=== PATIENT | female | born 1945 | race Caucasian/White ===

== ENCOUNTER 2019-08-26 12:30 | Outpatient (CLI) | payer MEDICARE, SELFPAY ==
--- NOTE | ~2019-08-26 | XR_ITS ---
XR hand LT min 3V DATE: 08/26/2019 13:15 INDICATION: Painful nodules at base of fifth metacarpal TECHNIQUE: 3 views COMPARISON: None FINDINGS: There is polyarticular osteoarthritis involving particularly the first and third metacarpop halangeal joints and distal interphalangeal joints of the fourth and fifth digits, with multiple othe r interphalangeal joints involved to a lesser extent. There is mild osteophyte is at the triscaphe an d first carpometacarpal joints. There are soft tissue calcifications at the medial aspect of the proximal row of carpal bones. Diffuse osteopenia. No fracture or dislocation, periosteal reaction or bone destruction or erosive change is noted. IMPRESSION: Polyarticular osteoarthritis Reviewed, dictated and finalized at location B. T CAN ROUTER
== END 2019-08-26 12:31 | disposition home or self-care (01) ==
PROVIDERS: PCP Physician Assistant
DX: M19.041 Primary osteoarthritis, right hand (principal)
CPT/HCPCS: 73130

== ENCOUNTER 2022-10-17 14:25 | Outpatient (CLI) | payer MEDICARE, SELFPAY ==
[2022-10-17 15:47] LABS: Basophils Percent Auto 0.5 % (0.2-1.2); Eosinophils Absolute Auto 0.1 K/mm3 (0-0.3); Eosinophils Percent Auto 2.5 % (0-4.4); Hematocrit 30.9 % (37.0-47.0); Hemoglobin 9.1 g/dL (12.0-15.0); Immature Granulocyte Absolute 0.01 K/mm3 (0.00-0.031); Immature Granulocyte Percent A 0.2 % (0-0.5); Immature Platelet Fraction Pct 5.1 % (0.9-11.2); Lymphocytes Absolute Auto 1.13 K/mm3 (0.9-3.2); Lymphocytes Percent Auto 25.7 % (18.3-44.2); Mean Corpuscular HGB Conc 29.4 g/dl (32-36); Mean Corpuscular Hemoglobin 24.3 pg (26-34); Mean Corpuscular Volume 82.4 fl (80-100); Mean Platelet Volume 10.8 fl (7.4-10.4); Monocytes Absolute Auto 0.5 K/mm3 (0.1-0.6); Monocytes Percent Auto 12.3 % (2.6-8.5); Neutrophils Absolute Auto 2.6 K/mm3 (1.3-6.7); Neutrophils Percent Auto 58.8 % (45.5-73.1); Platelet Count Result 64 k/mm3 (150-375); Red Blood Count 3.75 M/mm3 (4.2-5.4); Red Cell Distribution Width 17.6 % (11.5-14.5); White Blood Count 4.4 K/mm3 (4.5-10.0)
[2022-10-17 15:55] LABS: Alanine Aminotransferase 26 U/L (6-35); Albumin Level 3.9 g/dL (3.5-5.1); Alkaline Phosphatase 101 U/L (38-126); Anion Gap 6 mmol/L (8-16); Aspartate Amino Transferase 49 U/L (14-36); Bilirubin,Total 1.3 mg/dL (0.2-1.3); Blood Urea Nitrogen 18 mg/dL (7-17); Calcium 8.4 mg/dL (8.4-10.2); Carbon Dioxide 25 mmol/L (22-30); Chloride 108 mmol/L (98-107); Cholesterol 163 mg/dL (0-200); Estimated Glomerular Filt Rate 48; Glucose 80 mg/dL (65-110); HDL Direct 90 mg/dL; Potassium 4.4 mmol/L (3.4-5.0); Sodium 139 mmol/L (137-145); Triglycerides 69 mg/dL (<150)
[2022-10-17 16:06] LABS: LDL Cholesterol Direct 52 mg/dL
[2022-10-17 16:17] LABS: Anisocytosis 1+ (NORMAL); Hypochromasia 1+ (NORMAL); Ovalocytes 1+ (NORMAL); Platelet Estimate Decreased (Adequate)
[2022-10-17 16:18] LABS: Schistocytes None Seen (NORMAL)
[2022-10-17 16:39] LABS: Thyroid Stimulating Hormone Reflex 0.858 uIU/mL (0.465-4.68)
[2022-10-20 04:28] LABS: Triiodothyronine T3 Free 3.1 pg/mL (2.3-4.2)
== END 2022-10-17 14:26 | disposition home or self-care (01) ==
PROVIDERS: PCP Physician Assistant; Visit Provider Physician Assistant
DX: E78.5 Hyperlipidemia, unspecified (principal); D69.6 Thrombocytopenia, unspecified; E53.8 Deficiency of other specified B group vitamins; Z79.899 Other long term (current) drug therapy
CPT/HCPCS: 36415; 80048; 80061; 80076; 82607; 84439; 84443; 84481; 85025; 85055

== ENCOUNTER 2022-10-19 14:27 | Outpatient (CLI) | payer MEDICARE, SELFPAY ==
--- NOTE | ~2022-10-19 | US_ITS ---
EXAMINATION: US pelvic complete DATE: 10/19/2022 15:40 INDICATION: Postmenopausal bleeding TECHNIQUE: Multiple transabdominal sonographic images of the pelvis were obtained. Patient was unable to tolerate transvaginal ultrasound. COMPARISON: None. FINDINGS: The uterus measures 4.2 x 4.0 x 2.0 cm. The endometrial complex is not identified. The ovar ies are not visualized however no adnexal abnormality is seen. There is no free fluid in the pelvis. IMPRESSION: 1. Limited examination, endometrial complex not identified due to inability to tolerate transvaginal imaging. Reviewed, dictated and finalized at location F.
== END 2022-10-19 14:28 | disposition home or self-care (01) ==
PROVIDERS: PCP Physician Assistant; Visit Provider Physician Assistant
DX: N95.0 Postmenopausal bleeding (principal)
CPT/HCPCS: 76856

== ENCOUNTER 2023-02-08 11:33 | Outpatient (CLI) | payer MEDICARE, SELFPAY ==
--- NOTE | ~2023-02-08 | XR_ITS ---
Right elbow Technique: AP, oblique, and lateral views were obtained. Clinical History: Pain Findings: No acute fracture or dislocation is seen. Osseous alignment is anatomic. There is moderate to severe degenerative change throughout the elbow. Probable small intra-articular loose bodies/debri s. Probable joint effusion with elevation of the anterior fat pad. 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 Reviewed, dictated and finalized at location M. Impression: Moderate to severe osteoarthritis throughout the elbow with associated joint ef fusion and probable small intra-articular loose bodies/debris.
== END 2023-02-08 11:34 | disposition home or self-care (01) ==
PROVIDERS: PCP Physician Assistant; Visit Provider Physician Assistant
DX: M19.021 Primary osteoarthritis, right elbow (principal)
CPT/HCPCS: 73080

== ENCOUNTER 2023-02-27 12:08 | Outpatient (CLI) | payer MEDICARE, SELFPAY ==
[2023-02-27 13:11] LABS: Basophils Percent Auto 0.5 % (0.2-1.2); Eosinophils Absolute Auto 0.1 K/mm3 (0-0.3); Hematocrit 31.4 % (37.0-47.0); Hemoglobin 9.2 g/dL (12.0-15.0); Lymphocytes Absolute Auto 1.06 K/mm3 (0.9-3.2); Lymphocytes Percent Auto 26.9 % (18.3-44.2); Mean Corpuscular HGB Conc 29.3 g/dl (32-36); Mean Corpuscular Hemoglobin 23.4 pg (26-34); Mean Corpuscular Volume 79.7 fl (80-100); Mean Platelet Volume 10.4 fl (7.4-10.4); Monocytes Absolute Auto 0.4 K/mm3 (0.1-0.6); Monocytes Percent Auto 10.7 % (2.6-8.5); Neutrophils Absolute Auto 2.4 K/mm3 (1.3-6.7); Neutrophils Percent Auto 59.9 % (45.5-73.1); Platelet Count Result 69 k/mm3 (150-375); Red Blood Count 3.94 M/mm3 (4.2-5.4); Red Cell Distribution Width 17.2 % (11.5-14.5); White Blood Count 3.9 K/mm3 (4.5-10.0)
[2023-02-27 13:20] LABS: Alanine Aminotransferase 24 U/L (6-35); Albumin Level 4.1 g/dL (3.5-5.1); Alkaline Phosphatase 112 U/L (38-126); Anion Gap 5 mmol/L (8-16); Aspartate Amino Transferase 39 U/L (14-36); Bilirubin,Total 1.1 mg/dL (0.2-1.3); Blood Urea Nitrogen 20 mg/dL (7-17); Calcium 8.5 mg/dL (8.4-10.2); Carbon Dioxide 28 mmol/L (22-30); Chloride 103 mmol/L (98-107); Cholesterol 215 mg/dL (0-200); Estimated Glomerular Filt Rate 40; Glucose 90 mg/dL (65-110); HDL Direct 89 mg/dL; Potassium 4.8 mmol/L (3.4-5.0); Sodium 136 mmol/L (137-145); Triglycerides 85 mg/dL (<150)
[2023-02-27 13:21] LABS: Iron 47 ug/dL (37-170)
[2023-02-27 13:37] LABS: Percent Iron Saturation 13 % (20-50)
[2023-02-27 13:37] LABS: Anisocytosis 2+ (NORMAL); Hypochromasia 1+ (NORMAL); Ovalocytes 1+ (NORMAL); Platelet Estimate Decreased (Adequate); Schistocytes Rare (NORMAL)
[2023-02-27 13:38] LABS: LDL Cholesterol Direct 94 mg/dL
[2023-02-27 13:45] LABS: Free T4 Free Thyroxine 0.96 ng/mL (0.78-2.19)
[2023-02-27 14:34] LABS: Folic Acid 13.3 ng/mL (2.76->20)
== END 2023-02-27 12:09 | disposition home or self-care (01) ==
LOC: ANHLAB 12:12
PROVIDERS: PCP Physician Assistant; Visit Provider Physician Assistant
DX: D64.9 Anemia, unspecified (principal); E78.5 Hyperlipidemia, unspecified; Z79.899 Other long term (current) drug therapy
CPT/HCPCS: 36415; 80048; 80061; 80076; 82607; 82746; 83540; 83550; 84439; 84443; 85025; 85055

== ENCOUNTER 2023-08-04 06:36 | Outpatient (CLI) | payer MEDICARE, SELFPAY ==
--- NOTE | ~2023-08-04 | MR_ITS ---
MRI of the lumbar spine Clinical History: Pain Technique: Axial T2-weighted images, and sagittal T1-weighted, T2-weighted, and STIR images were acqu ired. Findings: There is chronic compression deformity of T12, moderate loss of height but no marrow edema. There is 6 mm retrolisthesis of T12 over L1. There is 7 mm retrolisthesis of L2 over L3. There is po sterior and interbody fusion from L4 through L5, with bilateral rods, transpedicular screws present, as well as disc fusion devices at the L4-L5 and L5-S1 disc spaces. There are probable laminectomy def ects of L4 and L5. At T12-L1, there is moderate to advanced degenerative disc narrowing. There is advanced facet arthrop athy. Retropulsion contiguous to moderate bilateral neural foraminal narrowing. No central canal sten osis. At L1-L2, there is disc extrusion extending inferiorly in the left paracentral region, probably impin ging the descending left-sided L2-L3 nerve root. No jesus canal stenosis at the L1-L2 level. There is moderate bilateral neural foraminal narrowing. At L2-L3, there is severe degenerative disc narrowing. There is severe facet arthropathy. There is mi nimal central canal stenosis. There is severe bilateral neural foraminal narrowing. At L3-L4, there is severe degenerative disc change with severe facet arthropathy, and severe central canal stenosis/thecal sac compression. There is severe bilateral neural foraminal narrowing. At L4-L5, there is minimal disc bulge. No central canal stenosis. Neural foramina are preserved. At L5-S1, there is no disc bulge or herniation. No central canal stenosis or neural foraminal narrowi ng evident. Paravertebral soft tissues are otherwise unremarkable. Impression: Posterior and interbody fusion from L4 through S1, as detailed above. Severe degenerative spondylosis at L3-L4, as well as at L2-L3. Disc extrusion in the left paracentral region at L1-L2, extending inferiorly and probably impinging t he descending left-sided L2-L3 level nerve root. Chronic moderate T12 compression fracture. 6 mm retrolisthesis of T12 over L1. Number is 7 mm retrolisthesis of L2 over L3. Reviewed, dictated and finalized at location M. INE STEAK TENDERIZER Impression: Posterior and interbody fusion from L4 through S1, as detailed above. Severe degenerative spondylosis at L3-L4, as well as at L2-L3. Disc extrusion in the left paracentral region at L1-L2, extending inferiorly an d probably impinging the descending left-sided L2-L3 level nerve root. Chronic moderate T12 compression fracture. 6 mm retrolisthesis of T12 over L1. Number is 7 mm retrolisthesis of L2 over L3 .
--- NOTE | ~2023-08-04 | MR_ITS ---
EXAMINATION: MR MRCP wo/w con/w 3D wo ind DATE: 08/04/2023 08:25 INDICATION: Disorder of the bile duct TECHNIQUE: Magnetic resonance imaging (MRI) of the abdomen was performed without and with intravenous contrast. Sequences included coronal T2-weighted SS-FSE ARC, coronal T2-weighted FS SS-FSE, coronal T2-weighted 2D FS FIESTA, Water:Coronal LAVA-Flex, sagittal T2-weighted SS-FSE ARC, axial SSFSE ARC, axial 3D DualEcho, axial DWI B=600, axial T1-weighted LAVA, FAT:Coronal LAVA-Flex, and coronal in and opposed phase LAVA-Flex. Thick-slab T2-weighted FRFSE-XL images were obtained for magnetic resonance cholangiopancreatography (MRCP). Maximum intensity projection 3-D reconstructions of the volumetric data were created by the technologist. Postcontrast sequences included a time course of axial T1-weig hted LAVA, FAT:Coronal LAVA-Flex, coronal in and opposed phase LAVA-Flex, and Water:Coronal LAVA-Flex . COMPARISON: CT, 08/24/2017 CONTRAST: Multihance, 15 cc FINDINGS: ABDOMEN MRI: There is a moderate-sized sliding hiatal hernia. The heart size is normal. There is a 5 mm cyst of the right hepatic lobe. The spleen, pancreas, and adrenal glands are normal. The kidneys a re unremarkable. Changes of cholecystectomy are noted. There are no pathologically enlarged abdominal lymph nodes. There are no dilated loops of bowel. A chronic compression fracture of T12 is noted. No abnormal enhancement is present after contrast administration. ABDOMEN MRCP: There is chronic mild intrahepatic and extrahepatic biliary dilatation. The common bile duct measures up to 9 mm. There is chronic mild dilatation of the pancreatic duct. No biliary stones or stricture are identified. IMPRESSION: 1. Mild chronic intrahepatic and extrahepatic biliary dilatation mild enlargement of the pancreatic d uct, likely due to post cholecystectomy state. No biliary stones or stricture identified. Reviewed, dictated and finalized at location F. SKEINS EXAMINER IMPRESSION: 1. Mild chronic intrahepatic and extrahepatic biliary dilatation mild enlargeme nt of the pancreatic duct, likely due to post cholecystectomy state. No biliary stones or stricture identified.
== END 2023-08-04 06:37 | disposition home or self-care (01) ==
PROVIDERS: PCP Physician Assistant; Visit Provider Physician Assistant
DX: M48.061 Spinal stenosis, lumbar region without neurogenic claudication (principal); K83.9 Disease of biliary tract, unspecified; M51.26 Other intervertebral disc displacement, lumbar region; M47.896 Other spondylosis, lumbar region; Z98.1 Arthrodesis status
CPT/HCPCS: 72148; 74183; 76376; A9577

== ENCOUNTER 2024-04-04 12:00 | Outpatient (CLI) | payer MEDICARE, SELFPAY ==
--- NOTE | 2024-04-04 14:15 | NEURO_ITS ---
Nerve Conduction Studies: Clinical note: The patient is 78-year-old with history of paresthesias in both hands and fingers and neck pain. On a brief neurological examination no focal muscle wasting or fasciculations were noted in upper limb muscles. Results of the study are as follows. Summary of findings: 1. Left median motor distal latency was moderately prolonged and amplitude was moderate decrease however conduction velocity were normal. Right median motor distal latency and conduction velocity were normal however amplitude is moderately decreased. 2. Left and right ulnar motor distal latencies were normal however amplitudes are more decreased on the right and normal on the left side. Conduction velocity across elbow was moderately decreased on both sides right more than left side. 3. Right median palmar sensory initial is a normal however digital sensory distal latency is mildly prolonged. Amplitudes were within normal limits. Left median palmar and digital sensory distal latencies are moderately prolonged and amplitude of moderately decreased. Left and right ulnar palmar sensory distal latencies were normal however amplitudes were moderately decreased. Bilateral ulnar digital sensory distal latencies were mildly prolonged but amplitudes were significantly decreased. 4. Left and right radial sensory distal latencies were within normal limits however amplitude was mildly decreased on the right and normal on the left side 5. EMG examination was performed where muscles in both upper limbs in C5-T1 distribution examined. No active or chronic denervation changes were seen however mild loss of recruitment was noted in ulnar innervated muscles particularly 1st dorsal interossei on both sides and a flexor digitorum profundus on the right side. Mild decrease to could neuro also noted in the left abductor pollicis brevis. Impression: 1. Moderate left carpal tunnel syndrome . No denervation changes but mild decreased recruitment was noted in the left abductor pollicis brevis. 2. 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 No denervation changes but mild decreased recruitment was noted in ulnar innervated muscles in hand and forearm as shown below. 3. Right radial sensory amplitude was mildly decreased. Also right median digital sensory distal latencies are mildly prolonged. These are considered equivocal abnormalities.. Hence clinical correlation and a future follow-up may be helpful. Thuy Heredia MD. FAAN, FAANEM Neurology & Electrodiagnostic Medicine Motor Nerve Results Latency Amplitude F-Lat Segment Distance CV Comment Site (ms) (mV) (ms) (cm) (m/s) Left Median (APB) Motor Wrist 6.3 3.2 Elbow 10.5 3.1 Elbow-Wrist 205 49 Right Median (APB) Motor Wrist 4.0 3.8 Elbow 7.2 4.2 Elbow-Wrist 205 64 Left Ulnar (ADM) Motor Wrist 2.8 6.9 Bel Elbow 6.5 6.1 Bel Elbow-Wrist 175 47 Abv Elbow 8.7 5.3 Abv Elbow-Bel Elbow 80 36 Right Ulnar (ADM) Motor Wrist 3.3 4.9 Bel Elbow 7.2 3.9 Bel Elbow-Wrist 175 45 Abv Elbow 9.7 3.8 Abv Elbow-Bel Elbow 70 28 Sensory Nerve Results Latency (Peak) Amplitude (P-P) Segment Distance CV Comment Site (ms) (?V) (cm) (m/s) Left Median DigIII Sensory Wrist-Dig III 5.1 32 Right Median DigIII Sensory Wrist-Dig III 3.8 17 Left Median-Ulnar Palmar Sensory Median Palm-Wrist 3.2 29 Palm-Wrist 80 25 Ulnar Palm-Wrist 2.2 9 Palm-Wrist 80 36 Right Median-Ulnar Palmar Sensory Median Palm-Wrist 2.0 30 Palm-Wrist 80 40 Ulnar Palm-Wris
== END 2024-04-04 12:01 | disposition home or self-care (01) ==
PROVIDERS: PCP Physician Assistant; Visit Provider Neurological Surgery
DX: G56.23 Lesion of ulnar nerve, bilateral upper limbs (principal); G56.02 Carpal tunnel syndrome, left upper limb
CPT/HCPCS: 95886; 95912

== ENCOUNTER 2024-05-02 12:18 | Outpatient (CLI) | payer MEDICARE, SELFPAY ==
--- NOTE | 2024-05-02 15:00 | NEURO_ITS ---
Clinical note: Patient is [age] years old with history of chronic lower back pain and paresthesias and weakness in both lower limbs. She had a surgery in the lumbar spine in the past. No history of diabetes mellitus. On a brief neurological examination no significant focal weakness or fasciculations of the muscles were identified. Please refer to a detailed neurodiagnostic evaluation of lower limbs. Summary of findings: 1. Left and right peroneal motor distal latencies were mildly prolonged however amplitudes are significantly decreased right more than left side. Conduction velocity from fibular head to ankle were mildly decreased on the left and normal on the right side but no focal slowing was seen across the fibular head. 2. Left tibial motor response was absent for the right tibial motor distal latency was normal however amplitudes are significantly decreased. Conduction velocity mildly decreased. 3. Bilateral sural sensory distal latencies were within normal limits however amplitudes were significantly decreased. Right medial plantar sensory was absent. 4. Bilateral H reflexes were absent. 5. EMG exam help performed whereby various muscles were examined in L3-S1 distribution. Paraspinal muscles were not examined since the patient had surgery in this area. No denervation changes but moderate to severe loss of motor unit unit recruitment and changes in unit configuration were noted in bilateral L5-S1 and left L4 distribution as shown below. Impression: 1. 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 Patient had a surgery in the lumbar spine in the past, hence paraspinal muscles are not examined. Radiographic correlation may be helpful. 2. 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 Clinical and etiology correlation are recommended. Thuy Mock MD, FAAN, FAANEM Neurology/ electrodiagnostic Medicine Nerve Conduction Studies Motor Nerve Results Latency Amplitude F-Lat Segment Distance CV Comment Site (ms) (mV) (ms) (cm) (m/s) Left Fibular (EDB) Motor Ankle 5.5 0.86 Bel Fib Head 13.4 0.66 Bel Fib Head-Ankle 270 34 Pop Fossa 14.8 0.71 Pop Fossa-Bel Fib Head 70 50 Right Fibular (EDB) Motor Ankle 5.9 0.25 Bel Fib Head 11.9 0.25 Bel Fib Head-Ankle 250 42 Pop Fossa 13.9 0.27 Pop Fossa-Bel Fib Head 95 48 Left Tibial (AHB) Motor Ankle NR NR Knee NR NR Knee-Ankle 400 NR Right Tibial (AHB) Motor Ankle 4.2 1.02 Knee 14.8 0.61 Knee-Ankle 370 35 Sensory Nerve Results Latency (Peak) Amplitude (P-P) Segment Distance CV Comment Site (ms) (?V) (cm) (m/s) Right Medial Plantar (Ortho) Sensory Great Toe-Med Mall NR NR Great Toe-Med Mall 120 NR Left Sural Sensory Calf-Lat Mall 3.7 2 Calf-Lat Mall 120 32 Right Sural Sensory Calf-Lat Mall 3.8 4 Calf-Lat Mall 120 32 H-Reflex Results M-Lat H Lat H Peak-Peak Amp M Peak-Peak Amp H-M Lat Site (ms) (ms) mV mV (ms) Left Tibial H-Reflex Pop Fossa - NR - - NR Right Tibial H-Reflex Pop Fossa - NR - - NR Electromyography Side Muscle Nerve Ins Act Fibs Psw Amp Dur Recrt Comment Right BicepsFemS Sciatic Nml Nml Nml Incr >12ms +3 Right Semimembranosus Sciatic Nml Nml Nml Nml Nml +1 Right AntTibialis Dp Br Fibular Nml Nml Nml Nml Nml Nml Right Gastroc Tibial Nml Nml Nml Incr >12ms +4 Right VastusMed Femoral Nml Nml Nml Nml Nml Nml Right RectFemoris Femoral Nml Nml Nml Nml Nml Nml Right GluteusMax InfGluteal Nml N
== END 2024-05-02 12:19 | disposition home or self-care (01) ==
LOC: ANHNEURO 12:20
PROVIDERS: PCP Physician Assistant; Visit Provider Neurological Surgery
DX: G62.9 Polyneuropathy, unspecified (principal)
CPT/HCPCS: 95886; 95910

== ENCOUNTER 2024-08-13 09:38 | Inpatient (IN) | payer MEDICARE, SELFPAY ==
[2024-08-13] VITALS (28 sets, daily range): BP systolic 129–164; BP diastolic 75–83; PULSE 48–76; RESP 10–19; TEMP 36.5–36.7; O2SAT 64–100; BMI 24.0
--- NOTE | 2024-08-13 | ECHO_ITS ---
Patient Info Name: Renetta Carranza Age: 79 years : 1945 Gender: Female Ht: 62 in Wt: 131 lbs BSA: 1.62 m2 HR: 55 bpm BP: 167 / 78 mmHg Heart Rhythm: Sinus Rhythm Technical Quality: Fair Exam Date: 08/13/2024 3:44 PM Exam Location: Echo Lab Patient Status: Inpatient Admit Date: 08/13/2024 Staff Ordering Physician: Trista Gale APRN Community Fundraiser: Miguel Zimmerman RDCS Attending Provider: David Sims MD Referring Physician: Baljinder HERNANDEZ; Exam Type: CA echo dop bubble study w con Study Info Indications - STROKE Complete two-dimentional, color flow and Doppler transthoracic echocardiogram is performed with agitated saline and with contrast to opacify the left ventricle and to improve the delineation of the left ventricle endocardial borders. Contrast/Agitated Saline Contrast/Ag. Saline: Agitated Saline Amount: 20.00 ml Existing IV Access: Yes Contrast/Ag. Saline: Definity Amount: 2.00 ml Existing IV Access: Yes Summary 1. Normal left ventricular size, abnormal septal motion because of bundle branch block with normal systolic function. 2. Left atrial enlargement. 3. Sclerotic aortic valve with mild aortic regurgitation. 4. Saline contrast injection negative for intracardiac shunt. Left Ventricle Left ventricular chamber dimension is normal. Left ventricular systolic function is normal, estimated at Empty. Left ventricular septal wall motion is abnormal with septal motion related to bundle branch block. The left ventricular diastolic function is grade I diastolic dysfunction. Right Ventricle Right ventricular chamber dimension is normal. Left Atria Left atrial chamber dimension is mildly enlarged. Right Atria Right atrial chamber dimension is normal. Atrial Septum Intact interatrial septum visualized by agitated saline imaging. Aortic Valve The aortic valve is trileaflet. There is mild aortic valve sclerosis. There is mild aortic valve regurgitation. Pulmonic Valve The pulmonic valve is normal. Mitral Valve The mitral valve has normal leaflets. Tricuspid Valve The tricuspid valve leaflets are normal. Pericardium/Pleural The pericardium appears normal. Aorta The aortic root size at the sinus of Valsalva is normal. Left Ventricular Outflow Tract Name Value Normal LVOT 2D LVOT Diameter 2.0 cm LVOT Doppler LVOT Peak Velocity 117 cm/s LVOT Peak Gradient 6 mmHg LVOT Mean Gradient 3 mmHg LVOT VTI 25 cm LVOT VTI/AV VTI Ratio 0.4 LVOT Stroke Volume 80 ml LVOT CO 5.0 l/min LVOT CI 3.1 l/min/m2 Pulmonic Valve Name Value Normal RVOT Doppler RVOT Peak Gradient 2 mmHg PV Doppler PV Peak Velocity 81 cm/s PV Peak Gradient 3 mmHg Mitral Valve Name Value Normal MV Doppler MV Peak Gradient 7 mmHg MV Mean Gradient 3 mmHg MV Decel [place] 341 cm/s2 MV PHT 53 ms MV Area (PHT) 4.1 cm2 4.0-5.0 MV Area (Cont Eq VTI) 2.7 cm2 MV Diastolic Function MV E Peak Velocity 63 cm/s MV A Peak Velocity 117 cm/s MV E/A 0.5 MV Decel Time 184 ms MV Annular TDI MV Septal e' Velocity 3.7 cm/s >=8.0 MV E/e' (Septal) 16.7 <=8.0 MV Lateral e' Velocity 6.2 cm/s >=10.0 MV E/e' (Lateral) 10.1 <=8.0 MV e' Average 4.98 MV E/e' (Average) 13.4 Tricuspid Valve Name Value Normal Estimated PAP/RSVP RA Pressure 10 mmHg <=5 TV Annular TDI TV Lateral Judy s' Velocity 7.9 cm/s 9.5-18.7 Aorta Name Value Normal Ascending Aorta Ao Root Diameter (MM) 3.0 cm Ao Root Diam Index (MM) 1.9 cm/m2 Ao [place] Diameter 1.7 cm 2.3-2.9 Aortic Valve Name Value Normal AV Doppler AV Peak Velocity 319 cm/s AV Peak Gradient 41 mmHg AV Mean Gradient 22 mmHg AV VTI 67 cm AV Area (Cont Eq VTI) 1.2 cm2 >=3.0 AV Area (Cont Eq Carlos) 1.2 cm2 AV V1/V2 Ratio 0.37 AV Regurgitation 2D LVOT Area 3.1 cm2 AV Regurgitation Doppler AR Decel Time 1,169 ms AR Decel [place] 436 cm/s2 AR PHT 339 ms Ventricles Name Value Normal LV Dimensions 2D/MM IVS Diastolic Thickness (2D) 1.4 cm 0.6-1.0 LVID Diastole (2D) 4.4 cm 3.8-5.2 LVIW Diastolic Thickness (2D) 0.8 cm 0.6-0.9 LVID Systole (2D) 2.5 cm 2.2-3.5 LVOT Diameter 2.0 cm LV Mass (2D Cubed) 163.49 g 67.00-162.00 LV Mass Index (2D Cubed) 101 g/m2 43-95 Relative Wall Thickness (2D) 0.37 LV Fractional Shortening/Ejection Fraction 2D/MM LV Fractional Shortening (2D) 41 % 27-45 LV EF (2D Teicholz) 72 % 54-74 LV Diastolic Volume (4C MOD) 71 ml LV EF (4C MOD) 69 % LV Diastolic Volume (2C MOD) 77 ml LV EF (2C MOD) 66 % LV Diastolic Volume (BP MOD) 75 ml 46-106 LV Diastolic Volume Index (BP MOD) 46 ml/m2 29-61 LV Systolic Volume (BP MOD) 25 ml 14-42 LV Systolic Volume Index (BP MOD) 15 ml/m2 8-24 LV EF (BP MOD) 67 % 54-74 LV Diastolic Length (4C) 7.0 cm LV Systolic Length (4C) 6.0 cm LV Stroke Volume (4C MOD) 49 ml Atria Name Value Normal LA Dimensions LA Dimension (MM) 4.9 cm 2.7-3.8 LA Volume (4C A-L) 47 ml LA Volume (BP A-L) 51 ml RA Dimensions RA Area (4C) 13.5 cm2 <=18.0 Report Signatures
--- NOTE | ~2024-08-13 | CT_ITS ---
EXAMINATION: CT brain wo con DATE: 08/13/2024 11:35 INDICATION: Altered mental status TECHNIQUE: Computed tomography (CT) of the head was performed without intravenous contrast. Sagittal and coronal reconstructions were performed. The mA was adjusted according to patient size. Iterative reconstruction technique was employed. The dose-length product was 605.33 mGy-cm. COMPARISON: head CT dated 09/06/2017 FINDINGS: There are new regions of likely cytotoxic edema with loss of blackmon-white matter differentiation at the bilateral occipital lobes without definitive volume loss, right greater than left, which are suspici ous for age indeterminate, potentially acute to subacute infarcts. Additional age-indeterminate lacun ar infarcts in the bilateral cerebral hemispheres, 3 on the right and 2 on the left. No acute intracr anial hemorrhage or abnormal extra axial fluid collection. Unchanged old lacunar infarct of the left basal ganglia including the anterior limb of the internal capsule. Interval progression of moderate t o severe scattered white matter hypoattenuation consistent with chronic small vessel ischemic disease . Symmetric prominence of the sulci and ventricles consistent with mild moderate age-appropriate diff use cerebral volume loss. No mass/mass effect. Changes of bilateral intraocular lens replacement. The orbits, paranasal sinuses and mastoid air cells are normal. . IMPRESSION: 1. Age-indeterminate potentially acute to subacute infarcts in the posterior basilar circulation invo lving the bilateral occipital lobes and bilateral cerebellar hemispheres which are new since the prio r study. 2. Interval progression of age-related changes including mild to moderate diffuse volume loss and mod erate to severe scattered white matter hypoattenuation consistent with chronic small vessel ischemic disease. 3. Unchanged small old lacunar infarct at the left basal ganglia which includes the anterior limb of the left internal capsule. Reviewed, dictated and finalized at location A. OPTICAL ELEMENT MAKER IMPRESSION: 1. Age-indeterminate potentially acute to subacute infarcts in the posterior ba silar circulation involving the bilateral occipital lobes and bilateral cerebel lar hemispheres which are new since the prior study. 2. Interval progression of age-related changes including mild to moderate diffu se volume loss and moderate to severe scattered white matter hypoattenuation co nsistent with chronic small vessel ischemic disease. 3. Unchanged small old lacunar infarct at the left basal ganglia which includes the anterior limb of the left internal capsule.
--- NOTE | ~2024-08-13 | CT_ITS ---
EXAMINATION: CTA brain carotid DATE: 08/13/2024 12:44 INDICATION: Cerebrovascular accident. Altered mental status. TECHNIQUE: Computed tomographic angiography (CTA) of the head was performed with 100 mL Omnipaque-350 intravenous contrast. CTA of the neck was performed with intravenous contrast. Automated exposure co ntrol and iterative reconstruction technique were employed. The dose-length product was 944.37 mGy-cm . Maximum intensity projection and volume rendered 3D-reconstructions were created by the [employer] t on a separate workstation. COMPARISON: Head CT 08/13/2024, 09/06/2017, CT cervical spine 09/06/2017 FINDINGS: HEAD CTA: There are infarcts in the cerebellum bilaterally. There are infarcts in the occipital lobes bilaterally. There is an old infarct in the left basal ganglia and anterior limb left internal capsu le. There are scattered areas of low attenuation in the cerebral white matter. There is no intracrani al hemorrhage or abnormal mass lesion. The ventricles are normal in size. There are likely changes of ocular lens replacement surgeries. The paranasal sinuses are clear. The mastoid air cells are normal . Right vertebral artery is dominant. There is no significant stenosis of basilar artery or the poste rior cerebral arteries. There is moderate stenosis of petrous left internal carotid artery. There is a 2 mm infundibulum at the origin of left posterior commuting artery. Right posterior communicating a rtery is normal. There is no significant stenosis of the anterior or middle cerebral arteries. Left A 1 anterior cerebral artery segment is small, a normal variant. There is no aneurysm. NECK CTA: There are no pathologically enlarged lymph nodes. There is no significant stenosis of the v ertebral arteries. There is plaque in the proximal internal carotid arteries. There is 0% stenosis of the proximal right internal carotid artery relative to normal distal artery lumen diameter (NASCET c riteria). There is 0% stenosis of the proximal left internal carotid artery relative to normal distal artery lumen diameter. There is severe cervical and thoracic spondylosis. There is a chronic fractur e of the base of the dens. The dens demonstrates 4 mm anterior displacement respect to the C2 body. IMPRESSION: 1. Infarcts in the bilateral occipital lobes, likely acute or subacute. 2. Age-indeterminate infarcts in the cerebellum bilaterally. 3. Old infarct in the left basal ganglia and anterior limb left internal capsule. 4. Extensive nonspecific cerebral white matter disease, which likely represents chronic small vessel ischemic disease. 5. 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 6. 0% stenosis of the proximal internal carotid arteries relative to normal distal artery lumen diame ters (NASCET criteria). 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 Reviewed, dictated and finalized at location B. LE MAKER IMPRESSION: 1. Infarcts in the bilateral occipital lobes, likely acute or subacute. 2. Age-indeterminate infarcts in the cerebellum bilaterally. 3. Old infarct in the left basal ganglia and anterior limb left internal capsul e. 4. Extensive nonspecific cerebral white matter disease, which likely represents chronic small vessel ischemic disease. 5. 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 6. 0% stenosis of the proximal internal carotid arteries relative to normal dis faustino artery lumen diameters (NASCET criteria). 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
--- NOTE | ~2024-08-13 | CT_ITS ---
History: Stroke, infection abscess PROCEDURE: CT head without contrast. COMPARISON: 08/13/2024 TECHNIQUE: Axial imaging of the head performed from the skull base to the vertex without IV contrast. Sagittal a nd coronal reformations obtained. DLP: 681 mGy-cm FINDINGS: The ventricles are enlarged. The dilatation of the ventricles is proportional to the degree of sulcal prominence, not uncommon in the senescent brain. Decreased attenuation is identified within the periventricular white matter, likely secondary to micr ovascular ischemic disease, in a patient of this age. Redemonstration of multiple areas of decreased attenuation within the bilateral occipital lobes, bila teral cerebellar hemispheres and left basal ganglia, consistent with prior/subacute cerebral infarcti on. There is no mass, mass effect or midline shift. There is no abnormal extra-axial fluid collection or intracranial hemorrhage. Visualized paranasal sinuses are clear. The mastoid air cells are well aerated. No acute displaced fractures within the overlying cranium. Impression: No acute intracranial hemorrhage or suspicious mass effect. Further evolution of subacute cerebral infarctions, as detailed above. Reviewed, dictated and finalized at location A. CHUTE CROWN SEWER Impression: No acute intracranial hemorrhage or suspicious mass effect. Further evolution of subacute cerebral infarctions, as detailed above.
--- NOTE | ~2024-08-13 | XR_ITS ---
CHEST RADIOGRAPH CLINICAL HISTORY: INCREASED SWEATING . COMPARISON: 08/13/2024 TECHNIQUE: Single portable view of the chest. FINDINGS Hiatal hernia with an air-fluid level. The remainder of the cardiomediastinal silhouette is otherwise unremarkable. The lungs are clear. Visualized osseous structures and soft tissues are unremarkable. IMPRESSION: No focal infiltrate or effusion. No plain radiographic evidence to suggest the presence of a Pancoast tumor as is suggested in this pa tient's history. Reviewed, dictated and finalized at location A. MILL OPERATOR IMPRESSION: No focal infiltrate or effusion. No plain radiographic evidence to suggest the presence of a Pancoast tumor as i s suggested in this patient's history.
--- NOTE | ~2024-08-13 | CT_ITS ---
CLINICAL INDICATION: 79-year-old woman with a history of myelodysplastic syndrome presents with worse grey thrombocytopenia for which sepsis is suspected clinically. Cross-sectional imaging is to evaluat e for a possible source. COMPARISON: Reference is made to an abdominal ultrasound examination performed 6 hours earlier. TECHNIQUE: Multiple contiguous axial images of the chest, abdomen and pelvis were performed without t he administration of intravenous contrast The dose-length product (DLP) was 605.32 mGy-cm. Automated exposure control and iterative reconstruction technique were employed. FINDINGS/OBSERVATIONS: Chest: Coarse interstitial lung markings are redemonstrated. Dependent atelectasis with trace left-sided pleural effusion. The heart is enlarged, with a small pericardial effusion. Moderate hiatal hernia is present. Postoperative change within the upper abdomen, possibly a gastric sleeve with the staple lines extend ing into the chest (with the hiatal hernia). Liver: The liver demonstrates homogeneous attenuation and is not enlarged measuring 16 cm in longitudinal di mension. Gallbladder and biliary system: The gallbladder is surgically absent. Pancreas: Limited evaluation of the pancreas secondary to the lack of intravenous contrast. Spleen: The spleen demonstrates homogeneous attenuation and is not enlarged measuring 7 cm in longitudinal di mension. Kidneys: The bilateral kidneys are unremarkable, without hydronephrosis or renal calculi. Adrenal glands: Unremarkable. Gastrointestinal tract: Multiple loops of dilated small bowel are identified within the deep pelvis, with air-fluid levels. I nfiltration of the mesenteric fat in this location is also noted, with surrounding inflammatory fitch e. The small bowel loops appear to be tethered within the pelvis. Air, however, is seen within the colon, suggesting only a partial obstruction. Appendix: The appendix is not definitively visualized. However, no pericecal inflammatory change is identified suggest the presence of acute appendicitis. Vasculature: Calcified atherosclerotic disease. The inferior vena cava is slit like, suggesting severe hypovolemia Lymph nodes: Limited evaluation without intravenous contrast. Pelvic structures: The bladder is decompressed with a Hassan catheter The uterus is atrophic, anteverted and anteflexed, and contains multiple calcifications suggesting pr ior fibroid disease. Body wall and musculoskeletal: Fixation hardware within the lower lumbar spine. Significant degenerative disease is also noted, with osteophyte formation and disc space narrowing, endplate changes and vacuum phenomena. IMPRESSION: Findings within the deep pelvis suggesting a partial small bowel obstruction (as detailed above). Additional findings suggesting severe hypovolemia given the appearance of the IVC. Innumerable nonacute findings, as detailed above. Reviewed, dictated and finalized at location A. ATED BALL MOLDER IMPRESSION: Findings within the deep pelvis suggesting a partial small bowel obstruction (a s detailed above). Additional findings suggesting severe hypovolemia given the appearance of the I VC. Innumerable nonacute findings, as detailed above.
--- NOTE | ~2024-08-13 | XR_ITS ---
EXAMINATION: XR chest 1V portable DATE: 08/13/2024 13:51 INDICATION: Confusion. TECHNIQUE: A single frontal view of the chest was obtained. COMPARISON: Chest 2 views 08/24/2017 FINDINGS: There is no pneumonia, pleural effusion, or pneumothorax. The heart size is normal. There i s a total right shoulder arthroplasty. IMPRESSION: 1. No acute cardiopulmonary disease. Reviewed, dictated and finalized at location B. [employer]
--- NOTE | ~2024-08-13 | US_ITS ---
EXAM: ABDOMEN ULTRASOUND HISTORY: Pancytopenia, rule out and splenomegaly COMPARISON: None FINDINGS: LIVER: The liver is increased in echogenicity and unremarkable in size. The portal vein is patent demonstrating hepatopedal flow. GALLBLADDER: Surgically absent BILE DUCTS: Common bile duct measures 9.6mm. PANCREAS: Limited evaluation of the pancreas secondary to overlying bowel gas SPLEEN: The spleen is unremarkable in echogenicity and size measuring 11cm in longitudinal dimension. RIGHT KIDNEY: 9 cm. In length. No hydronephrosis or bulky renal calculi. LEFT KIDNEY: 10cm in length. No hydronephrosis or renal calculi. VASCULATURE : The abdominal aorta is nonaneurysmal. The IVC is patent. IMPRESSION: No splenomegaly, as detailed above. Reviewed, dictated and finalized at location A. ING STITCH REMOVER
--- NOTE | 2024-08-13 09:56 | ECG_ITS ---
Test Date: 2024-08-13 10:09:33 Measurements Intervals [place] Rate: 62 P: 45 NV: 182 QRS: -21 QRSD: 128 T: 59 QT: 447 QTc: 457 Interpretive Statements SINUS RHYTHM LEFT BUNDLE BRANCH BLOCK [120+ ms QRS DURATION, 80+ ms Q/S IN V1/V2, 85+ ms R IN I/aVL/V5/V6] No previous ECG available for comparison Electronically Signed On 08-13-2024 10:52:34 RN MEDICAL SURGICAL by Etienne Waters M.D.
[2024-08-13 10:15] LABS: Hematocrit 34.2 % (37.0-47.0); Hemoglobin 10.9 g/dL (12.0-15.0); Immature Platelet Fraction Pct 4.1 % (0.9-11.2); Mean Corpuscular HGB Conc 31.9 g/dl (32-36); Mean Corpuscular Hemoglobin 29.7 pg (26-34); Mean Corpuscular Volume 93.2 fl (80-100); Mean Platelet Volume 11.6 fl (7.4-10.4); Platelet Count Result 39 k/mm3 (150-375); Red Blood Count 3.67 M/mm3 (4.2-5.4); Red Cell Distribution Width 13.8 % (11.5-14.5); White Blood Count 3.4 K/mm3 (4.5-10.0)
[2024-08-13 10:24] LABS: Alanine Aminotransferase 19 U/L (6-35); Albumin Level 3.7 g/dL (3.5-5.1); Alkaline Phosphatase 97 U/L (38-126); Anion Gap 3 mmol/L (4-12); Aspartate Amino Transferase 42 U/L (14-36); Bilirubin,Total 1.3 mg/dL (0.2-1.3); Blood Urea Nitrogen 16 mg/dL (7-17); Calcium 8.4 mg/dL (8.4-10.2); Carbon Dioxide 30 mmol/L (22-30); Chloride 108 mmol/L (98-107); Estimated CRCL calculation 34 ml/min; Estimated Glomerular Filt Rate 58; Glucose 87 mg/dL (65-110); Potassium 3.8 mmol/L (3.4-5.0); Sodium 141 mmol/L (137-145)
[2024-08-13 10:26] LABS: Add Urine Microscopic? YES; Appearance Urine Clear (Clear); Bacteria Urine None Seen /hpf; Bilirubin Urine Negative (Negative); Blood Urine Negative (Negative); Color Urine Dark Yellow (Yellow); Glucose Urine UA Negative (Negative); INR 1.2; Ketones Urine 1+ mg/dL (Negative); Leukocyte Esterase Ur Trace LEU/UL (Negative); Mucus Urine Present /lpf; Need Manual Microscopic Reviewed; Nitrate Urine Negative (Negative); Non Pathogenic Casts 0-2; Partial Thromboplastin Time 24.9 Seconds (22.3-36.8); Protein Urine Trace mg/dL (Negative); Prothrombin Time 15.1 Seconds (11.1-14.7); RBC Urine 0-2 /hpf (0-2); Squamous Epithelial Cell Urine Occasional /hpf (Few); WBC Urine 0-5 /hpf (0-3)
--- NOTE | 2024-08-13 10:33 | PC.NURSE ---
Pt daughter at bedside, crying stating I feel like a failure, because she is getting too much for me to take care of . Care coordination notified
[2024-08-13 10:44] LABS: Eosinophils Percent Manual 3 % (0-4); Lymphocytes Absolute Manual 0.44 K/mm3 (1.1-4.5); Monocytes Percent Manual 3 % (3-9); Neutrophils Percent Manual 81 % (46-73); Total Cells Counted 100
[2024-08-13 10:45] LABS: Platelet Estimate Decreased (Adequate); Schistocytes None Seen
--- NOTE | 2024-08-13 11:33 | ED_ITS ---
HPI - General Adult General Chief complaint: Altered Mental Status Stated complaint: AMS Time Seen by Provider: 08/13/24 10:28 History of Present Illness HPI narrative: 79-year-old female presents emergency department for evaluation for worsening dementia. Patient does not have an official diagnosis of dementia but family has noticed that over the last few months patient has had worsening mental status. They do have cameras set up an her home but they states that due to frequent falls and worsening deconditioning patient had been moved to their own home. This has been ongoing for the past 2 weeks. Family states that the patient has been continue have worsening mental status and does have frequent falls and they feel they are unable to properly care for her in this situation. They are looking for assisted living at this time. Patient denies any pain or complaints at this time. Patient is resting comfortably in the bed. Patient states that she has no chest pain. Patient does report some intermittent pain with urination. Related Data Home Medications ?Medication ?Instructions ?Recorded ?Confirmed ?Last Taken ?Type meloxicam 15 mg tablet 15 mg PO DAILY 05/31/21 08/13/24 08/12/24 History metoprolol succinate 25 mg 25 mg PO DAILY 05/31/21 08/13/24 08/12/24 History tablet,extended release 24 hr omeprazole 20 mg capsule,delayed 20 mg PO DAILY 05/31/21 08/13/24 08/12/24 History release pravastatin 10 mg tablet 10 mg PO DAILY 05/31/21 08/13/24 08/12/24 History venlafaxine 75 mg tablet 75 mg PO DAILY 05/31/21 08/13/24 08/12/24 History vitamins A,C,R-bxyy-oeqtop 4,296 1 cap PO BID 12/12/23 08/13/24 08/12/24 History mcg-226 mg-90 mg capsule (PreserVision AREDS) Allergies Allergy/AdvReac Type Severity Reaction Status Date / Time No Known Allergies Allergy Verified 08/13/24 09:53 Review of Systems 2 Review of Systems: All systems reviewed & are unremarkable except as noted in HPI and below PMFSH Past Medical History Medical History (Updated 08/13/24 @ 13:41 by Trista Gale, [employer]) Pancytopenia Neuropathy Lumbar disc herniation Lumbar stenosis Lumbar spondylosis At maximum risk for fall C2 cervical fracture Foot fracture, left Shoulder fracture, right Osteoporosis Anxiety and depression Anemia Bleeding disorder Bruises easily Surgical History Surgical History History of removal of cyst (~1980) from neck History of breast biopsy (R) breast History of 1964 & 1965 History of hernia repair History of back surgery (~2009) History of knee replacement procedure of right knee (~2007) History of knee replacement procedure of left knee (~2008) History of gastric bypass (~2006) History of rotator cuff surgery (~2001) x2 History of cholecystectomy (~1997) History of foot surgery 1992 (R) foot 2014 (L) foot History of ovarian cystectomy (~1971) Family History Family History Mother Lung cancer Father H/O total hip arthroplasty Grandparent Diabetes mellitus paternal grandmother Lung cancer maternal grandmother Social History Social History Smoking status: Former smoker Tobacco type: cigarettes Alcohol intake: never Alcohol use details: socially Substance use: current Substance use type: marijuana Other substance usage details: gummies Do You Feel Safe in your Home?: Yes Lack of Transportation: No Lack of Food: Never True Current Housing: I Have Housing Concerned About Future Housing: No Difficulty Paying Gas/Electric Bills: No Difficulty Paying for Meds: No Currently Unemployed: No Education: High School Diploma/GED Difficulty w/ Childcare or Family Care: YES Living arrangements: alone Occupation/Education: retired Gender identity (if verbalized by the patient): Female Sexual Orientation (if Verbalized by the Patient): Straight or Heterosexual 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 (Tenriism) Exam 2 Narrative: APPEARANCE: Well appearing, no pain, no distress, well-nourished. HEAD: normocephalic, atraumatic. EYES: PERRLA/EOMI, conjunctivae clear. NOSE: Normal no drainage EARS:TMS clear with good light reflex. THROAT: Pharynx clear, no exudate. NECK: Supple. No adenopathy, no masses. RESPIRATORY: Airway patent, respirations nonlabored. Clear to auscultation bilaterally, no rales, rhonchi, wheezing. CARDIOVASCULAR: Regular rate and rhythm without murmurs rubs or gallops. ABDOMINAL: Soft, nontender, nondistended, normal bowel sounds MUSCULOSKELETAL: Moves all extremities. Strength/ROM intact, No edema, No calf tenderness. NEURO: Alert. Cranial nerves II through XII intact. Good gait. Good coordination SKIN: Warm, dry. Normal Color Course Vital Signs Vital signs: Vital Signs Pulse Rate 61 08/13/24 09:46 Respiratory Rate 10 L 08/13/24 09:46 Pulse Oximetry 98 08/13/24 09:46 Temperature 98.0 F 08/13/24 15:30 Pulse Rate 75 08/13/24 15:30 Respiratory Rate 18 08/13/24 15:30 Blood Pressure 134/80 08/13/24 15:30 Pulse Oximetry 97 08/13/24 15:30 Oxygen Delivery Room Air 08/13/24 09:56 Medical Decision Making MDM Narrative Medical decision making narrative: 79-year-old female presented to the emergency department for evaluation for increased altered mental status and gait instability that worsened over the last 48 hours. Family reports the patient did have a CT scan a few days ago that was negative. CTA today does show acute versus subacute infarct. Patient is afebrile with no leukocytosis and hemoglobin of 10.9. INR is 1.2. No acute abnormalities on the CMP UA was negative for infection. I discussed the case with Neurology and they will consult on the patient. I discussed case with hospitalist patient was accepted for admission to [facility]. Care coordination was already placed for potential fdc placement. PT OT will be placed due to the new finding of CVA. Patient and family were updated on the results of the workup. All questions concerns were addressed. Patient was stable at time of admission. Differential Diagnosis Differential Diagnosis: CVA, dementia, UTI, COVID, RSV, influenza, failure to thrive Vital Signs Vital Signs: Vital Signs Pulse Rate 61 08/13/24 09:46 Respiratory Rate 10 L 08/13/24 09:46 Pulse Oximetry 98 08/13/24 09:46 Temperature 98.0 F 08/13/24 15:30 Pulse Rate 75 08/13/24 15:30 Respiratory Rate 18 08/13/24 15:30 Blood Pressure 134/80 08/13/24 15:30 Pulse Oximetry 97 08/13/24 15:30 Oxygen Delivery Room Air 08/13/24 09:56 Lab Data Lab results reviewed: Yes I reviewed the patient's lab results. 08/13/24 10:06 08/13/24 10:06 Labs: Lab Results 08/13/24 Range/Units 10:06 WBC 3.4 L (4.5-10.0) K/mm3 RBC 3.67 L (4.2-5.4) M/mm3 Hgb 10.9 L (12.0-15.0) g/dL Hct 34.2 L (37.0-47.0) % MCV 93.2 (80-100) fl MCH 29.7 (26-34) pg MCHC 31.9 L (32-36) g/dl RDW 13.8 (11.5-14.5) % Plt Count 39 L (150-375) k/mm3 MPV 11.6 H (7.4-10.4) fl Immature Gran % (Auto) Not Reportable Neut % (Auto) Not Reportable Lymph % (Auto) Not Reportable [place] % (Auto) Not Reportable Eos % (Auto) Not Reportable Baso % (Auto) Not Reportable Lymph # (Auto) Not Reportable [place] # (Auto) Not Reportable Eos # (Auto) Not Reportable Baso # (Auto) Not Reportable Abs Immat Gran (auto) Not Reportable Absolute Neuts (auto) Not Reportable Absolute Nucleated RBC Not Reportable Total Counted 100 Neutrophils % (Manual) 81 H (46-73) % Lymphocytes % (Manual) 13.0 L (18-44) % Monocytes % (Manual) 3 (3-9) % Eosinophils % (Manual) 3 (0-4) % Nucleated RBC % Not Reportable Abs Lymphs (Manual) 0.44 L (1.1-4.5) K/mm3 Abs Monocytes (Manual) 0.10 (0.1-0.90) K/mm3 Absolute Eos (Manual) 0.10 (0.02-0.50) K/mm3 Platelet Estimate Decreased (Adequate) % Immature Plt Fraction 4.1 (0.9-11.2) % Schistocytes None seen PT 15.1 H (11.1-14.7) Seconds INR 1.2 APTT 24.9 (22.3-36.8) Seconds Sodium 141 (137-145) mmol/L Potassium 3.8 (3.4-5.0) mmol/L Chloride 108 H (98-107) mmol/L Carbon Dioxide 30 (22-30) mmol/L Anion Gap 3 L (4-12) mmol/L BUN 16 (7-17) mg/dL Creatinine 0.94 (0.7-1.0) mg/dL Estim Creat Clear Calc 34 ml/min Estimated GFR 58 L (59 - ) Glucose 87 (65-110) mg/dL Calcium 8.4 (8.4-10.2) mg/dL Total Bilirubin 1.3 (0.2-1.3) mg/dL AST 42 H (14-36) U/L ALT 19 (6-35) U/L Alkaline Phosphatase 97 (38-126) U/L Total Protein 6.0 L (6.3-8.2) g/dL Albumin 3.7 (3.5-5.1) g/dL Urine Color Dark yellow (Yellow) Urine Appearance Clear (Clear) Urine pH 8.0 (5.0-9.0) Ur Specific [place] 1.020 (1.001-1.035) Urine Protein Trace (Negative) mg/dL Urine Glucose (UA) Negative (Negative) mg/dL Urine Ketones 1+ H (Negative) mg/dL Ur Blood (Man) Negative (Negative) Urine Nitrate Negative (Negative) Urine Bilirubin Negative (Negative) Urine Urobilinogen 2.0 H (<2.0) mg/dL Add Ur Microanalysis Reviewed Leukocyte Esterase Rfl Trace H (Negative) ALLI/UL Urine RBC 0-2 (0-2) /hpf Urine WBC 0-5 (0-3) /hpf Ur Squamous Epith Cells Occasional (Few) /hpf Urine Bacteria None seen /hpf Urine Casts 0-2 Urine Mucus Present /lpf Imaging Data Radiologist's impression: Impressions Head CT 08/13/24 11:38 IMPRESSION: 1. Age-indeterminate potentially acute to subacute infarcts in the posterior basilar circulation involving the bilateral occipital lobes and bilateral cerebellar hemispheres which are new since the prior study. 2. Interval progression of age-related changes including mild to moderate diffuse volume loss and moderate to severe scattered white matter hypoattenuation consistent with chronic small vessel ischemic disease. 3. Unchanged small old lacunar infarct at the left basal ganglia which includes the anterior limb of the left internal capsule. Head/Neck CTA 08/13/24 12:47 IMPRESSION: 1. Infarcts in the bilateral occipital lobes, likely acute or subacute. 2. Age-indeterminate infarcts in the cerebellum bilaterally. 3. Old infarct in the left basal ganglia and anterior limb left internal capsule. 4. Extensive nonspecific cerebral white matter disease, which likely represents chronic small vessel ischemic disease. 5. 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 6. 0% stenosis of the proximal internal carotid arteries relative to normal distal artery lumen diameters (NASCET criteria). 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 Chest X-Ray 08/13/24 13:54 IMPRESSION: 1. No acute cardiopulmonary disease. ECG Data EKG #1: EKG Interpretation: normal rate, sinus rhythm, no ectopy, non-specific ST changes and LBBB Discharge Plan Discharge Clinical Impression: Acute CVA (cerebrovascular accident) Patient Disposition: Still a Patient Condition: Stable
--- NOTE | 2024-08-13 13:13 | PC.NURSE ---
pt ambulated to the bathroom with assistance. patient was dizzy and unsteady on her feet and required multiple people to assist with ambulation.
--- NOTE | 2024-08-13 13:23 | P.HP_ITS ---
H&P: HPI History of Present Illness Date/Time: 08/13/24 13:23 Chief Complaint: Confusion Narrative: 79 y/o F presents here with confusion with PMH of anemia, anxiety, depression, C2 cervical fracture, osteoporosis, and pancytopenia. The patient presents here from home via personal vehicle for further evaluation of confusion/possible worsening dementia. HPI obtained through chart review and patient report. The patient states that she has not been feeling like her normal self for the past week. She reports that her balance has been off. She reports she has been experiencing numbness in both her upper extremities and lower extremities. States the numbness is equal. She also feels like her speech is slightly altered. Denies any associated dysphagia or choking episodes. Endorsing changes in vision. States her vision has been weird and like her peripheral vision (bilaterally) is off. Denies diplopia.She reports recent mechanical fall on Mon (08/07) denies any lingering pain/injury. Patient did hit her head but did not lose consciousness. Denies any urianry symptoms including dysuria, hematuria, or urinary frequency.Patient's family reported concerns that she has been falling more and has been more confused over the last 2 weeks. They voiced concerns that they may not be able to take care of the patient safely at home. Initial VS at presentation: 97.9? F, HR 61, RR 10, 163/75, and 98% on RA. ED workup showed: WBC 3.4, hemoglobin 10.9, platelet count 39, INR 1.2, creatinine 0.94 and GFR 58. UA shows showed 1+ ketones, 2.0 urobilinogen, and trace leuk esterase with occasional epithelial cells. Head CT showed age indeterminate potentially acute subacute infarcts in the posterior basilar circulation involving the bilateral occipital lobes and bilateral cerebral hemispheres which are new since prior study, interval progression of age related changes, and unchanged small old lacunar infarct at the left basal ganglia. CTA head/neck showed infarcts in the bilateral occipital lobes (likely acute or subacute), age-indeterminate infarcts in the cerebellum bilaterally, old infarct in the left basal ganglia and anterior limb left internal capsule, extensive nonspecific cerebral white matter disease, moderate stenosis of the petrous left ICA, 0% stenosis of the proximal ICA, chronic type 2 on done weight fracture with nonunion. Review of Systems Review of Systems: All systems reviewed & are unremarkable except as noted in HPI and below PMFSH Past Medical History Medical History Pancytopenia Neuropathy Lumbar disc herniation Lumbar stenosis Lumbar spondylosis At maximum risk for fall C2 cervical fracture Foot fracture, left Shoulder fracture, right Osteoporosis Anxiety and depression Anemia Bleeding disorder Bruises easily Surgical History Surgical History History of removal of cyst (~1980) from neck History of breast biopsy (R) breast History of 1964 & 1965 History of hernia repair History of back surgery (~2009) History of knee replacement procedure of right knee (~2007) History of knee replacement procedure of left knee (~2008) History of gastric bypass (~2006) History of rotator cuff surgery (~2001) x2 History of cholecystectomy (~1997) History of foot surgery 1991 (R) foot 2014 (L) foot History of ovarian cystectomy (~1971) Family History Family History Mother Lung cancer Father H/O total hip arthroplasty Grandparent Diabetes mellitus paternal grandmother Lung cancer maternal grandmother Social History Social History Smoking status: Former smoker Tobacco type: cigarettes Alcohol intake: never Alcohol use details: socially Substance use: current Substance use type: marijuana Other substance usage details: gummies Do You Feel Safe in your Home?: Yes Lack of Transportation: No Lack of Food: Never True Current Housing: I Have Housing Concerned About Future Housing: No Difficulty Paying Gas/Electric Bills: No Difficulty Paying for Meds: No Currently Unemployed: No Education: High School Diploma/GED Difficulty w/ Childcare or Family Care: YES Living arrangements: alone Occupation/Education: retired Gender identity (if verbalized by the patient): Female Sexual Orientation (if Verbalized by the Patient): Straight or Heterosexual 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 (Scientologist) Meds Home Medications and Allergies Home Medications ?Medication ?Instructions ?Recorded ?Confirmed ?Type meloxicam 15 mg tablet 15 mg PO DAILY 05/31/21 08/13/24 History metoprolol succinate 25 mg 25 mg PO DAILY 05/31/21 08/13/24 History tablet,extended release 24 hr omeprazole 20 mg capsule,delayed 20 mg PO DAILY 05/31/21 08/13/24 History release pravastatin 10 mg tablet 10 mg PO DAILY 05/31/21 08/13/24 History venlafaxine 75 mg tablet 75 mg PO DAILY 05/31/21 08/13/24 History vitamins A,C,J-tcrx-stswtm 4,296 1 cap PO BID 12/12/23 08/13/24 History mcg-226 mg-90 mg capsule (PreserVision AREDS) Allergies Allergy/AdvReac Type Severity Reaction Status Date / Time No Known Allergies Allergy Verified 08/13/24 09:53 Vital Signs Vital Signs - 24 hr 08/13/24 09:46 08/13/24 09:47 08/13/24 09:48 Temperature 97.9 F Pulse Rate 61 62 48 L Respiratory Rate 10 L 18 19 Blood Pressure 163/75 H 163/75 H Pulse Oximetry 98 97 97 Oxygen Delivery Room Air 08/13/24 09:56 08/13/24 09:56 08/13/24 10:00 Temperature Pulse Rate 67 62 Respiratory Rate 17 Blood Pressure Pulse Oximetry 96 100 Oxygen Delivery Room Air 08/13/24 10:02 08/13/24 10:15 08/13/24 10:30 Temperature Pulse Rate 66 63 64 Respiratory Rate 14 17 16 Blood Pressure 160/83 H Pulse Oximetry 98 100 100 Oxygen Delivery 08/13/24 10:45 08/13/24 11:00 08/13/24 11:01 Temperature Pulse Rate 63 51 L 55 L Respiratory Rate 16 15 17 Blood Pressure 164/78 H Pulse Oximetry 100 100 Oxygen Delivery 08/13/24 11:15 08/13/24 11:39 08/13/24 11:45 Temperature Pulse Rate 67 Respiratory Rate 15 Blood Pressure Pulse Oximetry 100 99 95 Oxygen Delivery 08/13/24 12:04 08/13/24 12:15 08/13/24 12:30 Temperature Pulse Rate Respiratory Rate Blood Pressure Pulse Oximetry 100 100 93 Oxygen Delivery Exam Const: General: comfortable and no acute distress Other: , female, nontoxic appearance HENMT: Face/Nose/Sinus: Normal nares present Mouth: Yes moist mucous membranes Eyes: General: appearance normal, both eyes and all related structures Sclera: sclerae normal EOM: EOMs intact bilaterally Other: pupil 4 mm on R and 3 mm on L, reactive to light. No gaze palsy. Resp: Effort & Inspection: normal respiratory effort Auscultation: clear to auscultation bilaterally Cardio: Rate: regular rate Rhythm: regular rhythm Other: S1-S2 present without murmur, rub, ectopy GI: Other: Abdomen soft, nondistended, nontender. Normoactive bowel sounds in all quadrants. Skin: General skin exam: normal color and no rashes or lesions noted Wounds: no wounds Neuro: Speech: normal speech Motor exam (neuro): 5/5 motor strength present throughout Sensory Exam: normal sensation Other: A&O x4, no gaze palsy, new facial droop. Extrem: General: normal to inspection Psych: Mental Status: mental status grossly normal Affect: normal affect Other: Good to fair insight and judgment, pleasant H&P: Results Labs Labs: Short CBC 08/13/24 Range/Units 10:06 WBC 3.4 L (4.5-10.0) K/mm3 Hgb 10.9 L (12.0-15.0) g/dL Hct 34.2 L (37.0-47.0) % Plt Count 39 L (150-375) k/mm3 BMP 08/13/24 10:06 Sodium 141 Potassium 3.8 Chloride 108 H Carbon Dioxide 30 BUN 16 Creatinine 0.94 Glucose 87 Calcium 8.4 Liver Function 08/13/24 Range/Units 10:06 Total Bilirubin 1.3 (0.2-1.3) mg/dL AST 42 H (14-36) U/L ALT 19 (6-35) U/L Alkaline Phosphatase 97 (38-126) U/L Albumin 3.7 (3.5-5.1) g/dL Urine 08/13/24 Range/Units 10:06 Urine Color Dark yellow (Yellow) Urine Appearance Clear (Clear) Urine pH 8.0 (5.0-9.0) Ur Specific [place] 1.020 (1.001-1.035) Urine Protein Trace (Negative) mg/dL Urine Glucose (UA) Negative (Negative) mg/dL Assessment and Plan Assessment and plan (1) Acute CVA (cerebrovascular accident): Code(s): I63.9 - Cerebral infarction, unspecified Status: Acute Assessment and Plan: Last known well approximately 1 week ago per patient. - admission for observation and telemetry - not candidate for thrombolytics, unclear timeframe - not candidate for thrombectomy, no LVO on CTA - CXR 1vw ordered - CT head: 1. Age-indeterminate potentially acute to subacute infarcts in the posterior basilar circulation involving the bilateral occipital lobes and bilateral cerebellar hemispheres which are new since the prior study. 2. Interval progression of age-related changes including mild to moderate diffuse volume loss and moderate to severe scattered white matter hypoattenuation consistent with chronic small vessel ischemic disease. 3. Unchanged small old lacunar infarct at the left basal ganglia which includes the anterior limb of the left internal capsule. - CTA head/neck: 1. Infarcts in the bilateral occipital lobes, likely acute or subacute. 2. Age-indeterminate infarcts in the cerebellum bilaterally. 3. Old infarct in the left basal ganglia and anterior limb left internal capsule. 4. Extensive nonspecific cerebral white matter disease, which likely represents chronic small vessel ischemic disease. 5. 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 6. 0% stenosis of the proximal internal carotid arteries relative to normal distal artery lumen diameters (NASCET criteria). 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 - neurology consulted, awaiting formal recs - brain MRI wo ordered - echo w/Bubble ordered - neuro checks Q4 - PT/OT to eval and treat - monitor daily labs, lipid panel, A1C - fall precautions - start Atorvastatin 40 mg PO and ASA 81 mg. Will hold on starting Plavix given patient has history of pancytopenia, current platelet count is 39. - consider 30 day event monitoring at discharge - care coordination for placement post discharge (2) Pancytopenia: Code(s): D61.818 - Other pancytopenia Status: Chronic Assessment and Plan: - 08/13/2024: WBC 3.4, hemoglobin 10.9, platelet count 239 - 02/27/2023: WBC 3.9, hemoglobin 9.2, platelet count 69 Plan Diet: Heart healthy GI Prophylaxis: Not currently indicated DVT Prophylaxis: SCDs Lines: Peripheral Code Status: Full code Quality VTE Prophylaxis VTE prophylaxis: mechanical ordered Hospitalist MIPS Advance Care Plan I have confirmed that the patient's Advanced Care Plan is present, code status is documented, or surrogate decision maker is listed in patient medical record.: Yes Medication Reconciliation I have utilized all available resources to obtain, update and review the patients current medications (includes all prescriptions, OTC, herbals, cannabis, and nutritional supplements).: Yes
--- NOTE | 2024-08-13 16:12 | ADMGEN ---
This patient, Renetta Carranza, was admitted to [facility] Surg Room 304-02. Patient/family oriented to hospital policies and general routines including ID bracelet, bed and alarms, visiting hours, pain management, procedures, bathroom and other care routines, personal items, smoking policy, room service/diet, and visiting hours. Information on how to activate the Rapid Response Team has been discussed. Patient/Family are encouraged to report perceived risks to care and to ask questions if they do not understand what they are told or what they should do.
[2024-08-13] MEDS: PERFLUTREN LIPID MICROSPHERES 1.5 ML VIAL DILUTED TO 10 ML TOTAL VOLUME IV PUSH (16:47)
--- NOTE | 2024-08-13 16:47 | IVDEFINITY ---
Prior to administration of IV Definity the patient was educated on the risks and benefits of the imaging enhancing agent including potential adverse side effects. The patient verbalized understanding. Allergies were verified. No exclusion criteria were identified and at least one of the following inclusion criteria were met: 1) physician request, 2) patient technically difficult to image (per the [place] [employer] guidelines of two or more segments not discernable within the apical view), or 3) questionable left ventricular function. ?
[2024-08-14] VITALS (12 sets, daily range): BP systolic 111–165; BP diastolic 64–81; PULSE 50–83; RESP 12–18; TEMP 35.6–36.9; O2SAT 96–100
[2024-08-14 06:33] LABS: Hematocrit 34.4 % (37.0-47.0); Hemoglobin 10.9 g/dL (12.0-15.0); Immature Platelet Fraction Pct 4.3 % (0.9-11.2); Mean Corpuscular HGB Conc 31.7 g/dl (32-36); Mean Corpuscular Hemoglobin 29.7 pg (26-34); Mean Corpuscular Volume 93.7 fl (80-100); Mean Platelet Volume 11.6 fl (7.4-10.4); Platelet Count Result 36 k/mm3 (150-375); Red Blood Count 3.67 M/mm3 (4.2-5.4); Red Cell Distribution Width 13.9 % (11.5-14.5)
[2024-08-14 06:39] LABS: Anion Gap 2 mmol/L (4-12); Blood Urea Nitrogen 16 mg/dL (7-17); Calcium 8.3 mg/dL (8.4-10.2); Carbon Dioxide 33 mmol/L (22-30); Chloride 106 mmol/L (98-107); Cholesterol 206 mg/dL (0-200); Estimated CRCL calculation 33 ml/min; Estimated Glomerular Filt Rate 56; Glucose 79 mg/dL (65-110); HDL Direct 104 mg/dL; Potassium 4.5 mmol/L (3.4-5.0); Sodium 141 mmol/L (137-145); Triglycerides 63 mg/dL (<150)
[2024-08-14 06:50] LABS: LDL Cholesterol Direct 87 mg/dL
[2024-08-14 07:03] LABS: Eosinophils Absolute Manual 0.12 K/mm3 (0.02-0.50); Eosinophils Percent Manual 3 % (0-4); Lymphocytes Absolute Manual 0.56 K/mm3 (1.1-4.5); Monocytes Absolute Manual 0.24 K/mm3 (0.1-0.90); Monocytes Percent Manual 6 % (3-9); Neutrophils Percent Manual 77 % (46-73); Platelet Estimate Decreased (Adequate); Schistocytes None Seen; Total Cells Counted 100
[2024-08-14 07:33] LABS: Hemoglobin A1C 5.2 % (<5.7)
[2024-08-14] MEDS: ASPIRIN 81 MG CHEWABLE TABLET PO (08:17)
[2024-08-14] MEDS: OPTI-GEN TAB 1 TABLET PO (09:04)
[2024-08-14] MEDS: PANTOPRAZOLE 40 MG TABLET PO (09:04)
[2024-08-14] MEDS: MELOXICAM 7.5 MG TABLET 15 MG PO (09:04)
[2024-08-14] MEDS: METOPROLOL SUCCINATE EXT REL 25 MG TABCR PO (09:06)
[2024-08-14] MEDS: VENLAFAXINE HCL 75 MG TABLET PO (09:06)
[2024-08-14] MEDS: ATORVASTATIN 40 MG TABLET PO (09:07)
--- NOTE | 2024-08-14 12:54 | P.CONNEU_ITS ---
Assessment and Plan Assessment and plan (1) Mixed dementia: Code(s): G30.9 - Alzheimer's disease, unspecified; F01.50 - Vascular dementia, unspecified severity, without behavioral disturbance, psychotic disturbance, mood disturbance, and anxiety; F02.80 - Dementia in other diseases classified elsewhere, unspecified severity, without behavioral disturbance, psychotic disturbance, mood disturbance, and anxiety Status: Acute Plan 1. Dementia most likely mixed but with significant vascular component. 2. Neuropathy with abnormal EMG nerve conduction study in the past documented on May 02, 2024 3. History of spondylosis with history of lower spine surgery in the past. 4. Increasing anxiety with depression 5. Underlying osteoporosis with history of C2 cervical fracture. Considering all the problems she is definitely benefit from the placement but there is no acute intervention necessary at this stage She might benefit from the EEG.. Consult date: 08/14/24 HPI: Renetta Carranza is a 79 year old female Admitted to the hospital through the emergency room with complaints of increasing difficulties in memory with no specific diagnosis in the past but with the information that over the last few months they have noted increasing worsening of the mental status. She has been falling increasingly and becoming more deconditioned over the last couple of weeks and at present family's looking for assisted living. Has sore as patient is concerned she was not complaining of any specific pain. Patient herself has not been feeling like her normal self for the last week her balance has been of and she has been complaining of numbness in her both upper and lower extremities. She gave no history of difficulties in swallowing the food or choke but she did complain of numbness in both upper and lower extremities. Her vision has been behaving somewhat weird though she did not give the history of double vision at 1 time she has fallen down but did not become unconscious she also gave no history of any urinary dysfunction. Patient does have ongoing history of 1. Lumbar stenosis with disc herniation and spondylosis 2. Neuropathy 3. History of C2 cervical fracture 4. Anxiety with depression she has undergone 1. Back surgery 2. Right knee and left knee replacement surgeries 3. Has undergone gastric bypass surgery as well. She is a former smoker and does not drink alcohol except socially. At the time of admission she was taking meloxicam 15mg daily venlafaxine 75mg daily, pravastatin 10mg daily, and metoprolol 25mg daily. Her initial evaluation revealed normal vital signs, at 1 time her blood pressure was 160/83, but her general physical examination otherwise was normal and her initial evaluation included CBC which revealed hemoglobin of 10.9, basic metabolic panel was normal hepatic enzymes were fairly normal, head and neck CTA documented infarcts in the bilateral occipital lobes for acute or subacute nature in addition to the infarcted cerebellum bilaterally and old infarct in left basal ganglia and anterior limb of the left internal capsule she was also documented to have the moderate stenosis of the petrous left internal carotid artery and chronic type 2 odontoid fracture with nonunion. The CT scan did document in addition to the strokes as mentioned mild to moderate diffuse volume loss and moderate to severe scattered white matter hypoattenuation consistent with the chronic small-vessel ischemic disease. She has undergone EMG and nerve conduction study on April 04, 2024 which documented moderate left carpal tunnel syndrome and moderate bilateral neuropathy at elbow Review of Systems 2 Review of Systems: All systems reviewed & are unremarkable except as noted in HPI and below PMFSH Past Medical History Medical History Pancytopenia Neuropathy Lumbar disc herniation Lumbar stenosis Lumbar spondylosis At maximum risk for fall C2 cervical fracture Foot fracture, left Shoulder fracture, right Osteoporosis Anxiety and depression Anemia Bleeding disorder Bruises easily Surgical History Surgical History History of removal of cyst (~1980) from neck History of breast biopsy (R) breast History of 1964 & 1965 History of hernia repair History of back surgery (~2009) History of knee replacement procedure of right knee (~2007) History of knee replacement procedure of left knee (~2008) History of gastric bypass (~2006) History of rotator cuff surgery (~2001) x2 History of cholecystectomy (~1997) History of foot surgery 1991 (R) foot 2015 (L) foot History of ovarian cystectomy (~1971) Family History Family History Mother Lung cancer Father H/O total hip arthroplasty Grandparent Diabetes mellitus paternal grandmother Lung cancer maternal grandmother Social History Social History Smoking status: Former smoker Tobacco type: cigarettes Alcohol intake: never Alcohol use details: socially Substance use: current Substance use type: marijuana Other substance usage details: gummies Do You Feel Safe in your Home?: Yes Lack of Transportation: No Lack of Food: Never True Current Housing: I Have Housing Concerned About Future Housing: No Difficulty Paying Gas/Electric Bills: No Difficulty Paying for Meds: No Currently Unemployed: No Education: High School Diploma/GED Difficulty w/ Childcare or Family Care: YES Living arrangements: alone Occupation/Education: retired Gender identity (if verbalized by the patient): Female Sexual Orientation (if Verbalized by the Patient): Straight or Heterosexual 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 (Mosque) Meds Home Medications and Allergies Home Medications ?Medication ?Instructions ?Recorded ?Confirmed ?Type meloxicam 15 mg tablet 15 mg PO DAILY 05/31/21 08/13/24 History metoprolol succinate 25 mg 25 mg PO DAILY 05/31/21 08/13/24 History tablet,extended release 24 hr omeprazole 20 mg capsule,delayed 20 mg PO DAILY 05/31/21 08/13/24 History release pravastatin 10 mg tablet 10 mg PO DAILY 05/31/21 08/13/24 History venlafaxine 75 mg tablet 75 mg PO DAILY 05/31/21 08/13/24 History vitamins A,C,X-hbzu-wifqsz 4,296 1 cap PO BID 12/12/23 08/13/24 History mcg-226 mg-90 mg capsule (PreserVision AREDS) Allergies Allergy/AdvReac Type Severity Reaction Status Date / Time No Known Allergies Allergy Verified 08/13/24 09:53 Vital Signs Vital Signs - 24 hr 08/13/24 13:03 08/13/24 13:20 08/13/24 13:30 Temperature Pulse Rate Respiratory Rate Blood Pressure Pulse Oximetry 64 L 67 L 100 Oxygen Delivery 08/13/24 13:45 08/13/24 14:01 08/13/24 14:15 Temperature Pulse Rate Respiratory Rate Blood Pressure Pulse Oximetry 100 97 98 Oxygen Delivery 08/13/24 14:39 08/13/24 14:45 08/13/24 15:20 Temperature Pulse Rate Respiratory Rate Blood Pressure Pulse Oximetry 100 100 Oxygen Delivery Room Air 08/13/24 15:30 08/13/24 20:00 08/13/24 21:51 Temperature 36.7 C 36.5 C Pulse Rate 75 76 Respiratory Rate 18 18 Blood Pressure 134/80 129/78 Pulse Oximetry 97 97 Oxygen Delivery Room Air 08/14/24 00:03 08/14/24 04:02 08/14/24 06:00 Temperature 36.3 C L Pulse Rate 66 50 L 75 Respiratory Rate 18 Blood Pressure 165/67 H Pulse Oximetry 100 Oxygen Delivery 08/14/24 08:00 08/14/24 09:00 08/14/24 09:06 Temperature 36.9 C Pulse Rate 77 77 Respiratory Rate Blood Pressure 138/81 Pulse Oximetry 99 Oxygen Delivery Room Air Exam 2 Narrative: examination today revealed her to be awake alert in no obvious acute distress, laying in bed in supine position was able to relate to the physician very well with normal and full speech without evidence of dysphagia or dysarthria there was no spontaneous nystagmus she was able to look around, head was normocephalic with no bruit, ear nose throat examination was normal, neck was supple with no cervical bruit no thyromegaly no lymphadenopathy heart was regular with no murmur lungs were clear to auscultation with no rhonchi or crepitations abdomen was soft with normal bowel sounds, neurological examination revealed her to be awake alert in no obvious acute distress, to follow the verbal commands appropriately and her speech was without any evidence of dysphagia or dysarthria she was aware of right and left. extraocular movements are full spontaneously with no evidence of nystagmus facial sensation was intact face was symmetrical tongue was midline with no fasciculation uvula was midline motor examination revealed her to have decreased strength in upper and lower extremities 4/5 with very sluggish reflexes and downgoing plantar responses. She has some difficulties in performing finger to nose to finger and heel to knee to mahmood. Results Labs 08/14/24 05:41 08/14/24 05:41 Labs: Short CBC 08/14/24 Range/Units 05:41 WBC 4.0 L (4.5-10.0) K/mm3 Hgb 10.9 L (12.0-15.0) g/dL Hct 34.4 L (37.0-47.0) % Plt Count 36 L (150-375) k/mm3 BMP 08/14/24 05:41 Sodium 141 Potassium 4.5 Chloride 106 Carbon Dioxide 33 H BUN 16 Creatinine 0.97 Glucose 79 Calcium 8.3 L
--- NOTE | 2024-08-14 13:32 | P.PNIM_ITS ---
Progress Note: A&P Assessment and Plan (1) Acute CVA (cerebrovascular accident): Code(s): I63.9 - Cerebral infarction, unspecified Status: Acute Assessment and Plan: Last known well approximately 1 week ago per patient. * CTA head Infarcts in the bilateral occipital lobes, likely acute or subacute. 0% stenosis of the proximal internal carotid arteries relative to normal distal artery * Neuro check q.4 hour for the 1st 24 hours. * furnace puncher and telemetry continuously. * Blood pressure management. * -Keep the systolic blood pressure more than 200 or diastolic more than 110. Then lower blood pressure by 15% within the 1st 24 hours. * PT/OT eval and treat. * Check for LDL and hemoglobin A1c. * Add statins 40 mg q.day, aspirin 81 mg g q.day * No plavix due to pancytopenia follows with a parquetry floor layer outpatient * neurology consulted, awaiting formal recs * echo w/Bubble no shunting * fall precautions * start Atorvastatin 40 mg PO and ASA 81 mg. Will hold on starting Plavix given patient has history of pancytopenia, current platelet count is 39. * consider 30 day event monitoring at discharge has had loop recorder in the past * care coordination for placement post discharge Rehab (2) Pancytopenia: Code(s): D61.818 - Other pancytopenia Status: Chronic Assessment and Plan: History of follow with Hematology outpatient - 08/13/2024: WBC 3.4, hemoglobin 10.9, platelet count 239 - 02/27/2023: WBC 3.9, hemoglobin 9.2, platelet count 69 Plan Code status: Full code per patient DVT prophylaxis: SCD's Stress ulcer prophylaxis: Protonix 40 daily PT/OT notes: PT/OT pending Disposition: Patient continues admission for acute CVA neurology consulted and PT OT ordered will likely need rehab at discharge care coordination updated and assisting and possible placement pending PT OT recommendations Subjective Date/time seen: 08/14/24 13:32 Interval history: Patient is a 79-year-old female who was admitted for further evaluation and treatment acute CVA. 08/14/2024: Assumed care Patient alert and oriented moving all extremities equal with no deficits noted at this time. Patient with no complaints family at bedside updated abut findings on CT report neurology to see. Patient denied any SOB, CP, Dizziness did repeat mild headache. Review of Systems Review of Systems: All systems reviewed & are unremarkable except as noted in HPI and below Exam Narrative: neuro exam is fine. A/Ox4. pupil 4 on R and 3 on L Const: General: comfortable and no acute distress Other: , female, nontoxic appearance HENMT: Face/Nose/Sinus: Normal nares present Mouth: Yes moist mucous membranes Eyes: General: appearance normal, both eyes and all related structures Sclera: sclerae normal EOM: EOMs intact bilaterally Other: pupil 4 mm on R and 3 mm on L, reactive to light. No gaze palsy. Resp: Effort & Inspection: normal respiratory effort Auscultation: clear to auscultation bilaterally Cardio: Rate: regular rate Rhythm: regular rhythm Other: S1-S2 present without murmur, rub, ectopy GI: Other: Abdomen soft, nondistended, nontender. Normoactive bowel sounds in all quadrants. Skin: General skin exam: normal color and no rashes or lesions noted Wounds: no wounds Neuro: Speech: normal speech Motor exam (neuro): 5/5 motor strength present throughout Sensory Exam: normal sensation Other: A&O x4, no gaze palsy, new facial droop. Extrem: General: normal to inspection Psych: Mental Status: mental status grossly normal Affect: normal affect Other: Good to fair insight and judgment, pleasant Objective Data Vital Signs Vital Signs: Vital Signs - 24 hr 08/13/24 13:45 08/13/24 14:01 08/13/24 14:15 Temperature Pulse Rate Respiratory Rate Blood Pressure Pulse Oximetry 100 97 98 Oxygen Delivery 08/13/24 14:39 08/13/24 14:45 08/13/24 15:20 Temperature Pulse Rate Respiratory Rate Blood Pressure Pulse Oximetry 100 100 Oxygen Delivery Room Air 08/13/24 15:30 08/13/24 20:00 08/13/24 21:51 Temperature 98.0 F 97.7 F Pulse Rate 75 76 Respiratory Rate 18 18 Blood Pressure 134/80 129/78 Pulse Oximetry 97 97 Oxygen Delivery Room Air 08/14/24 00:03 08/14/24 04:02 08/14/24 06:00 Temperature 97.3 F L Pulse Rate 66 50 L 75 Respiratory Rate 18 Blood Pressure 165/67 H Pulse Oximetry 100 Oxygen Delivery 08/14/24 08:00 08/14/24 09:00 08/14/24 09:06 Temperature 98.4 F Pulse Rate 77 77 Respiratory Rate Blood Pressure 138/81 Pulse Oximetry 99 Oxygen Delivery Room Air Intake/Output Intake/Output: Intake & Output 08/11/24 08/12/24 08/13/24 08/14/24 23:59 23:59 23:59 23:59 Intake Total 320 240 Balance 320 240 Meds/Results Medications: Active Medications Generic Name Dose Route Start Last Admin Trade Name Freq PRN Reason Stop Dose Admin Aspirin 81 mg 08/14/24 08:00 08/14/24 08:17 Aspirin 81 Mg Chewable Tablet PO 81 mg DAILY@0800 [facility] Administration Atorvastatin Calcium 40 mg 08/14/24 09:00 08/14/24 09:07 Atorvastatin 40 Mg Tablet PO 40 mg DAILY [facility] Administration Meloxicam 15 mg 08/14/24 09:00 08/14/24 09:04 Meloxicam 7.5 Mg Tablet PO 15 mg QAM [facility] Administration Metoprolol Succinate 25 mg 08/14/24 09:00 08/14/24 09:06 Metoprolol Succinate Ext Rel 25 Mg Tabcr PO 25 mg DAILY [facility] Administration Multivitamins/Minerals 1 tablet 08/14/24 09:00 08/14/24 09:04 Opti-Gen Tab PO 1 tablet QAM [facility] Administration Pantoprazole Sodium 40 mg 08/14/24 09:00 08/14/24 09:04 Pantoprazole 40 Mg Tablet PO 40 mg QAM [facility] Administration Venlafaxine HCl 75 mg 08/14/24 09:00 08/14/24 09:06 Venlafaxine Hcl 75 Mg Tablet PO 75 mg DAILY [facility] Administration Radiology Results: ITS Impressions Head CT 08/13/24 11:38 IMPRESSION: 1. Age-indeterminate potentially acute to subacute infarcts in the posterior basilar circulation involving the bilateral occipital lobes and bilateral cerebellar hemispheres which are new since the prior study. 2. Interval progression of age-related changes including mild to moderate diffuse volume loss and moderate to severe scattered white matter hypoattenuati on consistent with chronic small vessel ischemic disease. 3. Unchanged small old lacunar infarct at the left basal ganglia which includes the anterior limb of the left internal capsule. Head/Neck CTA 08/13/24 12:47 IMPRESSION: 1. Infarcts in the bilateral occipital lobes, likely acute or subacute. 2. Age-indeterminate infarcts in the cerebellum bilaterally. 3. Old infarct in the left basal ganglia and anterior limb left internal capsule. 4. Extensive nonspecific cerebral white matter disease, which likely represents chronic small vessel ischemic disease. 5. 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 6. 0% stenosis of the proximal internal carotid arteries relative to normal distal artery lumen diameters (NASCET criteria). 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 Chest X-Ray 08/13/24 13:54 IMPRESSION: 1. No acute cardiopulmonary disease. Labs Labs: Laboratory Results - last 24 hr 08/14/24 05:41 WBC 4.0 L RBC 3.67 L Hgb 10.9 L Hct 34.4 L MCV 93.7 MCH 29.7 MCHC 31.7 L RDW 13.9 Plt Count 36 L MPV 11.6 H Immature Gran % (Auto) Not Reportable Neut % (Auto) Not Reportable Lymph % (Auto) Not Reportable [place] % (Auto) Not Reportable Eos % (Auto) Not Reportable Baso % (Auto) Not Reportable Lymph # (Auto) Not Reportable [place] # (Auto) Not Reportable Eos # (Auto) Not Reportable Baso # (Auto) Not Reportable Abs Immat Gran (auto) Not Reportable Absolute Neuts (auto) Not Reportable Absolute Nucleated RBC Not Reportable Total Counted 100 Neutrophils % (Manual) 77 H Lymphocytes % (Manual) 14.0 L Monocytes % (Manual) 6 Eosinophils % (Manual) 3 Nucleated RBC % Not Reportable Abs Lymphs (Manual) 0.56 L Abs Monocytes (Manual) 0.24 Absolute Eos (Manual) 0.12 Platelet Estimate Decreased % Immature Plt Fraction 4.3 Schistocytes None seen Sodium 141 Potassium 4.5 Chloride 106 Carbon Dioxide 33 H Anion Gap 2 L BUN 16 Creatinine 0.97 Estim Creat Clear Calc 33 Estimated GFR 56 L Glucose 79 Hemoglobin A1c 5.2 Calcium 8.3 L Triglycerides 63 Cholesterol 206 H LDL Cholesterol Direct 87 HDL Direct 104 Quality VTE Prophylaxis VTE prophylaxis: mechanical ordered -Patient's previous records reviewed on admission -ER notes reviewed in detail on admission -discussed all findings and current treatment plan with patient/Family/POA -Consultations reviewed for recommendations -Patient's disposition for safe discharge discussed with catalytic case operator Dictation performed by [employer] direct speech recognition software, therefore solar energy consultant and designer variants and typographical errors may occur. Hospitalist MIPS Advance Care Plan I have confirmed that the patient's Advanced Care Plan is present, code status is documented, or surrogate decision maker is listed in patient medical record.: Yes Medication Reconciliation I have utilized all available resources to obtain, update and review the patients current medications (includes all prescriptions, OTC, herbals, cannabis, and nutritional supplements).: Yes The patient is not eligible for med reconciliation; the patient is in a emergent medical situation where delaying treatment would jeopardize the patients health.: No
[2024-08-15] VITALS (12 sets, daily range): BP systolic 103–125; BP diastolic 57–67; PULSE 55–94; RESP 16–26; TEMP 36.5–38.7; O2SAT 97–100
[2024-08-15] MEDS: ATORVASTATIN 40 MG TABLET PO (08:47)
[2024-08-15] MEDS: MELOXICAM 7.5 MG TABLET 15 MG PO (08:47)
[2024-08-15] MEDS: OPTI-GEN TAB 1 TABLET PO (08:47)
[2024-08-15] MEDS: METOPROLOL SUCCINATE EXT REL 25 MG TABCR PO (08:48)
[2024-08-15] MEDS: ASPIRIN 81 MG CHEWABLE TABLET PO (08:48)
[2024-08-15] MEDS: PANTOPRAZOLE 40 MG TABLET PO (08:48)
[2024-08-15] MEDS: VENLAFAXINE HCL 75 MG TABLET PO (08:48)
--- NOTE | 2024-08-15 09:35 | P.PNIM_ITS ---
Progress Note: A&P Assessment and Plan (1) Acute CVA (cerebrovascular accident): Code(s): I63.9 - Cerebral infarction, unspecified Status: Acute Assessment and Plan: Last known well approximately 1 week ago per patient. * CTA head Infarcts in the bilateral occipital lobes, likely acute or subacute. 0% stenosis of the proximal internal carotid arteries relative to normal distal artery * Neuro check q.4 hour for the 1st 24 hours. * phototypesetting equipment monitor and telemetry continuously. * Blood pressure management. * -Keep the systolic blood pressure more than 200 or diastolic more than 110. Then lower blood pressure by 15% within the 1st 24 hours. * PT/OT eval and treat. * Check for LDL and hemoglobin A1c. * Add statins 40 mg q.day, aspirin 81 mg g q.day * No plavix due to pancytopenia follows with a agriculture research director outpatient * neurology consulted, awaiting formal recs * echo w/Bubble no shunting * fall precautions * start Atorvastatin 40 mg PO and ASA 81 mg. Will hold on starting Plavix given patient has history of pancytopenia, current platelet count is 39. * consider 30 day event monitoring at discharge has had loop recorder in the past * care coordination for placement post discharge Rehab neurology following- no acute interventions are indicated. consider EEG will benefit from placement continue working with pt/ot (2) Pancytopenia: Code(s): D61.818 - Other pancytopenia Status: Chronic Assessment and Plan: History of follow with Hematology outpatient - 08/13/2024: WBC 3.4, hemoglobin 10.9, platelet count 239 - 02/27/2023: WBC 3.9, hemoglobin 9.2, platelet count 69 Plan Code status: Full code per patient DVT prophylaxis: SCD's Stress ulcer prophylaxis: Protonix 40 daily PT/OT notes: PT/OT pending Disposition: Patient continues admission for acute CVA neurology consulted and PT OT ordered will likely need rehab at discharge care coordination updated and assisting and possible placement pending PT OT recommendations Time Spent With Patient Time with patient: 25 - 35 minutes Subjective Date/time seen: 08/15/24 09:35 Interval history: Patient is a 79-year-old female who was admitted for further evaluation and treatment acute CVA. 08/15: pt is seen and examined. Patient alert and oriented for th most part (was not sure the name of the hospital) moving all extremities equal with no deficits noted at this time. Patient with no complaints. neurology is following. Patient denied any SOB, CP, Dizziness did repeat mild headache. reports nausea and vomiting this am- ordered prn meds Review of Systems Review of Systems: All systems reviewed & are unremarkable except as noted in HPI and below Exam Narrative: neuro exam is unremarkable. A/Ox4. pupil 4 on R and 3 on L Const: General: comfortable and no acute distress Other: , female, nontoxic appearance HENMT: Face/Nose/Sinus: Normal nares present Mouth: Yes moist mucous membranes Eyes: General: appearance normal, both eyes and all related structures Sclera: sclerae normal EOM: EOMs intact bilaterally Other: pupil 4 mm on R and 3 mm on L, reactive to light. No gaze palsy. Resp: Effort & Inspection: normal respiratory effort Auscultation: clear to auscultation bilaterally Cardio: Rate: regular rate Rhythm: regular rhythm Other: S1-S2 present without murmur, rub, ectopy GI: Other: Abdomen soft, nondistended, nontender. Normoactive bowel sounds in all quadrants. Skin: General skin exam: normal color and no rashes or lesions noted Wounds: no wounds Neuro: Speech: normal speech Motor exam (neuro): 5/5 motor strength present throughout Sensory Exam: normal sensation Other: A&O x4, no gaze palsy, new facial droop. Extrem: General: normal to inspection Psych: Mental Status: mental status grossly normal Affect: normal affect Other: Good to fair insight and judgment, pleasant Objective Data Vital Signs Vital Signs: Vital Signs - 24 hr 08/14/24 12:00 08/14/24 13:54 08/14/24 14:00 Temperature 97.3 F L 96.1 F L Pulse Rate 71 75 56 L Respiratory Rate 18 Blood Pressure 135/78 128/64 Pulse Oximetry 98 96 Oxygen Delivery 08/14/24 16:00 08/14/24 20:00 08/14/24 20:00 Temperature Pulse Rate 80 82 Respiratory Rate Blood Pressure Pulse Oximetry Oxygen Delivery Room Air 08/14/24 21:21 08/15/24 00:00 08/15/24 04:00 Temperature 98.5 F Pulse Rate 83 65 78 Respiratory Rate 12 Blood Pressure 111/66 Pulse Oximetry 97 Oxygen Delivery 08/15/24 05:25 08/15/24 08:48 08/15/24 08:52 Temperature 98.1 F Pulse Rate 84 56 L Respiratory Rate 16 Blood Pressure 125/66 Pulse Oximetry 97 Oxygen Delivery Room Air Intake/Output Intake/Output: Intake & Output 08/12/24 08/13/24 08/14/24 08/15/24 23:59 23:59 23:59 23:59 Intake Total 320 720 150 Balance 320 720 150 Meds/Results Medications: Active Medications Generic Name Dose Route Start Last Admin Trade Name Freq PRN Reason Stop Dose Admin Aspirin 81 mg 08/14/24 08:00 08/15/24 08:48 Aspirin 81 Mg Chewable Tablet PO 81 mg DAILY@0800 [facility] Administration Atorvastatin Calcium 40 mg 08/14/24 09:00 08/15/24 08:47 Atorvastatin 40 Mg Tablet PO 40 mg DAILY [facility] Administration Meloxicam 15 mg 08/14/24 09:00 08/15/24 08:47 Meloxicam 7.5 Mg Tablet PO 15 mg QAM [facility] Administration Metoprolol Succinate 25 mg 08/14/24 09:00 08/15/24 08:48 Metoprolol Succinate Ext Rel 25 Mg Tabcr PO 25 mg DAILY [facility] Administration Multivitamins/Minerals 1 tablet 08/14/24 09:00 08/15/24 08:47 Opti-Gen Tab PO 1 tablet QAM [facility] Administration Ondansetron HCl 4 mg 08/15/24 09:28 Ondansetron Inj 4 Mg/2 Ml Vial IV PUSH Q4H PRN Nausea And Vomiting Pantoprazole Sodium 40 mg 08/14/24 09:00 08/15/24 08:48 Pantoprazole 40 Mg Tablet PO 40 mg QAM [facility] Administration Venlafaxine HCl 75 mg 08/14/24 09:00 08/15/24 08:48 Venlafaxine Hcl 75 Mg Tablet PO 75 mg DAILY [facility] Administration Radiology Results: ITS Impressions Head CT 08/13/24 11:38 IMPRESSION: 1. Age-indeterminate potentially acute to subacute infarcts in the posterior basilar circulation involving the bilateral occipital lobes and bilateral cerebellar hemispheres which are new since the prior study. 2. Interval progression of age-related changes including mild to moderate diffuse volume loss and moderate to severe scattered white matter hypoattenuation consistent with chronic small vessel ischemic disease. 3. Unchanged small old lacunar infarct at the left basal ganglia which includes the anterior limb of the left internal capsule. Head/Neck CTA 08/13/24 12:47 IMPRESSION: 1. Infarcts in the bilateral occipital lobes, likely acute or subacute. 2. Age-indeterminate infarcts in the cerebellum bilaterally. 3. Old infarct in the left basal ganglia and anterior limb left internal capsule. 4. Extensive nonspecific cerebral white matter disease, which likely represents chronic small vessel ischemic disease. 5. 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 6. 0% stenosis of the proximal internal carotid arteries relative to normal distal artery lumen diameters (NASCET criteria). 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 Chest X-Ray 08/13/24 13:54 IMPRESSION: 1. No acute cardiopulmonary disease. Quality VTE Prophylaxis VTE prophylaxis: mechanical ordered
[2024-08-15] MEDS: ONDANSETRON INJ 4 MG/2 ML VIAL IV PUSH ×2 (09:40→15:19)
[2024-08-15] MEDS: ACETAMINOPHEN 325 MG TABLET 650 MG PO (13:06)
--- OUTSIDE RECORDS SUMMARY | 2024-08-15 16:54 | XMS_ITS | Data Portability ---
Author Organization [facility] [employer], Main Office Address [address] [place] [address] Care Team Providers Care Tractor Technician Name Role Phone ASHLYN HUTCHINS Primary Care Provider ASHLYN HUTCHINS Referring Provider Assessment No assessment recorded. Plan of Treatment Reminders Order Date Submit Date Provider Last Modified By Organization Details Last Modified Time Details Appointments None recorded. Lab vitamin B12, serum [address] (Lab), [address] [place] [address], [address], 10:46:39 CBC w/ auto diff [address] (Lab), [address] [place] [address], [address], 10:46:48 BMP, serum or plasma [address] (Lab), [address] [place] [address], [address], 10:47:07 hepatic function panel, serum [address] (Lab), [address] [place] [address], [address], 10:46:56 TSH, serum or plasma [address] (Lab), [address] [place], [address], 3 10:47:15 lipid panel w/ direct LDL, serum [address] (Lab), [facility] [place], [address], 3 10:47:24 BMP, serum or plasma [address] (Lab), [address] [place] [address] [address], [address], 3 10:16:37 hepatic function panel, serum [address] (Lab), [address] [place] [address] [address], [address], 3 10:16:46 lipid panel, serum [address] (Lab), [address] [place] [address] [address], [address], 3 10:16:19 CBC w/ auto diff [address] (Lab), [address] [place] [address] [address], [address], 3 10:16:08 iron + TIBC + ferritin, serum [address] [facility] (Lab), [address] [place] [address] [address], [address], 3 09:18:01 vitamin B12 + folate, serum or blood [address] (Lab), [address] [place] [address] [address], [address], 3 14:42:44 TSH + free T4, serum [address] (Lab), [facility] [address], [place], [address], 3 10:16:29 Referral None recorded. Procedures None recorded. Surgeries None recorded. Imaging US, pelvis, complete 2022 023 [email or web address] 4 [facility] (Imaging), [address] [place] [address] [address], [place], [address], 3 16:46:16 MR, cholangiop ancreatogr am, w/wo contrast - no auth required 2022 023 [facility], [address] [place] [address] [place] [address], [address], 4 10:20:08 MRI, lumbar spine, w/o contrast - no auth required 2022 023 [email or web address] [facility], [address] [place] [address] [place] [address], [address], 4 10:45:40 Medication Orders None recorded. Patient TargetsNo targets recorded. Patient InstructionsNo instructions recorded. Reason for Referral None Reported. Results Created Date Observation Date Name Description Value Unit Range Abnormal Flag Note LastModifiedBy Organization Detail LastModifiedTime 12/16/19 22 12/15/2021 MRI, knee, w/o contr ast No observ ation record ed. [id number] [facility] Work Comp PT Dept [address] [place], [address], 09/21/2022 13:32:15 12/23/19 22 12/10/2021 XR, chest , 2 view No observ ation record ed. [id number] [facility] [address] [place], [address], 09/21/2022 13:32:15 01/05/20 22 12/28/2021 XR, femur , 2 or more view No observ ation record ed. [id number] [facility] Work Comp PT Dept [address] [place], [address], 09/21/2022 13:32:15 01/05/20 22 12/28/2021 XR, femur No observ ation record ed. MIGRATION. [facility] [address] [place], [address], 09/21/2022 13:32:15 01/05/20 22 12/28/2021 XR, knee, 4 or more view No observ ation record ed. MIGRATION. [facility] Work Comp PT Dept [address] [place], [address], 09/21/2022 13:32:15 06/01/20 22 01/20/2022 XR, knee, 3 view No observ ation record ed. MIGRATION. [facility] [address] [place], [address], 09/21/2022 13:32:15 06/07/20 22 03/10/2022 XR, knee No observ ation record ed. MIGRATION. [facility] General Surgery [place] [address]; [address], [place], [address], 09/21/2022 13:32:15 06/07/20 22 02/10/2022 XR, knee, 3 view No observ ation record ed. MIGRATION. [facility] General Surgery [place] [address]; [address], [place], [address], 09/21/2022 13:32:15 06/07/20 22 12/16/2021 CT, head + brain , w/o contr ast No observ ation record ed. MIGRATION. [facility] [address] [place], [address], 09/21/2022 13:32:15 02/10/20 23 02/08/2023 XR, elbow No observ ation record ed. [address] (Imaging) [facility] [address], [place], [address], 02/10/2023 17:12:51 08/07/19 24 08/04/2023 MRI, lumba r spine , w/o contr ast No observ ation record ed. [address], [place], [address], 08/18/2023 09:56:39 08/07/19 24 08/04/2023 MR, chola ngiop ancre atogr am, w/wo contr ast No observ ation record ed. [address] [facility] [address], [place], [address], 08/18/2023 09:56:39 Result Notes None recorded. Problems Name Problem SNOMED Code Status Onset Date Resolution Date Notes Provider Name and Address Organization Details Recorded Time Benign essential hypertensi on 6766505 Active 2021 Not Available [facility] 3 13:30:24 Acquired trigger finger 2894050 Active Not Available [facility] 3 13:30:24 Cellulitis of right elbow 7380603397743 9100 Active 2021 Not Available [facility] 3 13:30:24 Cobalamin deficiency 670435041 Active Not Available [facility] 3 13:30:24 Abnormal gait 63826529 Active Not Available [facility] 3 13:30:24 Gastroesop hageal reflux disease 829493834 Active Not Available [facility] 3 13:30:24 Osteoarthr itis of knee 409653036 Active Not Available [facility] 3 13:30:24 Lumbar spondylosi s 305805866 Active 2021 Not Available [facility] 3 13:30:24 Poor short-term memory 290392515 Active 2021 Not Available [facility] 3 13:30:24 Degenerati on of lumbar interverte bral disc 38058843 Active 2016 Not Available [facility] 3 13:30:24 Long-term drug therapy Active 2021 Not Available [facility] 3 13:30:25 Chronic low back pain 138277911 Active Not Available [facility] 3 13:30:25 Low back pain 338936318 Active 2021 Not Available [facility] 3 13:30:25 Recurrent falls 617908391 Active 2021 Not Available [facility] 3 13:30:25 Thrombocyt openic disorder 176660986 Active Not Available [facility] 3 13:30:25 Ganglion cyst of left wrist 8185312705431 00 Active 2021 Not Available [facility] 3 13:30:25 Knee pain Active Not Available [facility] 3 13:30:25 Vitamin D deficiency 57116311 Active Not Available [facility] 3 13:30:25 Multiple bruising 918421146 Active Not Available [facility] 3 13:30:25 Enthesopat hy of knee 85140205 Active Not Available [facility] 3 13:30:25 Osteoarthr itis 138588591 Active Not Available [facility] 3 13:30:25 Olecranon bursitis 237609535 Active Not Available [facility] 3 13:30:26 Forgetful 72122711 Active Not Available [facility] 3 13:30:26 Hyperlipid emia 03367554 Active Not Available [facility] 3 13:30:26 Vitamin B12 deficiency (non anemic) 48003722 Active 2021 Not Available [facility] 3 13:30:26 Osteoporos is 38213226 Active Not Available [facility] 3 13:30:26 Fracture of femur 26049163 Active 2021 Not Available [facility] 3 13:30:26 Moderate major depression 930275 Active Not Available [facility] 3 13:30:26 Fatigue 16591763 Active Not Available [facility] 3 13:30:26 Postmenopa usal bleeding 23334296 Active 2022 RICA Howard [address], [address], [place], [address] , [facility] 3 15:00:31 Pain of right elbow joint 1346220461096 9109 Active 2022 RICA Howard [address], [address], [place], [address] , [facility] 3 17:56:16 Anemia 600939955 Active 2022 RICA Howard [address], [address], [place], [address] , [facility] 3 16:14:17 Lumbar radiculopa thy 875572694 Active 2022 RICA Howard [address], [address], [place], [address] , [facility] 3 14:23:03 Spinal stenosis of lumbar region 10965744 Active 2022 RICA Howard [address], [address], [place], [address] , [facility] 3 14:23:14 Disorder of bile duct 981459274 Active 2022 RICA Howard [address], [address], [place], [address] , [facility] 3 14:23:57 Problem Notes None recorded. 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 Not Available [facility] 09/21/2022 13:29:46 Orthopedic Procedure completed Not Available [facility] 09/21/2022 13:29:46 other completed Not Available [facility] 07/2022 13:29:46 Orthopedic Surgery completed Not Available [facility] 09/21/2022 13:29:46 completed Not Available [facility] 0 09/21/2022 13:29:46 other completed Not Available [facility] 07/2022 13:29:46 other completed Not Available [facility] 07/2022 13:29:46 other completed Not Available [facility] 07/2022 13:29:46 completed Not Available [facility] 0 09/21/2022 13:29:46 [facility] Surgeries [facility] 13:29:46 Imaging Results Imaging Date Name Status LastModified by Organiz ation Details LastModified Time 12/15/2021 MRI, knee, w/o contrast completed [id number] [facility] Work [facility] PT Dept [address] [place], [address], 09/21/2022 13:32:15 12/10/2021 XR, chest, 2 view completed [id number] [facility] [address] [place], [address], 09/21/2022 13:32:15 01/20/2022 XR, knee, 3 view completed [id number] 026 [facility] [address] [place], [address], 09/21/2022 13:32:15 03/10/2022 XR, knee completed [id number] 026 [facility] General Surgery [place] [address]; [address], [place], [address], 09/21/2022 13:32:15 02/10/2022 XR, knee, 3 view completed [id number] 026 [facility] [place] [address]; [address], [place], [address], 09/21/2022 13:32:15 12/16/2021 CT, head + brain, w/o contrast completed [id number] [facility] [address] [place], [address], 09/21/2022 13:32:15 12/28/2021 XR, femur, 2 or more view completed [id number] 026 [facility] Work Comp PT Dept [address] [place], [address], 09/21/2022 13:32:15 12/28/2021 XR, femur completed [id number] 026 [facility] [address] [place], [address], 09/21/2022 13:32:15 12/28/2021 XR, knee, 4 or more view completed [id number] [facility] Work [facility] PT Dept [address] [place], [address], 09/21/2022 13:32:15 02/08/2023 XR, elbow completed [address] [facility] (Imaging) [address] [place], [place] [address] [address] [place] [address], [address], 02/10/2023 17:12:51 08/04/2023 MRI, lumbar spine, w/o contrast completed [address], [address], 08/18/2023 09:56:39 08/04/2023 MR, cholangiopanc reatogram, w/wo contrast completed [address], [address], 08/18/2023 09:56:39 Procedure Notes None recorded. Medical Equipment None Reported. Allergies No known drug allergies Medications Name Sig Start Date Stop Date Status Note LastModified by Organization Details LastModified Time cyclobenzap rine 10 mg tablet TK 1 T PO TID 10/24 completed Not Available Not Available Not Available venlafaxine ER 75 mg capsule,ext ended release 24 hr TK 3 CS PO QD. 04/03 /2018 completed Not Available Not Available Not Available gabapentin 600 mg tablet Take by oral route for 90 days. 05/31 completed Not Available Not Available Not Available venlafaxine 75 mg tablet TAKE 1 TABLET BY MOUTH TWICE DAILY active Not Available Not Available No t Available nabumetone 750 mg tablet TAKE 1 TABLET BY MOUTH TWICE A DAY WITH A MEAL NEEDED 10/09 completed Not Available Not Available Not Available hydrocodone 5 mg-acetamin ophen 325 mg tablet Take 1 tablet twice a day by oral route as needed. 10/09 completed Not Available Not Available Not Available meloxicam 15 mg tablet TAKE ONE TABLET BY MOUTH DAILY AT 9AM WITH A MEAL active Not Available Not Available No t Available venlafaxine ER 150 mg capsule,ext ended release 24 hr TAKE 1 CAPSULE BY MOUTH DAILY. STOP VENLAFAXI NE TABLETS 03/13 completed Not Available Not Available Not Available hydrocodone 10 mg-acetamin ophen 325 mg tablet 10/24 completed Not Available Not Available Not Available tramadol 50 mg tablet TAKE 1 TABLET BY MOUTH EVERY 6 HOURS NEEDED FOR ACUTE PAIN. active Not Available Not Available No t Available oxycodone-a cetaminophe n 5 mg-325 mg tablet 10/24 completed Not Available Not Available Not Available pravastatin 10 mg tablet Take 1 tablet by mouth every evening. 2022 active Not Available Not Available Not Avai lable cephalexin 500 mg capsule TAKE 1 CAPSULE BY MOUTH TWICE A DAY FOR 7 DAYS 02/23 completed Not Available Not Available Not Available oseltamivir 75 mg capsule 10/09 completed Not Available Not Available Not Available ferrous sulfate 325 mg (65 mg iron) tablet TK 1 T PO BID active Not Available Not Available No t Available docusate sodium 100 mg capsule TAKE 1 CAPSULE BY MOUTH TWICE A DAY FOR 2 WEEKS active Not Available Not Available No t Available omeprazole 20 mg capsule,del ayed release Take 1 capsule by mouth daily. 2022 active Not Available Not Available Not Avai lable lisinopril 5 mg tablet Take 1 tablet every day by oral route for 30 days. 02/24 completed Not Available Not Available Not Available gabapentin 100 mg capsule TK ONE C PO TID active Not Available Not Available No t Available metoprolol succinate ER 25 mg tablet,exte nded release 24 hr Take 0.5 tablets every day by oral route at bedtime for 30 days. active Not Available Not Available No t Available levofloxaci n 500 mg tablet 10/09 completed Not Available Not Available Not Available methylpredn isolone 4 mg tablets in a dose pack Take by oral route as directed at start of day 10/24 completed Not Available Not Available Not Available SSD 1 % topical cream APPLY TOPICALLY A 1/16 INCH THICK LAYER TO SKIN TEARS TWICE DAILY 04/20 completed Not Available Not Available Not Available Vitamin D2 1,250 mcg (50,000 unit) capsule Take 1 capsule every week by oral route as directed. 05/31 completed Not Available Not Available Not Available naproxen 500 mg tablet 10/24 completed Not Available Not Available Not Available Ventolin HFA 90 mcg/actuati on aerosol inhaler 10/09 completed Not Available Not Available Not Available oxycodone 5 mg tablet TAKE 1 TO 2 TABLETS EVERY 4 TO 6 HOURS NEEDED FOR PAIN active Not Available Not Available No t Available cyclobenzap rine 5 mg tablet TAKE 1 TABLET BY MOUTH THREE TIMES A DAY NEEDED FOR MUSCLE SPASMS active Not Available Not Available No t Available nitrofurant oin monohydrate /macrocryst als 100 mg capsule Take 1 capsule every 12 hours by oral route. 10/09 completed Not Available Not Available Not Available aspirin otc, takes daily 09/02 completed Not Available Not Available Not Available tramadol 2015 active Not Available Not Available Not Avai lable PreserVisio n AREDS two drops in each eye daily 2020 active Not Available Not Available Not Avai lable Butrans 5 mcg/hour transdermal patch 10/24 completed Not Available Not Available Not Available Nucynta ER 100 mg tablet,exte nded release 10/24 completed Not Available Not Available Not Available Vitamin B12 otc, takes daily 2019 active Not Available Not Available Not Avai lable Vitals Date Recorded Body mass index (BMI) Body height Oxygen saturation Oxygen saturation in Arterial blood by Pulse oximetry Heart rate Respiratory rate Body temperature Body weight Systolic blood pressure Diastolic blood pressure Provider Name and Address Organization Details Last Updated DateTime 2 29.8 kg/m2 157.48 cm 94 % 94 % 72 /min 16 /min 97.4 [degF] 07097.5 6 g 128 mm[Hg] 80 mm[Hg] Not Available [facility] 3 13:30:06 Date Recorded Body height Oxygen saturation Oxygen saturation in Arterial blood by Pulse oximetry Heart rate Respiratory rate Body temperature Systolic blood pressure Diastolic blood pressure Provider Name and Address Organization Details Last Updated DateTime 2 157.48 cm 97 % 97 % 76 /min 20 /min 97.2 [degF] 128 mm[Hg] 72 mm[Hg] Not Available [facility] 3 13:30:06 Date Recorded Body height Body mass index (BMI) Body weight Body temperature Heart rate Oxygen saturation Oxygen saturation in Arterial blood by Pulse oximetry Systolic blood pressure Diastolic blood pressure Provider Name and Address Organization Details Last Updated DateTime 3 157.48 cm 29.3 kg/m2 25989.7 8 g 96.3 [degF] 73 /min 96 % 96 % 134 mm[Hg] 78 mm[Hg] Valeri Galarza RN [facility] 3 14:24:32 Date Recorded Body height Body temperature Body mass index (BMI) Body weight Respiratory rate Oxygen saturation Oxygen saturation in Arterial blood by Pulse oximetry Heart rate Systolic blood pressure Diastolic blood pressure Provider Name and Address Organization Details Last Updated DateTime 3 157.48 cm 97.4 [degF] 28.7 kg/m2 42247 g 16 /min 97 % 97 % 68 /min 138 mm[Hg] 80 mm[Hg] NORMA Hager [facility] 3 15:42:22 Date Recorded Body height Body mass index (BMI) Body weight Respiratory rate Oxygen saturation Oxygen saturation in Arterial blood by Pulse oximetry Heart rate Systolic blood pressure Diastolic blood pressure Provider Name and Address Organization Details Last Updated DateTime 3 157.48 cm 30.2 kg/m2 89043.7 4 g 16 /min 94 % 94 % 75 /min 138 mm[Hg] 80 mm[Hg] NORMA Hager [facility] 3 13:35:05 Social History Question Answer Notes LastModified by Organizat ion Details LastModified Time Tobacco Smoking Status Former Smoker 16+ years since last cigarette Not Available [facility] 09/21/2022 13:29:37 What Is Your Level Of Alcohol Consumption? Moderate [id number] Information not available 09/21/2022 What Is Your Level Of Caffeine Consumption? Moderate [id number] Information not available 09/21/2022 How Much Tobacco Do You Chew? None [id number] Information not available 09/21/2022 In The 14 Days Before Symptom Onset, Have You Had Close Contact With A Laboratory-confi rmed COVID-19 While That Case Was Ill? No [id number] Information not available 09/21/2022 In The 14 Days Before Symptom Onset, Have You Had Close Contact With A Person Who Is Under Investigation For COVID-19 While That Person Was Ill? No [id number] Information not available 09/21/2022 Are You Currently Employed? No [email or web address] Information not available 10/14/2022 What Type Of Diet Are You Following? REGULAR [id number].[id number] Information not available 09/21/2022 Which Illicit Or Recreational Drugs Have You Used? None [id number] Information not available 09/21/2022 Do You Or Have You Ever Used E-cigarettes Or Vape? Never Used Electronic Cigarettes [id number] Information not available 09/21/2022 What Is Your Occupation? Retired MIGRATION.35107 14084 Information not available 09/21/2022 Have There Been Any Changes To Your Family Or Social Situation? No [id number].61918 [id number] Information not available 09/21/2022 Do You Use Insect Repellent Routinely? No Information not available 10/14/2022 What Was The Date Of Your Most Recent Tobacco Screening? 10/09/2020 [id number] Information not available 09/21/2022 Do You Use Your Seat Belt Or Car Seat Routinely? Yes [id number].49780 [id number] Information not available 09/21/2022 Do You Have Smoke And Carbon Monoxide Detectors In Your Home? Yes MIGRATION.47809 [id number] Information not available 09/21/2022 At What Age Did You Start Smoking Tobacco? 21 MIGRATION.55662 99616 Information not available 09/21/2022 Do You Or Have You Ever Used Smokeless Tobacco? Never Used Smokeless Tobacco MIGRATION.71743 [id number] Information not available 09/21/2022 How Much Tobacco Do You Smoke? 1 PPD MIGRATION.49511 [id number] Information not available 09/21/2022 Do You Use Any Illicit Or Recreational Drugs? No MIGRATION.75252 [id number] Information not available 09/21/2022 Do You Use Sunscreen Routinely? Yes [email or web address] Information not available 10/14/2022 Have You Recently Traveled Abroad? No MIGRATION.12056 01138 Information not available 09/21/2022 Do You Have Any Dietary Restrictions? No MIGRATION.67378 23189 Information not available 09/21/2022 Do You Or Have You Ever Used Any Other Forms Of Tobacco Or Nicotine? No MIGRATION.09105 46780 Information not available 09/21/2022 Sex: Unknown Functional Status Question Answer Note LastModified by Organizat ion Details LastModified Time Do you have difficulty doing errands alone? Yes [id number] Information not available 09/21/2022 Are you able to care for yourself? No [id number] Information not available 09/21/2022 What is your exercise level? None [id number] Information not available 09/21/2022 Mental Status None recorded. Family History Relationship Description Onset Age of this Age Resolved Age Notes LastModified by Organization Details LastModified Time Mother Malignant tumor of lung 73 [id number] Not available 09/21/2022 13:29:46 Father Depressive disorder 58 [id number] Not available 09/21/2022 13:29:46 Unspecified Relation Diabetes mellitus [id number] Not available 09/21/2022 13:29:46 Medical History Condition Response HEADACHES/MIGRAINES Y ULCERS Y DIZZINESS Y OTHER # 1 Y HEARTBURN / REFLUX Y HIGH CHOLESTEROL / HYPERLIPIDEMIA Y Other # 2 OBESITY Y ANXIETY DISORDER Y OSTEOPOROSIS Y URINARY/BLADDER/KIDNEY PROBLEMS Y BACK / NECK PROBLEMS Y SLEEP DISORDER Y DEPRESSION (INCLUDING POST ) Y Gynecological HistoryNo gynecological history recorded. Obstetrics History GPAL:G 0 P 0 0 0 0 Immunizations Vaccine Type Date Status Note Provider Nam e and Address Organization Details Recorded Time influenza, unspecified formulation 6 completed Not Available [facility] 09/21/2022 13:32:11 influenza, unspecified formulation 5 completed Not Available [facility] 09/21/2022 13:32:11 Pneumococcal Conjugate, unspecified formulation 1 completed Not Available [facility] 09/21/2022 13:32:11 Past Encounters Encounter ID Performer Location Encounter Start Date Encounter Closed Date Diagnosis/Indication Diagnosis SNOMED-CT Code Diagnosis ICD10 Code Diagnosis Note [id number] [facility] [address] [place] [address] 10/09/2020 00:00:00 10/10/2020 17:07:57 [id number] [facility] [address] [place] [address] 01/27/2021 00:00:00 02/14/2021 16:26:32 [id number] [facility] [address] [place] [address] 09/02/2021 00:00:00 09/20/2021 18:06:17 [id number] [facility] [address] [place] [address] 10/20/2021 00:00:00 10/20/2021 20:32:06 [id number] [facility] [address] [place] [address] 04/20/2022 00:00:00 04/20/2022 17:22:38 [id number] RICA Howard [facility] [address] [place] [address] 10/17/2022 14:05:04 10/17/2022 15:11:17 Benign essential hypertension [id number] I10 stable on low dose lisinopril 5mg daily and metoprolol ER 25mg daily. Degenerati on of lumbar intervertebral disc [id number] M51.36 stable. symptomati c chronicall y. handicap plaquard completed today. Gastroesop hageal reflux disease [id number] K21.9 stable on omeprazole 20mg daily Hyperlipidemia 71224050 E78.5 pt is on statin therapy. due for labs. Forgetful [id number] R41.3 daughter reports her memory short term is still an issue. Long-term drug therapy [id number] Z79.899 routine bmp, LFT, TFTs due Moderate m ajor depression 176949 F32.1 Starting venlafaxin e ER 150mg daily today. insurance stopped covering immediate release 75mg tabs two bid. Osteoarthritis 824630048 M19.90 no acute changes. on meloxicam therapy. Thrombocyt openic disorder 621601024 D69.6 due for CBC. has seen heme annually. Vitamin B1 2 deficiency (non anemic) 89722702 E53.8 due for b12 lab Postmenopa usal bleeding 09124338 N95.0 check pelvic. u/s. f/u with gyne. [id number] RICA Howard [facility] [address] [place] [address] 02/24/2023 15:22:54 02/24/2023 16:22:40 Anemia [id number] D64.9 due for CBC, iron studies, b12, folate and TFTs Hyperlipidemia 86539038 E78.5 pt is on statin therapy. due for labs. Moderate m ajor depression 467102 F32.1 Starting venlafaxin e ER 150mg daily today. insurance stopped covering immediate release 75mg tabs two bid. Long-term drug therapy [id number] Z79.899 routine bmp, LFT, TFTs due [id number] RICA Howard [facility] [address] [place] [address] 07/14/2023 13:28:30 07/14/2023 14:30:19 Lumbar radiculopathy [id number] M54.16 as above. Spinal riddhi nosis of lumbar region 88914639 M48.061 check updated MRI lumbar spine with back pain that is flared up again. Disorder of bile duct 11 4284920 K83.[address] scan that says dilated CBD at 10mm. refer for MRCP Benign ess ential hypertension 8639985 I10 stable on low dose lisinopril 5mg daily and metoprolol ER 25mg daily. Degenerati on of lumbar intervertebral disc 53675318 M51.36 stable. symptomati c chronicall y. Gastroesop hageal reflux disease 271751289 K21.9 stable on omeprazole 20mg daily Hyperlipidemia 87202431 E78.5 pt is on statin therapy Forgetful 81096754 R41.3 daughter reports her memory short term is still an issue. Long-term drug therapy 110627805 Z79.899 Moderate m ajor depression 580022 F32.1 stable on venlafaxin e Osteoarthritis 051773552 M19.90 no acute changes. on meloxicam therapy. Thrombocyt openic disorder 495227353 D69.6 due to see her Hematologi st. they need to schedule appt. Vitamin B1 2 deficiency (non anemic) 09878895 E53.8 due for b12 lab Health Concerns Section Related Observation LastModified by Organization Detai ls LastModified Time None Recorded Concern Status LastModified by Organization Details LastModified Time None Recorded Advance Directives Directive None Recorded Payers Encounter Date Sequence Insurance Name Policy Number Policy Gonzales Covered Member ID Gonzales Member ID Guarantor Name 10/17/2022 1 [place] Renetta A Carranza [id number] Renetta A Carranza 10/17/2022 2 [employer] SUPPLEMENTAL - [employer] INSURANCE (MEDICARE SUPPLEMENT) PLAN F Renetta A Carranza [id number] Renetta A Carranza 02/24/2023 1 [place] Renetta A Carranza [id number] Renetta A Carranza 02/24/2023 2 [employer] SUPPLE[employer]AL - [employer] INSURANCE (MEDICARE SUPPLEMENT) PLAN F Renetta A Carranza [id number] Renetta A Carranza 07/14/2023 1 [place] Renetta A Carranza [id number] Renetta A Carranza 07/14/2023 2 [employer] SU[employer]LEMENT[employer] - [employer] INSURANCE (MEDICARE SUPPLEMENT) PLAN F Renetta A Carranza [id number] Renetta A Carranza Notes Date Note Type Note Provider Name and Address Organization Details Recorded Time 10/21/19 22 text/htm l Generic HPI TemplateReported bypatient.Notes:Pt is here to discuss memory issues.InsomniaReported bypatient.Quality:symptoms worse in the evening Severity:worsening Duration:present for 1 month Context:waking up very early in the morning Associated Symptoms:no snoring; no depression; no known sleep apnea; no pain; no dyspnea; no urinary frequency; legs do not feel restless;anxiety; halucinating Not Available [facility] 10/20/2021 20:32:06 04/20/20 22 text/htm l HyperlipidemiaReported bypatient.Duration:chronic Control:usually well controlled Current Therapy:currently taking: (pravastatin 10mg) Compliance:compliant; exercises;noncompliant with diet Complications:no coronary artery disease; no peripheral artery disease; no cardiovascular disease Risk Factors:hypertensionHypertensio nReported bypatient.Duration:has noted for years Onset/Timing:better Alleviating Factors:medication Self Care:not under emotional stress Associated Symptoms:no decline in exercise capacity; no snoring;shortness of breath;fatigue;palpitationsRefl ux/GERDReported bypatient.Symptomsasymptomatic; no difficulty swallowing; no pain swallowing; no postprandial pain Severity:same Duration:present 5 or more years Onset/Timing:gone now Context:non-smoker; no drug/alcohol abuse; no drug alcohol withdrawal; not related to food/drink Alleviating Factors:medication Associated Symptoms:no frequent coughing; no hoarseness; no food getting stuck; no vomiting; not vomiting blood; no regurgitation; no shortness of breath; no chest pain; no heartburn; no difficulty swallowing; no pain when swallowing; no bad taste; no decreased appetite; no weight loss; no black/tarry stools; no fatigue; no throat pain; no dental erosion; no bloating; no early satiety; no halitosis;belching/burping Not Available [facility] 04/20/2022 17:22:38 10/18/19 23 text/htm l Anxiety/DepressionReported bypatient.Quality:symptoms worse in the evening;symptoms worse during the day Severity:denies suicidal ideations; able to maintain relationships Context:major life stressors; family wants her to sell her house Associated Symptoms:high irritability;anxiety;hypersensi tivity;depression;insomnia;rest lessness/agitation;pessimism;de spair/hopelessness;shortness of breathHyperlipidemiaReported bypatient.Duration:chronic Control:usually well controlled; improving; at goal Compliance:compliant;noncomplia nt with diet;does not exercise Complications:no coronary artery disease; no peripheral artery disease; no cardiovascular diseaseHypertensionReported bypatient.Onset/Timing:better Alleviating Factors:medication Associated Symptoms:no shortness of breath; no fatigue; no palpitations; no decline in exercise capacity; no snoringReflux/GERDReported bypatient.Severity:improving Context:non-smoker; no drug/alcohol abuse; no drug alcohol withdrawal; not related to food/drink Alleviating Factors:medication Associated Symptoms:no frequent coughing; no feeling of fullness/mass in throat; no hoarseness; no food getting stuck; no belching/burping; no nausea; no vomiting; not vomiting blood; no regurgitation; no shortness of breath; no chest pain; no heartburn; no difficulty swallowing; no pain when swallowing; no bad taste; no decreased appetite; no weight loss; no black/tarry stools; no fatigue; no throat pain RICA Howard [address] [address], [place], [address], [facility] [employer] 10/17/2022 22:51:48 02/25/20 23 text/htm l Anxiety/DepressionReported bypatient.Quality:doesnt matter time of day. Severity:denies suicidal ideations; able to maintain relationships;interference with household activities;interference with sleep Duration:symptoms lasting over 2 weeks Onset/Timing:still present Context:no major life stressors Modifying Factors:need a new rx for venlafaxine Associated Symptoms:denies homicidal ideations; no significant weight gain; no significant weight loss; no visual/auditory hallucinations; no shortness of breath;emotional lability;high irritability;hostility;depressi on;insomnia;restlessness/agitat ion;sleep disturbances;social withdrawal;belching;headaches;d elusionsFatigueReported bypatient.Quality:continuous Severity:normal sleep patterns; normal exercise habits; normal activity; improving Duration:constant Timing:worse Context:symptoms improve on weekends/vacation; no problems/stress at work or home Modifying Factors:no new stressors in life; taking vitamins Associated Symptoms:no drug/alcohol withdrawal; no anxiety; no sleep disturbances; no snoring; periods of not breathing (apnea) have not been observed; no recent change in weight;depression; drinking tea before bed then having to go to the bathroom a lot in the night. RICA Howard [address], [place], [address], [facility] 03/23/2023 23:33:34 07/14/20 23 text/htm l Anxiety/DepressionReported bypatient.Quality:symptoms worse in the evening;symptoms worse during the day Severity:denies suicidal ideations; able to maintain relationships Duration:symptoms lasting over 2 weeks Onset/Timing:still present Context:major life stressors Associated Symptoms:denies homicidal ideations; no significant weight gain; no significant weight loss; no visual/auditory hallucinations; no delusions; no shortness of breathHyperlipidemiaReported bypatient.Duration:chronic Control:usually well controlled Compliance:compliant;noncomplia nt with diet;does not exercise Complications:no coronary artery disease; no peripheral artery disease; no cardiovascular disease Risk Factors:hypertensionHypertensio nReported bypatient.Duration:has noted for years Onset/Timing:better Alleviating Factors:medication Associated Symptoms:no palpitations; no decline in exercise capacity; no snoring;shortness of breath;fatigueReflux/GERDReport ed bypatient.Severity:improving Duration:present 5 or more years Onset/Timing:gone now Context:non-smoker; no drug/alcohol abuse; no drug alcohol withdrawal; not related to food/drink Alleviating Factors:medication Associated Symptoms:no frequent coughing; no feeling of fullness/mass in throat; no hoarseness; no food getting stuck; no belching/burping; no nausea; no vomiting; not vomiting blood; no regurgitation; no shortness of breath; no chest pain; no heartburn; no difficulty swallowing; no pain when swallowing; no bad taste; no decreased appetite; no weight loss; no black/tarry stools; no fatigue; no throat pain RICA Howard [address], [facility] [address], [place], [address], [facility] 07/18/2023 11:31:51 OBGyn Episode No OBEpisode recorded.
[2024-08-15] MEDS: HYDROcodone/acetaminophen (*CRX) 5-325 MG TABLET 1 TAB PO (20:47)
[2024-08-16] VITALS (14 sets, daily range): BP systolic 97–120; BP diastolic 55–78; PULSE 50–103; RESP 18–26; TEMP 36.4–38.7; O2SAT 87–100
--- NOTE | 2024-08-16 | ECG_ITS ---
Test Date: 2024-08-16 21:25:28 Measurements Intervals [place] Rate: 97 P: 43 PA: 152 QRS: -23 QRSD: 128 T: 110 QT: 363 QTc: 461 Interpretive Statements SINUS RHYTHM LEFT BUNDLE BRANCH BLOCK [120+ ms QRS DURATION, 80+ ms Q/S IN V1/V2, 85+ ms R IN I/aVL/V5/V6] Compared to ECG 08/13/2024 10:09:33 No significant changes Electronically Signed On 08-17-2024 14:21:44 TOWNSHIP CLERK by Juan Posey M.D.
[2024-08-16] MEDS: VENLAFAXINE HCL 75 MG TABLET PO (08:21)
[2024-08-16] MEDS: METOPROLOL SUCCINATE EXT REL 25 MG TABCR PO (08:21)
[2024-08-16] MEDS: ATORVASTATIN 40 MG TABLET PO (08:21)
[2024-08-16] MEDS: OPTI-GEN TAB 1 TABLET PO (08:22)
[2024-08-16] MEDS: PANTOPRAZOLE 40 MG TABLET PO (08:23)
[2024-08-16] MEDS: MELOXICAM 7.5 MG TABLET 15 MG PO (08:23)
[2024-08-16] MEDS: ACETAMINOPHEN 325 MG TABLET 650 MG PO ×2 (08:23→21:54)
[2024-08-16] MEDS: ASPIRIN 81 MG CHEWABLE TABLET PO (08:23)
--- NOTE | 2024-08-16 11:12 | P.PNIM_ITS ---
Progress Note: A&P Assessment and Plan (1) Acute CVA (cerebrovascular accident): Code(s): I63.9 - Cerebral infarction, unspecified Status: Acute Assessment and Plan: Last known well approximately 1 week ago per patient. * CTA head Infarcts in the bilateral occipital lobes, likely acute or subacute. 0% stenosis of the proximal internal carotid arteries relative to normal distal artery * PT/OT eval and treat. * Add statins 40 mg q.day, aspirin 81 mg g q.day * No plavix due to pancytopenia follows with a rotary pump operator outpatient * neurology consulted, awaiting formal recs * echo w/Bubble no shunting * consider 30 day event monitoring at discharge has had loop recorder in the past * care coordination for placement post discharge Rehab * continue PT/ OT in hospital and Dc to [facility] when auth is available (2) Pancytopenia: Code(s): D61.818 - Other pancytopenia Status: Chronic Assessment and Plan: History of follow with Hematology outpatient - 08/16/2024: WBC 3.4, hemoglobin 10.9, platelet count 36 - 02/27/2023: WBC 3.9, hemoglobin 9.2, platelet count 69 (3) Mixed dementia: Code(s): G30.9 - Alzheimer's disease, unspecified; F01.50 - Vascular dementia, unspecified severity, without behavioral disturbance, psychotic disturbance, mood disturbance, and anxiety; F02.80 - Dementia in other diseases classified elsewhere, unspecified severity, without behavioral disturbance, psychotic disturbance, mood disturbance, and anxiety Status: Acute Assessment and Plan: History of dementia mood is stable pt remains calm pt is only on antidepressant medication No dementia medications has been added Plan Code status: Full code per patient DVT prophylaxis: SCD's Stress ulcer prophylaxis: Protonix 40 daily PT/OT notes: PT/OT pending Disposition: DC to [facility] when auth is completed Subjective Date/time seen: 08/16/24 11:12 Interval history: Patient is a 79-year-old female who was admitted for further evaluation and treatment acute CVA. 08/15:Patient alert and oriented for th most part (was not sure the name of the hospital) moving all extremities equal with no deficits noted at this time. Patient with no complaints. neurology is following. Patient denied any SOB, CP, Dizziness did repeat mild headache. reports nausea and vomiting this am- ordered prn meds 08/16: Pt having on going left leg weakness awaiting auth to DC to [facility], otherwise pt is doing ok, no issues with speech or swallow today ongoing left leg weakness Review of Systems Review of Systems: ongoing left leg weakness Exam Narrative: Elderly lady, chronically ill Const: General: comfortable and no acute distress Other: , female HENMT: Face/Nose/Sinus: Normal nares present Mouth: Yes moist mucous membranes Eyes: General: appearance normal, both eyes and all related structures Sclera: sclerae normal EOM: EOMs intact bilaterally Other: Reactive pupils Resp: Effort & Inspection: normal respiratory effort Auscultation: clear to auscultation bilaterally Cardio: Rate: regular rate Rhythm: regular rhythm Other: S1-S2 present without murmur GI: Other: Abdomen soft, nondistended, nontender. Normoactive bowel sounds in all quadrants. Skin: General skin exam: normal color and no rashes or lesions noted Wounds: no wounds Neuro: Speech: normal speech Sensory Exam: normal sensation Other: A&O x4, no gaze palsy, new facial droop. left leg 4/5 weakness Extrem: General: normal to inspection Psych: Mental Status: mental status grossly normal Affect: normal affect Other: Good to fair insight and judgment, pleasant Objective Data Vital Signs Vital Signs: Vital Signs - 24 hr 08/15/24 12:00 08/15/24 13:55 08/15/24 16:00 Temperature 36.5 C Pulse Rate 63 61 64 Respiratory Rate 18 Blood Pressure 106/57 L Pulse Oximetry 98 08/15/24 20:00 08/15/24 20:35 08/16/24 00:00 Temperature 36.8 C Pulse Rate 82 72 82 Respiratory Rate 20 Blood Pressure 110/61 Pulse Oximetry 99 08/16/24 04:00 08/16/24 06:20 08/16/24 08:21 Temperature 37.4 C Pulse Rate 94 95 103 H Respiratory Rate 18 Blood Pressure 120/70 Pulse Oximetry 95 08/16/24 10:25 08/16/24 10:25 08/16/24 10:25 Temperature Pulse Rate Respiratory Rate Blood Pressure 113/64 98/78 L 108/66 Pulse Oximetry Intake/Output Intake/Output: Intake & Output 08/13/24 08/14/24 08/15/24 08/16/24 23:59 23:59 23:59 23:59 Intake Total 320 720 630 300 Balance 320 720 630 300 Meds/Results Medications: Active Medications Generic Name Dose Route Start Last Admin Trade Name Freq PRN Reason Stop Dose Admin Acetaminophen 650 mg 08/15/24 12:54 08/16/24 08:23 Acetaminophen 325 Mg Tablet PO 650 mg Q6H PRN Administration Mild Pain (1-3) or Fever Hydrocodone Bitart/Acetaminophen 1 tab 08/15/24 12:54 08/15/24 20:47 Hydrocodone/Acetaminophen (*Crx) 5-325 Mg Tablet PO 1 tab Q6H PRN Administration Pain Rated 4-6 Aspirin 81 mg 08/14/24 08:00 08/16/24 08:23 Aspirin 81 Mg Chewable Tablet PO 81 mg DAILY@0800 SHAHNAZ Administration Atorvastatin Calcium 40 mg 08/14/24 09:00 08/16/24 08:21 Atorvastatin 40 Mg Tablet PO 40 mg DAILY SHAHNAZ Administration Lidocaine 1 patch 08/16/24 11:10 Lidocaine 5% Patch TRANSDERM DAILY [facility] 1928–1983 Meloxicam 15 mg 08/14/24 09:00 08/16/24 08:23 Meloxicam 7.5 Mg Tablet PO 15 mg QAM SHAHNAZ Administration Metoprolol Succinate 25 mg 08/14/24 09:00 08/16/24 08:21 Metoprolol Succinate Ext Rel 25 Mg Tabcr PO 25 mg DAILY SHAHNAZ Administration Multivitamins/Minerals 1 tablet 08/14/24 09:00 08/16/24 08:22 Opti-Gen Tab PO 1 tablet QAM SHAHNAZ Administration Ondansetron HCl 4 mg 08/15/24 09:28 08/15/24 15:19 Ondansetron Inj 4 Mg/2 Ml Vial IV PUSH 4 mg Q4H PRN Administration Nausea And Vomiting Pantoprazole Sodium 40 mg 08/14/24 09:00 08/16/24 08:23 Pantoprazole 40 Mg Tablet PO 40 mg QAM SHAHNAZ Administration Venlafaxine HCl 75 mg 08/14/24 09:00 08/16/24 08:21 Venlafaxine Hcl 75 Mg Tablet PO 75 mg DAILY SHAHNAZ Administration Radiology Results: ITS Impressions Head CT 08/13/24 11:38 IMPRESSION: 1. Age-indeterminate potentially acute to subacute infarcts in the posterior basilar circulation involving the bilateral occipital lobes and bilateral cerebellar hemispheres which are new since the prior study. 2. Interval progression of age-related changes including mild to moderate diffuse volume loss and moderate to severe scattered white matter hypoattenuation consistent with chronic small vessel ischemic disease. 3. Unchanged small old lacunar infarct at the left basal ganglia which includes the anterior limb of the left internal capsule. Head/Neck CTA 08/13/24 12:47 IMPRESSION: 1. Infarcts in the bilateral occipital lobes, likely acute or subacute. 2. Age-indeterminate infarcts in the cerebellum bilaterally. 3. Old infarct in the left basal ganglia and anterior limb left internal capsule. 4. Extensive nonspecific cerebral white matter disease, which likely represents chronic small vessel ischemic disease. 5. 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 6. 0% stenosis of the proximal internal carotid arteries relative to normal distal artery lumen diameters (NASCET criteria). 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 Chest X-Ray 08/13/24 13:54 IMPRESSION: 1. No acute cardiopulmonary disease.
[2024-08-16] MEDS: LIDOCAINE 5% PATCH 1 PATCH TRANSDERM (13:13)
[2024-08-16] MEDS: metroNIDAZOLE 500 MG/ISO 100ML 500 MG/100 ML BAG 100 MG IVPB (13:13)
[2024-08-16] MEDS: SODIUM CHLORIDE 0.9% IV 1,000 ML 70 ML IV CONT ×2 (13:14→21:40)
--- NOTE | 2024-08-16 13:26 | PC.NURSE ---
pt unable to take PO vanco at this time, she is very drowsy after therapies and having multiple stools
--- NOTE | 2024-08-16 14:24 | PCPTNOTE ---
On 08/16/24, the student, ZOË Whitt, provided care and completed [facility] documentation on this patient. I have reviewed the student's documentation and agree with the findings.
--- NOTE | 2024-08-16 14:41 | PC.NURSE ---
pt had large liquid stool but it saturated in to diaper, unable to obtain specimen
[2024-08-16 15:21] LABS: Hematocrit 42.8 % (37.0-47.0); Mean Corpuscular HGB Conc 32.7 g/dl (32-36); Mean Corpuscular Hemoglobin 29.7 pg (26-34); Mean Corpuscular Volume 90.7 fl (80-100); Mean Platelet Volume 12.3 fl (7.4-10.4); Platelet Count Result 28 k/mm3 (150-375); Red Blood Count 4.72 M/mm3 (4.2-5.4); Red Cell Distribution Width 13.8 % (11.5-14.5)
[2024-08-16 15:31] LABS: INR 1.4; Partial Thromboplastin Time 27.4 Seconds (22.3-36.8); Prothrombin Time 17.7 Seconds (11.1-14.7)
[2024-08-16 15:32] LABS: Fibrinogen 161 mg/dl (215-510)
[2024-08-16 15:40] LABS: D Dimer 3.18 ug/mL (<0.48)
[2024-08-16 15:47] LABS: Magnesium 1.5 mg/dL (1.6-2.3)
--- NOTE | 2024-08-16 15:49 | P.CONONC_ITS ---
Assessment and Plan Assessment and plan (1) Pancytopenia: Code(s): D61.818 - Other pancytopenia Status: Chronic Plan Patient is a 79-year-old female with long history of pancytopenia has been seen by Dr. Montoya in the past. She was brought into the hospital by the family due to mental status changes. She has been falling more frequently. CTA head and neck showed infarction in bilateral occipital lobe likely acute or subacute there was also old infarction in the left basal ganglia and left internal capsule. Labs showed pancytopenia with hemoglobin of 10 39,000. Patient could not be placed on anti-platelet therapy due to thrombocytopenia. 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 According to the family bone marrow biopsy has not been performed by the previous access services representative. I recommended bone marrow biopsy testing but will defer until next week or as an outpatient. I will also order abdominal ultrasound to check for any evidence of hepatosplenomegaly. I will order baseline workup for pancytopenia. I will check vitamin B12 level folic acid level and iron studies. I suspect recent worsening of thrombocytopenia is likely secondary to infection and DIC. No need for platelet transfusion unless patient is symptoms cleared count drops below 20,000. I have provided them my office information but also suggested to follow up with the primary access services representative after discharge. HPI Data of Consult Date/Time: 08/16/24 15:49 Requesting Physician: Ariane Barrios APRN Primary Care Provider: Dorina Echeverria, PAJohn Consult Narrative Narrative: Renetta Carranza is a 79 year old female with history of anemia, anxiety depression, osteoporosis and pancytopenia has been seen by Dr. Montoya in the past referred to me for pancytopenia. Patient was brought into the hospital with evaluation of mental status changes and worsening of dementia. She denies any including hematuria and melena. She is a poor historian. According the family patient has been having pain on the left side of her lower extremity. Patient has been falling more frequently. Patient used to live by herself but now has been living with the family. CTA head and neck showed and beta lobe likely acute or subacute. Extensive cerebral white matter disease and moderate stenosis of the left internal carotid artery. Labs showed WBC count of 3.4, [place] [address]. D-dimer was elevated at 3.1 with low fibrinogen of 161. PT was elevated at 17.7. Review of Systems 2 Review of Systems: Review of system as per HPI otherwise negative [facility] Past Medical History Medical History Pancytopenia Neuropathy Lumbar disc herniation Lumbar stenosis Lumbar spondylosis At maximum risk for fall C2 cervical fracture Foot fracture, left Shoulder fracture, right Osteoporosis Anxiety and depression Anemia Bleeding disorder Bruises easily Surgical History Surgical History History of removal of cyst (~1980) from neck History of breast biopsy (R) breast History of 1964 & 1965 History of hernia repair History of back surgery (~2009) History of knee replacement procedure of right knee (~2007) History of knee replacement procedure of left knee (~2008) History of gastric bypass (~2006) History of rotator cuff surgery (~2001) x2 History of cholecystectomy (~1997) History of foot surgery 1991 (R) foot 2014 (L) foot History of ovarian cystectomy (~1971) Family History Family History Mother Lung cancer Father H/O total hip arthroplasty Grandparent Diabetes mellitus paternal grandmother Lung cancer maternal grandmother Social History Social History Smoking status: Former smoker Tobacco type: cigarettes Alcohol intake: never Alcohol use details: socially Substance use: current Substance use type: marijuana Other substance usage details: gummies Do You Feel Safe in your Home?: Yes Lack of Transportation: No Lack of Food: Never True Current Housing: I Have Housing Concerned About Future Housing: No Difficulty Paying Gas/Electric Bills: No Difficulty Paying for Meds: No Currently Unemployed: No Education: High School Diploma/GED Difficulty w/ Childcare or Family Care: YES Living arrangements: alone Occupation/Education: retired Gender identity (if verbalized by the patient): Female Sexual Orientation (if Verbalized by the Patient): Straight or Heterosexual 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 (Islam) Meds Home Medications and Allergies Home Medications ?Medication ?Instructions ?Recorded ?Confirmed ?Type meloxicam 15 mg tablet 15 mg PO DAILY 05/31/21 08/13/24 History metoprolol succinate 25 mg 25 mg PO DAILY 05/31/21 08/13/24 History tablet,extended release 24 hr omeprazole 20 mg capsule,delayed 20 mg PO DAILY 05/31/21 08/13/24 History release pravastatin 10 mg tablet 10 mg PO DAILY 05/31/21 08/13/24 History venlafaxine 75 mg tablet 75 mg PO DAILY 05/31/21 08/13/24 History vitamins A,C,G-gukd-nvvcdk 4,296 1 cap PO BID 12/12/23 08/13/24 History mcg-226 mg-90 mg capsule (PreserVision AREDS) Allergies Allergy/AdvReac Type Severity Reaction Status Date / Time No Known Allergies Allergy Verified 08/13/24 09:53 Vital Signs Vital Signs - 24 hr 08/15/24 16:00 08/15/24 20:00 08/15/24 20:35 Temperature 36.8 C Pulse Rate 64 82 72 Respiratory Rate 20 Blood Pressure 110/61 Pulse Oximetry 99 Oxygen Delivery 08/16/24 00:00 08/16/24 04:00 08/16/24 06:20 Temperature 37.4 C Pulse Rate 82 94 95 Respiratory Rate 18 Blood Pressure 120/70 Pulse Oximetry 95 Oxygen Delivery 08/16/24 08:10 08/16/24 08:21 08/16/24 10:25 Temperature Pulse Rate 103 H Respiratory Rate Blood Pressure 113/64 Pulse Oximetry Oxygen Delivery Room Air 08/16/24 10:25 08/16/24 10:25 08/16/24 12:05 Temperature 37.1 C Pulse Rate 92 Respiratory Rate 24 H Blood Pressure 98/78 L 108/66 104/70 Pulse Oximetry 87 L Oxygen Delivery 08/16/24 14:00 Temperature 37.2 C Pulse Rate 100 Respiratory Rate 20 Blood Pressure 97/55 L Pulse Oximetry 97 Oxygen Delivery Exam 2 Narrative: Lungs are clear to auscultation bilaterally Cardiovascular regular rate rhythm no murmurs Abdomen soft nontender nondistended bowel sounds are positive Extremities no edema Results Labs 08/16/24 15:14 08/14/24 05:41 Labs: Short CBC 08/16/24 Range/Units 15:14 WBC 3.0 L (4.5-10.0) K/mm3 Hgb 14.0 (12.0-15.0) g/dL Hct 42.8 (37.0-47.0) % Plt Count 28 L (150-375) k/mm3
[2024-08-16] MEDS: MAGNESIUM SULF 2 GM/WATER 50ML 2 GM/50 ML BAG IVPB (16:34)
[2024-08-16 17:30] LABS: Folic Acid 8.7 ng/mL (2.76->20)
[2024-08-16] MEDS: HYDROcodone/acetaminophen (*CRX) 5-325 MG TABLET 1 TAB PO (19:32)
[2024-08-16 21:26] LABS: Alveolar/Arterial O2 Gradient 82.7 mmHg; Base Excess ABG -8.3 mEq/l (+/-2.0); Carboxyhemoglobin 0.6 % THb (0-2.0); Fractional Inspired Oxygen 28 %; HCO3 ABG 14.9 mEq/l (22.0-26.0); Methemoglobin ABG 0.3 %THb (0-1.5); Oxygen Content ABG 20.1 %vol (16.0-22.0); Oxygen Saturation ABG 96.6 % (95.0-100.0); Oxyhemoglobin 95.8 % THb (90.0-100.0); PCO2 ABG 25.8 mmHg (35.0-45.0); PO2 ABG 86.5 mmHg (80.0-100.0); PO2 FiO2 Ratio Arterial Blood 3.09 %; Reduced Hemoglobin 3.3 %THb (0-5.0); Total Hemoglobin 14.9 g/dL (12.0-18.0)
[2024-08-16 21:27] LABS: Device NASAL CANNULA; Modified Allen's Test Pass; Site Drawn RIGHT RADIAL
[2024-08-16 21:28] LABS: Hematocrit 45.7 % (37.0-47.0); Hemoglobin 14.8 g/dL (12.0-15.0); Immature Platelet Fraction Pct 8.7 % (0.9-11.2); Mean Corpuscular HGB Conc 32.4 g/dl (32-36); Mean Corpuscular Hemoglobin 29.3 pg (26-34); Mean Corpuscular Volume 90.5 fl (80-100); Red Blood Count 5.05 M/mm3 (4.2-5.4); Red Cell Distribution Width 13.9 % (11.5-14.5); White Blood Count 4.9 K/mm3 (4.5-10.0)
[2024-08-16 21:35] LABS: Iron 19 ug/dL (37-170)
[2024-08-16 21:44] LABS: Percent Iron Saturation 8 % (20-50)
[2024-08-16] MEDS: SODIUM CHLORIDE 0.9% IV 250 ML BAG 500 ML IVPB (21:44)
--- NOTE | 2024-08-16 21:49 | P.PNCROSS_ITS ---
Event Note Event Note Event Note: Approach by family about worrying about her mother she is decline throughout the day, she has had several loose stools, now appears abscess stroke-like symptoms and is pale on assessment patient is extremely diaphoretic and lethargic rapid response called by provider. Chest x-ray EKG [place] lab work ABG Head CT and chest abdomen pelvis UA Patient will be transferred IMU CT head, chest abdomen pelvis pending Patient with sepsis will receive fluid bolus per protocol UA does not appear to be severe enough to be the source of sepsis, unknown source Patient's platelet count has dropped to 20,000, oncology is recommendations are to transfuse platelets if below 20,000, 5:00 a.m. labs ordered, will hold off on platelet transfusion at this time Over 35 minutes critical care time involved with patient family
[2024-08-16 21:56] LABS: Platelet Count Result 23 k/mm3 (150-375)
[2024-08-16 22:22] LABS: Band Neutrophils Percent 22 % (0-6); Lymphocytes Absolute Manual 0.53 K/mm3 (1.1-4.5); Metamyelocytes Percent 5 %; Monocytes Absolute Manual 1.32 K/mm3 (0.1-0.90); Monocytes Percent Manual 27 % (3-9); Neutrophils Absolute Manual 2.79 K/mm3 (1.7-7.2); Neutrophils Percent Manual 35 % (46-73); Total Cells Counted 100
[2024-08-16 22:23] LABS: Platelet Estimate Decreased (Adequate)
[2024-08-16 22:24] LABS: Schistocytes None Seen
[2024-08-16 22:45] LABS: Influenza A QL RT-PCR Negative (Negative); Influenza B QL RT-PCR Negative (Negative); RSV RNA, RT-PCR Negative (Negative); SARS-CoV-2 RNA PCR Negative (Negative)
[2024-08-16 22:45] LABS: Glucose Point of Care 102 mg/dl (65-105)
[2024-08-16 22:47] LABS: Alanine Aminotransferase 170 U/L (6-35); Albumin Level 3.3 g/dL (3.5-5.1); Alkaline Phosphatase 94 U/L (38-126); Anion Gap 14 mmol/L (4-12); Aspartate Amino Transferase 312 U/L (14-36); Bilirubin,Total 1.2 mg/dL (0.2-1.3); Blood Urea Nitrogen 56 mg/dL (7-17); Calcium 6.7 mg/dL (8.4-10.2); Carbon Dioxide 18 mmol/L (22-30); Chloride 104 mmol/L (98-107); Estimated CRCL calculation 17 ml/min; Estimated Glomerular Filt Rate 24; Glucose 96 mg/dL (65-110); Potassium 3.5 mmol/L (3.4-5.0); Sodium 136 mmol/L (137-145)
[2024-08-16 22:56] LABS: Troponin I 0.025 ng/mL (0.000-0.034)
[2024-08-16 22:59] LABS: Basophils Percent Auto 0.6 % (0.2-1.2); Hematocrit 45.4 % (37.0-47.0); Hemoglobin 14.2 g/dL (12.0-15.0); Immature Granulocyte Absolute 0.06 K/mm3 (0.00-0.031); Immature Granulocyte Percent A 1.2 % (0-0.5); Immature Platelet Fraction Pct 7.7 % (0.9-11.2); Lymphocytes Absolute Auto 0.47 K/mm3 (0.9-3.2); Lymphocytes Percent Auto 9.1 % (18.3-44.2); Mean Corpuscular HGB Conc 31.3 g/dl (32-36); Mean Corpuscular Volume 92.8 fl (80-100); Monocytes Absolute Auto 0.6 K/mm3 (0.1-0.6); Monocytes Percent Auto 11.2 % (2.6-8.5); Neutrophils Percent Auto 77.9 % (45.5-73.1); Red Blood Count 4.89 M/mm3 (4.2-5.4); Red Cell Distribution Width 13.9 % (11.5-14.5); White Blood Count 5.2 K/mm3 (4.5-10.0)
[2024-08-16 23:13] LABS: INR 1.5; Prothrombin Time 18.7 Seconds (11.1-14.7)
[2024-08-16 23:14] LABS: Partial Thromboplastin Time 31.4 Seconds (22.3-36.8)
[2024-08-16 23:31] LABS: Add Urine Microscopic? YES; Appearance Urine Cloudy (Clear); Bacteria Urine None Seen /hpf; Bilirubin Urine 2+ (Negative); Blood Urine Negative (Negative); Color Urine Dark Yellow (Yellow); Glucose Urine UA Negative (Negative); Ketones Urine Trace mg/dL (Negative); Leukocyte Esterase Ur Trace LEU/UL (Negative); Need Manual Microscopic Reviewed; Nitrate Urine Negative (Negative); Protein Urine 1+ mg/dL (Negative); Specific Grav Ur 1.021 (1.001-1.035); Squamous Epithelial Cell Urine Few /hpf (Few); WBC Urine 0-5 /hpf (0-3)
[2024-08-16 23:36] LABS: Platelet Count Result 20 k/mm3 (150-375)
[2024-08-16 23:37] LABS: Platelet Estimate Decreased (Adequate); Schistocytes None Seen
[2024-08-17] VITALS (13 sets, daily range): BP systolic 81–111; BP diastolic 48–62; PULSE 74–107; RESP 11–20; TEMP 36.3–38; O2SAT 97–100
[2024-08-17] MEDS: SODIUM CHLORIDE 0.9% IV 1,000 ML 999 ML IV CONT (00:14)
[2024-08-17] MEDS: SODIUM CHLORIDE 0.9% IV 800 ML 999 ML IV CONT (00:14)
[2024-08-17] MEDS: metroNIDAZOLE 500 MG/ISO 100ML 500 MG/100 ML BAG 100 MG IVPB ×2 (00:16→09:41)
[2024-08-17] MEDS: VANCOMYCIN HCL 125 MG ORAL CAPSULE PO ×2 (01:05→05:14)
--- NOTE | 2024-08-17 01:14 | PC.NURSE ---
This patient, Renetta Carranza, was received from [[id number] ] on 08/16/[address] Bedside report given by FALLON Hayden. Patient/family oriented to unit policies and routines
[2024-08-17] MEDS: ONDANSETRON INJ 4 MG/2 ML VIAL IV PUSH (01:38)
[2024-08-17 02:08] LABS: Reflex Lactic Acid Yes or No Add Lactic
[2024-08-17] MEDS: ALBUMIN HUMAN 25% 25 GM/100 ML 100 ML IVPB (02:39)
[2024-08-17] MEDS: CALCIUM GLUC 2,000 MG/NS 100ML 2,000 MG/100 ML BAG 100 MG IVPB (03:20)
[2024-08-17 03:44] LABS: Basophils Absolute Auto 0.1 K/mm3 (0.0-0.1); Basophils Percent Auto 1.4 % (0.2-1.2); Hematocrit 39.9 % (37.0-47.0); Hemoglobin 12.2 g/dL (12.0-15.0); Immature Granulocyte Absolute 0.13 K/mm3 (0.00-0.031); Immature Granulocyte Percent A 2.7 % (0-0.5); Immature Platelet Fraction Pct 8.1 % (0.9-11.2); Lymphocytes Absolute Auto 0.46 K/mm3 (0.9-3.2); Lymphocytes Percent Auto 9.4 % (18.3-44.2); Mean Corpuscular HGB Conc 30.6 g/dl (32-36); Mean Corpuscular Hemoglobin 29.4 pg (26-34); Mean Corpuscular Volume 96.1 fl (80-100); Mean Platelet Volume 13.2 fl (7.4-10.4); Monocytes Absolute Auto 0.6 K/mm3 (0.1-0.6); Monocytes Percent Auto 12.3 % (2.6-8.5); Neutrophils Absolute Auto 3.6 K/mm3 (1.3-6.7); Neutrophils Percent Auto 74.2 % (45.5-73.1); Red Blood Count 4.15 M/mm3 (4.2-5.4); White Blood Count 4.9 K/mm3 (4.5-10.0)
[2024-08-17 03:51] LABS: Lactic Acid 3.6 mmol/L (0.7-2.0)
[2024-08-17 03:52] LABS: Alanine Aminotransferase 106 U/L (6-35); Albumin Level 2.7 g/dL (3.5-5.1); Alkaline Phosphatase 62 U/L (38-126); Anion Gap 12 mmol/L (4-12); Aspartate Amino Transferase 176 U/L (14-36); Blood Urea Nitrogen 54 mg/dL (7-17); Calcium 6.1 mg/dL (8.4-10.2); Carbon Dioxide 15 mmol/L (22-30); Chloride 109 mmol/L (98-107); Estimated CRCL calculation 19 ml/min; Estimated Glomerular Filt Rate 28; Glucose 70 mg/dL (65-110); Potassium 3.9 mmol/L (3.4-5.0); Sodium 136 mmol/L (137-145)
[2024-08-17 04:16] LABS: Platelet Count Result 20 k/mm3 (150-375)
[2024-08-17 04:53] LABS: Toxigenic C. Diff NEGATIVE (NEGATIVE)
[2024-08-17] MEDS: ACETAMINOPHEN 325 MG TABLET 650 MG PO (05:14)
[2024-08-17] MEDS: SODIUM CHLORIDE 0.9% IV 1,000 ML 125 ML IV CONT (05:34)
[2024-08-17 07:24] LABS: Hematocrit 34.1 % (37.0-47.0); Hemoglobin 11.1 g/dL (12.0-15.0); Immature Platelet Fraction Pct 9.6 % (0.9-11.2); Mean Corpuscular HGB Conc 32.6 g/dl (32-36); Mean Corpuscular Hemoglobin 29.8 pg (26-34); Mean Corpuscular Volume 91.4 fl (80-100); Mean Platelet Volume 12.6 fl (7.4-10.4); Red Blood Count 3.73 M/mm3 (4.2-5.4); White Blood Count 3.6 K/mm3 (4.5-10.0)
[2024-08-17 07:40] LABS: Platelet Count Result 18 k/mm3 (150-375)
[2024-08-17 08:40] LABS: Glucose Point of Care 72 mg/dl (65-105)
[2024-08-17] MEDS: HYDROcodone/acetaminophen (*CRX) 5-325 MG TABLET 1 TAB PO (09:33)
[2024-08-17] MEDS: MELOXICAM 7.5 MG TABLET 15 MG PO (09:35)
--- NOTE | 2024-08-17 10:03 | P.PNIM_ITS ---
Progress Note: A&P Assessment and Plan (1) Acute CVA (cerebrovascular accident): Code(s): I63.9 - Cerebral infarction, unspecified Status: Acute Assessment and Plan: Last known well approximately 1 week ago per patient. * CTA head Infarcts in the bilateral occipital lobes, likely acute or subacute. 0% stenosis of the proximal internal carotid arteries relative to normal distal artery * Neuro check q.4 hour for the 1st 24 hours. * automatic vulcanizing operator and telemetry continuously. * Blood pressure management. * -Keep the systolic blood pressure more than 200 or diastolic more than 110. Then lower blood pressure by 15% within the 1st 24 hours. * PT/OT eval and treat. * Check for LDL and hemoglobin A1c. * Add statins 40 mg q.day, aspirin 81 mg g q.day * No plavix due to pancytopenia follows with a energy manager outpatient * neurology consulted, awaiting formal recs * echo w/Bubble no shunting * fall precautions * start Atorvastatin 40 mg PO and ASA 81 mg. Will hold on starting Plavix given patient has history of pancytopenia, current platelet count is 39. * consider 30 day event monitoring at discharge has had loop recorder in the past * care coordination for placement post discharge Rehab neurology following- no acute interventions are indicated. consider EEG will benefit from placement continue working with pt/ot 08/17: waxing and waning mental status much worse last night patient was transferred to IMU after rapid response CT showed evolving area of subacute stroke involving bilateral occipital lobes bilateral cerebellar hemispheres and left basal ganglia thrombocytopenia significant with platelet count of 18, unable to give aspirin for this reason (2) Pancytopenia: Code(s): D61.818 - Other pancytopenia Status: Chronic Assessment and Plan: History of follow with Hematology outpatient - 08/13/2024: WBC 3.4, hemoglobin 10.9, platelet count 239 - 02/27/2023: WBC 3.9, hemoglobin 9.2, platelet count 69 08/17: platelet count 18, family choosing comfort care with hospice consult, defer transfusion (3) JANETTE (acute kidney injury): Code(s): N17.9 - Acute kidney failure, unspecified Status: Acute Assessment and Plan: Renal function worsened on 08/16 from prior labs on 08/[address] overnight indicating severe hypovolemia Will DC fluids after hospice consult (4) Partial bowel obstruction: Code(s): K56.600 - Partial intestinal obstruction, unspecified as to cause Status: Acute Assessment and Plan: Noted on CT overnight 08/16 to 08/17 Patient drinking fluids and eating a few foods No nausea/vomiting at time of exam No major abdominal pain/tenderness (5) Comfort measures only status: Code(s): Z51.5 - Encounter for palliative care Status: Acute Assessment and Plan: Status changed to comfort based care with Hospice consult on 08/17 due to severe pain of left leg, evolving stroke with cerebellar infact bilaterally, severe thrombocytopenia, JANETTE and partial bowel obstruction as noted on CT imaging. Plan Code status: DNR, comfort focused measures DVT prophylaxis: SCD's Stress ulcer prophylaxis: Protonix 40 daily Disposition: hospice consult Time Spent With Patient Time with patient: Greater than 35 minutes ( over 60 minutes total with 40 minutes of bedside discussion evaluation and education) Subjective Date/time seen: 08/17/24 10:03 Interval history: 79 year old female patient with admission due to altered LOC with discovery of evolving Stroke of the bilateral occipital lobs, bilateral cerebellar hemispheres and left basal ganglia. Thrombocytopenia noted with PLT down to 18 today. Yesterday patient with worsening symptoms, rapid response called and patient moved to IMU. Today family decides that primary objective of care would be to make patient comfortable. Long bedside discussion with patient and family regarding process of comfort care and hospice consult. Patient noted to be repeatedly crying out in pain to left leg which is a chronic undetermined cause of pain. Additionally, CT scan of abdomen/pelvis overnight showed partial bowel obstruction. Patient reporting worsened vision. Unable to test balance due to severe recurrent left leg pain and waxing/waning level of consciousness. Family made decision to pursue comfort care. C-diff negative so stopped Flagyl and vancomycin. Continue all comfort based medications and simple oxygen (non- titrating) with the addition of pain and anxiety medications. Transfer to Med/Surg and Case Management consult for hospice called. Hospice to meet with patient/family at 1600 today. Daughter wants patient to stay in hospital for hospice care. Further discussion about this will be needed later. Review of Systems Review of Systems: All systems reviewed & are unremarkable except as noted in HPI and below Exam Narrative: GENERAL: elderly female patient lying in bed awake speaking with family coherently, crying out in pain distress due to left leg pain HEAD: Normocephalic, atraumatic. ENT:? Mucous membranes moist, dentures in place and patient drinking fluids CHEST: Clear to auscultation.? No respiratory distress. HEART: Regular rate and rhythm. ? Normal peripheral pulses. ABDOMEN: Soft, nontender, nondistended. EXTREMITIES: left leg pain from the hip to the knee, no signs of injury, pain with palpation and movement of the extremity SKIN: Warm dry normal color NEURO: awake and alert at time of exam, mental status has been waxing and waning Objective Data Vital Signs Vital Signs: Vital Signs - 24 hr 08/16/24 10:25 08/16/24 10:25 08/16/24 10:25 Temperature Pulse Rate Respiratory Rate Blood Pressure 113/64 98/78 L 108/66 Pulse Oximetry Oxygen Delivery Oxygen Flow Rate 08/16/24 12:00 08/16/24 12:05 08/16/24 14:00 Temperature 37.1 C 37.2 C Pulse Rate 91 92 100 Respiratory Rate 24 H 20 Blood Pressure 104/70 97/55 L Pulse Oximetry 87 L 97 Oxygen Delivery Oxygen Flow Rate 08/16/24 16:00 08/16/24 20:00 08/16/24 20:00 Temperature Pulse Rate 94 50 L Respiratory Rate Blood Pressure Pulse Oximetry Oxygen Delivery Room Air Oxygen Flow Rate 08/16/24 21:25 08/16/24 21:54 08/16/24 22:53 Temperature 38.7 C H 38.7 C H 36.4 C Pulse Rate 95 Respiratory Rate 26 H Blood Pressure 103/67 Pulse Oximetry 100 Oxygen Delivery Oxygen Flow Rate 08/17/24 00:00 08/17/24 00:00 08/17/24 00:15 Temperature 36.4 C Pulse Rate 82 80 Respiratory Rate 19 Blood Pressure 81/52 L Pulse Oximetry 98 97 Oxygen Delivery Nasal Cannula Oxygen Flow Rate 2 08/17/24 02:00 08/17/24 02:26 08/17/24 03:21 Temperature 36.8 C Pulse Rate 74 83 Respiratory Rate 20 Blood Pressure 104/48 L 91/48 L Pulse Oximetry 98 Oxygen Delivery Oxygen Flow Rate 08/17/24 04:00 08/17/24 04:00 08/17/24 05:53 Temperature Pulse Rate 88 Respiratory Rate Blood Pressure 109/62 Pulse Oximetry 97 Oxygen Delivery Nasal Cannula Oxygen Flow Rate 5 08/17/24 06:00 08/17/24 07:46 Temperature 36.3 C L Pulse Rate 85 80 Respiratory Rate 16 Blood Pressure 97/56 L Pulse Oximetry 100 Oxygen Delivery Oxygen Flow Rate Intake/Output Intake/Output: Intake & Output 08/14/24 08/15/24 08/16/24 08/17/24 23:59 23:59 23:59 23:59 Intake Total 494 495 1367.3 100 Output Total 2 0 Balance 650 298 8312.3 100 Meds/Results Medications: Active Medications Generic Name Dose Route Start Last Admin Trade Name Freq PRN Reason Stop Dose Admin Acetaminophen 650 mg 08/15/24 12:54 08/17/24 05:14 Acetaminophen 325 Mg Tablet PO 650 mg Q6H PRN Administration Mild Pain (1-3) or Fever Hydrocodone Bitart/Acetaminophen 1 tab 08/15/24 12:54 08/17/24 09:33 Hydrocodone/Acetaminophen (*Crx) 5-325 Mg Tablet PO 1 tab Q6H PRN Administration Pain Rated 4-6 Aspirin 81 mg 08/14/24 08:00 08/17/24 09:41 Aspirin 81 Mg Chewable Tablet PO Not Given DAILY@0800 SHAHNAZ Atorvastatin Calcium 40 mg 08/14/24 09:00 08/17/24 09:40 Atorvastatin 40 Mg Tablet PO Not Given DAILY SHAHNAZ Metronidazole 500 mg in 100 mls @ 100 mls/hr 08/16/24 13:00 08/17/24 09:41 Flagyl 500 Mg/Iso Soln 100 Ml IVPB 100 mls/hr Q8HR SHAHNAZ Administration Sodium Chloride 1,000 mls @ 125 mls/hr 08/16/24 21:40 08/17/24 05:34 Normal Saline Iv IV CONT 125 mls/hr .Q8H SHAHNAZ Administration Lidocaine 1 patch 08/16/24 11:10 08/17/24 09:40 Lidocaine 5% Patch TRANSDERM Not Given DAILY SHAHNAZ Meloxicam 15 mg 08/14/24 09:00 08/17/24 09:35 Meloxicam 7.5 Mg Tablet PO 15 mg QAM SHAHNAZ Administration Metoprolol Succinate 25 mg 08/14/24 09:00 08/17/24 09:40 Metoprolol Succinate Ext Rel 25 Mg Tabcr PO Not Given DAILY SHAHNAZ Multivitamins/Minerals 1 tablet 08/14/24 09:00 08/17/24 09:40 Opti-Gen Tab PO Not Given QAM SHAHNAZ Ondansetron HCl 4 mg 08/15/24 09:28 08/17/24 01:38 Ondansetron Inj 4 Mg/2 Ml Vial IV PUSH 4 mg Q4H PRN Administration Nausea And Vomiting Pantoprazole Sodium 40 mg 08/14/24 09:00 08/17/24 09:40 Pantoprazole 40 Mg Tablet PO Not Given QAM SHAHNAZ Venlafaxine HCl 75 mg 08/14/24 09:00 08/17/24 09:40 Venlafaxine Hcl 75 Mg Tablet PO Not Given DAILY [facility] Radiology Results: ITS Impressions Head/Neck CTA 08/13/24 12:47 IMPRESSION: 1. Infarcts in the bilateral occipital lobes, likely acute or subacute. 2. Age-indeterminate infarcts in the cerebellum bilaterally. 3. Old infarct in the left basal ganglia and anterior limb left internal capsul e. 4. Extensive nonspecific cerebral white matter disease, which likely represents chronic small vessel ischemic disease. 5. 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 6. 0% stenosis of the proximal internal carotid arteries relative to normal distal artery lumen diameters (NASCET criteria). 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 Abdomen Ultrasound 08/16/24 20:56 IMPRESSION: No splenomegaly, as detailed above. Chest X-Ray 08/16/24 22:25 IMPRESSION: No focal infiltrate or effusion. No plain radiographic evidence to suggest the presence of a Pancoast tumor as is suggested in this patient's history. Head CT 08/16/24 23:54 Impression: No acute intracranial hemorrhage or suspicious mass effect. Further evolution of subacute cerebral infarctions, as detailed above. Chest/Abdomen/Pelvis CT 08/17/24 00:01 IMPRESSION: Findings within the deep pelvis suggesting a partial small bowel obstruction (as detailed above). Additional findings suggesting severe hypovolemia given the appearance of the IVC. Innumerable nonacute findings, as detailed above. Labs Labs: Laboratory Results - last 24 hr 08/16/24 08/16/24 08/16/24 15:08 15:14 21:15 WBC 3.0 L RBC 4.72 Hgb 14.0 Hct 42.8 MCV 90.7 MCH 29.7 MCHC 32.7 RDW 13.8 Plt Count 28 L MPV 12.3 H Immature Gran % (Auto) Neut % (Auto) Lymph % (Auto) [place] % (Auto) Eos % (Auto) Baso % (Auto) Lymph # (Auto) [place] # (Auto) Eos # (Auto) Baso # (Auto) Abs Immat Gran (auto) Absolute Neuts (auto) Absolute Nucleated RBC Total Counted Neutrophils % (Manual) Band Neutrophils % Lymphocytes % (Manual) Monocytes % (Manual) Metamyelocytes % Nucleated RBC % Abs Neuts (Manual) Abs Lymphs (Manual) Abs Monocytes (Manual) Platelet Estimate % Immature Plt Fraction Schistocytes PT 17.7 H INR 1.4 APTT 27.4 Fibrinogen 161 L D-Dimer 3.18 H Puncture Site ABG pH ABG pCO2 ABG pO2 ABG PO2/FiO2 Ratio ABG HCO3 ABG O2 Saturation ABG O2 Content ABG Base Excess A-a Gradient Oxyhemoglobin Carboxyhemoglobin Methemoglobin Reduced Hemoglobin Total Hemoglobin O2 Delivery Device O2 Liters/Min FiO2 Sodium Potassium Chloride Carbon Dioxide Anion Gap BUN Creatinine Estim Creat Clear Calc Estimated GFR Glucose POC Capillary Glucose 102 Lactic Acid Calcium Magnesium 1.5 L Iron TIBC % Saturation Ferritin Total Bilirubin AST ALT Alkaline Phosphatase Troponin I Total Protein Albumin Vitamin B12 831.0 Folate 8.7 Urine Color Urine Appearance Urine pH Ur Specific [place] Urine Protein Urine Glucose (UA) Urine Ketones Ur Blood (Man) Urine Nitrate Urine Bilirubin Urine Urobilinogen Ur Leukocyte Esterase Add Ur Microanalysis Leukocyte Esterase Rfl Urine RBC Urine WBC Urine WBC Clumps Ur Squamous Epith Cells Ur Transition Epith Cell Ur Renal Epithelial Cell [place] Biurate Crystals Calcium Carbonate Cryst Calcium Phosphate Cryst Calcium Oxalate Crystal Leucine Crystals Cystine Crystals Uric Acid Crystals Triple Phos Crystals Sulfonamide Crystals Cholesterol Crystals Tyrosine Crystals Hippuric Acid Crystals Bilirubin Crystals Amorphous Sediment Other Sediment Urine Bacteria Urine Casts Cellular Casts Epithelial Casts Fatty Casts Hyaline Casts Granular Casts Waxy Casts Broad Casts RBC Casts WBC Casts Urine Starch Urine Mucus Urine Trichomonas Urine Yeast (Budding) Ur Oval Fat Bodies Sperm Presence C. difficile (PCR) Influenza A (RT-PCR) Influenza B (RT-PCR) RSV (RT-PCR) SARS-CoV-2 RNA (RT-PCR) 08/16/24 08/16/24 08/16/24 21:19 21:21 22:05 WBC 4.9 RBC 5.05 Hgb 14.8 D Hct 45.7 MCV 90.5 MCH 29.3 MCHC 32.4 RDW 13.9 Plt Count 23 L* MPV TNP Immature Gran % (Auto) Not Reportable Neut % (Auto) Not Reportable Lymph % (Auto) Not Reportable [place] % (Auto) Not Reportable Eos % (Auto) Not Reportable Baso % (Auto) Not Reportable Lymph # (Auto) Not Reportable [place] # (Auto) Not Reportable Eos # (Auto) Not Reportable Baso # (Auto) Not Reportable Abs Immat Gran (auto) Not Reportable Absolute Neuts (auto) Not Reportable Absolute Nucleated RBC Not Reportable Total Counted 100 Neutrophils % (Manual) 35 L Band Neutrophils % 22 H Lymphocytes % (Manual) 11.0 L Monocytes % (Manual) 27 H Metamyelocytes % 5 Nucleated RBC % Not Reportable Abs Neuts (Manual) 2.79 Abs Lymphs (Manual) 0.53 L Abs Monocytes (Manual) 1.32 H Platelet Estimate Decreased % Immature Plt Fraction 8.7 Schistocytes None seen PT INR APTT Fibrinogen D-Dimer Puncture Site Right radial ABG pH 7.380 ABG pCO2 25.8 L ABG pO2 86.5 ABG PO2/FiO2 Ratio 3.09 ABG HCO3 14.9 L ABG O2 Saturation 96.6 ABG O2 Content 20.1 ABG Base Excess -8.3 A-a Gradient 82.7 Oxyhemoglobin 95.8 Carboxyhemoglobin 0.6 Methemoglobin 0.3 Reduced Hemoglobin 3.3 Total Hemoglobin 14.9 O2 Delivery Device Nasal cannula O2 Liters/Min 2.0 FiO2 28 Sodium 136 L Potassium 3.5 Chloride 104 Carbon Dioxide 18 L Anion Gap 14 H BUN 56 H D Creatinine 2.00 H Estim Creat Clear Calc 17 Estimated GFR 24 L Glucose 96 POC Capillary Glucose Lactic Acid Calcium 6.7 L Magnesium Iron 19 L TIBC 253 L % Saturation 8 L Ferritin 570.00 H Total Bilirubin 1.2 AST 312 H ALT 170 H Alkaline Phosphatase 94 Troponin I 0.025 Total Protein 6.0 L Albumin 3.3 L Vitamin B12 Folate Urine Color Urine Appearance Urine pH Ur Specific [place] Urine Protein Urine Glucose (UA) Urine Ketones Ur Blood (Man) Urine Nitrate Urine Bilirubin Urine Urobilinogen Ur Leukocyte Esterase Add Ur Microanalysis Leukocyte Esterase Rfl Urine RBC Urine WBC Urine WBC Clumps Ur Squamous Epith Cells Ur Transition Epith Cell Ur Renal Epithelial Cell [place] Biurate Crystals Calcium Carbonate Cryst Calcium Phosphate Cryst Calcium Oxalate Crystal Leucine Crystals Cystine Crystals Uric Acid Crystals Triple Phos Crystals Sulfonamide Crystals Cholesterol Crystals Tyrosine Crystals Hippuric Acid Crystals Bilirubin Crystals Amorphous Sediment Other Sediment Urine Bacteria Urine Casts Cellular Casts Epithelial Casts Fatty Casts Hyaline Casts Granular Casts Waxy Casts Broad Casts RBC Casts WBC Casts Urine Starch Urine Mucus Urine Trichomonas Urine Yeast (Budding) Ur Oval Fat Bodies Sperm Presence C. difficile (PCR) Influenza A (RT-PCR) Negative Influenza B (RT-PCR) Negative RSV (RT-PCR) Negative SARS-CoV-2 RNA (RT-PCR) Negative 08/16/24 08/16/24 08/16/24 22:34 22:34 22:34 WBC RBC Hgb Hct MCV MCH MCHC RDW Plt Count MPV Immature Gran % (Auto) Neut % (Auto) Lymph % (Auto) [place] % (Auto) Eos % (Auto) Baso % (Auto) Lymph # (Auto) [place] # (Auto) Eos # (Auto) Baso # (Auto) Abs Immat Gran (auto) Absolute Neuts (auto) Absolute Nucleated RBC Total Counted Neutrophils % (Manual) Band Neutrophils % Lymphocytes % (Manual) Monocytes % (Manual) Metamyelocytes % Nucleated RBC % Abs Neuts (Manual) Abs Lymphs (Manual) Abs Monocytes (Manual) Platelet Estimate % Immature Plt Fraction Schistocytes PT INR APTT Fibrinogen D-Dimer Puncture Site ABG pH ABG pCO2 ABG pO2 ABG PO2/FiO2 Ratio ABG HCO3 ABG O2 Saturation ABG O2 Content ABG Base Excess A-a Gradient Oxyhemoglobin Carboxyhemoglobin Methemoglobin Reduced Hemoglobin Total Hemoglobin O2 Delivery Device O2 Liters/Min FiO2 Sodium Potassium Chloride Carbon Dioxide Anion Gap BUN Creatinine Estim Creat Clear Calc Estimated GFR Glucose POC Capillary Glucose Lactic Acid Calcium Magnesium Iron TIBC % Saturation Ferritin Total Bilirubin AST ALT Alkaline Phosphatase Troponin I Total Protein Albumin Vitamin B12 Folate Urine Color Cancelled Dark yellow Urine Appearance Cancelled Cloudy H Urine pH Cancelled Ur Specific [place] Urine Protein Urine Glucose (UA) Urine Ketones Ur Blood (Man) Urine Nitrate Urine Bilirubin Urine Urobilinogen Ur Leukocyte Esterase Add Ur Microanalysis Leukocyte Esterase Rfl Urine RBC Urine WBC Urine WBC Clumps Ur Squamous Epith Cells Ur Transition Epith Cell Ur Renal Epithelial Cell [place] Biurate Crystals Calcium Carbonate Cryst Calcium Phosphate Cryst Calcium Oxalate Crystal Leucine Crystals Cystine Crystals Uric Acid Crystals Triple Phos Crystals Sulfonamide Crystals Cholesterol Crystals Tyrosine Crystals Hippuric Acid Crystals Bilirubin Crystals Amorphous Sediment Other Sediment Urine Bacteria Urine Casts Cellular Casts Epithelial Casts Fatty Casts Hyaline Casts Granular Casts Waxy Casts Broad Casts RBC Casts WBC Casts Urine Starch Urine Mucus Urine Trichomonas Urine Yeast (Budding) Ur Oval Fat Bodies Sperm Presence C. difficile (PCR) Influenza A (RT-PCR) Influenza B (RT-PCR) RSV (RT-PCR) SARS-CoV-2 RNA (RT-PCR) 08/16/24 08/16/24 08/16/24 22:34 22:34 22:34 WBC RBC Hgb Hct MCV MCH MCHC RDW Plt Count MPV Immature Gran % (Auto) Neut % (Auto) Lymph % (Auto) [place] % (Auto) Eos % (Auto) Baso % (Auto) Lymph # (Auto) [place] # (Auto) Eos # (Auto) Baso # (Auto) Abs Immat Gran (auto) Absolute Neuts (auto) Absolute Nucleated RBC Total Counted Neutrophils % (Manual) Band Neutrophils % Lymphocytes % (Manual) Monocytes % (Manual) Metamyelocytes % Nucleated RBC % Abs Neuts (Manual) Abs Lymphs (Manual) Abs Monocytes (Manual) Platelet Estimate % Immature Plt Fraction Schistocytes PT INR APTT Fibrinogen D-Dimer Puncture Site ABG pH ABG pCO2 ABG pO2 ABG PO2/FiO2 Ratio ABG HCO3 ABG O2 Saturation ABG O2 Content ABG Base Excess A-a Gradient Oxyhemoglobin Carboxyhemoglobin Methemoglobin Reduced Hemoglobin Total Hemoglobin O2 Delivery Device O2 Liters/Min FiO2 Sodium Potassium Chloride Carbon Dioxide Anion Gap BUN Creatinine Estim Creat Clear Calc Estimated GFR Glucose POC Capillary Glucose Lactic Acid Calcium Magnesium Iron TIBC % Saturation Ferritin Total Bilirubin AST ALT Alkaline Phosphatase Troponin I Total Protein Albumin Vitamin B12 Folate Urine Color Urine Appearance Urine pH 5.0 Ur Specific [place] Cancelled 1.021 Urine Protein Cancelled 1+ H Urine Glucose (UA) Cancelled Urine Ketones Ur Blood (Man) Urine Nitrate Urine Bilirubin Urine Urobilinogen Ur Leukocyte Esterase Add Ur Microanalysis Leukocyte Esterase Rfl Urine RBC Urine WBC Urine WBC Clumps Ur Squamous Epith Cells Ur Transition Epith Cell Ur Renal Epithelial Cell [place] Biurate Crystals Calcium Carbonate Cryst Calcium Phosphate Cryst Calcium Oxalate Crystal Leucine Crystals Cystine Crystals Uric Acid Crystals Triple Phos Crystals Sulfonamide Crystals Cholesterol Crystals Tyrosine Crystals Hippuric Acid Crystals Bilirubin Crystals Amorphous Sediment Other Sediment Urine Bacteria Urine Casts Cellular Casts Epithelial Casts Fatty Casts Hyaline Casts Granular Casts Waxy Casts Broad Casts RBC Casts WBC Casts Urine Starch Urine Mucus Urine Trichomonas Urine Yeast (Budding) Ur Oval Fat Bodies Sperm Presence C. difficile (PCR) Influenza A (RT-PCR) Influenza B (RT-PCR) RSV (RT-PCR) SARS-CoV-2 RNA (RT-PCR) 08/16/24 08/16/24 08/16/24 22:34 22:34 22:34 WBC RBC Hgb Hct MCV MCH MCHC RDW Plt Count MPV Immature Gran % (Auto) Neut % (Auto) Lymph % (Auto) [place] % (Auto) Eos % (Auto) Baso % (Auto) Lymph # (Auto) [place] # (Auto) Eos # (Auto) Baso # (Auto) Abs Immat Gran (auto) Absolute Neuts (auto) Absolute Nucleated RBC Total Counted Neutrophils % (Manual) Band Neutrophils % Lymphocytes % (Manual) Monocytes % (Manual) Metamyelocytes % Nucleated RBC % Abs Neuts (Manual) Abs Lymphs (Manual) Abs Monocytes (Manual) Platelet Estimate % Immature Plt Fraction Schistocytes PT INR APTT Fibrinogen D-Dimer Puncture Site ABG pH ABG pCO2 ABG pO2 ABG PO2/FiO2 Ratio ABG HCO3 ABG O2 Saturation ABG O2 Content ABG Base Excess A-a Gradient Oxyhemoglobin Carboxyhemoglobin Methemoglobin Reduced Hemoglobin Total Hemoglobin O2 Delivery Device O2 Liters/Min FiO2 Sodium Potassium Chloride Carbon Dioxide Anion Gap BUN Creatinine Estim Creat Clear Calc Estimated GFR Glucose POC Capillary Glucose Lactic Acid Calcium Magnesium Iron TIBC % Saturation Ferritin Total Bilirubin AST ALT Alkaline Phosphatase Troponin I Total Protein Albumin Vitamin B12 Folate Urine Color Urine Appearance Urine pH Ur Specific [place] Urine Protein Urine Glucose (UA) Negative Urine Ketones Cancelled Trace H Ur Blood (Man) Cancelled Negative Urine Nitrate Cancelled Urine Bilirubin Urine Urobilinogen Ur Leukocyte Esterase Add Ur Microanalysis Leukocyte Esterase Rfl Urine RBC Urine WBC Urine WBC Clumps Ur Squamous Epith Cells Ur Transition Epith Cell Ur Renal Epithelial Cell [place] Biurate Crystals Calcium Carbonate Cryst Calcium Phosphate Cryst Calcium Oxalate Crystal Leucine Crystals Cystine Crystals Uric Acid Crystals Triple Phos Crystals Sulfonamide Crystals Cholesterol Crystals Tyrosine Crystals Hippuric Acid Crystals Bilirubin Crystals Amorphous Sediment Other Sediment Urine Bacteria Urine Casts Cellular Casts Epithelial Casts Fatty Casts Hyaline Casts Granular Casts Waxy Casts Broad Casts RBC Casts WBC Casts Urine Starch Urine Mucus Urine Trichomonas Urine Yeast (Budding) Ur Oval Fat Bodies Sperm Presence C. difficile (PCR) Influenza A (RT-PCR) Influenza B (RT-PCR) RSV (RT-PCR) SARS-CoV-2 RNA (RT-PCR) 08/16/24 08/16/24 08/16/24 22:34 22:34 22:34 WBC RBC Hgb Hct MCV MCH MCHC RDW Plt Count MPV Immature Gran % (Auto) Neut % (Auto) Lymph % (Auto) [place] % (Auto) Eos % (Auto) Baso % (Auto) Lymph # (Auto) [place] # (Auto) Eos # (Auto) Baso # (Auto) Abs Immat Gran (auto) Absolute Neuts (auto) Absolute Nucleated RBC Total Counted Neutrophils % (Manual) Band Neutrophils % Lymphocytes % (Manual) Monocytes % (Manual) Metamyelocytes % Nucleated RBC % Abs Neuts (Manual) Abs Lymphs (Manual) Abs Monocytes (Manual) Platelet Estimate % Immature Plt Fraction Schistocytes PT INR APTT Fibrinogen D-Dimer Puncture Site ABG pH ABG pCO2 ABG pO2 ABG PO2/FiO2 Ratio ABG HCO3 ABG O2 Saturation ABG O2 Content ABG Base Excess A-a Gradient Oxyhemoglobin Carboxyhemoglobin Methemoglobin Reduced Hemoglobin Total Hemoglobin O2 Delivery Device O2 Liters/Min FiO2 Sodium Potassium Chloride Carbon Dioxide Anion Gap BUN Creatinine Estim Creat Clear Calc Estimated GFR Glucose POC Capillary Glucose Lactic Acid Calcium Magnesium Iron TIBC % Saturation Ferritin Total Bilirubin AST ALT Alkaline Phosphatase Troponin I Total Protein Albumin Vitamin B12 Folate Urine Color Urine Appearance Urine pH Ur Specific [place] Urine Protein Urine Glucose (UA) Urine Ketones Ur Blood (Man) Urine Nitrate Negative Urine Bilirubin Cancelled 2+ H Urine Urobilinogen Cancelled 1.0 Ur Leukocyte Esterase Cancelled Add Ur Microanalysis Cancelled Leukocyte Esterase Rfl Urine RBC Urine WBC Urine WBC Clumps Ur Squamous Epith Cells Ur Transition Epith Cell Ur Renal Epithelial Cell [place] Biurate Crystals Calcium Carbonate Cryst Calcium Phosphate Cryst Calcium Oxalate Crystal Leucine Crystals Cystine Crystals Uric Acid Crystals Triple Phos Crystals Sulfonamide Crystals Cholesterol Crystals Tyrosine Crystals Hippuric Acid Crystals Bilirubin Crystals Amorphous Sediment Other Sediment Urine Bacteria Urine Casts Cellular Casts Epithelial Casts Fatty Casts Hyaline Casts Granular Casts Waxy Casts Broad Casts RBC Casts WBC Casts Urine Starch Urine Mucus Urine Trichomonas Urine Yeast (Budding) Ur Oval Fat Bodies Sperm Presence C. difficile (PCR) Influenza A (RT-PCR) Influenza B (RT-PCR) RSV (RT-PCR) SARS-CoV-2 RNA (RT-PCR) 08/16/24 08/16/24 08/16/24 22:34 22:34 22:34 WBC RBC Hgb Hct MCV MCH MCHC RDW Plt Count MPV Immature Gran % (Auto) Neut % (Auto) Lymph % (Auto) [place] % (Auto) Eos % (Auto) Baso % (Auto) Lymph # (Auto) [place] # (Auto) Eos # (Auto) Baso # (Auto) Abs Immat Gran (auto) Absolute Neuts (auto) Absolute Nucleated RBC Total Counted Neutrophils % (Manual) Band Neutrophils % Lymphocytes % (Manual) Monocytes % (Manual) Metamyelocytes % Nucleated RBC % Abs Neuts (Manual) Abs Lymphs (Manual) Abs Monocytes (Manual) Platelet Estimate % Immature Plt Fraction Schistocytes PT INR APTT Fibrinogen D-Dimer Puncture Site ABG pH ABG pCO2 ABG pO2 ABG PO2/FiO2 Ratio ABG HCO3 ABG O2 Saturation ABG O2 Content ABG Base Excess A-a Gradient Oxyhemoglobin Carboxyhemoglobin Methemoglobin Reduced Hemoglobin Total Hemoglobin O2 Delivery Device O2 Liters/Min FiO2 Sodium Potassium Chloride Carbon Dioxide Anion Gap BUN Creatinine Estim Creat Clear Calc Estimated GFR Glucose POC Capillary Glucose Lactic Acid Calcium Magnesium Iron TIBC % Saturation Ferritin Total Bilirubin AST ALT Alkaline Phosphatase Troponin I Total Protein Albumin Vitamin B12 Folate Urine Color Urine Appearance Urine pH Ur Specific [place] Urine Protein Urine Glucose (UA) Urine Ketones Ur Blood (Man) Urine Nitrate Urine Bilirubin Urine Urobilinogen Ur Leukocyte Esterase Add Ur Microanalysis Reviewed Leukocyte Esterase Rfl Trace H Urine RBC Cancelled 3-5 H Urine WBC Cancelled 0-5 Urine WBC Clumps Cancelled Ur Squamous Epith Cells Cancelled Ur Transition Epith Cell Ur Renal Epithelial Cell [place] Biurate Crystals Calcium Carbonate Cryst Calcium Phosphate Cryst Calcium Oxalate Crystal Leucine Crystals Cystine Crystals Uric Acid Crystals Triple Phos Crystals Sulfonamide Crystals Cholesterol Crystals Tyrosine Crystals Hippuric Acid Crystals Bilirubin Crystals Amorphous Sediment Other Sediment Urine Bacteria Urine Casts Cellular Casts Epithelial Casts Fatty Casts Hyaline Casts Granular Casts Waxy Casts Broad Casts RBC Casts WBC Casts Urine Starch Urine Mucus Urine Trichomonas Urine Yeast (Budding) Ur Oval Fat Bodies Sperm Presence C. difficile (PCR) Influenza A (RT-PCR) Influenza B (RT-PCR) RSV (RT-PCR) SARS-CoV-2 RNA (RT-PCR) 08/16/24 08/16/24 08/16/24 22:34 22:34 22:34 WBC RBC Hgb Hct MCV MCH MCHC RDW Plt Count MPV Immature Gran % (Auto) Neut % (Auto) Lymph % (Auto) [place] % (Auto) Eos % (Auto) Baso % (Auto) Lymph # (Auto) [place] # (Auto) Eos # (Auto) Baso # (Auto) Abs Immat Gran (auto) Absolute Neuts (auto) Absolute Nucleated RBC Total Counted Neutrophils % (Manual) Band Neutrophils % Lymphocytes % (Manual) Monocytes % (Manual) Metamyelocytes % Nucleated RBC % Abs Neuts (Manual) Abs Lymphs (Manual) Abs Monocytes (Manual) Platelet Estimate % Immature Plt Fraction Schistocytes PT INR APTT Fibrinogen D-Dimer Puncture Site ABG pH ABG pCO2 ABG pO2 ABG PO2/FiO2 Ratio ABG HCO3 ABG O2 Saturation ABG O2 Content ABG Base Excess A-a Gradient Oxyhemoglobin Carboxyhemoglobin Methemoglobin Reduced Hemoglobin Total Hemoglobin O2 Delivery Device O2 Liters/Min FiO2 Sodium Potassium Chloride Carbon Dioxide Anion Gap BUN Creatinine Estim Creat Clear Calc Estimated GFR Glucose POC Capillary Glucose Lactic Acid Calcium Magnesium Iron TIBC % Saturation Ferritin Total Bilirubin AST ALT Alkaline Phosphatase Troponin I Total Protein Albumin Vitamin B12 Folate Urine Color Urine Appearance Urine pH Ur Specific [place] Urine Protein Urine Glucose (UA) Urine Ketones Ur Blood (Man) Urine Nitrate Urine Bilirubin Urine Urobilinogen Ur Leukocyte Esterase Add Ur Microanalysis Leukocyte Esterase Rfl Urine RBC Urine WBC Urine WBC Clumps Ur Squamous Epith Cells Few Ur Transition Epith Cell Cancelled Ur Renal Epithelial Cell Cancelled [place] Biurate Crystals Cancelled Calcium Carbonate Cryst Cancelled Calcium Phosphate Cryst Cancelled Calcium Oxalate Crystal Cancelled Leucine Crystals Cancelled Cystine Crystals Cancelled Uric Acid Crystals Cancelled Triple Phos Crystals Cancelled Sulfonamide Crystals Cancelled Cholesterol Crystals Cancelled Tyrosine Crystals Cancelled Hippuric Acid Crystals Cancelled Bilirubin Crystals Cancelled Amorphous Sediment Cancelled Other Sediment Cancelled Urine Bacteria Cancelled None seen Urine Casts Cancelled 11-20 Cellular Casts Cancelled Epithelial Casts Cancelled Fatty Casts Cancelled Hyaline Casts Cancelled Granular Casts Cancelled Waxy Casts Cancelled Broad Casts Cancelled RBC Casts Cancelled WBC Casts Cancelled Urine Starch Cancelled Urine Mucus Cancelled Urine Trichomonas Cancelled Urine Yeast (Budding) Cancelled Ur Oval Fat Bodies Cancelled Sperm Presence Cancelled C. difficile (PCR) Influenza A (RT-PCR) Influenza B (RT-PCR) RSV (RT-PCR) SARS-CoV-2 RNA (RT-PCR) 08/16/24 08/17/24 08/17/24 22:49 03:19 03:36 WBC 5.2 4.9 RBC 4.89 4.15 L Hgb 14.2 12.2 Hct 45.4 39.9 MCV 92.8 96.1 MCH 29.0 29.4 MCHC 31.3 L 30.6 L RDW 13.9 14.0 Plt Count 20 L* 20 L* MPV 13.0 H 13.2 H Immature Gran % (Auto) 1.2 H 2.7 H Neut % (Auto) 77.9 H 74.2 H Lymph % (Auto) 9.1 L 9.4 L [place] % (Auto) 11.2 H 12.3 H Eos % (Auto) 0.0 0.0 Baso % (Auto) 0.6 1.4 H Lymph # (Auto) 0.47 L 0.46 L [place] # (Auto) 0.6 0.6 Eos # (Auto) 0.0 0.0 Baso # (Auto) 0.0 0.1 Abs Immat Gran (auto) 0.06 H 0.13 H Absolute Neuts (auto) 4.0 3.6 Absolute Nucleated RBC 0.000 0.000 Total Counted Neutrophils % (Manual) Band Neutrophils % Lymphocytes % (Manual) Monocytes % (Manual) Metamyelocytes % Nucleated RBC % 0.0 0.0 Abs Neuts (Manual) Abs Lymphs (Manual) Abs Monocytes (Manual) Platelet Estimate Decreased % Immature Plt Fraction 7.7 8.1 Schistocytes None seen PT 18.7 H INR 1.5 APTT 31.4 Fibrinogen D-Dimer Puncture Site ABG pH ABG pCO2 ABG pO2 ABG PO2/FiO2 Ratio ABG HCO3 ABG O2 Saturation ABG O2 Content ABG Base Excess A-a Gradient Oxyhemoglobin Carboxyhemoglobin Methemoglobin Reduced Hemoglobin Total Hemoglobin O2 Delivery Device O2 Liters/Min FiO2 Sodium 136 L Potassium 3.9 Chloride 109 H Carbon Dioxide 15 L Anion Gap 12 BUN 54 H Creatinine 1.73 H Estim Creat Clear Calc 19 Estimated GFR 28 L Glucose 70 POC Capillary Glucose Lactic Acid 4.0 H 3.6 H Calcium 6.1 L Magnesium Iron TIBC % Saturation Ferritin Total Bilirubin 1.0 AST 176 H ALT 106 H Alkaline Phosphatase 62 Troponin I Total Protein 5.0 L Albumin 2.7 L Vitamin B12 Folate Urine Color Urine Appearance Urine pH Ur Specific [place] Urine Protein Urine Glucose (UA) Urine Ketones Ur Blood (Man) Urine Nitrate Urine Bilirubin Urine Urobilinogen Ur Leukocyte Esterase Add Ur Microanalysis Leukocyte Esterase Rfl Urine RBC Urine WBC Urine WBC Clumps Ur Squamous Epith Cells Ur Transition Epith Cell Ur Renal Epithelial Cell [place] Biurate Crystals Calcium Carbonate Cryst Calcium Phosphate Cryst Calcium Oxalate Crystal Leucine Crystals Cystine Crystals Uric Acid Crystals Triple Phos Crystals Sulfonamide Crystals Cholesterol Crystals Tyrosine Crystals Hippuric Acid Crystals Bilirubin Crystals Amorphous Sediment Other Sediment Urine Bacteria Urine Casts Cellular Casts Epithelial Casts Fatty Casts Hyaline Casts Granular Casts Waxy Casts Broad Casts RBC Casts WBC Casts Urine Starch Urine Mucus Urine Trichomonas Urine Yeast (Budding) Ur Oval Fat Bodies Sperm Presence C. difficile (PCR) Negative Influenza A (RT-PCR) Influenza B (RT-PCR) RSV (RT-PCR) SARS-CoV-2 RNA (RT-PCR) 08/17/24 08/17/24 07:14 07:55 WBC 3.6 L RBC 3.73 L Hgb 11.1 L Hct 34.1 L MCV 91.4 MCH 29.8 MCHC 32.6 RDW 14.0 Plt Count 18 L* MPV 12.6 H Immature Gran % (Auto) Neut % (Auto) Lymph % (Auto) [place] % (Auto) Eos % (Auto) Baso % (Auto) Lymph # (Auto) [place] # (Auto) Eos # (Auto) Baso # (Auto) Abs Immat Gran (auto) Absolute Neuts (auto) Absolute Nucleated RBC Total Counted Neutrophils % (Manual) Band Neutrophils % Lymphocytes % (Manual) Monocytes % (Manual) Metamyelocytes % Nucleated RBC % Abs Neuts (Manual) Abs Lymphs (Manual) Abs Monocytes (Manual) Platelet Estimate % Immature Plt Fraction 9.6 Schistocytes PT INR APTT Fibrinogen D-Dimer Puncture Site ABG pH ABG pCO2 ABG pO2 ABG PO2/FiO2 Ratio ABG HCO3 ABG O2 Saturation ABG O2 Content ABG Base Excess A-a Gradient Oxyhemoglobin Carboxyhemoglobin Methemoglobin Reduced Hemoglobin Total Hemoglobin O2 Delivery Device O2 Liters/Min FiO2 Sodium Potassium Chloride Carbon Dioxide Anion Gap BUN Creatinine Estim Creat Clear Calc Estimated GFR Glucose POC Capillary Glucose 72 Lactic Acid Calcium Magnesium Iron TIBC % Saturation Ferritin Total Bilirubin AST ALT Alkaline Phosphatase Troponin I Total Protein Albumin Vitamin B12 Folate Urine Color Urine Appearance Urine pH Ur Specific [place] Urine Protein Urine Glucose (UA) Urine Ketones Ur Blood (Man) Urine Nitrate Urine Bilirubin Urine Urobilinogen Ur Leukocyte Esterase Add Ur Microanalysis Leukocyte Esterase Rfl Urine RBC Urine WBC Urine WBC Clumps Ur Squamous Epith Cells Ur Transition Epith Cell Ur Renal Epithelial Cell [place] Biurate Crystals Calcium Carbonate Cryst Calcium Phosphate Cryst Calcium Oxalate Crystal Leucine Crystals Cystine Crystals Uric Acid Crystals Triple Phos Crystals Sulfonamide Crystals Cholesterol Crystals Tyrosine Crystals Hippuric Acid Crystals Bilirubin Crystals Amorphous Sediment Other Sediment Urine Bacteria Urine Casts Cellular Casts Epithelial Casts Fatty Casts Hyaline Casts Granular Casts Waxy Casts Broad Casts RBC Casts WBC Casts Urine Starch Urine Mucus Urine Trichomonas Urine Yeast (Budding) Ur Oval Fat Bodies Sperm Presence C. difficile (PCR) Influenza A (RT-PCR) Influenza B (RT-PCR) RSV (RT-PCR) SARS-CoV-2 RNA (RT-PCR) Imaging Radiologist's impression: History: Stroke, infection abscess PROCEDURE: CT head without contrast. COMPARISON: 08/13/2024 TECHNIQUE: Axial imaging of the head performed from the skull base to the vertex without IV contrast. Sagittal and coronal reformations obtained. DLP: 681 mGy-cm FINDINGS: The ventricles are enlarged. The dilatation of the ventricles is proportional to the degree of sulcal prominence, not uncommon in the senescent brain. Decreased attenuation is identified within the periventricular white matter, likely secondary to microvascular ischemic disease, in a patient of this age. Redemonstration of multiple areas of decreased attenuation within the bilateral occipital lobes, bilateral cerebellar hemispheres and left basal ganglia, consistent with prior/subacute cerebral infarction. There is no mass, mass effect or midline shift. There is no abnormal extra-axial fluid collection or intracranial hemorrhage. Visualized paranasal sinuses are clear. The mastoid air cells are well aerated. No acute displaced fractures within the overlying cranium. Impression: No acute intracranial hemorrhage or suspicious mass effect. Further evolution of subacute cerebral infarctions, as detailed above. 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 Cross-sectional imaging is to evaluate for a possible source. COMPARISON: Reference is made to an abdominal ultrasound examination performed 6 hours earlier. TECHNIQUE: Multiple contiguous axial images of the chest, abdomen and pelvis were performed without the administration of intravenous contrast The dose-length product (DLP) was 605.32 mGy-cm. Automated exposure control and iterative reconstruction technique were employed. FINDINGS/OBSERVATIONS: Chest: Coarse interstitial lung markings are redemonstrated. Dependent atelectasis with trace left-sided pleural effusion. The heart is enlarged, with a small pericardial effusion. Moderate hiatal hernia is present. Postoperative change within the upper abdomen, possibly a gastric sleeve with the staple lines extending into the chest (with the hiatal hernia). Liver: The liver demonstrates homogeneous attenuation and is not enlarged measuring 16 cm in longitudinal dimension. Gallbladder and biliary system: The gallbladder is surgically absent. Pancreas: Limited evaluation of the pancreas secondary to the lack of intravenous contrast. Spleen: The spleen demonstrates homogeneous attenuation and is not enlarged measuring 7 cm in longitudinal dimension. Kidneys: The bilateral kidneys are unremarkable, without hydronephrosis or renal calculi. Adrenal glands: Unremarkable. Gastrointestinal tract: Multiple loops of dilated small bowel are identified within the deep pelvis, with air-fluid levels. Infiltration of the mesenteric fat in this location is also noted, with surrounding inflammatory change. The small bowel loops appear to be tethered within the pelvis. Air, however, is seen within the colon, suggesting only a partial obstruction. Appendix: The appendix is not definitively visualized. However, no pericecal inflammatory change is identified suggest the presence of acute appendicitis. Vasculature: Calcified atherosclerotic disease. The inferior vena cava is slit like, suggesting severe hypovolemia Lymph nodes: Limited evaluation without intravenous contrast. Pelvic structures: The bladder is decompressed with a Hassan catheter The uterus is atrophic, anteverted and anteflexed, and contains multiple calcifications suggesting prior fibroid disease. Body wall and musculoskeletal: Fixation hardware within the lower lumbar spine. Significant degenerative disease is also noted, with osteophyte formation and disc space narrowing, endplate changes and vacuum phenomena. IMPRESSION: Findings within the deep pelvis suggesting a partial small bowel obstruction (as detailed above). Additional findings suggesting severe hypovolemia given the appearance of the IVC. Innumerable nonacute findings, as detailed above. Reviewed, dictated and finalized at location A. 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 Pulse Oximetry SpO2 results: 98-100% on 5 LPM NC Attestation: I personally reviewed and interpreted this pulse oximetry as follows: Interpretation: For comfort may keep patient on nasal cannula Quality VTE Prophylaxis VTE prophylaxis: mechanical ordered If No VTE Prophylaxis Answer both mechanical and pharmacologic: Reason no pharmacologic proph: medical contraindication thrombocytopenia Hospitalist MIPS Advance Care Plan I have confirmed that the patient's Advanced Care Plan is present, code status is documented, or surrogate decision maker is listed in patient medical record.: Yes Medication Reconciliation I have utilized all available resources to obtain, update and review the patients current medications (includes all prescriptions, OTC, herbals, cannabis, and nutritional supplements).: Yes
[2024-08-17] MEDS: LIDOCAINE 5% PATCH 1 PATCH TRANSDERM (10:45)
[2024-08-17 12:30] LABS: Glucose Point of Care 95 mg/dl (65-105)
--- NOTE | 2024-08-17 13:01 | PCPTNOTE ---
Attempted to see pt at 13:01 however pt is in process of being transferred from IMU. AKS
[2024-08-17] MEDS: SCOPOLAMINE 1 MG PATCH 1 PATCH TRANSDERM (13:05)
[2024-08-17] MEDS: MORPHINE SULFATE (*CRX) 2 MG/ML INJ IV PUSH (13:19)
--- NOTE | 2024-08-17 15:05 | PC.NURSE ---
Telephone report received from DAYTON De Jesus RN.
--- NOTE | 2024-08-17 15:27 | PC.NURSE ---
Transferred to room 329-1 per hospital bed from IMU.
--- NOTE | 2024-08-17 15:47 | PC.NURSE ---
This patient, Renetta Carranza, was transferred to [facility] on 08/17/24 at 1523. Personal belongings sent with patient. Report given to Virginie LEHMAN. Appropriate documentation sent with patient. Family members at bedside and know of room change.
--- NOTE | 2024-08-17 16:48 | P.CONGS_ITS ---
Assessment and Plan Assessment and plan (1) Abnormal CT of the abdomen: Code(s): R93.5 - Abnormal findings on diagnostic imaging of other abdominal regions, including retroperitoneum Status: Acute Assessment and Plan: I do not see any findings to suggest the patient has a small-bowel obstruction. She had some emesis 2 days ago but none since. Following that her problem has been diarrhea. Regarding her GI complaints, vomiting with diarrhea has been a common problem and very contagious lately. I explained to the patient's daughter that this does not represent a bowel obstruction at all in my opinion. Even though the patient has had a severe stroke and is now hospice, I am hopeful that her bowel habits and eating will improve in a few days. (2) Pancytopenia: Code(s): D61.818 - Other pancytopenia Status: Chronic Assessment and Plan: Very low platelet count at present time (3) Acute CVA (cerebrovascular accident): Code(s): I63.9 - Cerebral infarction, unspecified Status: Acute Assessment and Plan: Primarily posterior circulation in very debilitating-bilateral cerebellar infarcts and bilateral occipital infarcts. Evidence of microvascular disease diffusely. Patient now on supportive care only. History of Present Illness Consult details Consult date: 08/17/24 Reason for consult: abdominal pain Requesting physician: Mariza Slaughter APRN Narrative: Patient is a 79-year-old woman who came to the emergency room 4 days ago with altered mental status and increased falling. Imaging showed that she had suffered a stroke involving primarily the posterior circulation including bilateral cerebellar infarcts and bilateral occipital infarcts. There was also evidence of microvascular disease. Two days after admission it was noted that the patient was having vomiting. The next day, she started having diarrhea which has continued. She is eating very little and often complains of abdominal pain after eating. When I saw the patient, her daughter trace seen was in the room. The patient was sleeping and was somewhat difficult to arouse. She denied having abdominal pain. I was unaware at the time but the patient had been referred for hospice just prior to my coming to see her. Also no worthy is that the patient has a long history of thrombocytopenia. Currently her platelet count is just under 20,000 at 18,000. She is felt to have a myelodysplastic syndrome. Patient also had a fever to 38.7 last night and the previous night. She had 10 documented bowel movements yesterday day area she is seen now in consultation. She did have a see CT scan of the chest, abdomen, and pelvis. This was read as dilated small bowel with significant colon gas but concern for partial small-bowel obstruction in the pelvis. Patient does have a history of 2 C sections, ovarian cystectomy, appendectomy, cholecystectomy and gastric bypass. Review of Systems 2 Review of Systems: ROS unobtainable: Yes unobtainable due to medical condition PMFSH Past Medical History Medical History Pancytopenia Neuropathy Lumbar disc herniation Lumbar stenosis Lumbar spondylosis At maximum risk for fall C2 cervical fracture Foot fracture, left Shoulder fracture, right Osteoporosis Anxiety and depression Anemia Bleeding disorder Bruises easily Surgical History Surgical History History of removal of cyst (~1980) from neck History of breast biopsy (R) breast History of 1964 & 1965 History of hernia repair History of back surgery (~2009) History of knee replacement procedure of right knee (~2007) History of knee replacement procedure of left knee (~2008) History of gastric bypass (~2006) History of rotator cuff surgery (~2001) x2 History of cholecystectomy (~1997) History of foot surgery 1991 (R) foot 2014 (L) foot History of ovarian cystectomy (~1971) Family History Family History Mother Lung cancer Father H/O total hip arthroplasty Grandparent Diabetes mellitus paternal grandmother Lung cancer maternal grandmother Social History Social History Smoking status: Former smoker Tobacco type: cigarettes Alcohol intake: never Alcohol use details: socially Substance use: current Substance use type: marijuana Other substance usage details: gummies Do You Feel Safe in your Home?: Yes Lack of Transportation: No Lack of Food: Never True Current Housing: I Have Housing Concerned About Future Housing: No Difficulty Paying Gas/Electric Bills: No Difficulty Paying for Meds: No Currently Unemployed: No Education: High School Diploma/GED Difficulty w/ Childcare or Family Care: YES Living arrangements: alone Occupation/Education: retired Gender identity (if verbalized by the patient): Female Sexual Orientation (if Verbalized by the Patient): Straight or Heterosexual 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 (Buddhist) Meds Home Medications and Allergies Home Medications ?Medication ?Instructions ?Recorded ?Confirmed ?Type meloxicam 15 mg tablet 15 mg PO DAILY 05/31/21 08/13/24 History metoprolol succinate 25 mg 25 mg PO DAILY 05/31/21 08/13/24 History tablet,extended release 24 hr omeprazole 20 mg capsule,delayed 20 mg PO DAILY 05/31/21 08/13/24 History release pravastatin 10 mg tablet 10 mg PO DAILY 05/31/21 08/13/24 History venlafaxine 75 mg tablet 75 mg PO DAILY 05/31/21 08/13/24 History vitamins A,C,U-[id number]-tfhmbn 4,296 1 cap PO BID 12/12/23 08/13/24 History mcg-226 mg-90 mg capsule (PreserVision AREDS) Allergies Allergy/AdvReac Type Severity Reaction Status Date / Time No Known Allergies Allergy Verified 08/13/24 09:53 Vital Signs Vital Signs - 24 hr 08/16/24 20:00 08/16/24 20:00 08/16/24 21:25 Temperature 38.7 C H Pulse Rate 50 L 95 Respiratory Rate 26 H Blood Pressure 103/67 Pulse Oximetry 100 Oxygen Delivery Room Air Oxygen Flow Rate 08/16/24 21:54 08/16/24 22:53 08/17/24 00:00 Temperature 38.7 C H 36.4 C Pulse Rate Respiratory Rate Blood Pressure Pulse Oximetry 98 Oxygen Delivery Nasal Cannula Oxygen Flow Rate 2 08/17/24 00:00 08/17/24 00:15 08/17/24 02:00 Temperature 36.4 C Pulse Rate 82 80 74 Respiratory Rate 19 Blood Pressure 81/52 L Pulse Oximetry 97 Oxygen Delivery Oxygen Flow Rate 08/17/24 02:26 08/17/24 03:21 08/17/24 04:00 Temperature 36.8 C Pulse Rate 83 Respiratory Rate 20 Blood Pressure 104/48 L 91/48 L Pulse Oximetry 98 97 Oxygen Delivery Nasal Cannula Oxygen Flow Rate 5 08/17/24 04:00 08/17/24 05:53 08/17/24 06:00 Temperature Pulse Rate 88 85 Respiratory Rate Blood Pressure 109/62 Pulse Oximetry Oxygen Delivery Oxygen Flow Rate 08/17/24 07:46 08/17/24 08:00 08/17/24 08:00 Temperature 36.3 C L Pulse Rate 80 85 Respiratory Rate 16 Blood Pressure 97/56 L Pulse Oximetry 100 100 Oxygen Delivery Nasal Cannula Oxygen Flow Rate 5 08/17/24 10:00 08/17/24 11:24 Temperature 37.2 C Pulse Rate 89 77 Respiratory Rate 16 Blood Pressure 111/62 Pulse Oximetry 100 Oxygen Delivery Oxygen Flow Rate Exam 2 Const: General: comfortable, lethargic, tired appearing and thin O rientation/consciousness: lethargic HENMT: Head: normocephalic, atraumatic and no acral cyanosis Ears: external ears normal Face/Nose/Sinus: Normal external nose present and Normal nares present Face and sinus: normal facial exam, face symmetric, no crepitus and no ecchymosis Mouth: Yes Normal oral and palatal mucosa present and Yes tongue normal Neck: Neck: normal visual inspection, trachea midline and supple Thyroid: t hyroid normal Lymphatic: no lymphadenopathy noted GI: Inspection: normal to inspection, non-distended, scar (Lower abdominal midline scar) and no visible herniation GI Palp: Yes Soft to palpation, Yes Tenderness to palpation present (GI) (Left lower quadrant only), No Guarding due to palpation present (GI), No Hepatosplenomegaly present, No Hernia present, No Palpable mass present, No Ascites present and No Rebound tenderness present A uscultation: normal bowel sounds and normoactive bowel sounds Back/Spine/Pelvis: Back: no CVA tenderness, No mass, No erythema and No warmth Skin: Lesions: no lesions Rashes: no rashes Wounds: no wounds Hair: n ormal Neuro: General: CN's II-XI intact bilaterally Cranial nerves: Yes facial symmetry and No hard of hearing Gait exam (Neuro): Unable to assess gait Extrem: General: no clubbing, no cyanosis and no edema Psych: Appearance: other (Too somnolent to assess) Results Labs 08/17/24 07:14 08/17/24 03:36 Labs: Abnormal lab results 08/16/24 08/16/24 08/16/24 Range/Units 21:19 21:21 22:34 WBC (4.5-10.0) K/mm3 RBC (4.2-5.4) M/mm3 Hgb (12.0-15.0) g/dL Hct (37.0-47.0) % MCHC (32-36) g/dl Plt Count 23 L* (150-375) k/mm3 MPV (7.4-10.4) fl Immature Gran % (Auto) (0-0.5) % Neut % (Auto) (45.5-73.1) % Lymph % (Auto) (18.3-44.2) % [place] % (Auto) (2.6-8.5) % Baso % (Auto) (0.2-1.2) % Lymph # (Auto) (0.9-3.2) K/mm3 Abs Immat Gran (auto) (0.00-0.031) K/mm3 Neutrophils % (Manual) 35 L (46-73) % Band Neutrophils % 22 H (0-6) % Lymphocytes % (Manual) 11.0 L (18-44) % Monocytes % (Manual) 27 H (3-9) % Abs Lymphs (Manual) 0.53 L (1.1-4.5) K/mm3 Abs Monocytes (Manual) 1.32 H (0.1-0.90) K/mm3 PT (11.1-14.7) Seconds ABG pCO2 25.8 L (35.0-45.0) mmHg ABG HCO3 14.9 L (22.0-26.0) mEq/l Sodium 136 L (137-145) mmol/L Chloride (98-107) mmol/L Carbon Dioxide 18 L (22-30) mmol/L Anion Gap 14 H (4-12) mmol/L BUN 56 H D (7-17) mg/dL Creatinine 2.00 H (0.7-1.0) mg/dL Estimated GFR 24 L (59 - ) Lactic Acid (0.7-2.0) mmol/L Calcium 6.7 L (8.4-10.2) mg/dL Iron 19 L (37-170) ug/dL TIBC 253 L (261-462) ug/dL % Saturation 8 L (20-50) % Ferritin 570.00 H (11.1-264) ng/mL AST 312 H (14-36) U/L ALT 170 H (6-35) U/L Total Protein 6.0 L (6.3-8.2) g/dL Albumin 3.3 L (3.5-5.1) g/dL Urine Appearance Cloudy H (Clear) Urine Protein 1+ H (Negative) mg/dL Urine Ketones Trace H (Negative) mg/dL Urine Bilirubin 2+ H (Negative) Leukocyte Esterase Rfl Trace H (Negative) ALLI/UL Urine RBC 3-5 H (0-2) /hpf 08/16/24 08/17/24 08/17/24 Range/Units 22:49 03:36 07:14 WBC 3.6 L (4.5-10.0) K/mm3 RBC 4.15 L 3.73 L (4.2-5.4) M/mm3 Hgb 11.1 L (12.0-15.0) g/dL Hct 34.1 L (37.0-47.0) % MCHC 31.3 L 30.6 L (32-36) g/dl Plt Count 20 L* 20 L* 18 L* (150-375) k/mm3 MPV 13.0 H 13.2 H 12.6 H (7.4-10.4) fl Immature Gran % (Auto) 1.2 H 2.7 H (0-0.5) % Neut % (Auto) 77.9 H 74.2 H (45.5-73.1) % Lymph % (Auto) 9.1 L 9.4 L (18.3-44.2) % [place] % (Auto) 11.2 H 12.3 H (2.6-8.5) % Baso % (Auto) 1.4 H (0.2-1.2) % Lymph # (Auto) 0.47 L 0.46 L (0.9-3.2) K/mm3 Abs Immat Gran (auto) 0.06 H 0.13 H (0.00-0.031) K/mm3 Neutrophils % (Manual) (46-73) % Band Neutrophils % (0-6) % Lymphocytes % (Manual) (18-44) % Monocytes % (Manual) (3-9) % Abs Lymphs (Manual) (1.1-4.5) K/mm3 Abs Monocytes (Manual) (0.1-0.90) K/mm3 PT 18.7 H (11.1-14.7) Seconds ABG pCO2 (35.0-45.0) mmHg ABG HCO3 (22.0-26.0) mEq/l Sodium 136 L (137-145) mmol/L Chloride 109 H (98-107) mmol/L Carbon Dioxide 15 L (22-30) mmol/L Anion Gap (4-12) mmol/L BUN 54 H (7-17) mg/dL Creatinine 1.73 H (0.7-1.0) mg/dL Estimated GFR 28 L (59 - ) Lactic Acid 4.0 H 3.6 H (0.7-2.0) mmol/L Calcium 6.1 L (8.4-10.2) mg/dL Iron (37-170) ug/dL TIBC (261-462) ug/dL % Saturation (20-50) % Ferritin (11.1-264) ng/mL AST 176 H (14-36) U/L ALT 106 H (6-35) U/L Total Protein 5.0 L (6.3-8.2) g/dL Albumin 2.7 L (3.5-5.1) g/dL Urine Appearance (Clear) Urine Protein (Negative) mg/dL Urine Ketones (Negative) mg/dL Urine Bilirubin (Negative) Leukocyte Esterase Rfl (Negative) ALLI/UL Urine RBC (0-2) /hpf Diabetes panel 08/16/24 08/17/24 Range/Units 21:19 03:36 Sodium 136 L 136 L (137-145) mmol/L Potassium 3.5 3.9 (3.4-5.0) mmol/L Chloride 104 109 H (98-107) mmol/L Carbon Dioxide 18 L 15 L (22-30) mmol/L BUN 56 H D 54 H (7-17) mg/dL Creatinine 2.00 H 1.73 H (0.7-1.0) mg/dL Glucose 96 70 (65-110) mg/dL Calcium 6.7 L 6.1 L (8.4-10.2) mg/dL AST 312 H 176 H (14-36) U/L ALT 170 H 106 H (6-35) U/L Alkaline Phosphatase 94 62 (38-126) U/L Total Protein 6.0 L 5.0 L (6.3-8.2) g/dL Albumin 3.3 L 2.7 L (3.5-5.1) g/dL Calcium panel 08/16/24 08/17/24 Range/Units 21:19 03:36 Calcium 6.7 L 6.1 L (8.4-10.2) mg/dL Albumin 3.3 L 2.7 L (3.5-5.1) g/dL Pituitary panel 08/16/24 08/17/24 Range/Units 21:19 03:36 Sodium 136 L 136 L (137-145) mmol/L Potassium 3.5 3.9 (3.4-5.0) mmol/L Chloride 104 109 H (98-107) mmol/L Carbon Dioxide 18 L 15 L (22-30) mmol/L BUN 56 H D 54 H (7-17) mg/dL Creatinine 2.00 H 1.73 H (0.7-1.0) mg/dL Glucose 96 70 (65-110) mg/dL Calcium 6.7 L 6.1 L (8.4-10.2) mg/dL Adrenal panel 08/16/24 08/17/24 Range/Units 21:19 03:36 Sodium 136 L 136 L (137-145) mmol/L Potassium 3.5 3.9 (3.4-5.0) mmol/L Chloride 104 109 H (98-107) mmol/L Carbon Dioxide 18 L 15 L (22-30) mmol/L BUN 56 H D 54 H (7-17) mg/dL Creatinine 2.00 H 1.73 H (0.7-1.0) mg/dL Glucose 96 70 (65-110) mg/dL Calcium 6.7 L 6.1 L (8.4-10.2) mg/dL Total Bilirubin 1.2 1.0 (0.2-1.3) mg/dL AST 312 H 176 H (14-36) U/L ALT 170 H 106 H (6-35) U/L Alkaline Phosphatase 94 62 (38-126) U/L Total Protein 6.0 L 5.0 L (6.3-8.2) g/dL Albumin 3.3 L 2.7 L (3.5-5.1) g/dL All other labs normal.
[2024-08-17] MEDS: LORazepam INJ (*CRX) 2 MG/ML VIAL IV PUSH ×2 (20:06→22:05)
[2024-08-18] MEDS: LORazepam INJ (*CRX) 2 MG/ML VIAL IV PUSH ×2 (00:15→16:37)
[2024-08-18 07:54] LABS: Basophils Percent Auto 0.8 % (0.2-1.2); Hematocrit 36.9 % (37.0-47.0); Hemoglobin 11.8 g/dL (12.0-15.0); Immature Granulocyte Absolute 0.02 K/mm3 (0.00-0.031); Immature Granulocyte Percent A 0.4 % (0-0.5); Immature Platelet Fraction Pct 11.4 % (0.9-11.2); Lymphocytes Absolute Auto 0.73 K/mm3 (0.9-3.2); Lymphocytes Percent Auto 15.5 % (18.3-44.2); Mean Corpuscular Hemoglobin 28.8 pg (26-34); Monocytes Absolute Auto 0.9 K/mm3 (0.1-0.6); Monocytes Percent Auto 19.9 % (2.6-8.5); Neutrophils Percent Auto 63.4 % (45.5-73.1); White Blood Count 4.7 K/mm3 (4.5-10.0)
[2024-08-18 07:55] VITALS: O2SAT 98
[2024-08-18 08:00] VITALS: BP 91/41; PULSE 70; RESP 20; TEMP 37.7; O2SAT 96
[2024-08-18 08:03] LABS: Platelet Count Result 23 k/mm3 (150-375)
[2024-08-18 08:16] LABS: Alanine Aminotransferase 78 U/L (6-35); Albumin Level 2.8 g/dL (3.5-5.1); Alkaline Phosphatase 70 U/L (38-126); Anion Gap 8 mmol/L (4-12); Aspartate Amino Transferase 110 U/L (14-36); Blood Urea Nitrogen 51 mg/dL (7-17); Calcium 6.8 mg/dL (8.4-10.2); Carbon Dioxide 20 mmol/L (22-30); Chloride 110 mmol/L (98-107); Estimated CRCL calculation 21 ml/min; Estimated Glomerular Filt Rate 32; Glucose 71 mg/dL (65-110); Sodium 138 mmol/L (137-145)
[2024-08-18 08:38] LABS: Anisocytosis 1+; Burr Cells 1+; Platelet Estimate Decreased (Adequate); Schistocytes None Seen
[2024-08-18] MEDS: LIDOCAINE 5% PATCH 1 PATCH TRANSDERM (08:47)
[2024-08-18 09:25] VITALS: O2SAT 90
[2024-08-18] MEDS: ACETAMINOPHEN 650 MG SUPPOSITORY RECTAL ×2 (12:29→15:54)
--- NOTE | 2024-08-18 17:25 | P.PNIM_ITS ---
Progress Note: A&P Assessment and Plan (1) Acute CVA (cerebrovascular accident): Code(s): I63.9 - Cerebral infarction, unspecified Status: Acute Assessment and Plan: Last known well approximately 1 week ago per patient. * CTA head Infarcts in the bilateral occipital lobes, likely acute or subacute. 0% stenosis of the proximal internal carotid arteries relative to normal distal artery * Neuro check q.4 hour for the 1st 24 hours. * compliance monitor and telemetry continuously. * Blood pressure management. * -Keep the systolic blood pressure more than 200 or diastolic more than 110. Then lower blood pressure by 15% within the 1st 24 hours. * PT/OT eval and treat. * Check for LDL and hemoglobin A1c. * Add statins 40 mg q.day, aspirin 81 mg g q.day * No plavix due to pancytopenia follows with a automotive mechanic outpatient * neurology consulted, awaiting formal recs * echo w/Bubble no shunting * fall precautions * start Atorvastatin 40 mg PO and ASA 81 mg. Will hold on starting Plavix given patient has history of pancytopenia, current platelet count is 39. * consider 30 day event monitoring at discharge has had loop recorder in the past * care coordination for placement post discharge Rehab neurology following- no acute interventions are indicated. consider EEG will benefit from placement continue working with pt/ot 08/17: waxing and waning mental status much worse last night patient was transferred to IMU after rapid response CT showed evolving area of subacute stroke involving bilateral occipital lobes bilateral cerebellar hemispheres and left basal ganglia thrombocytopenia significant with platelet count of 18, unable to give aspirin for this reason (2) Pancytopenia: Code(s): D61.818 - Other pancytopenia Status: Chronic Assessment and Plan: History of follow with Hematology outpatient - 08/13/2024: WBC 3.4, hemoglobin 10.9, platelet count 239 - 02/27/2023: WBC 3.9, hemoglobin 9.2, platelet count 69 08/17: platelet count 18, family choosing comfort care with hospice consult, defer transfusion (3) JANETTE (acute kidney injury): Code(s): N17.9 - Acute kidney failure, unspecified Status: Acute Assessment and Plan: Renal function worsened on 08/16 from prior labs on 08/[address] overnight indicating severe hypovolemia Will DC fluids after hospice consult (4) Partial bowel obstruction: Code(s): K56.600 - Partial intestinal obstruction, unspecified as to cause Status: Acute Assessment and Plan: Noted on CT overnight 08/16 to 08/17 Patient drinking fluids and eating a few foods No nausea/vomiting at time of exam No major abdominal pain/tenderness (5) Comfort measures only status: Code(s): Z51.5 - Encounter for palliative care Status: Acute Assessment and Plan: Status changed to comfort based care with Hospice consult on 08/17 due to severe pain of left leg, evolving stroke with cerebellar infact bilaterally, severe thrombocytopenia, JANETTE and partial bowel obstruction as noted on CT imaging. Plan Code status: DNR, comfort focused measures DVT prophylaxis: SCD's Stress ulcer prophylaxis: Protonix 40 daily Disposition: hospice consult Time Spent With Patient Time with patient: Greater than 35 minutes ( over 60 minutes total with 40 minutes of bedside discussion evaluation and education) Subjective Date/time seen: 08/18/24 09:25 Interval history: Patient on comfort care but family wanted to wait on hospice since patient had such a good day yesterday. Around midnight she was very agitated and received IV lorazepam. This morning she would not wake up to participate in care. Family wanting to hold off on further pain/anxiety medicine if possible until family from out of town arrives today to see patient. Review of Systems Review of Systems: ROS unobtainable: Yes unobtainable due to mental status (unconscious) Exam Narrative: GENERAL: elderly female patient on conscious, withdraws to painful stimuli HEAD: Normocephalic, atraumatic. ENT:? Mucous membranes Dry. CHEST: Clear to auscultation.? No respiratory distress. Nasal cannula in place HEART: Regular rate and rhythm. ? ABDOMEN: Soft, nontender, nondistended. EXTREMITIES: Twitching at times SKIN: Pale, cool, dry NEURO: unconscious, withdraws to painful stimuli PSYCH: Unable to assess Objective Data Vital Signs Vital Signs: Vital Signs - 24 hr 08/17/24 20:00 08/18/24 07:55 08/18/24 08:00 Temperature 38.0 C H 37.7 C H Pulse Rate 107 H 70 Respiratory Rate 11 L 20 Blood Pressure 93/53 L 91/41 L Pulse Oximetry 100 98 96 Oxygen Delivery Nasal Cannula Oxygen Flow Rate 2 Fraction of Inspired Oxygen 08/18/24 09:25 Temperature Pulse Rate Respiratory Rate Blood Pressure Pulse Oximetry 90 Oxygen Delivery Nasal Cannula Oxygen Flow Rate 2 Fraction of Inspired Oxygen 28 Intake/Output Intake/Output: Intake & Output 08/15/24 08/16/24 08/17/24 08/18/24 23:59 23:59 23:59 23:59 Intake Total 630 1440.3 2100 0 Output Total 2 850 700 Balance 630 1438.3 1250 -700 Meds/Results Medications: Active Medications Generic Name Dose Route Start Last Admin Trade Name Freq PRN Reason Stop Dose Admin Acetaminophen 650 mg 08/15/24 12:54 08/17/24 05:14 Acetaminophen 325 Mg Tablet PO 650 mg Q6H PRN Administration Mild Pain (1-3) or Fever Acetaminophen 650 mg 08/18/24 12:35 08/18/24 15:54 Acetaminophen 650 Mg Suppository RECTAL 650 mg Q4H PRN Administration Mild Pain (1-3) or Fever Hydrocodone Bitart/Acetaminophen 1 tab 08/15/24 12:54 08/17/24 09:33 Hydrocodone/Acetaminophen (*Crx) 5-325 Mg Tablet PO 1 tab Q6H PRN Administration Pain Rated 4-6 Atropine Sulfate 1 - 2 drop 08/17/24 10:05 Atropine Sulfate 1% Ophth Soln 5 Ml Bottle SUBLINGUAL Q4H PRN Secretions Lidocaine 1 patch 08/16/24 11:10 08/18/24 08:47 Lidocaine 5% Patch TRANSDERM 1 patch DAILY SHAHNAZ Administration Lorazepam 2 mg 08/17/24 10:05 08/18/24 16:37 Lorazepam Inj (*Crx) 2 Mg/Ml Vial IV PUSH 2 mg Q2H PRN Administration Anxiety/Comfort Meloxicam 15 mg 08/14/24 09:00 08/18/24 08:49 Meloxicam 7.5 Mg Tablet PO Not Given QAM SHAHNAZ Metoprolol Succinate 25 mg 08/14/24 09:00 08/18/24 08:49 Metoprolol Succinate Ext Rel 25 Mg Tabcr PO Not Given DAILY SHAHNAZ Morphine Sulfate 2 mg 08/17/24 10:05 08/17/24 13:19 Morphine Sulfate (*Crx) 2 Mg/Ml Inj IV PUSH 2 mg Q30M PRN Administration COMFORT Ondansetron HCl 4 mg 08/15/24 09:28 08/17/24 01:38 Ondansetron Inj 4 Mg/2 Ml Vial IV PUSH 4 mg Q4H PRN Administration Nausea And Vomiting Pantoprazole Sodium 40 mg 08/14/24 09:00 08/18/24 08:49 Pantoprazole 40 Mg Tablet PO Not Given QAM SHAHNAZ Scopolamine 1 patch 08/17/24 10:10 08/17/24 13:05 Scopolamine 1 Mg Patch TRANSDERM 1 patch Q72HR SHAHNAZ Administration Venlafaxine HCl 75 mg 08/14/24 09:00 08/18/24 08:49 Venlafaxine Hcl 75 Mg Tablet PO Not Given DAILY [facility] Radiology Results: ITS Impressions Head/Neck CTA 08/13/24 12:47 IMPRESSION: 1. Infarcts in the bilateral occipital lobes, likely acute or subacute. 2. Age-indeterminate infarcts in the cerebellum bilaterally. 3. Old infarct in the left basal ganglia and anterior limb left internal capsule. 4. Extensive nonspecific cerebral white matter disease, which likely represents chronic small vessel ischemic disease. 5. 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 6. 0% stenosis of the proximal internal carotid arteries relative to normal distal artery lumen diameters (NASCET criteria). 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 Abdomen Ultrasound 08/16/24 20:56 IMPRESSION: No splenomegaly, as detailed above. Chest X-Ray 08/16/24 22:25 IMPRESSION: No focal infiltrate or effusion. No plain radiographic evidence to suggest the presence of a Pancoast tumor as is suggested in this patient's history. Head CT 08/16/24 23:54 Impression: No acute intracranial hemorrhage or suspicious mass effect. Further evolution of subacute cerebral infarctions, as detailed above. Chest/Abdomen/Pelvis CT 08/17/24 00:01 IMPRESSION: Findings within the deep pelvis suggesting a partial small bowel obstruction (as detailed above). Additional findings suggesting severe hypovolemia given the appearance of the IVC. Innumerable nonacute findings, as detailed above. Labs Labs: Laboratory Results - last 24 hr 08/18/24 07:36 WBC 4.7 RBC 4.10 L Hgb 11.8 L Hct 36.9 L MCV 90.0 MCH 28.8 MCHC 32.0 RDW 14.0 Plt Count 23 L* MPV TNP Immature Gran % (Auto) 0.4 Neut % (Auto) 63.4 Lymph % (Auto) 15.5 L [place] % (Auto) 19.9 H Eos % (Auto) 0.0 Baso % (Auto) 0.8 Lymph # (Auto) 0.73 L [place] # (Auto) 0.9 H Eos # (Auto) 0.0 Baso # (Auto) 0.0 Abs Immat Gran (auto) 0.02 Absolute Neuts (auto) 3.0 Absolute Nucleated RBC 0.000 Nucleated RBC % 0.0 Platelet Estimate Decreased % Immature Plt Fraction 11.4 H Anisocytosis 1+ Lucan Cells 1+ Schistocytes None seen Sodium 138 Potassium 4.0 Chloride 110 H Carbon Dioxide 20 L Anion Gap 8 BUN 51 H Creatinine 1.56 H Estim Creat Clear Calc 21 Estimated GFR 32 L Glucose 71 Calcium 6.8 L Total Bilirubin 1.0 AST 110 H ALT 78 H Alkaline Phosphatase 70 Total Protein 5.0 L Albumin 2.8 L Imaging Radiologist's impression: History: Stroke, infection abscess PROCEDURE: CT head without contrast. COMPARISON: 08/13/2024 TECHNIQUE: Axial imaging of the head performed from the skull base to the vertex without IV contrast. Sagittal and coronal reformations obtained. DLP: 681 mGy-cm FINDINGS: The ventricles are enlarged. The dilatation of the ventricles is proportional to the degree of sulcal prominence, not uncommon in the senescent brain. Decreased attenuation is identified within the periventricular white matter, likely secondary to microvascular ischemic disease, in a patient of this age. Redemonstration of multiple areas of decreased attenuation within the bilateral occipital lobes, bilateral cerebellar hemispheres and left basal ganglia, consistent with prior/subacute cerebral infarction. There is no mass, mass effect or midline shift. There is no abnormal extra-axial fluid collection or intracranial hemorrhage. Visualized paranasal sinuses are clear. The mastoid air cells are well aerated. No acute displaced fractures within the overlying cranium. Impression: No acute intracranial hemorrhage or suspicious mass effect. Further evolution of subacute cerebral infarctions, as detailed above. Reviewed, dictated and finalized at location A. GHT AGENT CLINICAL INDICATION: 79-year-old woman with a history of myelodysplastic syndrome presents with worsening thrombocytopenia for which sepsis is suspected clinically. Cross-sectional imaging is to evaluate for a possible source. COMPARISON: Reference is made to an abdominal ultrasound examination performed 6 hours earlier. TECHNIQUE: Multiple contiguous axial images of the chest, abdomen and pelvis were performed without the administration of intravenous contrast The dose-length product (DLP) was 605.32 mGy-cm. Automated exposure control and iterative reconstruction technique were employed. FINDINGS/OBSERVATIONS: Chest: Coarse interstitial lung markings are redemonstrated. Dependent atelectasis with trace left-sided pleural effusion. The heart is enlarged, with a small pericardial effusion. Moderate hiatal hernia is present. Postoperative change within the upper abdomen, possibly a gastric sleeve with the staple lines extending into the chest (with the hiatal hernia). Liver: The liver demonstrates homogeneous attenuation and is not enlarged measuring 16 cm in longitudinal dimension. Gallbladder and biliary system: The gallbladder is surgically absent. Pancreas: Limited evaluation of the pancreas secondary to the lack of intravenous contrast. Spleen: The spleen demonstrates homogeneous attenuation and is not enlarged measuring 7 cm in longitudinal dimension. Kidneys: The bilateral kidneys are unremarkable, without hydronephrosis or renal calculi. Adrenal glands: Unremarkable. Gastrointestinal tract: Multiple loops of dilated small bowel are identified within the deep pelvis, with air-fluid levels. Infiltration of the mesenteric fat in this location is also noted, with surrounding inflammatory change. The small bowel loops appear to be tethered within the pelvis. Air, however, is seen within the colon, suggesting only a partial obstruction. Appendix: The appendix is not definitively visualized. However, no pericecal inflammatory change is identified suggest the presence of acute appendicitis. Vasculature: Calcified atherosclerotic disease. The inferior vena cava is slit like, suggesting severe hypovolemia Lymph nodes: Limited evaluation without intravenous contrast. Pelvic structures: The bladder is decompressed with a Hassan catheter The uterus is atrophic, anteverted and anteflexed, and contains multiple calcifications suggesting prior fibroid disease. Body wall and musculoskeletal: Fixation hardware within the lower lumbar spine. Significant degenerative disease is also noted, with osteophyte formation and disc space narrowing, endplate changes and vacuum phenomena. IMPRESSION: Findings within the deep pelvis suggesting a partial small bowel obstruction (as detailed above). Additional findings suggesting severe hypovolemia given the appearance of the IVC. Innumerable nonacute findings, as detailed above. Reviewed, dictated and finalized at location A. GHT AGENT Pulse Oximetry Attestation: I personally reviewed and interpreted this pulse oximetry as follows: Interpretation: For comfort may keep patient on nasal cannula Quality VTE Prophylaxis VTE prophylaxis: mechanical ordered If No VTE Prophylaxis Answer both mechanical and pharmacologic: Reason no pharmacologic proph: medical contraindication thrombocytopenia
[2024-08-18 20:00] VITALS: BP 100/75; PULSE 89; RESP 16; TEMP 36.1; O2SAT 98
[2024-08-19] MEDS: MORPHINE SULFATE (*CRX) 2 MG/ML INJ IV PUSH ×3 (06:56→12:10)
[2024-08-19 08:00] VITALS: BP 109/73; PULSE 98; RESP 18; TEMP 36.7; O2SAT 97
[2024-08-19] MEDS: LORazepam INJ (*CRX) 2 MG/ML VIAL IV PUSH ×2 (08:07→10:07)
[2024-08-19] MEDS: ONDANSETRON INJ 4 MG/2 ML VIAL IV PUSH (08:13)
[2024-08-19] MEDS: LIDOCAINE 5% PATCH 1 PATCH TRANSDERM (08:13)
== END 2024-08-19 13:25 | disposition hospice, inpatient (51) | DRG 64 ==
LOC: ANHED 13:15 → ANH3MEDSUR 15:05 → ANHIMU 08-21 14:26
PROVIDERS: Family Medicine; Internal Medicine Hematology & Oncology; Nurse Practitioner Family; Nurse Practitioner Gerontology; Physician Assistant; Student in an Organized Health Care Education/Training Program; Admitting Provider Internal Medicine; Emergency Provider Emergency Medicine; PCP Physician Assistant; Visit Provider Nurse Practitioner
DX: I63.9 Cerebral infarction, unspecified (principal); A41.9 Sepsis, unspecified organism; D61.818 Other pancytopenia; S12.110K Anterior displaced Type II dens fracture, subsequent encounter for fracture with nonunion; N17.9 Acute kidney failure, unspecified; D46.9 Myelodysplastic syndrome, unspecified; R19.7 Diarrhea, unspecified; M47.816 Spondylosis without myelopathy or radiculopathy, lumbar region; M48.061 Spinal stenosis, lumbar region without neurogenic claudication; M81.0 Age-related osteoporosis without current pathological fracture; R29.6 Repeated falls; G62.9 Polyneuropathy, unspecified; G30.9 Alzheimer's disease, unspecified; F02.80 Dementia in other diseases classified elsewhere, unspecified severity, without behavioral disturbance, psychotic disturbance, mood disturbance, and anxiety; F01.50 Vascular dementia, unspecified severity, without behavioral disturbance, psychotic disturbance, mood disturbance, and anxiety; F32.A Depression, unspecified; F41.9 Anxiety disorder, unspecified; Z20.822 Contact with and (suspected) exposure to COVID-19; Z96.653 Presence of artificial knee joint, bilateral; Z98.84 Bariatric surgery status; Z87.891 Personal history of nicotine dependence; Z51.5 Encounter for palliative care
CPT/HCPCS: 36415; 36600; 70450; 70496; 70498; 71045; 71250; 74176; 76700; 80048; 80053; 80061; 81001; 82375; 82607; 82728; 82746; 82805; 82948; 83036; 83050; 83540; 83550; 83605; 83735; 84484; 85018; 85025; 85027; 85055; 85380; 85384; 85610; 85730; 87040; 87181; 87493; 87637; 93005; 96374; 96375; 97110; 97161; 97166; 97530; 97535; 99285; A9270; C8929; G0378; J0613; J1836; J2060; J2270; J2405; J3475; J7030; J7050; P9047; Q9957; Q9967

== ENCOUNTER 2024-08-19 13:26 | HOS | payer OTHER, MEDICARE, SELFPAY ==
[2024-08-19 13:47] VITALS: BP 104/71; PULSE 108; RESP 8; TEMP 37.2; O2SAT 96
--- OUTSIDE RECORDS SUMMARY | 2024-08-19 14:20 | XMS_ITS | Clinical Summary ---
Author Organization [facility] Address [address] [place] [address] Care Team Providers Care Forge Press Operator Name Role Phone Cedrick Tejada MD Primary Care Provider Source Comments [facility],non-owned Affiliates and Associated Physician Practices is amultiple site organization consisting of ambulatory clinics and hospital sitesin [place], [place], [place] and [place]. This disclosure is being madepursuant to the Care Everywhere program and may not contain all information available regarding this patient. Last updated 18.[facility] [employer] Social History Tobacco Use Types Packs/Day Years Used Date Smoking Tobacco: Never Assessed Sex and Gender Information Value Date Recorded Sex Assigned at Not on file Gender Identity Not on file Sexual Orientation Not on file Plan of Treatment Upcoming Encounters Date Type Department Care Team (Late st Contact Info) Description 09/25/2024 8:30 AM RESPIRATORY CARE PRACTITIONER Office Visit [facility] [address] [place] [address], [place] [address] Karen Smith MD [address] [place] [address] [place] [address] Health Maintenance Due Date Last Done Comments BONE DENSITY TESTING 1945 MEDICARE AWV ? 12 MONTHS 1945 HEPATITIS C SCREENING 05/18/1964 DTAP/TDAP/TD VACCINES (1 - Tdap) 1965 PNEUMOCOCCAL VACCINE 50+ (1 of 1 - PCV) 1996 ZOSTER VACCINE (1 of 2) 1996 Respiratory Syncytial Virus (RSV) Vaccine Pt: or over 60 yrs (1 - 1-dose 75+ series) 2021 COVID-19 VACCINE (2023-2 5 season) 2024 INFLUENZA VACCINE (#1) 2024 07/07/2022 DEPRESSION SCREENING 07/24/2024 HEPATITIS B VACCINE Aged Out No longe r eligible based on patient's age to complete this topic HIB VACCINE Aged Out No longer eligi ble based on patient's age to complete this topic HPV VACCINE Aged Out No longer eligi ble based on patient's age to complete this topic MENINGOCOCCAL (Group B) VACCINE Aged Out No longer eligible based on patient's age to complete this topic MENINGOCOCCAL VACCINE Aged Out No katarzyna juwan eligible based on patient's age to complete this topic Care Teams Forge Press Operator Relationship Specialty Start Date End Date Cedrick Tejada MD [address] [place] [address] PCP - General 07/02/19
--- OUTSIDE RECORDS SUMMARY | 2024-08-19 14:20 | XMS_ITS | Encounter Summary ---
Author Organization [facility] Address [address] [place] [address] Care Team Providers Care Data Sciences Director Name Role Phone Cedrick Tejada MD Primary Care Provider [phone] Encounter Details Date Type Department Care Team (Late st Contact Info) Description 08/22/2019 Lab Requisition [facility] [address] [place] [address] [place] [address] [place] [address] [address] [place] [address] Social History Tobacco Use Types Packs/Day Years Used Date Smoking Tobacco: Never Assessed Sex and Gender Information Value Date Recorded Sex Assigned at Not on file Gender Identity Not on file Sexual Orientation Not on file documented as of this encounter Plan of Treatment Upcoming Encounters Date Type Department Care Team (Late st Contact Info) Description 09/25/2024 8:30 AM OILER BANDER Office Visit [facility] [address] [place] [address], [place] [address] Karen Smith MD [address] [place] [address] [address] [facility] [place] [address] documented as of this encounter Procedures Procedure Name Priority Date/Time Associated Diagnosis Comments DERMATOPATHOLOGY Routine 08/21/2019 12:0 0 AM OILER BANDER documented in this encounter Results * DERMATOPATHOLOGY (08/21/2019 12:00 AM OILER BANDER) Case Report Dermatopathology Report ? Case: [id number] ? Authorizing Provider: ??Madhavi Nazario, ?? Collected: ? 08/21/2019 12:00 AM ? Ordering Location: ? [facility] ?Received: ?08/22/2019 08:47 AM ? Pathologist: ? Pastor Roe MD ? Specimen: ?Skin, right extensor elbow ? 0 2:43 PM [facility] D[facility]OR[facility] Final Diagnosis Specimen A. SKIN, right extensor elbow: HEALING SKIN CHANGES, DERMAL FIBROSIS, AND FAT NECROSIS (L90.5) (see microscopic description and comment) 0 2:43 PM [facility] DERMATOPATHOLOGY [facility]ORATORY Clinical History Painful subcut nodule. Angiolipoma vs cyst R/O rheumatoid nodule. 0 2:43 PM [facility]ERMATOPATHOLOGY [facility]OR[facility] Gross Description Specimen A: Received is one formalin filled container labeled with the patient's name and designated right extensor elbow. The specimen consists of a punch measuring [id number], bisected. Jar 0. 0 2:43 PM [facility] DERMATOPATHOLOGY [facility]OR[facility]ORY Microscopic Description Specimen A. SKIN, right extensor elbow: There is epidermal hyperplasia beneath which there are vascular proliferation, fibroblasts, and an edematous stroma. The dermis appears fibrotic, with a mildly increased number of fibroblasts and pale, sclerotic collagen bundles. In the subcutis there is fat necrosis characterized by collapsed adipocytes with irregular, indistinct cell borders and absent nuclei, with occasional intervening lipid-laden macrophages. Multiple additional deeper sections were obtained and reviewed. COMMENT: The histologic findings are favored to represent changes related to local trauma, possibly remote. It is also possible that these changes overlie a deeper process that was not captured in this biopsy, and clinical correlation is recommended. There is no histologic evidence of an angiolipoma, cyst, or rheumatoid nodule. 0 2:43 PM [facility] DERMATOPATHOLOGY LABORATORY Disclaimer An external and internal positive and negative controls are appropriate for the histochemical, immunohistochemical and immunofluorescence stain(s) in this case (if any), except where stated explicitly. The performance characteristics of the stain(s) cited in this report were developed and its performance characteristic determined by the Dermatopathology Laboratory at [facility], directed by Dr. Tatiana Roe. These tests need not be, and therefore are not, approved by the [place] Food and Drug Administration. The tests are used for clinical purposes. Billing Codes Specimen Charges Stain Charges 83603 1 0 2:43 PM [facility]ER [facility]ANDER DERMATOPATHOLOGY LABORATORY Embedded Images 0 2:43 PM [facility]ILER BANDER DERMATOPATHOLOGY LABORATORY Pathology/Cytolog y TISSUE SPECIMEN FROM SKIN / Unknown 08/21/2019 08/22/2019 8:47 AM OILER BANDER Madhavi Nazario DO LAB - PATHOLOGY/C YTOLOGY ORDERABLES DERMATOPATHOLOGY LABORATORY [facility] - Department of Dermatology [address] [place] [address], [address] Floor Lab [address] [phone] documented in this encounter Visit Diagnoses Not on filedocumented in this encounter Care Teams Data Sciences Director Relationship Specialty Start Date End Date Cedrick Tejada MD [address] [place] [address] PCP - General 07/02/19 documented as of this encounter
--- OUTSIDE RECORDS SUMMARY | 2024-08-19 14:20 | XMS_ITS | Patient Health Summary ---
Author Organization [facility] Address [address] [place] [address] Care Team Providers Care Headlight Adjuster Name Role Phone Cedrick Tejada MD Primary Care Provider [phone] Note from [facility],non-owned Affiliates and Associated Physician Practices is amultiple site organization consisting of ambulatory clinics and hospital sitesin [place], [place], [place] and [place]. This disclosure is being madepursuant to the Care Everywhere program and may not contain all information available regarding this patient. Last updated 18.[facility] Social History Tobacco Use Types Packs/Day Years Used Date Smoking Tobacco: Never Assessed Sex and Gender Information Value Date Recorded Sex Assigned at Not on file Gender Identity Not on file Sexual Orientation Not on file Procedures * DERMATOPATHOLOGY(Performed 08/21/2019) * DERMATOPATHOLOGY(Performed 07/02/2019) Results * DERMATOPATHOLOGY (08/21/2019 12:00 AM HOGSHEAD STOCK CLERK) Only the most recent of2 resultswithin the time period is included. Case Report Dermatopathology Report ? Case: [id number] ? Authorizing Provider: ??Madhavi Nazario, ?? Collected: ? 08/21/2019 12:00 AM ? Ordering Location: ? [facility] ?Received: ?08/22/2019 08:47 AM ? Pathologist: ? Pastor Roe MD ? Specimen: ?Skin, right extensor elbow ? 0 2:43 PM [facility] DERMATOPATHOLOGY LABORATORY Final Diagnosis Specimen A. SKIN, right extensor elbow: HEALING SKIN CHANGES, DERMAL FIBROSIS, AND FAT NECROSIS (L90.5) (see microscopic description and comment) 0 2:43 PM [facility] DERMATOPATHOLOGY LABORATORY Clinical History Painful subcut nodule. Angiolipoma vs cyst R/O rheumatoid nodule. 0 2:43 PM [facility] DERMATOPATHOLOGY LABORATORY Gross Description Specimen A: Received is one formalin filled container labeled with the patient's name and designated right extensor elbow. The specimen consists of a punch measuring [id number], bisected. Jar 0. 0 2:43 PM [facility] DERMATOPATHOLOGY LABORATORY Microscopic Description Specimen A. SKIN, [...] cyst, or rheumatoid nodule. 0 2:43 PM [facility] DERMATOPATHOLOGY LABORATORY Disclaimer An external and internal positive and negative controls are appropriate for the histochemical, immunohistochemical and immunofluorescence stain(s) in this case (if any), except where stated explicitly. The performance characteristics of the stain(s) cited in this report were developed and its performance characteristic determined by the Dermatopathology Laboratory at [facility], directed by Dr. Tatiana Roe. These tests need not be, and therefore are not, approved by the [place] Food and Drug Administration. The tests are used for clinical purposes. Billing Codes Specimen Charges Stain Charges 94614 1 0 2:43 PM HOGSHEAD STOCK CLERK DERMATOPATHOLOGY LABORATORY Embedded Images 0 2:43 PM HOGSHEAD STOCK CLERK DERMATOPATHOLOGY LABORATORY Pathology/Cytolog y TISSUE SPECIMEN FROM SKIN / Unknown 08/21/2019 08/22/2019 8:47 AM HOGSHEAD STOCK CLERK Madhavi Nazario DO LAB - PATHOLOGY/C YTOLOGY ORDERABLES DERMATOPATHOLOGY LABORATORY [facility] - Department of Dermatology [address] [place] [address] 5th Floor Lab B [address] [phone] Care Teams Headlight Adjuster Relationship Specialty Start Date End Date Cedrick Tejada MD [address] [place] [address] PCP - General 07/02/19
--- OUTSIDE RECORDS SUMMARY | 2024-08-19 14:20 | XMS_ITS | Encounter Summary ---
Author Organization [facility] Address [facility] [facility] [place] [address] [place] [address] Care Team Providers Care Message Broker Developer Name Role Phone Dorina Echeverria Primary Care Provider [phone] Eden Jang MD Unavailable [phone] Encounter Details Date Type Department Care Team (Late st Contact Info) Description 04/24/2024 leaselock Message Enc [place] [facility] [address] [place] [address] [facility], [facility] Provider Urine sample reviewed. Social History Tobacco Use Types Packs/Day Years Used Date Smoking Tobacco: Former Cigarettes 1 15 Q uit: 01/08/1988 Smokeless Tobacco: Never Comments:na Alcohol Use Standard Drinks/Week Comments Not Currently 1.7 (1 standard drink = 0.6 oz p ure alcohol) B1300 Health Literacy Answer Date Recor ded How often do you need to hav e someone help you when you read instructions, pamphlets, or other written material from your doctor or pharmacy? Never 01/22/2024 [facility] Utilities Answer Date Recorded In the past 12 months has th e electric, gas, oil, or water company threatened to shut off services in your home? No 01/22/2024 Humiliation, Afraid, Rape, and Kick questionnair e Answer Date Recorded Within the last year, have y ou been afraid of your partner or ex-partner? No 01/22/2024 Within the last year, have y ou been humiliated or emotionally abused in other ways by your partner or ex-partner? No Within the last year, have y ou been kicked, hit, slapped, or otherwise physically hurt by your partner or ex-partner? No 01/22/2024 Within the last year, have y ou been raped or forced to have any kind of sexual activity by your partner or ex-partner? No 01/22/2024 Social Connection and Isolat ion Panel [NHANES] Answer Date Recorded In a typical week, how many times do you talk on the phone with family, friends, or neighbors? More than three times a week 01/22/2024 How often do you get togethe r with friends or relatives? Once a week 01/22/2024 How often do you attend chur ch or temple services? Never 01/22/2024 Do you belong to any clubs o r organizations such as amish groups, unions, fraternal or athletic groups, or school groups? No 01/22/2024 How often do you attend meet ings of the clubs or organizations you belong to? Never 01/22/2024 Are you , , di vorced, , never , or living with a partner? 01/22/2024 AUDIT-C Answer Date Recorded Q1: How often do you have a drink containing alc ohol? Monthly or less 01/22/2024 Q2: How many drinks containi ng alcohol do you have on a typical day when you are drinking? 1 or 2 01/22/2024 Q3: How often do you have si x or more drinks on one occasion? Never 01/22/2024 Overall Financial Resource Strain (CARDIA) Answe r Date Recorded How hard is it for you to pa y for the very basics like food, housing, medical care, and heating? Not hard at all 01/22/2024 PHQ-2 Answer Date Recorded Patient Health Questionnaire-2 Score 1 01/22/2024 [facility] [place] of Occupat ional Health - Occupational Stress Questionnaire Answer Date Recorded Do you feel stress - tense, restless, nervous, or anxious, or unable to sleep at night because your mind is troubled all the time - these days? Not at all 01/22/2024 Exercise Vital Sign Answer Date Recorde d On average, how many days pe r week do you engage in moderate to strenuous exercise (like a brisk walk)? 0 days 01/22/2024 On average, how many minutes do you engage in exercise at this level? 0 min 01/22/2024 Hunger Vital Sign Answer Date Recorded Within the past 12 months, y ou worried that your food would run out before you got the money to buy more. Never true 01/22/20 24 Within the past 12 months, t he food you bought just didn't last and you didn't have money to get more. Never true 01/22/2024 PRAPARE - Transportation Answer Date Re corded In the past 12 months, has l ack of transportation kept you from medical appointments or from getting medications? No 07/2023 In the past 12 months, has l ack of transportation kept you from meetings, work, or from getting things needed for daily living? No 01/22/2024 Housing Stability Vital Sign Answer Karthik e Recorded In the last 12 months, was t here a time when you were not able to pay the mortgage or rent on time? No 01/22/2024 In the past 12 months, how m any times have you moved where you were living? 0 01/22/2024 At any time in the [facility], were you homeless or living in a fpc (including now)? No 01/22/2024 Comments No Sex and Gender Information Value Date Recorded Sex Assigned at Female 08/06/2024 4:15 PM SUPPLY PERSON Legal Sex Female 2:52 PM CDT Gender Identity Female 10/25/2021 11:54 AM CDT Sexual Orientation Straight 10/25/2021 11 :54 AM CDT Occupation Industry Job Start Date Job End Date Not on file Not on file Not on file Not on file documented as of this encounter Functional Status * Are you deaf or do you have serious difficulty hearing Answer Date of Assessment Author Status No 01/27/2024 1:21 PM CDT Shannen Arellano R N Active * Are you blind or do you have serious difficulty seeing, even when wearing glasses? Answer Date of Assessment Author Status No 01/27/2024 1:21 PM CDT Shannen Arellano R N Active * Do you have serious difficulty walking or climbing stairs? Answer Date of Assessment Author Status Yes 01/27/2024 1:21 PM CDT Shannen Arellano R N Active * Do you have difficulty dressing or bathing? Answer Date of Assessment Author Status Yes 01/27/2024 1:21 PM CDT Shannen Arellano R N Active * Because of a physical, mental, or emotional condition, do you have difficulty doing errands alone such as visiting a doctor's office or shopping? Answer Date of Assessment Author Status No 01/27/2024 1:21 PM CDT Shannen Arellano R N Active documented as of this encounter Mental Status * Because of a physical, mental, or emotional condition, do you have serious difficulty concentrating, remembering, or making decisions? Answer Entry Date Author Status No 01/27/2024 1:21 PM CDT Shannen Arellano R N Active documented in this encounter Plan of Treatment Upcoming Encounters Date Type Department Care Team (Late st Contact Info) Description 10/04/2024 2:00 PM CDT Office Visit [facility] Multispecialty Care - [facility] [address], [address] [place] [id number] Shanita Hendrickson NP [address] [facility] [address] [place] [address] 10/07/2024 10:30 AM CDT Office Visit [facility] THREE [facility], [address] [place] [address] Yolie Eddy APRN Three [facility] [address] [place] [address] documented as of this encounter Goals Goal Patient Goal Type Associated Problems Recent Progress Patient-Stated? Author Patient will return to prior living situation and remain independent in ADLs upon discharge from [facility] No Dolores Lopez MSW documented as of this encounter Visit Diagnoses Not on filedocumented in this encounter Care Teams Message Broker Developer Relationship Specialty Start Date End Date Dorina Echeverria PA [address] [place] [address] PCP - General 01/07/18 Eden Jang MD Three [facility]. [facility] [address] [place] [address] [place] [employer] [employer] CARDIOVASCULAR DISEASE 02/08/18 documented as of this encounter
--- OUTSIDE RECORDS SUMMARY | 2024-08-19 14:20 | XMS_ITS | Encounter Summary ---
Author Organization [facility] Address [facility] [address] [place] [address] Care Team Providers Care Car Sales Associate Name Role Phone Dorina Echeverria Primary Care Provider [phone] Eden Jang MD Unavailable [phone] Encounter Details Date Type Department Care Team (Late st Contact Info) Description 12/19/2023 [employer] Message Enc [facility] Medical Group Multispecialty Care - [facility] [address] [facility], [address] [place] [phone] Elizabeth Patel, AARON [address] [facility] [address] [place], [place] [id number] [facility]G Social History Tobacco Use Types Packs/Day Years Used Date Smoking Tobacco: Former Cigarettes Q uit: 01/08/1988 Smokeless Tobacco: Never Comments:na Alcohol Use Standard Drinks/Week Comments Yes 1.7 (1 standard drink = 0.6 oz p ure alcohol) PHQ-2 Answer Date Recorded PHQ-2 Score - If the patient scores above 3, please move on to questions 3-9 0 02/10/2022 Comments No Sex and Gender Information Value Date Recorded Sex Assigned at Female 08/06/2024 4:15 PM ELECTRICIAN RECTIFIER MAINTENANCE Legal Sex Female 2:52 PM CDT Gender Identity Female 10/25/2021 11:54 AM CDT Sexual Orientation Straight 10/25/2021 11 :54 AM CDT Occupation Industry Job Start Date Job End Date Not on file Not on file Not on file Not on file documented as of this encounter Functional Status * RETIRED Are you deaf or do you have serious difficulty hearing Answer Date of Assessment Author Status Yes 12/14/2021 12:43 PM CDT Acti ve * RETIRED Are you blind or do you have serious difficulty seeing, even when wearing glasses? Answer Date of Assessment Author Status No 12/14/2021 12:43 PM CDT Acti ve * Do you have serious difficulty walking or climbing stairs? Answer Date of Assessment Author Status Yes 12/14/2021 12:43 PM CDT Amber Scales RN Active * Do you have difficulty dressing or bathing? Answer Date of Assessment Author Status Yes 12/14/2021 12:43 PM CDT Amber Scales RN Active * Because of a physical, mental, or emotional condition, do you have difficulty doing errands alone such as visiting a doctor's office or shopping? Answer Date of Assessment Author Status Yes 12/14/2021 12:43 PM CDT Amber Scales RN Active documented as of this encounter Mental Status * Because of a physical, mental, or emotional condition, do you have serious difficulty concentrating, remembering, or making decisions? Answer Entry Date Author Status No 12/14/2021 12:43 PM CDT Amber Scales RN Active documented in this encounter Plan of Treatment Upcoming Encounters Date Type Department Care Team (Late st Contact Info) Description 10/04/2024 2:00 PM CDT Office Visit [facility] Medical Group Multispecialty Care - [facility] [address] [facility], [address] [place] [phone] Shanita Hendrickson NP 3 [facility] [address] [place] [address] 10/07/2024 10:30 AM CDT Office Visit [facility] THREE [facility], [address] [place] [address] Yolie Eddy APRN Three [facility]. [address] [place] [address] documented as of this encounter Goals Goal Patient Goal Type Associated Problems Recent Progress Patient-Stated? Author Patient will return to prior living situation and remain independent in ADLs upon discharge from hospital General No Dolores Lopez, IS ARCHITECT documented as of this encounter Visit Diagnoses Not on filedocumented in this encounter Additional Health Concerns Infection Onset Date Last Indicated Resolved Time COVID-19 Rule Out 02/12/2024 02/12/2024 02/12/2024 9:38 AM CDT documented as of this encounter Care Teams Car Sales Associate Relationship Specialty Start Date End Date Dorina Echeverria PA [address] [place] [address] PCP - General 01/07/18 Eden Jang MD Three [facility]. [facility] [address] [place] [address] [place] Public Service Director CARDIOVASCULAR DISEASE 02/08/18 documented as of this encounter
--- OUTSIDE RECORDS SUMMARY | 2024-08-19 14:20 | XMS_ITS | Encounter Summary ---
Author Organization [facility] Address [address] [place] [address] Care Team Providers Care Facilities Manager Name Role Phone Cedrick Tejada MD Primary Care Provider [phone] Encounter Details Date Type Department Care Team (Late st Contact Info) Description 07/03/2019 Lab Requisition [facility] DermPath Lab [address] [facility] [place] [address] Madhavi Nazario DO [address] [facility] [address] [place] [address] Social History Tobacco Use Types Packs/Day Years Used Date Smoking Tobacco: Never Assessed Sex and Gender Information Value Date Recorded Sex Assigned at Not on file Gender Identity Not on file Sexual Orientation Not on file documented as of this encounter Plan of Treatment Upcoming Encounters Date Type Department Care Team (Late st Contact Info) Description 09/25/2024 8:30 AM PROJECT MANAGEMENT Office Visit [facility] [address] [place] [address], [place] [address] Karen Smith MD [address] [place] [address] [address] [facility] [address] documented as of this encounter Procedures Procedure Name Priority Date/Time Associated Diagnosis Comments DERMATOPATHOLOGY Routine 07/02/2019 12:0 0 AM PROJECT MANAGEMENT documented in this encounter Results * DERMATOPATHOLOGY (07/02/2019 12:00 AM PROJECT MANAGEMENT) Case Report Dermatopathology Report ? Case: [id number] ? Authorizing Provider: ??Madhavi Nazario, ?? Collected: ? 07/02/2019 12:00 AM ? Ordering Location: ? [facility] DermPath Lab ?Received: ?07/03/2019 06:44 AM ? Pathologist: ? Pastor Roe MD ? Specimen: ?Skin, right extensor elbow ? 5:28 PM [facility] DERMATOPATHOLOGY LABORATORY Final Diagnosis Specimen A. SKIN, right extensor elbow: NO HISTOPATHOLOGICAL ABNORMALITY (L98.9) (see microscopic description and comment) 5:28 PM [facility] DERMATOPATHOLOGY LABORATORY Clinical History Painful subcut nodules, rheumatoid nodule vs other - hx of RA. 5:28 PM [facility] DERMATOPATHOLOGY LABORATORY Gross Description Specimen A: Received is one formalin filled container labeled with the patient's name and designated right extensor elbow. The specimen consists of a punch measuring [id number], bisected. Jar 0. 5:28 PM [facility] DERMATOPATHOLOGY LABORATORY Microscopic Description Specimen A. SKIN, right extensor elbow: Sections show an unremarkable epidermis and dermis. There is no evidence of a histopathological abnormality on multiple sets of levels examined. COMMENT: The biopsy extends to the deep reticular dermis; however, no subcutaneous tissue is present for evaluation. An underlying process cannot be excluded. Clinical correlation is recommended. 9 5:28 PM [facility] DERMATOPATHOLOGY LABORATORY Disclaimer An external and internal positive and negative controls are appropriate for the histochemical, immunohistochemical and immunofluorescence stain(s) in this case (if any), except where stated explicitly. The performance characteristics of the stain(s) cited in this report were developed and its performance characteristic determined by the Dermatopathology Laboratory at [facility], directed by Dr. Tatiana Roe. These tests need not be, and therefore are not, approved by the [place] Food and Drug Administration. The tests are used for clinical purposes. Billing Codes Specimen Charges Stain Charges 09317 1 9 5:28 PM PROJECT MANAGEMENT DERMATOPATHOLOGY LABORATORY Embedded Images 9 5:28 PM [facility] DERMATOPATHOLOGY LABORATORY Pathology/Cytolog y TISSUE SPECIMEN FROM SKIN / Unknown 07/02/2019 07/03/2019 6:44 AM PROJECT MANAGEMENT Madhavi Nazario DO LAB - PATHOLOGY/C YTOLOGY ORDERABLES Performing Organization Address City/State/[facility] Co de Phone Number DERMATOPATHOLOGY LABORATORY [facility] - Department of Dermatology [address] [place] [address], 5th Floor Lab [address] [phone] documented in this encounter Visit Diagnoses Not on filedocumented in this encounter Care Teams Facilities Manager Relationship Specialty Start Date End Date Cedrick Tejada MD [address] [place] [phone] PCP - General 07/02/19 documented as of this encounter
--- OUTSIDE RECORDS SUMMARY | 2024-08-19 14:20 | XMS_ITS | Referral Summary ---
Author Organization [facility] Address [address] [place] [address] Care Team Providers Care Delivery Man Name Role Phone Cedrick Tejada MD Primary Care Provider [phone] Source Comments [facility],non-owned Affiliates and Associated Physician Practices is amultiple site organization consisting of ambulatory clinics and hospital sitesin [place], [place], [place] and [place]. This disclosure is being madepursuant to the Care Everywhere program and may not contain all information available regarding this patient. Last updated 18.[facility] Social History Tobacco Use Types Packs/Day Years Used Date Smoking Tobacco: Never Assessed Sex and Gender Information Value Date Recorded Sex Assigned at Not on file Gender Identity Not on file Sexual Orientation Not on file Plan of Treatment Upcoming Encounters Date Type Department Care Team (Late st Contact Info) Description 09/25/2024 8:30 AM SQL ENGINEER Office Visit [facility] - Geriatrics [address] [place] [address], [place] [address] Karen Smith MD [address] [place] [address] [place] [address] Care Teams Delivery Man Relationship Specialty Start Date End Date Cedrick Tejada MD [address] [place] [phone] PCP - General 07/02/19
--- OUTSIDE RECORDS SUMMARY | 2024-08-19 14:20 | XMS_ITS | Data Portability ---
Author Organization [facility] Address [address] [place] [phone] Assessment No assessment recorded. Plan of Treatment Reminders Order Date Submit Date Provider Last Modified By Organization Details Last Modified Time Details Appointments None recorded. Lab BMP, serum or plasma 2023 024 [facility] (Lab), [address] [place] [address], [address], 4 09:10:53 hepatic function panel, serum 2023 024 [facility] (Lab), [address] [place] [address], [id number], 4 09:11:03 lipid panel, serum 2023 024 [facility] (Lab), [address] [place] [address], [id number], 4 17:02:28 Referral physical therapist referral 2023 024 [facility] (Phys Therapy), [address] [place], [address], 4 12:10:24 neurologic al surgeon referral 2023 024 gio Eng MD, [address] [facility] [address], [facility] [address], [address], 4 12:06:23 Procedures None recorded. Surgeries None recorded. Imaging None recorded. Medication Orders None recorded. Patient TargetsNo targets recorded. Patient InstructionsNo instructions recorded. Reason for Referral Neurological Surgeon Referra l for Degeneration of lumbar intervertebral disc Referring Physician: Dorina Echeverria, Internal Medicine, Encounter Date: 11/09/2023 Physical Therapist Referral for Abnormal gait Referring Physician: Dorina Echeverria, Internal Medicine, Encounter Date: 11/09/2023 Results Created Date Observation Date Name Description Value Unit Range Abnormal Flag Note LastModifiedBy Organization Detail LastModifiedTime 11/10/19 24 02/03/2021 NM, myoca rdial perfu kevin scan No observ ation record ed. [address], [place], [address], 11/13/2023 23:03:45 02/22/20 24 02/21/2024 XR, elbow , 2 view No observ ation record ed. [address] [facility] [address] [place] [address] Route [facility], [place], [address], 03/11/2024 09:52:35 04/18/20 24 04/04/2024 nerve condu ction study No observ ation record ed. [facility] Not Available 2023 17:04:34 08/13/19 25 08/13/2024 CT, head, w/o contr ast No observ ation record ed. [address], [place], [address], 08/13/2024 13:56:27 08/13/19 25 08/13/2024 CT, angio gram, head + neck, w/wo contr ast No observ ation record ed. [address], [place], [address], 08/15/2024 17:46:38 08/17/19 25 08/16/2024 CT, chest + abdom en + pelvi s, w/o contr ast No observ ation record ed. [address], [place], [address], 08/17/2024 21:16:23 08/17/19 25 08/16/2024 US, abdom en, compl ete No observ ation record ed. [address], [place], [address], 08/17/2024 21:16:47 08/17/19 25 08/16/2024 XR, chest , 2 view No observ ation record ed. [address], [place], [address], 08/17/2024 21:17:27 Result Notes None recorded. Procedures Surgical History Date Name Laterality Status Provider Name and Address Organization Details Recorded Time Arthroscopic Surgery completed Ysabel Moreau MA [facility] 11/09/2023 17:25:18 Gastric Bypass completed ZACH Nagy [facility] 11/09/2023 17:25:24 Joint Replacement completed Rajat Moreau MA [facility] 11/09/2023 17:25:30 section completed Ysabel Moreau MA [facility] 11/09/2023 17:25:45 Knee Surgery completed Ysabel Moreau MA [facility] 11/09/2023 17:25:53 Imaging Results Imaging Date Name Status LastModified by [facility] Details LastModified Time 02/03/2021 NM, myocardial perfusion scan completed [address], [place], [address], 11/13/2023 23:03:45 02/21/2024 XR, elbow, 2 view completed [address] [place] [address] [address], [place], [address], 03/11/2024 09:52:35 04/04/2024 nerve conduction study completed [facility] Information not available 04/18/2024 17:04:34 08/13/2024 CT, head, w/o contrast completed [address], [place], [address], 08/13/2024 13:56:27 08/13/2024 CT, angiogram, head + neck, w/wo contrast completed [address], [place], [address], 08/15/2024 17:46:38 08/16/2024 CT, chest + abdomen + pelvis, w/o contrast completed [address], [place], [address], 08/17/2024 21:16:23 08/16/2024 US, abdomen, complete completed [address], [place], [address], 08/17/2024 21:16:47 08/16/2024 XR, chest, [address], [place], [address], 08/17/2024 21:17:27 Procedure Notes None recorded. Medical Equipment None Reported. Medications Name Sig Start Date Stop Date Status Note LastModified by Organization Details LastModified Time venlafaxine 75 mg tablet TAKE 1 TABLET BY MOUTH TWICE A DAY active Not Available Not Available No t Available flurbiprofe n 0.03 % eye drops PLEASE SEE ATTACHED FOR DETAILED DIRECTION S 03/27 completed Not Available Not Available Not Available meloxicam 15 mg tablet TAKE 1 TABLET EVERY DAY BY ORAL ROUTE NEEDED. active Not Available Not Available No t Available venlafaxine ER 150 mg capsule,ext ended release 24 hr TAKE 1 CAPSULE BY MOUTH DAILY. STOP VENLAFAXI NE TABLETS 11/08 completed Not Available Not Available Not Available tramadol 50 mg tablet TAKE 1 TABLET BY MOUTH EVERY 6 HOURS NEEDED FOR ACUTE PAIN. 11/08 completed Not Available Not Available Not Available prednisolon e acetate 1 % eye drops,suspe nsion 1 DROP 3 TIMES A DAY STARTING AFTER SURGERY, CONTINUE FOR 3 WEEKS 03/27 completed Not Available Not Available Not Available pravastatin 10 mg tablet TAKE 1 TABLET BY MOUTH EVERY DAY active Not Available Not Available No t Available ciprofloxac in 0.3 % eye drops PLEASE SEE ATTACHED FOR DETAILED DIRECTION S 03/27 completed Not Available Not Available Not Available cephalexin 500 mg capsule TAKE 1 CAPSULE BY MOUTH EVERY 6 HOURS FOR 5 DAYS. 03/27 completed Not Available Not Available Not Available docusate sodium 100 mg capsule TAKE 1 CAPSULE BY MOUTH TWICE A DAY FOR 2 WEEKS 11/08 completed Not Available Not Available Not Available omeprazole 20 mg capsule,del ayed release TAKE 1 CAPSULE BY MOUTH EVERY DAY active Not Available Not Available No t Available metoprolol succinate ER 25 mg tablet,exte nded release 24 hr TAKE 1 TABLET BY MOUTH EVERY DAY active Not Available Not Available No t Available naproxen 500 mg tablet TAKE 1 TABLET BY MOUTH 2 TIMES A DAY WITH MEALS FOR 14 DAYS. 11/08 completed Not Available Not Available Not Available oxycodone 5 mg tablet TAKE 1 TO 2 TABLETS EVERY 4 TO 6 HOURS NEEDED FOR PAIN 11/08 completed Not Available Not Available Not Available cyclobenzap rine 5 mg tablet TAKE 1 TABLET BY MOUTH THREE TIMES A DAY NEEDED FOR MUSCLE SPASMS 11/08 completed Not Available Not Available Not Available Vitals Date Recorded Body height Provider Name an d Address Organization Details Last Updated DateTime 11/09/2023 157.48 cm Carl Li MA [facility] 2023 15:39:57 Date Recorded Body mass index (BMI) Body weight Provider Name and Address Organization Details Last Updated DateTime 11/09/2023 25.1 kg/m2 03066.15 g Carl Li MA [facility] 11/09/2023 15:40:01 Date Recorded Oxygen saturation Oxygen saturation in Arterial blood by Pulse oximetry Provider Name and Address Organization Details Last Updated DateTime 11/09/2023 98 % 98 % Carl Li MA [facility] 11/09/2023 15:45:06 Date Recorded Heart rate Provider Name an d Address Organization Details Last Updated DateTime 11/09/2023 85 /min Carl Li MA [facility] 2023 15:45:07 Date Recorded Respiratory rate Provider Name a nd Address Organization Details Last Updated DateTime 11/16/2023 18 /min RICA Howard Attn: Accounting,[address] [facility], [place], [address], [facility] 11/16/2023 17:58:52 Date Recorded Systolic blood pressure Diastolic blood pressure Provider Name and Address Organization Details Last Updated DateTime 11/09/2023 118 mm[Hg] 82 mm[Hg] Carl Li [place] [facility] 11/09/2023 15:46:54 Social History Question Answer Notes LastModified by Organizat ion Details LastModified Time Do You Have An Advance Directive? Yes Information not available 11/09/2023 Are You Blind Or Do You Have Difficulty Seeing? Yes Glasses Information not available 11/09/2023 In The 14 Days Before Symptom Onset, Have You Had Close Contact With A Laboratory-confir med COVID-19 While That Case Was Ill? No Information not available 11/09/2023 In The 14 Days Before Symptom Onset, Have You Had Close Contact With A Person Who Is Under Investigation For COVID-19 While That Person Was Ill? No Information not available 11/09/2023 Have You Been To An Area Known To Be High Risk For COVID-19? No Information not available 11/09/2023 Are You Deaf Or Do You Have Serious Difficulty Hearing? Yes Hearing Buds Information not available 11/09/2023 What Type Of Diet Are You Following? REGULAR Information not available 11/09/2023 Are There Any Guns Present In Your Home? No Information not available 11/09/2023 What Was The Date Of Your Most Recent Tobacco Screening? 11/09/2023 Information not available 11/09/2023 Do You Use Your Seat Belt Or Car Seat Routinely? Yes Information not available 11/09/2023 Do You Have Smoke And Carbon Monoxide Detectors In Your Home? Yes Information not available 11/09/2023 Do You Use Sunscreen Routinely? No Information not available 11/09/2023 Has Tobacco Cessation Counseling Been Provided? Yes Information not available 11/09/2023 On What Date Was Tobacco Cessation Counseling Provided? 11/09/2023 Information not available 11/09/2023 Sex: Female Functional Status Question Answer Note LastModified by Organization D etails LastModified Time Are you able to care for yourself? Yes Information n ot available 11/09/2023 What is your exercise level? None Information not available 11/09/2023 Mental Status None recorded. Family History Nothing Reported. Medical History Condition Response Muscle, Joint, or Bone Problems Y Headaches Y Osteoporosis Y Gynecological History Statement/Question Response Menses Monthly N Current Control Method Other Obstetrics History GPAL:G 0 P 0 0 0 0 Past Encounters Encounter ID Performer Location Encounter Start Date Encounter Closed Date Diagnosis/Indication Diagnosis SNOMED-CT Code Diagnosis ICD10 Code Diagnosis Note [id number] RICA Howard [facility] [employer] [facility] [place] [address] [place] [address] 11/09/2023 15:16:18 11/09/2023 16:37:45 Hyperlipidemia 70928805 E78.5 Stable on pravastati n therapy. due for updated fasting lipids. will get records from last location. Thrombocyt openic disorder 046936547 D69.6 UTD appt with Hematology and CBC completed through them and stable. 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 Gastroesop hageal reflux disease without esophagitis 619940875 K21.9 Continue PPI therapy. Multiple joint pain 3567 8005 M25.50 chronic joint pain. Pt has meloxicam 15mg daily w/meal. Chronic back pain 719921 002 G89.29 as above. Long-term drug therapy 127887336 Z79.899 routine bmp and LFT due. Degenerati on of lumbar intervertebral disc 13052101 M51.36 Refer to local neurosurge ry option for their consult on her spine state. Abnormal gait 14725237 R 26.9 Pt has some gait instabilit y that is likely from her Lumbar DDD but also weakness that may improve with some P.T. modalities . refer for P.T. eval and tx. Health Concerns Section Related Observation LastModified by Organization Detai ls LastModified Time None Recorded Concern Status LastModified by Organization Details LastModified Time None Recorded Advance Directives Directive Y: Payers Encounter Date Sequence Insurance Name Policy Number Policy Gonzales Covered Member ID Gonzales Member ID Guarantor Name 11/09/2023 1 [place] Renetta Carranza [id number] Renetta Carranza 11/09/2023 2 [employer] - [place] (MEDICARE SUPPLEMENT) Renetta Carranza [id number] Renetta Carranza Notes Date Note Type Note Provider Name and Address Organization Details Recorded Time 11/09/2023 text/html Anxiety/Depressi on Reported bypatient.Notes:pt is stable on venlafaxine 75mg bid therapy. no complaints on mood today.Back PainReported bypatient.Notes:Pt has chronic LBP that she has seen multiple specialist for in the past. she would like to consult with neurosurgery to see if anything more can be done for her chronic pain state.Hyperlipidem iaReported bypatient.Notes:Pt is stable on pravastatin 10mg daily. due for updated labsReflux/GERDRep orted bypatient.Notes:PT is stable on omeprazole 20mg daily. no complaints on reflux symptoms. RICA Howard Attn: Accounting,[address] [facility], [place], [address], [facility] 11/16/2023 18:04:56 OBGyn Episode No OBEpisode recorded.
--- OUTSIDE RECORDS SUMMARY | 2024-08-19 14:20 | XMS_ITS | Encounter Summary ---
Author Organization [facility] Address [facility] 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 Answer Entry Date Author Status No 12/14/2021 12:43 PM MARIBETHT Amber Scales RN Active documented in this encounter Plan of Treatment Upcoming Encounters Date Type Department Care Team (Late st Contact Info) Description 10/04/2024 2:00 PM CDT Office Visit [facility] - [facility] [address] [facility], [address] [place] [phone] Shanita Hendrickson NP [address] [facility] [address] [place] [address] 10/07/2024 10:30 AM CDT Office Visit [facility], [address] [place] [address] Yolie Eddy APRN [facility] [address] [place], [place] [id number] documented as of this encounter Goals Goal Patient Goal Type Associated Problems Recent Progress Patient-Stated? Author Patient will return to prior living situation and remain independent in ADLs upon discharge from [facility] No Dolores Lopez, ORGAN TEACHER documented as of this encounter Procedures Procedure Name Priority Date/Time Associated Diagnosis Comments COMPREHENSIVE METABOLIC PANEL Routine 02/27/2023 LIPID PANEL Routine 02/27/2023 CBC, MANUAL DIFF Routine 02/27/2023 documented in this encounter Results * (ABNORMAL) COMPREHENSIVE METABOLIC PANEL (02/27/2023) SODIUM S/P/B 136 GLUCOSE 90 mg/dL AST 39 BUN 20 CREATININE S/P/B 1.30(A) 0.5 - 1.0 CALCIUM S/P/B 8.5 POTASSIUM S/P/B 4.8 CHLORIDE S/P/B 103 ALT 24 GFR ESTIMATE 40 Narrative Resulting Agency Comment us Default History Genericprovider LABORATORY Edited Result - Final * LIPID PANEL (02/27/2023) CHOLESTEROL 215 TRIGLYCERIDES 85 HDL 89 DIRECT LDL 94 Narrative Resulting Agency Comment us Default History Genericprovider LABORATORY Edited Result - Final * CBC, MANUAL DIFF (02/27/2023) WBC 3.9 HGB 9.2 HCT 31.4 PLT 69 Narrative Resulting Agency Comment us Default History Genericprovider LABORATORY Edited Result - Final documented in this encounter Visit Diagnoses Not on filedocumented in this encounter Additional Health Concerns Infection Onset Date Last Indicated Resolved Time COVID-19 Rule Out 02/12/2024 02/12/2024 02/12/2024 9:38 AM CDT documented as of this encounter Care Teams Sleep Lab Technician Relationship Specialty Start Date End Date Dorina Echeverria PA [address] [place] [address] PCP - General 01/07/18 Eden Jang MD Three [facility]. [facility] [address] [place], [place] [address] [place] [facility] CARDIOVASCULAR DISEASE 02/08/18 documented as of this encounter
--- OUTSIDE RECORDS SUMMARY | 2024-08-19 14:20 | XMS_ITS | Clinical Summary ---
Author Organization [facility] Address Critical access hospital6 [facility] [address] [place] [address] Care Team Providers Care Ambulance Officer Name Role Phone Dorina Echeverria Primary Care Provider [phone] Eden Jang MD Unavailable [phone] Allergies No known active allergies Medications omeprazole 20 MG capsule Take 1 capsule (20 mg total) by mouth daily. Active venlafaxine 75 MG tablet Take 1 tablet (75 mg total) by mouth daily. 02/23/20 18 Active vitamin B-12 (CYANOCOBALAMI N) (CYANOCOBALAMI N) 1000 mcg tablet Take 1 tablet (1,000 mcg total) by mouth daily. Active vitamin C (ASCORBIC ACID) 1000 MG tablet Take 1 tablet (1,000 mg total) by mouth daily. Active metoprolol succinate ER (TOPROL-XL) 25 MG 24 hr tablet Take 1 tablet (25 mg total) by mouth daily. 07/25/19 25 Active polyvinyl alcohol (LIQUIFILM/ART IFICIAL TEARS) 1.4 % ophthalmic solution Place 1 drop into both eyes as needed (dry eyes). Active pravastatin (PRAVACHOL) 10 MG tablet Take 1 tablet (10 mg total) by mouth every evening. Hold for 1 week 08/07/19 25 Active pravastatin 10 MG tablet Take 1 tablet (10 mg total) by mouth every evening. 30 tablet 09/ 025 Discontinued metoprolol succinate ER (TOPROL XL) 12.5 mg TABLET SR 24 HR 24 hr tablet Take 1 split tab (12.5 mg total) by mouth nightly. 30 tablet 02/12/20 025 Discontinued(Er ror) lidocaine 4 % patch Place 1 patch onto the skin daily. Remove & Discard patch within 12 hours or as directed by 30 patch 02/12/20 025 Discontinued(St op Taking at Discharge) meloxicam (MOBIC) 15 MG tablet Take 1 tablet (15 mg total) by mouth daily as needed (pain). 03/28/20 025 Discontinued(St op Taking at Discharge) Copper Gluconate (COPPER CAPS OR) Take 1 capsule by mouth daily. 025 Discontinued(St op Taking at Discharge) vitamin E 180 MG (400 UNIT) capsule Take 1 capsule (400 Units total) by mouth daily. 025 Discontinued(St op Taking at Discharge) Active Problems Problem Noted Date Diagnosed Date Acute kidney failure 08/06/2024 JANETTE (acute kidney injury) 08/06/2024 Polyneuropathy 06/28/2024 Physical deconditioning 01/28/2024 Lipohemarthrosis 01/23/2024 Ground-level fall 01/22/2024 Abnormal gait 01/11/2024 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 Right elbow pain 09/25/2023 Anemia 09/19/2023 Iron deficiency anemia, unspecified 09/19/2023 Loose body in elbow joint, right 07/31/2023 Disorder of bile duct 07/13/2023 Lumbar radiculopathy 07/13/2023 Spinal stenosis of lumbar region 07/13/2023 Periprosthetic fracture arou nd internal prosthetic knee joint 12/30/2021 Overview (02/13/2022): 12/10/2021 Assessment & Plan (03/10/2022 8:46 PM CDT): Discontinue the brace. Weightbearing as tolerated. Follow-up as needed. Assessment & Plan (02/13/2022 2:16 AM CDT): Increase to weightbearing as tolerated. Maintain the hinged knee braces while ambulating, may remove at night. Follow-up in 4 weeks for repeat evaluation and x-ray Assessment & Plan (12/30/2021 8:42 PM CDT): Has bilateral periprosthetic distal femur fractures. We will allow 0 to 60 degrees of range of motion. In 2 weeks we will begin 50% weightbearing, after 01/10/2022. Follow-up in 4 weeks for repeat evaluation and x-ray Anxiety disorder, unspecified 12/17/2021 Constipation, unspecified 12/17/2021 Essential (primary) hypertension 12/17/2021 Gastro-esophageal reflux disease without esophag itis 12/17/2021 Headache, unspecified 12/17/2021 Major depressive disorder, single episode, unspe cified 12/17/2021 Migraine, unspecified, not i ntractable, without status migrainosus 12/17/2021 Moderate protein-calorie malnutrition (CMS/HCC H HS/HCC) 12/17/2021 Nausea with vomiting, unspecified 12/17/2021 Nondisplaced fracture of med ial condyle of left femur, subsequent encounter for closed fracture with routine healing 12/17/2021 Unspecified osteoarthritis, unspecified site 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 Discontinue the brace. Weightbearing as tolerated. Follow-up on an as-needed basis. Assessment & Plan (02/13/2022 2:16 AM CDT): Weightbearing as tolerated, braces while ambulating, follow-up in 4 weeks Assessment & Plan (01/23/2022 1:24 PM CDT): Now that she is roughly 6 weeks out from her initial fracture we will continue with her 50% weightbearing but increase her range of motion. Follow-up in 3 weeks for repeat evaluation and x-ray. We did spend a fair amount of time discussing how it is just difficult to see the fractures with her posterior stabilized component. There is been no change in position or alignment. Patient is just getting aggravated and frustrated and wants to go home. Assessment & Plan (12/30/2021 8:42 PM CDT): Has bilateral periprosthetic distal femur fractures. We will allow 0 to 60 degrees of range of motion. In 2 weeks we will begin 50% weightbearing, after 01/10/2022. Follow-up in 4 weeks for repeat evaluation and x-ray Assessment & Plan (12/14/2021 2:23 PM CDT): Pain is uncontrolled. Unable to care for herself. Will admit for pain control and hospitalist consult. History of falls. Obtain MRI for possible patella fracture, quad tendon rupture or patellar tendon rupture Femoral condyle fracture ([facility]) 12/10 Overview (02/13/2022): 12/10/2021 Assessment & Plan (02/13/2022 2:15 AM CDT): Increase to full weightbearing. Maintain hinged knee braces. Follow-up in 4 weeks for repeat evaluation and x-ray. Mixed hyperlipidemia 04/05/2021 Thrombocytopenic disorder 04/05/2021 Vitamin D deficiency 04/05/2021 Fatigue 04/05/2021 Cobalamin deficiency 04/05/2021 Claudication of both lower extremities Myalgia 04/05/2021 Cardiomyopathy ([facility] HHS/HCC) 12/16/2020 PRINCE (dyspnea on exertion) 12/16/2020 Other cervical disc degenera tion, unspecified cervical region 07/30/2020 Sacroiliitis 07/30/2020 History of lumbar fusion 07/30/2020 Frequent falls 07/30/2020 Chronic midline low back pain with right-sided s ciatica 07/30/2020 Hip pain, acute, right 07/30/2020 Cervical radiculopathy 07/30/2020 Closed odontoid fracture wit h nonunion, subsequent encounter 07/30/2020 Paroxysmal atrial fibrillation ([facility]) 04/24/2019 Assessment & Plan (12/14/2021 2:24 PM CDT): Possible cause of the fall. Excessive daytime sleepiness 06/27/2018 Pure hypercholesterolemia 06/27/2018 LBBB (left bundle branch block) 02/22/2018 Chronic ITP (idiopathic thrombocytopenia) ([facility]) 01/08/2018 Assessment & Plan (01/12/2018 8:20 AM CDT): Platelets low at 68 at presentation with initial drop, now stable. Per Dr. Montoya's office, she was seen in 10/2017 and had low platelets of 55 at that time. Reportedly ITP but not receiving any treatment. - monitor with Q other day CBC - would transfuse for platelet <20 or spontaneous/mucosal bleeding - Will need f.u with Dr Childress at discharge Syncope 01/07/2018 Assessment & Plan (12/14/2021 2:24 PM CDT): Possible cause of fall Assessment & Plan (01/12/2018 11:29 AM CDT): Recurrent episodes of falls with syncope, for last several months, becoming more frequent. Recently resulting in an odontoid process fracture. Pt also is a poor historian with memory difficulties. Etiology unknown: vasovagal, arrhythmia/cardiogenic, neurogenic, or positional. No focal neurologic deficit. She has no history of seizure, CVA/TIA. EKG rate-dependant LBBB, repeat EKG sinus ana laura. CT head negative for acute pathology TTE w/grade 1 salazar dysfxn and mild-mod LVH. Tilt table testing negative. Stress test 01/10 equivocal. EPS negative 01/12. Implantable loop recorder implanted 12/23 MRA head and neck negative for significant arterial stenosis. MRI brain negative for ischemic stroke or intracranial lesion. - consulted cardiology --> ILR implanted 01/11 - PT/OT consulted - pt confirms she is full code, but would like help writing an advanced directive: consulted to pastoral care. Pastoral care provided resources Resolved Problems Problem Noted Date Diagnosed Date Resolved Date Non compliance with medical treatment 02/05/2021 04/17/2024 JANETTE (acute kidney injury) 01/07/2018 Assessment & Plan (01/08/2018 2:11 PM CDT): Resolved. Encounters Date Type Department Care Team Description 08/09/2024 Hospital Follow-up Call [facility] Care Management [address] [place] [id number] Azra Montano LPN Follow Up Call (SJB 08/06-08/07/24) 08/06/2024 2:48 AM FOREIGN LANGUAGE STENOGRAPHER - 08/07/2024 1:26 PM FOREIGN LANGUAGE STENOGRAPHER Hospital Encounter [facility] [address] [place] [id number] Derrick Mann MD Engele, Christopher, APRN Discharge Disposition: Home or Self Care (Routine Discharge) 08/06/2024 Travel 08/05/2024 8:13 PM FOREIGN LANGUAGE STENOGRAPHER - 08/06/2024 2:14 AM FOREIGN LANGUAGE STENOGRAPHER Emergency [facility] Emergency Room [address] [place] [address] Junito Ham MD Confusion; Headache; Neck Pain Discharge Disposition: Home or Self Care (Routine Discharge) 08/05/2024 11:03 AM FOREIGN LANGUAGE STENOGRAPHER - 08/05/2024 8:12 PM FOREIGN LANGUAGE STENOGRAPHER Hospital Encounter [facility] Laboratory [address] [place] [address] Kary Mayers, KLEVER Discharge Disposition: Home or Self Care (Routine Discharge) 08/05/2024 11:00 AM FOREIGN LANGUAGE STENOGRAPHER - 08/05/2024 11:02 AM FOREIGN LANGUAGE STENOGRAPHER Hospital Encounter [facility] [address] [place] [address] Dorina Echeverria PA Discharge Disposition: Home or Self Care (Routine Discharge) 08/05/2024 Orders Only [facility] [address] [place] [address] Kary Mayers NP 08/05/2024 Orders Only [facility] [address] [place] [address] Dorina Echeverria PA 08/05/2024 Travel 06/28/2024 8:00 AM FOREIGN LANGUAGE STENOGRAPHER Office Visit [facility] Medical Group Multispecialty Care - [facility] [address] [facility], [address] [place] [address] Shanita Hendrickson NP Establish Care (Polyneuropathy) 06/28/2024 Travel from Last 3 Months Immunizations Name Administration Dates Next Due Fluzone High Dose - >Age 65 (Prefilled Syringe) 07/07/2022,07/07/2022 Influenza (Generic) 07/24/2015,07/24/2014 Pneumococcal (Generic) 07/24/2010 Tdap (Boostrix) 11/28/2022 Family History Medical History Relation Comments COPD Brother Arthritis Father Diabetes Maternal Grandfather COPD Mother Cancer Mother lung Relation Status Comments Brother Alive Father Maternal Grandfather Maternal Grandmother Mother Paternal Grandfather Paternal Grandmother Social History Tobacco Use Types Packs/Day Years Used Date Smoking Tobacco: Former Cigarettes 1 15 Q uit: 01/08/1988 Smokeless Tobacco: Never Tobacco Cessation:Counseling Given: No Comments:na Alcohol Use Standard Drinks/Week Comments Not Currently 1.7 (1 standard drink = 0.6 oz p ure alcohol) B1300 Health Literacy Answer Date Recor ded How often do you need to hav e someone help you when you read instructions, pamphlets, or other written material from your doctor or pharmacy? Never 01/22/2024 [facility] Utilities Answer Date Recorded In the past 12 months has e [employer], gas, oil, or water [employer] threatened to shut off services in your home? No 08/06/2024 Humiliation, Afraid, Rape, and Kick questionnair e Answer Date Recorded Within the last year, have y ou been afraid of your partner or ex-partner? No 08/06/2024 Within the last year, have y ou been humiliated or emotionally abused in other ways by your partner or ex-partner? No Within the last year, have y ou been kicked, hit, slapped, or otherwise physically hurt by your partner or ex-partner? No 08/06/2024 Within the last year, have y ou been raped or forced to have any kind of sexual activity by your partner or ex-partner? No 08/06/2024 Social Connection and Isolat ion Panel [NHANES] Answer Date Recorded In a typical week, how many times do you talk on the phone with family, friends, or neighbors? More than three times a week 01/22/2024 How often do you get togethe r with friends or relatives? Once a week 01/22/2024 How often do you attend chur or judaism services? Never 01/22/2024 Do you belong to any clubs o r organizations such as uatsdin groups, unions, fraternal or athletic groups, or [...] care, and heating? Not hard at all 08/06/2024 PHQ-2 Answer Date Recorded Patient Health Questionnaire-2 Score 1 01/22/2024 [facility] Occupat ional Health - Occupational Stress [...] the money to buy more. Never true 08/06/19 25 Within the past 12 months, t he food you bought just didn't last and you didn't have money to get more. Never true 08/06/2024 PRAPARE - Transportation Answer Date Re corded In the past 12 months, has l ack of transportation kept you from medical appointments or from getting medications? No 07/24 In the past 12 months, has l ack of transportation kept you from meetings, work, or from getting things needed for daily living? No 08/06/2024 Housing Stability Vital Sign Answer Karthik e Recorded In the last 12 months, was t here a time when you were not able to pay the mortgage or rent on time? No 08/06/2024 In the past 12 months, how m any times have you moved where you were living? 0 08/06/2024 At any time in the past 12 [facility], were you homeless or living in a assisted (including now)? No 08/06/2024 Comments No Sex and Gender Information Value Date Recorded Sex Assigned at Female 08/06/2024 4:15 PM FOREIGN LANGUAGE STENOGRAPHER Legal Sex Female 2:52 PM CDT Gender Identity Female 10/25/2021 11:54 AM CDT Sexual Orientation Straight 10/25/2021 11 :54 AM CDT Occupation Industry Job Start Date Job End Date Not on file Not on file Not on file Not on file Last Filed Vital Signs Vital Sign Reading Time Taken Comments Blood Pressure 122/65 08/07/2024 11:21 AM FOREIGN LANGUAGE STENOGRAPHER Pulse 75 08/07/2024 11:21 AM FOREIGN LANGUAGE STENOGRAPHER Temperature 36.6 ??C (97.8 ??F) 08/07/2024 8:27 AM CS T Respiratory Rate 14 08/07/2024 11:21 AM FOREIGN LANGUAGE STENOGRAPHER Oxygen Saturation 100% 08/07/2024 11:21 AM FOREIGN LANGUAGE STENOGRAPHER Inhaled Oxygen Concentration - - Weight 59.1 kg (130 lb 3.2 oz) 08/06/2024 3:04 A M FOREIGN LANGUAGE STENOGRAPHER Height 157.5 cm (5' 2 ) 08/06/2024 3:04 AM FOREIGN LANGUAGE STENOGRAPHER Body Mass Index 23.81 08/06/2024 3:04 AM FOREIGN LANGUAGE STENOGRAPHER Plan of Treatment Upcoming Encounters Date Type Department Care Team (Late st Contact Info) Description 10/04/2024 2:00 PM CDT Office Visit [facility] Medical Group Multispecialty Care - [facility] [address] [facility], [address] [place] [address] Shanita Hendrickson, SCORER SINGLE [address] [facility] [address] [place] [address] 10/07/2024 10:30 AM CDT Office Visit [facility], [address] [place] [address] Yolie Eddy, AARON [facility] [address] [place] [address] Health Maintenance Due Date Last Done Comments Hepatitis C 1964 Zoster Vaccines (1 of 2) 1996 Annual Medicare Wellness Visit 2011 Dexa Scan (General) 2011 Pneumococcal Vaccine: 65+ Years (1 of 1 - PCV) 2011 RSV Immunization or 60+ Years (1 - 1-dose 75+ series) 2021 COVID-19 Vaccine (1 - season) 2024 Influenza Adult (#1) 2024 07/07/2022, 07/07/2022, 07/24/2015, Additional history exists PHQ-2 (Physician [place]) 07/24/2024 01/22/2024 DTaP, Tdap and Td Vaccines (2 - Td or Tdap) 11/28/2032 11/28/2022 Meningococcal B Vaccine Aged Out No l onger eligible based on patient's age to complete this topic Meningococcal Vaccine Aged Out No katarzyna juwan eligible based on patient's age to complete this topic RSV Immunizations Under 20 Months Aged Out No longer eligible based on patient's age to complete this topic Goals Goal Patient Goal Type Associated Problems Recent Progress Patient-Stated? Author Patient will return to prior living situation and remain independent in ADLs upon discharge from [facility] No Dolores Lopez, MANAGER MENTAL HEALTH Medical Devices Explanted Type Area Computer Information Systems Professor Device Identifier Shelf Expiration Date Model / Serial / Lot Sj Implantable Loop Recorder-2017 Implanted:12/23 by Brennan Boone MD (Quantity not on file) Explanted:Qty: 1 on 03/31/2022 by Brennan Boone MD Implantable Loop Recorder [employer] DIV [employer] [id number] / [id number] / Procedures Procedure Name Priority Date/Time Associated Diagnosis Comments CK (CPK) Routine 08/07/2024 4:46 AM FOREIGN LANGUAGE STENOGRAPHER BASIC METABOLIC PANEL Routine 08/07/2024 4:46 AM FOREIGN LANGUAGE STENOGRAPHER CBC W/DIFF AUTOMATED Routine 08/07/2024 4:46 AM FOREIGN LANGUAGE STENOGRAPHER XR ELBOW RT M3V DARCY 08/06/2024 3:04 PM FOREIGN LANGUAGE STENOGRAPHER CK (CPK) STAT 08/05/2024 9:40 PM FOREIGN LANGUAGE STENOGRAPHER TROPONIN, QUANT STAT 08/05/2024 9:40 PM FOREIGN LANGUAGE STENOGRAPHER COMPREHENSIVE METABOLIC PANEL STAT 08/05/2024 9:40 PM FOREIGN LANGUAGE STENOGRAPHER CBC W/DIFF AUTOMATED STAT 08/05/2024 9:40 PM FOREIGN LANGUAGE STENOGRAPHER CT CERV SPINE WO CON STAT 08/05/2024 9:24 PM FOREIGN LANGUAGE STENOGRAPHER CT HEAD WO CON STAT 08/05/2024 9:24 PM FOREIGN LANGUAGE STENOGRAPHER URINE BACTERIA CULTURE Routine 11:28 AM FOREIGN LANGUAGE STENOGRAPHER Urinary tract infection, site not specified URINALYSIS, AUTO, COMPLETE Routine 08/05/2024 11:28 AM FOREIGN LANGUAGE STENOGRAPHER Urinary tract infection, site not specified COPPER Routine 08/05/2024 11:10 AM FOREIGN LANGUAGE STENOGRAPHER Copper deficiency CBC W/DIFF AUTOMATED Routine 08/05/2024 11:10 AM FOREIGN LANGUAGE STENOGRAPHER Thrombocytopenia (CMS/HCC) from Last 3 Months Results * (ABNORMAL) BASIC METABOLIC PANEL (08/07/2024 4:46 AM FOREIGN LANGUAGE STENOGRAPHER) Pathologist [facility] GLUCOSE 92 70 - 99 MG/DL 08/07/2024 5:40 AM [facility] BUN 22(H) 7 - 18 MG/DL 08/07/2024 5:40 AM [facility] CREATININE S/P/B 1.30(H) 0.55 - 1.02 MG/DL 08/07/2024 5:40 AM [facility] SODIUM S/P/B 146(H) 136 - 145 MMOL/L 08/07/2024 5:40 AM [facility] POTASSIUM S/P/B 4.2 3.5 - 5.1 MMOL/L 08/07/2024 5:40 AM [facility] CHLORIDE S/P/B 112(H) 100 - 108 MMOL/L 08/07/2024 5:40 AM [facility] CO2 29.2 21 - 32 MMOL/L 08/07/2024 5:40 AM [facility] CALCIUM S/P/B 7.6(L) 8.5 - 10.1 MG/DL 08/07/2024 5:40 AM [facility] ANION GAP 4.8(L) 5 - 15 MMOL/L 08/07/2024 5:40 AM [facility] BUN CREATININE RATIO 16.9 6 - 26 08/07/2024 5:40 AM [facility] GFR ESTIMATE 42(L) >90 ML/MIN/1.7 3 M2 08/07/2024 5:40 AM [facility] Comment: NOTE: eGFR is not calculated for patients <18 years of age. This is an estimated GFR calculation using the new CKD EPI creatinine equation without race and so does not require a correction factor for race. This estimated GFR should not be used for calculating drug doses. 08/07/2024 4:46 AM FOREIGN LANGUAGE STENOGRAPHER Derrick Mann MD LABORATORY Final Result [facility] [address] [id number], * (ABNORMAL) CBC W/DIFF AUTOMATED (08/07/2024 4:46 AM FOREIGN LANGUAGE STENOGRAPHER) Only the most recent of3 resultswithin the time period is included. WBC 3.14(L) 4.50 - 11.00 x10'3/uL 08/07/2024 5:16 AM [facility] RBC 3.66(L) 4.20 - 5.40 x10'6/uL 08/07/2024 5:16 AM [facility] HGB 10.8(L) 12.0 - 16.0 G/DL 08/07/2024 5:16 AM [facility] HCT 34.2(L) 38.0 - 48.0 % 08/07/2024 5:16 AM [facility] MCV 93.4 81.0 - 99.0 FL 08/07/2024 5:16 AM [facility] MCH 29.5 27.0 - 31.0 PG 08/07/2024 5:16 AM [facility] MCHC 31.6(L) 32.0 - 36.0 G/DL 08/07/2024 5:16 AM [facility] RDW 13.6 11.5 - 14.5 % 08/07/2024 5:16 AM [facility] PLT 38(LL) 130 - 400 x10'3/uL 08/07/2024 5:16 AM [facility] Comment: CALLED RESULT CHRISTIANO BLANCO RN [id number] BY ARM READ BACK AND VERIFIED MPV 12.1 9.3 - 12.2 FL 08/07/2024 5:16 AM [facility] IMMATURE GRANS % 0.3 % 08/07/19 5:55 AM [facility] NEUTROPHILS % 50.7 % 08/07/2024 5:55 AM [facility] LYMPHOCYTES % 35.7 % 08/07/2024 5:55 AM [facility] MONOCYTES % 10.2 % 08/07/2024 5:55 AM [facility] EOSINOPHILS 2.5 % 08/07/2024 5:55 AM [facility] BASOPHILS 0.6 % 08/07/2024 5:55 AM [facility] ABS. IMMATURE GRANULOCYTES 0.01 0.00 - 0.49 x10'3/uL 08/07/2024 5:55 AM [facility] ABS. NEUTROPHILS TOTAL 1.59(L) 1.80 - 7.70 x10'3/uL 08/07/2024 5:55 AM [facility] ABS. LYMPHOCYTES 1.12 1.00 - 4.80 x10'3/uL 08/07/2024 5:55 AM [facility] ABS. MONOCYTES 0.32 0.24 - 0.86 x10'3/uL 08/07/2024 5:55 AM [facility] ABS. EOSINOPHILS 0.08 0.04 - 0.36 x10'3/uL 08/07/2024 5:55 AM FOREIGN LANGUAGE STENOGRAPHER [facility] ABS. BASOPHILS 0.02 0.01 - 0.08 x10'3/uL 08/07/2024 5:55 AM FOREIGN LANGUAGE STENOGRAPHER [facility] PLT MORPH. DECREASED 08/07/2024 5:55 AM FOREIGN LANGUAGE STENOGRAPHER [facility] RBC MORPHOLOGY NORMAL 08/07/2024 5:55 AM FOREIGN LANGUAGE STENOGRAPHER [facility] 08/07/2024 4:46 AM FOREIGN LANGUAGE STENOGRAPHER Derrick Mann MD LABORATORY Final Result Performing Organization Address [facility] Co de Phone Number [facility] [address] [place] [address], [place] [phone] * (ABNORMAL) CK (CPK) (08/07/2024 4:46 AM FOREIGN LANGUAGE STENOGRAPHER) Only the most recent of2 resultswithin the time period is included. CPK 245(H) 26 - 192 U/L 08/07/2024 5:40 AM FOREIGN LANGUAGE STENOGRAPHER [facility] 08/07/2024 4:46 AM FOREIGN LANGUAGE STENOGRAPHER us Trevin Mccall APRN LABORATORY Final Re sult Performing Organization Address [facility]/ZIP Co de Phone Number [facility] [address] [place] [address], [place] [phone] * XR ELBOW RT M3V (08/06/2024 3:04 PM FOREIGN LANGUAGE STENOGRAPHER) Anatomical Region Laterality Modality Elbow Radiographic Deborah ging 08/06/2024 8:14 PM FOREIGN LANGUAGE STENOGRAPHER Impressions 08/06/2024 8:16 PM FOREIGN LANGUAGE STENOGRAPHER IMPRESSION: 1. ??No acute osseous abnormality identified. 2. ??Moderate to advanced arthritic changes of the elbow. 3. ??Small joint effusion. Referred By: JUNITO HAM Interpreted By: Ha Jimenez MD, 08/06/2024 8:14 PM Narrative 08/06/2024 8:16 PM FOREIGN LANGUAGE STENOGRAPHER [address] [address] EXAMINATION: XR ELBOW RT M3V HISTORY: Elbow pain. COMPARISON: Radiographs January 02, 2024. TECHNIQUE: 3 views of the right elbow. FINDINGS: Moderate to advanced arthritic changes of the elbow joints. No distinct findings of acute fracture or dislocation. Radiocapitellar alignment is preserved. No destructive bone lesion is seen. Small joint effusion, nonspecific. Procedure Note Ha Jimenez MD - 08/06/[address] [address] EXAMINATION: XR ELBOW RT M3V HISTORY: Elbow pain. COMPARISON: Radiographs January 02, 2024. TECHNIQUE: 3 views of the right elbow. FINDINGS: Moderate to advanced arthritic changes of the elbow joints. No distinctfindings of acute fracture or dislocation. Radiocapitellar alignment ispreserved. No destructive bone lesion is seen. Small joint effusion,nonspecific. IMPRESSION: 1. No acute osseous abnormality identified. 2. Moderate to advanced arthritic changes of the elbow. 3. Small joint effusion. Referred By: JUNITO HAM Interpreted By: Ha Jimenez MD, 08/06/2024 8:14 PM us Trevin Mccall APRN GENERAL IMAGING Final Re sult * (ABNORMAL) COMPREHENSIVE METABOLIC PANEL (08/05/2024 9:40 PM FOREIGN LANGUAGE STENOGRAPHER) GLUCOSE 101(H) 70 - 99 MG/DL 08/05/2024 10:12 PM FOREIGN LANGUAGE STENOGRAPHER [facility] BUN 32(H) 7 - 18 MG/DL 08/05/2024 10:12 PM FOREIGN LANGUAGE STENOGRAPHER [facility] CREATININE S/P/B 1.94(H) 0.55 - 1.02 MG/DL 08/05/2024 10:12 PM [facility] SODIUM S/P/B 145 136 - 145 MMOL/L 08/05/2024 10:12 PM [facility] POTASSIUM S/P/B 4.5 3.5 - 5.1 MMOL/L 08/05/2024 10:12 PM [facility] CHLORIDE S/P/B 108 100 - 108 MMOL/L 08/05/2024 10:12 PM [facility] CO2 31.9 21 - 32 MMOL/L 08/05/2024 10:12 PM [facility] CALCIUM S/P/B 8.1(L) 8.5 - 10.1 MG/DL 08/05/2024 10:12 PM [facility] BILIRUBIN TOTAL S/P/B 0.8 0.2 - 1.2 MG/DL 08/05/2024 10:12 PM [facility] TOTAL PROTEIN S/P/B 6.2(L) 6.4 - 8.2 G/DL 08/05/2024 10:12 PM [facility] ALBUMIN S/P/B 3.8 3.4 - 5.0 G/DL 08/05/2024 10:12 PM [facility] AST 41(H) 15 - 37 U/L 08/05/2024 10:12 PM [facility] ALT 23 14 - 55 U/L 08/05/2024 10:12 PM [facility] ALKALINE PHOSPHATASE S/P/B 123 50 - 136 U/L 08/05/2024 10:12 PM [facility] ANION GAP 5.1 5 - 15 MMOL/L 08/05/2024 10:12 PM [facility] BUN CREATININE RATIO 16.5 6 - 26 08/05/2024 10:12 PM FOREIGN LANGUAGE STENOGRAPHER [facility] A/G RATIO 1.6 1.0 - 2.0 RATIO 08/05/2024 10:12 PM [facility] GFR ESTIMATE 26(L) >90 ML/MIN/1.7 3 M2 08/05/2024 10:12 PM FOREIGN LANGUAGE STENOGRAPHER [facility] Comment: NOTE: eGFR is not calculated for patients <18 years of age. This is an estimated GFR calculation using the new CKD EPI creatinine equation without race and so does not require a correction factor for race. This estimated GFR should not be used for calculating drug doses. 08/05/2024 9:40 PM FOREIGN LANGUAGE STENOGRAPHER us Junito Ham MD LABORATORY Final Result [facility] [address] [place] [address], [place] [phone] * TROPONIN, QUANT (08/05/2024 9:40 PM FOREIGN LANGUAGE STENOGRAPHER) Pathologist [facility] [place] TROPONIN I HIGH SENSITIVITY 13 0 - 50 ng/L 08/05/2024 10:12 PM FOREIGN LANGUAGE STENOGRAPHER [facility] Comment: HIGH DOSES OF BIOTIN, TROPONIN-SPECIFIC AUTOANTIBODIES, AND ANTIBODY THERAPY CONTAINING HAMA MAY INTERFERE WITH THIS TEST RESULT. CORRELATION TO CLINICAL HISTORY AND PRESENTATION RECOMMENDED. 08/05/2024 9:40 PM FOREIGN LANGUAGE STENOGRAPHER Junito Ham MD LABORATORY Final Result [facility] [address] [place] [address], [place] [phone] * CT HEAD WO CON (08/05/2024 9:24 PM FOREIGN LANGUAGE STENOGRAPHER) Anatomical Region Laterality Modality Head Computed Tomogra phy 08/05/2024 9:25 PM FOREIGN LANGUAGE STENOGRAPHER Impressions 08/05/2024 9:28 PM FOREIGN LANGUAGE STENOGRAPHER IMPRESSION: 1. ??No CT evidence of an acute intracranial abnormality. 2. ??No acute fracture of the cervical spine. 3. ??Old odontoid base fracture, unchanged when compared with the prior CT cervical spine examination from 11/17/2023. 4. ??Mild to moderate global cerebral volume loss and moderate to marked chronic small vessel ischemic change. 5. 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 Ordered By: JUNITO HAM Interpreted By: Jac Barnett MD, 08/05/2024 9:25 PM Narrative 08/05/2024 9:28 PM FOREIGN LANGUAGE STENOGRAPHER [facility] [address] [facility]. [place] [id number] Examination: CT HEAD WO CON, CT CERV SPINE WO CON, 08/05/2024 8:54 PM. Technique: Computed tomographic images of the head and cervical spine were obtained without intravenous contrast. Additional coronal and sagittal reformatted images were generated at a separate workstation. A dose lowering technique was used for this procedure, which may include, but is not limited to, dose reduction technique, automated exposure control, the use of iterative reconstruction, and ALARA (As Low As Reasonably Achievable) / Image Gently techniques. Clinical history: mental status change Comparison: CT head 11/17/2023 Findings: CT head: There is no acute intracranial hemorrhage. There is no extra-axial fluid collection. Mild to moderate global cerebral volume loss with ex vacuo dilatation of ventricles and cerebral sulci. Confluent subcortical and periventricular white matter foci concerning hypodensity that are nonspecific but most commonly seen in setting of chronic small vessel ischemic change. Probable old infarct involving the anterior portion of the left centrum semiovale region. Old infarct involving the superior aspect of the left cerebellar hemisphere. Basal cisterns appear normal. Moderate arteriosclerotic calcification the cavernous segments of the internal carotid arteries bilaterally. Prior bilateral ocular lens extractions with prosthetic lens implantation. Orbital contents appear normal. Paranasal sinuses and mastoid air cells are well aerated. Mild to moderate hyperostosis frontalis internus. CT cervical spine: Similar to the prior CT cervical spine examination from 11/17/2023 is the odontoid base fracture which appears chronic with mineralization along the atlantodental articulation. Straightening of the normal cervical lordosis that is likely positional. The cervical vertebral bodies and facets are otherwise well aligned. There is 0.2 cm of anterolisthesis of C4 on C5. There is intervertebral disc height loss at C4-5, C5-6, C6-7 and C7-T1 with endplate degenerative changes at these levels. There is no acute fracture nor destructive process of the visualized osseous structures. No abnormal prevertebral or paraspinal soft tissue swelling. Procedure Note Jac Barnett MD - 08/05/2024 [facility] [address] [facility] [place] [address] Examination: CT HEAD WO CON, CT CERV SPINE WO CON, 08/05/2024 8:54 PM. Technique: Computed tomographic images of the head and cervical spine wereobtained without intravenous contrast. Additional coronal and sagittalreformatted images were generated at a separate workstation. A doselowering technique was used for this procedure, which may include, but isnot limited to, dose reduction technique, automated exposure control, theuse of iterative reconstruction, and ALARA (As Low As ReasonablyAchievable) / Image Gently techniques. Clinical history: mental status change Comparison: CT head 11/17/2023 Findings: CT head: There is no acute intracranial hemorrhage. There is noextra-axial fluid collection. Mild to moderate global cerebral volume losswith ex vacuo dilatation of ventricles and cerebral sulci. Confluentsubcortical and periventricular white matter foci concerning hypodensitythat are nonspecific but most commonly seen in setting of chronic smallvessel ischemic change. Probable old infarct involving the anteriorportion of the left centrum semiovale region. Old infarct involving thesuperior aspect of the left cerebellar hemisphere. Basal cisterns appearnormal. Moderate arteriosclerotic calcification the cavernous segments ofthe internal carotid arteries bilaterally. Prior bilateral ocular lensextractions with prosthetic lens implantation. Orbital contents appearnormal. Paranasal sinuses and mastoid air cells are well aerated. Mild tomoderate hyperostosis frontalis internus. CT cervical spine: Similar to the prior CT cervical spine examination from11/17/2023 is the odontoid base fracture which appears chronic withmineralization along the atlantodental articulation. Straightening of thenormal cervical lordosis that is likely positional. The cervical vertebralbodies and facets are otherwise well aligned. There is 0.2 cm ofanterolisthesis of C4 on C5. There is intervertebral disc height loss atC4-5, C5-6, C6-7 and C7-T1 with endplate degenerative changes at theselevels. There is no acute fracture nor destructive process of thevisualized osseous structures. No abnormal prevertebral or paraspinal softtissue swelling. IMPRESSION: 1. No CT evidence of an acute intracranial abnormality. 2. No acute fracture of the cervical spine. 3. Old odontoid base fracture, unchanged when compared with the prior CTcervical spine examination from 11/17/2023. 4. Mild to moderate global cerebral volume loss and moderate to markedchronic small vessel ischemic change. 5. Old infarcts within the left centrum semiovale and left cerebellarhemisphere. Ordered By: JUNITO HAM Interpreted By: Jac Barnett MD, 08/05/2024 9:25 PM Junito Ham MD CT Final Result * CT CERV SPINE WO CON (08/05/2024 9:24 PM FOREIGN LANGUAGE STENOGRAPHER) Anatomical Region Laterality Modality Spine Computed Tomogra phy 08/05/2024 9:25 PM FOREIGN LANGUAGE STENOGRAPHER Impressions 08/05/2024 9:28 PM FOREIGN LANGUAGE STENOGRAPHER IMPRESSION: 1. ??No CT evidence of an acute intracranial abnormality. 2. ??No acute fracture of the cervical spine. 3. ??Old odontoid base fracture, unchanged when compared with the prior CT cervical spine examination from 11/17/2023. 4. ??Mild to moderate global cerebral volume loss and moderate to marked chronic small vessel ischemic change. 5. 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 Ordered By: JUNITO HAM Interpreted By: Jac Barnett MD, 08/05/2024 9:25 PM Narrative 08/05/2024 9:28 PM FOREIGN LANGUAGE STENOGRAPHER [facility] [address] [place] [id number] Examination: CT HEAD WO CON, CT CERV SPINE WO CON, 08/05/2024 8:54 PM. Technique: Computed tomographic images of the head and cervical spine were obtained without intravenous contrast. Additional coronal and sagittal reformatted images were generated at a separate workstation. A dose lowering technique was used for this procedure, which may include, but is not limited to, dose reduction technique, automated exposure control, the use of iterative reconstruction, and ALARA (As Low As Reasonably Achievable) / Image Gently techniques. Clinical history: mental status change Comparison: CT head 11/17/2023 Findings: CT head: There is no acute intracranial hemorrhage. There is no extra-axial fluid collection. Mild to moderate global cerebral volume loss with ex vacuo dilatation of ventricles and cerebral sulci. Confluent subcortical and periventricular white matter foci concerning hypodensity that are nonspecific but most commonly seen in setting of chronic small vessel ischemic change. Probable old infarct involving the anterior portion of the left centrum semiovale region. Old infarct involving the superior aspect of the left cerebellar hemisphere. Basal cisterns appear normal. Moderate arteriosclerotic calcification the cavernous segments of the internal carotid arteries bilaterally. Prior bilateral ocular lens extractions with prosthetic lens implantation. Orbital contents appear normal. Paranasal sinuses and mastoid air cells are well aerated. Mild to moderate hyperostosis frontalis internus. CT cervical spine: Similar to the prior CT cervical spine examination from 11/17/2023 is the odontoid base fracture which appears chronic with mineralization along the atlantodental articulation. Straightening of the normal cervical lordosis that is likely positional. The cervical vertebral bodies and facets are otherwise well aligned. There is 0.2 cm of anterolisthesis of C4 on C5. There is intervertebral disc height loss at C4-5, C5-6, C6-7 and C7-T1 with endplate degenerative changes at these levels. There is no acute fracture nor destructive process of the visualized osseous structures. No abnormal prevertebral or paraspinal soft tissue swelling. Procedure Note Jac Barnett MD - 08/05/2024 [facility] [address] [place] [address] Examination: CT HEAD WO CON, CT CERV SPINE WO CON, 08/05/2024 8:54 PM. Technique: Computed tomographic images of the head and cervical spine wereobtained without intravenous contrast. Additional coronal and sagittalreformatted images were generated at a separate workstation. A doselowering technique was used for this procedure, which may include, but isnot limited to, dose reduction technique, automated exposure control, theuse of iterative reconstruction, and ALARA (As Low As ReasonablyAchievable) / Image Gently techniques. Clinical history: mental status change Comparison: CT head 11/17/2023 Findings: CT head: There is no acute intracranial hemorrhage. There is noextra-axial fluid collection. Mild to moderate global cerebral volume losswith ex vacuo dilatation of ventricles and cerebral sulci. Confluentsubcortical and periventricular white matter foci concerning hypodensitythat are nonspecific but most commonly seen in setting of chronic smallvessel ischemic change. Probable old infarct involving the anteriorportion of the left centrum semiovale region. Old infarct involving thesuperior aspect of the left cerebellar hemisphere. Basal cisterns appearnormal. Moderate arteriosclerotic calcification the cavernous segments ofthe internal carotid arteries bilaterally. Prior bilateral ocular lensextractions with prosthetic lens implantation. Orbital contents appearnormal. Paranasal sinuses and mastoid air cells are well aerated. Mild tomoderate hyperostosis frontalis internus. CT cervical spine: Similar to the prior CT cervical spine examination from11/17/2023 is the odontoid base fracture which appears chronic withmineralization along the atlantodental articulation. Straightening of thenormal cervical lordosis that is likely positional. The cervical vertebralbodies and facets are otherwise well aligned. There is 0.2 cm ofanterolisthesis of C4 on C5. There is intervertebral disc height loss atC4-5, C5-6, C6-7 and C7-T1 with endplate degenerative changes at theselevels. There is no acute fracture nor destructive process of thevisualized osseous structures. No abnormal prevertebral or paraspinal softtissue swelling. IMPRESSION: 1. No CT evidence of an acute intracranial abnormality. 2. No acute fracture of the cervical spine. 3. Old odontoid base fracture, unchanged when compared with the prior CTcervical spine examination from 11/17/2023. 4. Mild to moderate global cerebral volume loss and moderate to markedchronic small vessel ischemic change. 5. Old infarcts within the left centrum semiovale and left cerebellarhemisphere. Ordered By: JUNITO HAM Interpreted By: Jac Barnett MD, 08/05/2024 9:25 PM [address] Ham MD CT Final Result * (ABNORMAL) URINE BACTERIA CULTURE (08/05/2024 11:28 AM FOREIGN LANGUAGE STENOGRAPHER) SPEC DESCRIPTION URINE CLEAN CATCH 08/05/2024 11:28 AM FOREIGN LANGUAGE STENOGRAPHER [facility] SPECIAL REQUESTS NO SPECIAL REQUEST 08/05/2024 11:28 AM FOREIGN LANGUAGE STENOGRAPHER [facility] CULTURE RESULT 50,000-100,000 COL/ML ESCHERICHIA COLI (A) 08/07/2024 7:44 AM [facility] CULTURE RESULT POLYMICROBIAL GROWTH CONSISTENT WITH NORMAL GENITAL DELIA. ?? SUSCEPTIBILITIES NOT ROUTINELY PERFORMED. 08/07/2024 7:44 AM [facility] URINE SPECIMEN OBTAINED BY CLEAN CATCH PROCEDURE / Unknown 08/05/2024 11:28 AM FOREIGN LANGUAGE STENOGRAPHER 08/05/2024 11:34 AM FOREIGN LANGUAGE STENOGRAPHER Narrative Organism Antibiotic Method Susceptibility Escherichia coli AMPICILLIN JAYDEN (VITEK) <=2: Sensitive Escherichia coli AMPICILLIN/SULBACTAM JAYDEN (VITEK) <=2: Sensitive Escherichia coli CEFTRIAXONE JAYDEN (VITEK) <=1: Sensitive Escherichia coli CEFTAZIDIME JAYDEN (VITEK) <=1: Sensitive Escherichia coli CEFAZOLIN JAYDEN (VITEK) <=4: Sensitive Escherichia coli ESBL JAYDEN (VITEK) NEG: Sensitive Escherichia coli NITROFURANTOIN JAYDEN (VITEK) <=16: Sensitive Escherichia coli GENTAMICIN JAYDEN (VITEK) <=1: Sensitive Escherichia coli LEVOFLOXACIN JAYDEN (VITEK) <=0.12: Sensitive Escherichia coli PIPRACIL/TAZO JAYDEN (VITEK) <=4: Sensitive Escherichia coli TRIMETH-SULFAMETH. JAYDEN (VITEK) <=20: Sensitive us Dorina STRAUSS MICROBIOLOGY - GENERAL ORDERA BLES Final Result [facility] [address] [place] [address], [place] [phone] [facility] [address] [place] [address], [place] [phone] * (ABNORMAL) URINALYSIS, AUTO, COMPLETE (08/05/2024 11:28 AM FOREIGN LANGUAGE STENOGRAPHER) COLOR (U) YELLOW 08/05/2024 12:26 PM [facility] TRANSPARENCY CLEAR 08/05/2024 12:26 PM [facility] SPECIFIC GRAVITY (U) 1.025 1.000 - 1.030 08/05/2024 12:26 PM [facility] U PH 6.0 5.0 - 9.0 08/05/2024 12:26 PM [facility] LEUKOCYTES (U) TRACE(A) NEGATIVE 08/05/2024 12:26 PM [facility] NITRITES NEGATIVE NEGATIVE 08/05/2024 12:26 PM [facility] PROTEIN RANDOM (U) NEGATIVE NEGATIVE 08/05/2024 12:26 PM [facility] GLUCOSE (U) NEGATIVE NEGATIVE 08/05/2024 12:26 PM [facility] KETONES MG/DL (U) NEGATIVE NEGATIVE 08/05/2024 12:26 PM [facility] BILIRUBIN (U) NEGATIVE NEGATIVE 08/05/2024 12:26 PM [facility] BLOOD (U) NEGATIVE NEGATIVE 08/05/2024 12:26 PM [facility] WBC/HPF 0-5 0 - 5 /HPF 08/05/2024 12:26 PM FOREIGN LANGUAGE STENOGRAPHER [facility] RBC/HPF NONE SEEN 0 - 5 /HPF 08/05/2024 12:26 PM FOREIGN LANGUAGE STENOGRAPHER [facility] EPI/HPF FEW /HPF 08/05/2024 12:26 PM FOREIGN LANGUAGE STENOGRAPHER [facility] URINE SPECIMEN OBTAINED BY CLEAN CATCH PROCEDURE / Unknown 08/05/2024 11:28 AM FOREIGN LANGUAGE STENOGRAPHER us Dorina STRAUSS URINE ORDERABLES Final Result [facility] [address] [place] [address], [place] [phone] * (ABNORMAL) COPPER (08/05/2024 11:10 AM FOREIGN LANGUAGE STENOGRAPHER) COPPER S/P/B 53(L) 70 - 175 mcg/dL 08/08/2024 2:25 AM FOREIGN LANGUAGE STENOGRAPHER [facility] Comment: This test was developed and its analytical performance characteristics have been determined by [facility], [place]. It has not been cleared or approved by the U.S. Food and Drug Administration. This assay has been validated pursuant to the CLIA regulations and is used for clinical purposes. Test Performed by [facility], [facility] [place], [address] [place], [place] Andres Helm M.D., Ph.D., Director of Laboratories , CLIA [id number] 08/05/2024 11:1 0 AM FOREIGN LANGUAGE STENOGRAPHER us Kary Mayers [facility] Final Resul t [place] [id number] [place], [place] , [place] [phone] from Last 3 Months Insurance [employer] Advance Directives * Full Code (Latest Code Status on File) Date Activated Date Inactivated Comments 01/27/2024 12:49 PM 02/12/2024 2:54 PM * Full Code Date Activated Date Inactivated Comments 01/24/2024 12:06 PM 01/27/2024 12:47 PM * Full Code Date Activated Date Inactivated Comments 12/14/2021 3:13 PM 12/17/2021 3:57 PM * Full Code Date Activated Date Inactivated Comments 01/11/2018 8:37 PM 01/12/2018 2:45 PM * Full Code Date Activated Date Inactivated Comments 01/07/2018 8:15 PM 01/11/2018 8:37 PM Care Teams Ambulance Officer Relationship Specialty Start Date End Date Dorina Echeverria PA [address] [place] [address] PCP - General 01/07/18 Eden Jang MD [facility]. [facility] [address] [place] [address] Roscoe Cruise Counselor CARDIOVASCULAR DISEASE 02/08/18
--- OUTSIDE RECORDS SUMMARY | 2024-08-19 14:20 | XMS_ITS | Data Portability ---
Author Organization [facility] [place], Main Office Address [address] [place] [address] Care Team Providers Care Analog Device Designer Name Role Phone ASHLYN HUTCHINS Primary Care Provider ASHLYN HUTCHINS Referring Provider Assessment No assessment recorded. Plan of Treatment Reminders Order Date Submit Date Provider Last Modified By Organization Details Last Modified Time Details Appointments None recorded. Lab vitamin B12, serum [address] (Lab), [address] [place] [address], [address], 10:46:39 CBC w/ auto diff [address] (Lab), [address] [place] [address], [address], 10:46:48 BMP, serum or plasma [address] (Lab), [address] [place] [address], [address], 10:47:07 hepatic function panel, serum [address] (Lab), [address] [place] [address], [address], 10:46:56 TSH, serum or plasma [address] (Lab), [address] [place], [address], 3 10:47:15 lipid panel w/ direct LDL, serum [address] (Lab), [facility] [place], [address], 3 10:47:24 BMP, serum or plasma [address] (Lab), [address] [place] [address] [address] [place], [address], 3 10:16:37 hepatic function panel, serum [address] (Lab), [address] [place] [address] [address] [place], [address], 3 10:16:46 lipid panel, serum [address] (Lab), [address] [place] [address] [address], [place], [address], 3 10:16:19 CBC w/ auto diff [address] (Lab), [address] [place] [address] [address], [address], 3 10:16:08 iron + TIBC + ferritin, serum 2022 023 [facility] (Lab), [address] [place] [address] [address], [address], 3 09:18:01 vitamin B12 + folate, serum or blood [address] (Lab), [address] [place] [address] [address], [address], 3 14:42:44 TSH + free T4, serum [address] (Lab), [facility] [address], [place], [address], 3 10:16:29 Referral None recorded. Procedures None recorded. Surgeries None recorded. Imaging US, pelvis, complete 2022 023 [email or web address] 4 [facility] (Imaging), [address] [place] [address] [address], [place], [address], 3 16:46:16 MR, cholangiop ancreatogr am, w/wo contrast - no auth required 2022 023 [facility], [address] [place] [address] [place] [address], [address], 4 10:20:08 MRI, lumbar spine, w/o contrast - no auth required 2022 023 [email or web address] [facility], [address] [place] [address] [place] [address], [address], 4 10:45:40 Medication Orders None recorded. Patient TargetsNo targets recorded. Patient InstructionsNo instructions recorded. Reason for Referral None Reported. Results Created Date Observation Date Name Description Value Unit Range Abnormal Flag Note LastModifiedBy Organization Detail LastModifiedTime 12/16/19 22 12/15/2021 MRI, knee, w/o contr ast No observ ation record ed. [id number] [facility] Work Comp PT Dept [address] [place], [address], 09/21/2022 13:32:15 12/23/19 22 12/10/2021 XR, chest , 2 view No observ ation record ed. [id number] [facility] [place] [address] [place], [address], 09/21/2022 13:32:15 01/05/20 22 12/28/2021 XR, femur , 2 or more view No observ ation record ed. [id number] [facility] Work Comp PT Dept [address] [place], [address], 09/21/2022 13:32:15 01/05/20 22 12/28/2021 XR, femur No observ ation record ed. MIGRATION. [facility] [address] [place], [address], 09/21/2022 13:32:15 01/05/20 22 12/28/2021 XR, knee, 4 or more view No observ ation record ed. MIGRATION. [facility] Work Comp PT Dept [address] [place], [address], 09/21/2022 13:32:15 06/01/20 22 01/20/2022 XR, knee, 3 view No observ ation record ed. [facility]RATION. [facility] [address] [place], [address], 09/21/2022 13:32:15 06/07/20 22 03/10/2022 XR, knee No observ ation record ed. MIGRATION. [facility] [place] [address]; [address], [place], [address], 09/21/2022 13:32:15 06/07/20 22 02/10/2022 XR, knee, 3 view No observ ation record ed. MIGRATION. [facility] [place] [address]; [address], [place], [address], 09/21/2022 13:32:15 06/07/20 22 12/16/2021 CT, head + brain , w/o contr ast No observ ation record ed. MIGRATION. [facility] [address] [place], [address], 09/21/2022 13:32:15 02/10/20 23 02/08/2023 XR, elbow No observ ation record ed. [address] (Imaging) [facility] [address], [place], [address], 02/10/2023 17:12:51 08/07/19 24 08/04/2023 MRI, lumba r spine , w/o contr ast No observ ation record ed. [address], [place], [address], 08/18/2023 09:56:39 08/07/19 24 08/04/2023 MR, chola ngiop ancre atogr am, w/wo contr ast No observ ation record ed. [address] [facility] [address], [place], [address], 08/18/2023 09:56:39 Result Notes None recorded. Problems Name Problem SNOMED Code Status Onset Date Resolution Date Notes Provider Name and Address Organization Details Recorded Time Benign essential hypertensi on 3363765 Active 2021 Not Available [facility] 3 13:30:24 Acquired trigger finger 3595800 Active Not Available [facility] 3 13:30:24 Cellulitis of right elbow 2036320563708 9100 Active 2021 Not Available [facility] 3 13:30:24 Cobalamin deficiency 215040434 Active Not Available [facility] 3 13:30:24 Abnormal gait 43152893 Active Not Available [facility] 3 13:30:24 Gastroesop hageal reflux disease 605037136 Active Not Available [facility] 3 13:30:24 Osteoarthr itis of knee 484717957 Active Not Available [facility] 3 13:30:24 Lumbar spondylosi s 922061775 Active 2021 Not Available [facility] 3 13:30:24 Poor short-term memory 580478365 Active 2021 Not Available [facility] 3 13:30:24 Degenerati on of lumbar interverte bral disc 69511669 Active 2016 Not Available [facility] 3 13:30:24 Long-term drug therapy Active 2021 Not Available [facility] 3 13:30:25 Chronic low back pain 259729051 Active Not Available [facility] 3 13:30:25 Low back pain 229904610 Active 2021 Not Available [facility] 3 13:30:25 Recurrent falls 523974900 Active 2021 Not Available [facility] 3 13:30:25 Thrombocyt openic disorder 513879770 Active Not Available [facility] 3 13:30:25 Ganglion cyst of left wrist 8741163128471 00 Active 2021 Not Available [facility] 3 13:30:25 Knee pain Active Not Available [facility] 3 13:30:25 Vitamin D deficiency 44023799 Active Not Available [facility] 3 13:30:25 Multiple bruising 012781722 Active Not Available [facility] 3 13:30:25 Enthesopat hy of knee 95715839 Active Not Available [facility] 3 13:30:25 Osteoarthr itis 174238915 Active Not Available [facility] 3 13:30:25 Olecranon bursitis 907458425 Active Not Available [facility] 3 13:30:26 Forgetful 85863836 Active Not Available [facility] 3 13:30:26 Hyperlipid emia 27491095 Active Not Available [facility] 3 13:30:26 Vitamin B12 deficiency (non anemic) 53965170 Active 2021 Not Available [facility] 3 13:30:26 Osteoporos is 39896463 Active Not Available [facility] 3 13:30:26 Fracture of femur 58536805 Active 2021 Not Available [facility] 3 13:30:26 Moderate major depression 540342 Active Not Available [facility] 3 13:30:26 Fatigue 11790901 Active Not Available [facility] 3 13:30:26 Postmenopa usal bleeding 37338406 Active 2022 RICA Howard [address], [address], [place], [address] , [facility] 3 15:00:31 Pain of right elbow joint 4846348726357 9109 Active 2022 RICA Howard [address], [address], [place], [address] , [facility] 3 17:56:16 Anemia 063295495 Active 2022 RICA Howard [address], [address], [place], [address] , [facility] 3 16:14:17 Lumbar radiculopa thy 971719050 Active 2022 RICA Howard [address], [address], [place], [address] , [facility] 3 14:23:03 Spinal stenosis of lumbar region 91909807 Active 2022 RICA Howard [address], [address], [place], [address] , [facility] 3 14:23:14 Disorder of bile duct 836256358 Active 2022 RICA Howard [address], [address], [place], [address] , [facility] 3 14:23:57 Problem Notes None recorded. 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 Not Available [facility] 09/21/2022 13:29:46 Orthopedic Procedure completed Not Available [facility] 09/21/2022 13:29:46 other completed Not Available [facility] 07/2022 13:29:46 Orthopedic Surgery completed Not Available [facility] 09/21/2022 13:29:46 completed Not Available [facility] 0 09/21/2022 13:29:46 other completed Not Available [facility] 07/2022 13:29:46 other completed Not Available [facility] 07/2022 13:29:46 other completed Not Available [facility] 07/2022 13:29:46 completed Not Available [facility] 0 09/21/2022 13:29:46 [facility] Surgeries [facility] 13:29:46 Imaging Results Imaging Date Name Status LastModified by Organiz ation Details LastModified Time 12/15/2021 MRI, knee, w/o contrast completed [id number] [facility] Work Comp PT Dept [address] [place], [address], 09/21/2022 13:32:15 12/10/2021 XR, chest, 2 view completed [id number] [facility] [address] [place], [address], 09/21/2022 13:32:15 01/20/2022 XR, knee, 3 view completed [id number] 026 [facility] [address] [place], [address], 09/21/2022 13:32:15 03/10/2022 XR, knee completed [id number] 026 [facility] [place] [address]; [address], [place], [address], 09/21/2022 13:32:15 02/10/2022 XR, knee, 3 view completed [id number] [facility] [place] [address]; [address], [place], [address], 09/21/2022 13:32:15 12/16/2021 CT, head + brain, w/o contrast completed [id number] 026 [facility] [place] [address] [place], [address], 09/21/2022 13:32:15 12/28/2021 XR, femur, 2 or more view completed [id number] 026 [facility] Work Comp PT Dept [address] [place], [address], 09/21/2022 13:32:15 12/28/2021 XR, femur completed [id number] 026 [facility] [address] [place], [address], 09/21/2022 13:32:15 12/28/2021 XR, knee, 4 or more view completed [id number] 026 [facility] Work Comp PT Dept [address] [place], [address], 09/21/2022 13:32:15 02/08/2023 XR, elbow completed [address] [facility] (Imaging) [address] [place], [place] [address] [address] [place] [address], [address], 02/10/2023 17:12:51 08/04/2023 MRI, lumbar spine, w/o contrast completed [address], [address], 08/18/2023 09:56:39 08/04/2023 MR, cholangiopanc reatogram, w/wo contrast completed [address], [address], 08/18/2023 09:56:39 Procedure Notes None recorded. Medical [...] % 72 /min 16 /min 97.4 [degF] 77452.5 6 g 128 mm[Hg] 80 mm[Hg] Not Available [facility] 3 13:30:06 Date Recorded Body height Oxygen saturation Oxygen saturation in Arterial blood by Pulse oximetry Heart rate Respiratory rate Body temperature Systolic blood pressure Diastolic blood pressure Provider Name and Address Organization Details Last Updated DateTime 2 157.48 cm 97 % 97 % 76 /min 20 /min 97.2 [degF] 128 mm[Hg] 72 mm[Hg] Not Available [facility] 3 13:30:06 Date Recorded Body height Body mass index (BMI) Body weight Body temperature Heart rate Oxygen saturation Oxygen saturation in Arterial blood by Pulse oximetry Systolic blood pressure Diastolic blood pressure Provider Name and Address Organization Details Last Updated DateTime 3 157.48 cm 29.3 kg/m2 15918.7 8 g 96.3 [degF] 73 /min 96 % 96 % 134 mm[Hg] 78 mm[Hg] Valeri Galarza RN [facility] [employer] [facility] 3 14:24:32 Date Recorded Body height Body temperature Body mass index (BMI) Body weight Respiratory rate Oxygen saturation Oxygen saturation in Arterial blood by Pulse oximetry Heart rate Systolic blood pressure Diastolic blood pressure Provider Name and Address Organization Details Last Updated DateTime 3 157.48 cm 97.4 [degF] 28.7 kg/m2 11436 g 16 /min 97 % 97 % 68 /min 138 mm[Hg] 80 mm[Hg] NORMA Hager [facility] [employer] [facility] 3 15:42:22 Date Recorded Body height Body mass index (BMI) Body weight Respiratory rate Oxygen saturation Oxygen saturation in Arterial blood by Pulse oximetry Heart rate Systolic blood pressure Diastolic blood pressure Provider Name and Address Organization Details Last Updated DateTime 3 157.48 cm 30.2 kg/m2 79030.7 4 g 16 /min 94 % 94 % 75 /min 138 mm[Hg] 80 mm[Hg] NORMA Hager [facility] [employer] [facility] 3 13:35:05 Social History Question Answer Notes LastModified by Organizat ion Details LastModified Time Tobacco Smoking Status Former Smoker 16+ years since last cigarette Not Available [facility] 09/21/2022 13:29:37 What Is Your Level Of Alcohol Consumption? Moderate [id number] Information not available 09/21/2022 What Is Your Level Of Caffeine Consumption? Moderate MIGRATION.84076 [id number] Information not available 09/21/2022 How Much Tobacco Do You Chew? None MIGRATION.09787 [id number] Information not available 09/21/2022 In The 14 Days Before Symptom Onset, Have You Had Close Contact With A Laboratory-confi rmed COVID-19 While That Case Was Ill? No MIGRATION.38496 [id number] Information not available 09/21/2022 In The 14 Days Before Symptom Onset, Have You Had Close Contact With A Person Who Is Under Investigation For COVID-19 While That Person Was Ill? No [id number].98825 [id number] Information not available 09/21/2022 Are You Currently Employed? No [email or web address] Information not available 10/14/2022 What Type Of Diet Are You Following? REGULAR MIGRATION.10138 02248 Information not available 09/21/2022 Which Illicit Or Recreational Drugs Have You Used? None MIGRATION.80223 71362 Information not available 09/21/2022 Do You Or Have You Ever Used E-cigarettes Or Vape? Never Used Electronic Cigarettes MIGRATION.81056 88754 Information not available 09/21/2022 What Is Your Occupation? Retired MIGRATION.04637 50530 Information not available 09/21/2022 Have There Been Any Changes To Your Family Or Social Situation? No MIGRATION.06213 10496 Information not available 09/21/2022 Do You Use Insect Repellent Routinely? No [email or web address] Information not available 10/14/2022 What Was The Date Of Your Most Recent Tobacco Screening? 10/09/2020 MIGRATION.88414 81554 Information not available 09/21/2022 Do You Use Your Seat Belt Or Car Seat Routinely? Yes MIGRATION.40591 62907 Information not available 09/21/2022 Do You Have Smoke And Carbon Monoxide Detectors In Your Home? Yes MIGRATION.39303 71652 Information not available 09/21/2022 At What Age Did You Start Smoking Tobacco? 21 MIGRATION.25515 25380 Information not available 09/21/2022 Do You Or Have You Ever Used Smokeless Tobacco? Never Used Smokeless Tobacco MIGRATION.63166 36291 Information not available 09/21/2022 How Much Tobacco Do You Smoke? 1 PPD MIGRATION.12880 85503 Information not available 09/21/2022 Do You Use Any Illicit Or Recreational Drugs? No MIGRATION.97282 19662 Information not available 09/21/2022 Do You Use Sunscreen Routinely? Yes [email or web address] Information not available 10/14/2022 Have You Recently Traveled Abroad? No MIGRATION.18171 88307 Information not available 09/21/2022 Do You Have Any Dietary Restrictions? No MIGRATION.96869 76932 Information not available 09/21/2022 Do You Or Have You Ever Used Any Other Forms Of Tobacco Or Nicotine? No MIGRATION.07757 87656 Information not available 09/21/2022 Sex: Unknown Functional Status Question Answer Note LastModified by Organizat ion Details LastModified Time Do you have difficulty doing errands alone? Yes [id number] 6 Information not available 09/21/2022 Are you able to care for yourself? No MIGRATION.[id number] 6 Information not available 09/21/2022 What is your exercise level? None MIGRATION.[id number] 6 Information not available 09/21/2022 Mental Status None recorded. Family History Relationship Description Onset Age of this Age Resolved Age Notes LastModified by Organization Details LastModified Time Mother Malignant tumor of lung 73 [id number] Not available 09/21/2022 13:29:46 Father Depressive disorder 58 MIGRATION.818 [id number] Not available 09/21/2022 13:29:46 Unspecified Relation Diabetes mellitus [id number].696 [id number] Not available 09/21/2022 13:29:46 Medical History Condition [...] influenza, unspecified formulation 6 completed Not Available [facility] 09/21/2022 13:32:11 influenza, unspecified formulation 5 completed Not Available [facility] 09/21/2022 13:32:11 Pneumococcal Conjugate, unspecified formulation 1 completed Not Available [facility] 09/21/2022 13:32:11 Past Encounters Encounter ID Performer Location Encounter Start Date Encounter Closed Date Diagnosis/Indication Diagnosis SNOMED-CT Code Diagnosis ICD10 Code Diagnosis Note [id number] [facility] [address] [place] [address] 10/09/2020 00:00:00 10/10/2020 17:07:57 [id number] [facility] [address] [place] [address] 01/27/2021 00:00:00 02/14/2021 16:26:32 [id number] [facility] [address] [place] [address] 09/02/2021 00:00:00 09/20/2021 18:06:17 [id number] [facility] [address] [place] [address] 10/20/2021 00:00:00 10/20/2021 20:32:06 [id number] [facility] [address] [place] [address] 04/20/2022 00:00:00 04/20/2022 17:22:38 [id number] RICA Howard [facility] [address] [place] [address] 10/17/2022 14:05:04 10/17/2022 15:11:17 Benign essential hypertension 5124292 I10 stable on low dose lisinopril 5mg daily and metoprolol ER 25mg daily. Degenerati on of lumbar intervertebral disc 90627941 M51.36 stable. symptomati c chronicall y. handicap plaquard completed today. Gastroesop hageal reflux disease 179920282 K21.9 stable on omeprazole 20mg daily Hyperlipidemia 33051547 E78.5 pt is on statin therapy. due for labs. Forgetful 86585389 R41.3 daughter reports her memory short term is still an issue. Long-term drug therapy 644312966 Z79.899 routine bmp, LFT, TFTs due Moderate m ajor depression 706266 F32.1 Starting venlafaxin e ER 150mg daily today. insurance stopped covering immediate release 75mg tabs two bid. Osteoarthritis 329746854 M19.90 no acute changes. on meloxicam therapy. Thrombocyt openic disorder 410223144 D69.6 due for CBC. has seen heme annually. Vitamin B1 2 deficiency (non anemic) 44459077 E53.8 due for b12 lab Postmenopa usal bleeding 72050038 N95.0 check pelvic. u/s. f/u with gyne. [id number] RICA Howard [facility] [address] [place] [address] 02/24/2023 15:22:54 02/24/2023 16:22:40 Anemia 305139509 D64.9 due for CBC, iron studies, b12, folate and TFTs Hyperlipidemia 53305663 E78.5 pt is on statin therapy. due for labs. Moderate m ajor depression 870464 F32.1 Starting venlafaxin e ER 150mg daily today. insurance stopped covering immediate release 75mg tabs two bid. Long-term drug therapy 134118549 Z79.899 routine bmp, LFT, TFTs due [id number] RICA Howard [facility] [address] [place] [address] 07/14/2023 13:28:30 07/14/2023 14:30:19 Lumbar radiculopathy 255254008 M54.16 as above. Spinal riddhi nosis of lumbar region 58467346 M48.061 check updated MRI lumbar spine with back pain that is flared up again. Disorder of bile duct 11 7805052 K83.[address] scan that says dilated CBD at 10mm. refer for MRCP Benign ess ential hypertension 2116158 I10 stable on low dose lisinopril 5mg daily and metoprolol ER 25mg daily. Degenerati on of lumbar intervertebral disc 96808627 M51.36 stable. symptomati c chronicall y. Gastroesop hageal reflux disease 088762462 K21.9 stable on omeprazole 20mg daily Hyperlipidemia 34542369 E78.5 pt is on statin therapy Forgetful 87789136 R41.3 daughter reports her memory short term is still an issue. Long-term drug therapy 438795450 Z79.899 Moderate m ajor depression 080085 F32.1 stable on venlafaxin e Osteoarthritis 043345384 M19.90 no acute changes. on meloxicam therapy. Thrombocyt openic disorder 912461474 D69.6 due to see her Hematologi st. they need to schedule appt. Vitamin B1 2 deficiency (non anemic) 92574910 E53.8 due for b12 lab Health Concerns Section Related Observation LastModified by Organization Detai ls LastModified Time None Recorded Concern Status LastModified by Organization Details LastModified Time None Recorded Advance Directives Directive None Recorded Payers Encounter Date Sequence Insurance Name Policy Number Policy Gonzales Covered Member ID Gonzales Member ID Guarantor Name 10/17/2022 1 [place] Renetta A Carranza [id number] Renetta A Carranza 10/17/2022 2 [employer] - [employer] (MEDICARE SUPPLEMENT) PLAN F Renetta A Carranza [id number] Renetta A Carranza 02/24/2023 1 [place] Renetta A Carranza [id number] Renetta A Carranza 02/24/2023 2 [employer] SU[employer] - [employer] (MEDICARE SUPPLEMENT) PLAN F Renetta A Carranza [id number] Renetta A Carranza 07/14/2023 1 [place] Renetta A Carranza [id number] Renetta A Carranza 07/14/2023 2 [employer] SU[employer] - [employer] (MEDICARE SUPPLEMENT) PLAN F Renetta A Carranza [id number] Renetta A Carranza Notes Date Note Type [...] do not feel restless;anxiety; halucinating Not Available [facility] 10/20/2021 20:32:06 04/20/20 22 text/htm l HyperlipidemiaReported [...] no early satiety; no halitosis;belching/burping Not Available [facility] 04/20/2022 17:22:38 10/18/19 23 text/htm l Anxiety/DepressionReported [...] fatigue; no throat pain RICA Howard [address] [address], [place], [address], [facility] [employer] 10/17/2022 22:51:48 02/25/20 23 text/htm l Anxiety/DepressionReported [...] RICA Howard [address], [place], [address], [facility] 03/23/2023 23:33:34 07/14/20 23 text/htm l Anxiety/DepressionReported [...] throat pain RICA Howard [address], [facility] [address], [place], [address], [facility] 07/18/2023 11:31:51 OBGyn Episode No OBEpisode recorded.
--- OUTSIDE RECORDS SUMMARY | 2024-08-19 14:21 | XMS_ITS ---
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 - ICD-10- CM) ACTIVE 12/17/2021 LOW BACK PAIN, UNSPECIFIED (M54.50 - ICD-10-CM) ACTIVE 12/17/2021 CARDIOMYOPATHY, UNSPECIFIED (I42.9 - ICD-10-CM) ACTIVE 12/17/2021 RADICULOPATHY, CERVICAL REGION (M54.12 - ICD-10-CM) AC TIVE 12/17/2021 DYSPNEA, UNSPECIFIED (R06.00 - ICD-10-CM) ACTIVE 12/17/2021 VITAMIN D DEFICIENCY, UNSPECIFIED (E55.9 - ICD-10-CM) ACTIVE 12/17/2021 ESSENTIAL (PRIMARY) HYPERTENSION (I10 - ICD-10-CM) ACT JENNY 12/17/2021 HYPERLIPIDEMIA, UNSPECIFIED (E78.5 - ICD-10-CM) ACTIVE 12/17/2021 CONSTIPATION, UNSPECIFIED (K59.00 - ICD-10-CM) ACTIVE 12/17/2021 GASTRO-ESOPHAGEAL REFLUX DIS EASE WITHOUT ESOPHAGITIS (K21.9 - ICD-10-CM) ACTIVE 12/17/2021 MAJOR DEPRESSIVE DISORDER, S SANDRO EPISODE, UNSPECIFIED (F32.9 - ICD-10-CM) ACTIVE 12/17/2021 PAROXYSMAL ATRIAL FIBRILLATION (I48.0 - ICD-10-CM) ACT JENNY 12/17/2021 ANXIETY DISORDER, UNSPECIFIED (F41.9 - ICD-10-CM) ACTI VE 12/17/2021 UNSPECIFIED OSTEOARTHRITIS, UNSPECIFIED SITE (M19.90 - ICD-10-CM) ACTIVE 12/17/2021 NAUSEA WITH VOMITING, UNSPECIFIED (R11.2 - ICD-10-CM) ACTIVE 12/17/2021 HEADACHE, UNSPECIFIED (R51.9 - ICD-10-CM) ACTIVE 12/17/2021 LEFT BUNDLE-BRANCH BLOCK, UNSPECIFIED (I44.7 - ICD-10- CM) ACTIVE 12/17/2021 MIGRAINE, UNSPECIFIED, NOT I NTRACTABLE, WITHOUT STATUS MIGRAINOSUS (G43.909 - ICD-10-CM) ACTIVE 12/17/2021 SYNCOPE AND COLLAPSE (R55 - ICD-10-CM) ACTIVE Results * BILATERAL KNEE Performed by: [facility] Component Value Range Date BILATERAL KNEE PROCEDURE LEFT KNEE X-RAYS 3 viewsSee NoteFINDINGS LEFT KNEE : Examination reveals mild soft tissue swelling with post surgical total knee replacement prosthesis in satisfactory position with what appears to be a supracondylar fracture of the distal left femur with no significant displacement . Clinical correlation is requested.IMPRESSION LEFT KNEE : Total knee replacement prosthesis in position with supracondylar fracture of the distal left femur.PROCEDURE RIGHT KNEE X-RAYS 3 viewsSee NoteFINDINGS RIGHT KNEE : Examination reveals mild soft tissue swelling with post surgical total knee replacement prosthesis which appears to be in satisfactory position and alignment with no evidence of recent fracture or dislocation.IMPRESSION RIGHT KNEE : Total knee replacement prosthesis in satisfactory position with no recent fracture or dislocation. 12/28/2021 02:01 am EDT * R-FOOT Performed by: [facility] Component Value Range Date R-FOOT PROCEDURE RIGHT ANKL E X-RAYS 4 viewsFINDINGS RIGHT ANKLE : Examination reveals soft tissue swelling with no evidence of recent fracture or dislocation. Clinical correlation is requested.IMPRESSION RIGHT ANKLE : No recent fracture or dislocation.PROCEDURE RIGHT FOOT X-RAYS 4 viewsSee NoteFINDINGS RIGHT FOOT : Examination reveals mild soft tissue swelling with mild hallux deformity and slight dorsiflexion of the toes with mild degenerative changes and no evidence of recent fracture or dislocation.IMPRESSION RIGHT FOOT : No recent fracture or dislocation. 12/23/2021 07:58 am EDT Encounters Encounter Performer Performer Role Encounter Diagnoses Location Date Discharge - Discharged to home or self care - OTHER HOME HEALTH - Private home/apt with other home health services [facility] - [facility] 12/17/2021 03:20 pm EDT - 03/05/2022 05:06 am EDT Immunizations Vaccine Date Influenza TB 2 Step Mantoux Skin Test 12/18/2021 0 7:00 am EDT Prevnar 13 Social History
--- OUTSIDE RECORDS SUMMARY | 2024-08-19 14:21 | XMS_ITS | Encounter Summary ---
Author Organization [facility] Address [facility] [facility] [place] [address] [place] [address] Care Team Providers Care High Voltage Electrician Name Role Phone Dorina Echeverria Primary Care Provider [phone] Eden Jang MD Unavailable [phone] Encounter Details Date Type Department Care Team (Late st Contact Info) Description 04/25/2019 Abstract [facility] at [address] [address] Ken Gamble MA Social History Tobacco Use Types Packs/Day Years Used Date Smoking Tobacco: Former Cigarettes Q uit: 01/08/1988 Smokeless Tobacco: Never Alcohol Use Standard Drinks/Week Comments Yes 1.7 (1 standard drink = 0.6 oz p ure alcohol) Comments No Sex and Gender Information Value Date Recorded Sex Assigned at Female 08/06/2024 4:15 PM MED SURG NURSE Legal Sex Female 2:52 PM CDT Gender [...] Answer Date of Assessment Author Status No 01/12/2018 12:04 PM CDT Acti ve * RETIRED Are you blind or do you have serious difficulty seeing, even when wearing glasses? Answer Date of Assessment Author Status No 01/12/2018 12:04 PM CDT Acti ve * Do you have serious difficulty walking or climbing stairs? Answer Date of Assessment Author Status No 01/12/2018 12:04 PM CDT Law Dockery , RN Active * Do you have difficulty dressing or bathing? Answer Date of Assessment Author Status No 01/12/2018 12:04 PM Law Almanzar , [place] Active * Because of a physical, mental, or emotional condition, do you have difficulty doing errands alone such as visiting a doctor's office or shopping? Answer Date of Assessment Author Status No 01/12/2018 12:04 PM Law Almanzar , RN Active documented as of this encounter Mental Status * Because of a physical, mental, or emotional condition, do you have serious difficulty concentrating, remembering, or making decisions? Answer Entry Date Author Status No 01/12/2018 12:04 PM Law Almanzar , RN Active documented in this encounter Plan of Treatment Upcoming Encounters Date Type Department Care Team (Late st Contact Info) Description 10/04/2024 2:00 PM CDT Office Visit [facility] - [facility] [address] [facility], [address] [place] [address] Shanita Hendrickson NP [address] [facility] [address] [place] [address] 10/07/2024 10:30 AM CDT Office Visit [facility], [address] [place], [place] [id number] Yolie Eddy APRN [facility] [address] [place], [place] [address] documented as of this encounter Procedures Procedure Name Priority Date/Time Associated Diagnosis Comments FOLATE (OUTSIDE LAB) Routine 02/01/2019 CBC (OUTSIDE LAB) Routine 02/01/2019 VITAMIN B-12 Routine 02/01/2019 COMPREHENSIVE METABOLIC PANEL Routine 02/01/2019 LIPID PANEL Routine 02/01/2019 documented in this encounter Results * CBC (OUTSIDE LAB) (02/01/2019) WBC 4.6 HGB 12.2 HCT 37.6 PLT 61 02/01/2019 [facility] Abstract LAB-OUTSIDE/ABSTRACTED Final Result * LIPID PANEL (02/01/2019) CHOLESTEROL 234 HDL 98 TRIGLYCERIDES 237 LDL (CALCULATED) 125 02/01/2019 us [facility] Abstract LABORATORY Final Result * COMPREHENSIVE METABOLIC PANEL (02/01/2019) SODIUM S/P/B 138 POTASSIUM S/P/B 4.7 CO2 32 CHLORIDE S/P/B 102 GLUCOSE 84 mg/dL CALCIUM S/P/B 8.6 BUN 17 CREATININE S/P/B 1.0 0.5 - 1.0 EGFR NON-AFR. AMER. 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 [facility] [address] [place] [address] Earle Platemaker CARDIOVASCULAR DISEASE 02/08/18 documented as of this encounter
--- OUTSIDE RECORDS SUMMARY | 2024-08-19 14:21 | XMS_ITS | Referral Summary ---
Author Organization [facility] Medical [facility] 2 Address [address] [place] [address] Care Team Providers Care Real Estate Assistant Name Role Phone Liborio Montoya MD Unavailable [phone] Dorina Echeverria Primary Care Pr ovider Eden Jnag MD Unavailable [phone] Encounters Date Type Department Care Team Description 08/14/2024 Orders Only [facility] Hematology [address] [place] [address] [phone] Elena Todd Thrombocytopenia (HCC) (Primary Dx) 07/01/2024 Orders Only [facility]ematology [address] [place] [address] [phone] Elena Todd Thrombocytopenia (HCC) (Primary Dx); 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 Telephone [facility]ology [address] [place] [address] [phone] Shabana Dupree 06/28/2024 Orders Only [facility] Hematology [address] [place] [address] [phone] Shabana Dupree Thrombocytopenia (HCC) (Primary Dx) 06/26/2024 9:00 AM LIABILITY CLAIMS REPRESENTATIVE Lab [facility] at [address] [address] Thrombocytopenia (HCC) 06/26/2024 10:00 AM LIABILITY CLAIMS REPRESENTATIVE Office Visit [facility] Hematology [address] [place] [address] [address] [place] [address] Kary Mayers NP Thrombocytopenia (HCC) (Primary Dx) 05/29/2024 8:00 AM LIABILITY CLAIMS REPRESENTATIVE Infusion [facility] at [address] [place] [address] Anemia, unspecified type (Primary Dx); Copper deficiency; Iron deficiency anemia, unspecified iron deficiency anemia type from Last 3 Months Allergies No known active allergies Medications venlafaxine (EFFEXOR) 75 mg tabletIndicati ons:Generalize d Anxiety Disorder Take 2 tablets (150 mg total) by mouth 2 (two) times a day 04/19/20 18 Active pravastatin (PRAVACHOL) 10 mg tabletIndicati ons:hyperlipid emia Take 1 tablet (10 mg total) by mouth nightly 04/18/20 21 Active meloxicam (MOBIC) 15 mg tabletIndicati ons:Osteoarthr itis Take 1 tablet (15 mg total) by mouth every morning 04/18/20 21 Active metoprolol XL (TOPROL-XL) 25 mg extended release tabletIndicati ons:hypertensi on Take 0.5 tablets (12.5 mg total) by mouth nightly 10/08/19 22 Active cyanocobalamin , vitamin B-12, (VITAMIN B-12 ORAL)Indicatio ns:supplement Take 1 tablet by mouth daily before breakfast Active artificial tears (SYSTANE) 0.3 % gelIndications :Dry Eye Apply 1 drop to both eyes every morning Active lidocaine (ASPERCREME) 4 % adhesive patch,medicate d Place 1 patch on the skin daily 02/12/20 24 Active omeprazole (PriLOSEC) 20 mg capsule 06/23/20 24 Active vit A/vit C/vit E/zinc/copper (PRESERVISION AREDS ORAL)Indicatio ns:supplement Take 1 tablet by mouth 2 (two) times a day 024 Discontinued Active Problems Problem Noted Date Diagnosed Date 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 Anemia 09/19/2023 Iron deficiency anemia, unspecified 09/19/2023 Loose body in elbow joint, right 07/31/2023 Loose body of right elbow 04/20/2023 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 Disorder of soft tissue 10/22/2021 Overview (10/22/2021): Added automatically from request for surgery [id number] Abscess of left arm 10/04/2021 Overview (10/04/2021): Added automatically from request for surgery [id number] Thrombocytopenia 05/16/2018 Immunizations Name Administration Dates Next Due Influenza, Quadrivalent, Hig h Dose, Preservative Free, Intrr 07/07/2022 Influenza, Unspecified 07/24/2015,07/24/2014 PPD TEST 12/18/2021 Pneumococcal Conjugate, Unspecified 07/24/2010 Tdap 11/28/2022 Social History Tobacco Use Types Packs/Day Years Used Date Smoking Tobacco: Former Cigarettes Q uit: 196 Smokeless Tobacco: Never Tobacco Cessation:Counseling Given: Not Answered Alcohol Use Standard Drinks/Week Comments Yes 0 (1 standard drink = 0.6 oz pur e alcohol) AUDIT-C Answer Date Recorded Q1: How often do you have a drink containing alc ohol? Monthly or less 09/18/2023 Q2: How many drinks containi ng alcohol do you have on a typical day when you are drinking? 1 or 2 09/18/2023 Q3: How often do you have si x or more drinks on one occasion? Never 09/18/2023 Personal Safety Answer Date Recorded Have you ever been in or are you currently in a harmful physical or emotional relationship or is someone making you feel afraid or unsafe? Denies 09/04/2023 Comments No Sex and Gender Information Value Date Recorded Sex Assigned at Not on file Legal Sex Female 8:08 PM LIABILITY CLAIMS REPRESENTATIVE Gender Identity Female 10/04/2021 8:15 PM CDT Sexual Orientation Straight 10/04/2021 8: 15 PM CDT Last Filed Vital Signs Vital Sign Reading Time Taken Comments Blood Pressure 152/71 06/26/2024 9:43 AM LIABILITY CLAIMS REPRESENTATIVE Pulse 46 06/26/2024 9:43 AM LIABILITY CLAIMS REPRESENTATIVE Temperature 36.7 ??C (98 ??F) 06/26/2024 9:43 AM LIABILITY CLAIMS REPRESENTATIVE Respiratory Rate 16 06/26/2024 9:43 AM LIABILITY CLAIMS REPRESENTATIVE Oxygen Saturation 98% 06/26/2024 9:43 AM LIABILITY CLAIMS REPRESENTATIVE Inhaled Oxygen Concentration - - Weight 63 kg (138 lb 12.8 oz) 06/26/2024 9:43 AM LIABILITY CLAIMS REPRESENTATIVE with shoes Height 157.5 cm (5' 2 ) 03/04/2024 9:12 AM CDT Body Mass Index 25.39 03/04/2024 9:12 AM CDT Plan of Treatment Not on file Medical Devices Implanted Type Area Funeral Planning Counselor Device Identifier Shelf Expiration Date Model / Serial / Lot Left Total Knee Arthroplasty Left: Knee Right Total Knee Arthroplasty Right: Knee Lumbar Fusion Hardware Back Explanted Type Area Funeral Planning Counselor Device Identifier Shelf Expiration Date Model / Serial / Lot Implantable Loop Recorder Implantable Loop Recorder Chest Procedures Procedure Name Priority Date/Time Associated Diagnosis Comments CRP (ACUTE PHASE) Routine 06/26/2024 9:2 2 AM LIABILITY CLAIMS REPRESENTATIVE Thrombocytopenia (HCC) ERYTHROCYTE SEDIMENTATION RATE Routine 06/26/2024 9:22 AM LIABILITY CLAIMS REPRESENTATIVE Thrombocytopenia (HCC) EGFR Routine 06/26/2024 9:22 AM LIABILITY CLAIMS REPRESENTATIVE Thrombocytopenia (HCC) MANUAL DIFFERENTIAL Routine 06/26/2024 9 :22 AM LIABILITY CLAIMS REPRESENTATIVE Thrombocytopenia (HCC) IMMATURE PLATELET FRACTION Routine 06/26/2024 9:22 AM LIABILITY CLAIMS REPRESENTATIVE Thrombocytopenia (HCC) DIFFERENTIAL AUTO Routine 06/26/2024 9:2 2 AM LIABILITY CLAIMS REPRESENTATIVE Thrombocytopenia (HCC) VITAMIN B12 Routine 06/26/2024 9:22 AM LIABILITY CLAIMS REPRESENTATIVE Thrombocytopenia (HCC) FOLATE Routine 06/26/2024 9:22 AM LIABILITY CLAIMS REPRESENTATIVE Thrombocytopenia (HCC) LACTATE DEHYDROGENASE Routine 06/26/2024 9:22 AM LIABILITY CLAIMS REPRESENTATIVE Thrombocytopenia (HCC) HAPTOGLOBIN Routine 06/26/2024 9:22 AM LIABILITY CLAIMS REPRESENTATIVE Thrombocytopenia (HCC) RETICULOCYTES Routine 06/26/2024 9:22 AM LIABILITY CLAIMS REPRESENTATIVE Thrombocytopenia (HCC) COMPREHENSIVE METABOLIC PANEL Routine 06/26/2024 9:22 AM LIABILITY CLAIMS REPRESENTATIVE Thrombocytopenia (HCC) IRON PROFILE W/ IBC Routine 06/26/2024 9 :22 AM LIABILITY CLAIMS REPRESENTATIVE Thrombocytopenia (HCC) FERRITIN Routine 06/26/2024 9:22 AM LIABILITY CLAIMS REPRESENTATIVE Thrombocytopenia (HCC) COPPER, SERUM Routine 06/26/2024 9:22 AM LIABILITY CLAIMS REPRESENTATIVE Thrombocytopenia (HCC) CBC WITH AUTO DIFFERENTIAL Routine 06/26/2024 9:22 AM LIABILITY CLAIMS REPRESENTATIVE Thrombocytopenia (HCC) ZINC Routine 06/26/2024 9:22 AM LIABILITY CLAIMS REPRESENTATIVE Thrombocytopenia (HCC) HEPATITIS PANEL, ACUTE Routine 9:22 AM LIABILITY CLAIMS REPRESENTATIVE Thrombocytopenia (HCC) from Last 3 Months Results * Immature platelet fraction (06/26/2024 9:22 AM LIABILITY CLAIMS REPRESENTATIVE) Pathologist [facility] IPF 5.3 1.6 - 10.1 % Comment:Testing performed by : [facility], [address] [place] [address]., [id number] Blood 06/26/2024 9:22 AM LIABILITY CLAIMS REPRESENTATIVE 06/26/2024 9:23 AM LIABILITY CLAIMS REPRESENTATIVE us Kary Mayers TECHNOLOGY INFUSION SPECIALIST LAB BLOOD ORDERABLES Final Result [facility] [address] [facility] Department [place] [address] * (ABNORMAL) eGFR (06/26/2024 9:22 AM LIABILITY CLAIMS REPRESENTATIVE) Pathologist [facility] eGFR 58(L) >=60 mL/min/1. 73 m2 Comment: Interpretive Data Reference Interval Normal ?>/= 90 mL/min/1.73m2 Mildly decreased* ? 60 - 89 mL/min/1.73m2 Mildly to moderately decreased ?45 - 59 mL/min/1.73m2 Moderately to severely decreased ??30 - 44 mL/min/1.73m2 Severely decreased ?15 - 29 mL/min/1.73m2 Kidney Failure ?< 15 ??mL/min/1.73m2 *Relative to young adult level Estimated glomerular filtration rate is determined by the 2020 CKD-EPI equation recommended by the National Kidney Foundation (A Unifying Approach to GFR Estimation: Recommendations of the NKF-ASK Task Force on Reassessing the Inclusion of Race in Diagnosing Kidney Disease, JASN 2020). The CKD-EPI equation should not be used for patients with unstable renal function and has not been validated in children and those over 70. Current interpretive data was last reviewed 2021. Testing performed by: [address] [address] Blood 06/26/2024 9:22 AM LIABILITY CLAIMS REPRESENTATIVE 06/26/2024 9:23 AM LIABILITY CLAIMS REPRESENTATIVE us Kary Mayers TECHNOLOGY INFUSION SPECIALIST LAB BLOOD ORDERABLES Final Result Performing Organization Address City/State/[facility] Co de Phone Number SKYE [address] [facility] Department [place] [address] * Differential, auto (06/26/2024 9:22 AM LIABILITY CLAIMS REPRESENTATIVE) Neutrophil abs 2.0 1.5 - 6.5 K/cumm Comment:Testing performed by : [address] [id number] Imm gran abs 0.0 0.0 - 0.1 K/cumm SKYE GONZALEZ Comment:Testing performed by : [address] [address] Lymphocyte abs 1.0 0.8 - 3.3 K/cumm SKYE GONZALEZ Comment:Testing performed by : [address] [address] Monocyte abs 0.5 0.2 - 0.8 K/cumm [facility] Comment:Testing performed by : [address] [address] Eosinophil abs 0.1 0.0 - 0.5 K/cumm [facility] Comment:Testing performed by : [address] [address] Basophil abs 0.0 0.0 - 0.1 K/cumm [facility] Comment:Testing performed by : [address] [address] Neutrophil pct 56.3 % [facility] Comment: Interpretive Data Percent cell count reference ranges are not reported, since discordance with absolute values may lead to misinterpretation of CBC data. Current Interpretive Data was last revised on 2017. Testing performed by: [address] [address] Imm gran pct 0.3 % [facility] Comment: Interpretive Data Percent cell count reference ranges are not reported, since discordance with absolute values may lead to misinterpretation of CBC data. Current Interpretive Data was last revised on 2017. Testing performed by: [address] [address] Lymphocyte pct 27.1 % [facility] Comment: Interpretive Data Percent cell count reference ranges are not reported, since discordance with absolute values may lead to misinterpretation of CBC data. Current Interpretive Data was last revised on 2017. Testing performed by: [address] [address] Monocyte pct 13.0 % [facility] Comment: Interpretive Data Percent cell count reference ranges are not reported, since discordance with absolute values may lead to misinterpretation of CBC data. Current Interpretive Data was last revised on 2017. Testing performed by: [address] [address] Eosinophil pct 2.5 % [facility] Comment: Interpretive Data Percent cell count reference ranges are not reported, since discordance with absolute values may lead to misinterpretation of CBC data. Current Interpretive Data was last revised on 2017. Testing performed by: [address] [address] Basophil pct 0.8 % SKYE GONZALEZ Comment: Interpretive Data Percent cell count reference ranges are not reported, since discordance with absolute values may lead to misinterpretation of CBC data. Current Interpretive Data was last revised on 2017. Testing performed by: [address] [address] Blood 06/26/2024 9:22 AM LIABILITY CLAIMS REPRESENTATIVE 06/26/2024 9:23 AM LIABILITY CLAIMS REPRESENTATIVE Kary Mayers TECHNOLOGY INFUSION SPECIALIST LAB BLOOD ORDERABLES Final Result Performing Organization Address [facility] Co de Phone Number SKYE [address] [place] [address] * Iron profile w/ IBC (06/26/2024 9:22 AM LIABILITY CLAIMS REPRESENTATIVE) Pathologist [facility] Iron 95 35 - 145 mcg/dL Comment:Testing performed by : [address] [address] TIBC 267 250 - 400 mcg/dL SKYE GONZALEZ Comment:Testing performed by : [address] [address] Transferrin saturation 36 20 - 50 % SKYE GONZALEZ Comment:Testing performed by : [address] [address] Blood 06/26/2024 9:22 AM LIABILITY CLAIMS REPRESENTATIVE 06/26/2024 11:24 AM LIABILITY CLAIMS REPRESENTATIVE Kary Mayers TECHNOLOGY INFUSION SPECIALIST LAB BLOOD ORDERABLES Final Result Performing Organization Address City/[facility]/ZIP Co de Phone Number JAMEE[address] [place] [address] * (ABNORMAL) CBC with auto differential (06/26/2024 9:22 AM LIABILITY CLAIMS REPRESENTATIVE) WBC 3.5(L) 3.8 - 9.9 K/cumm Comment:Testing performed by : [address], [address] Hgb 11.2(L) 11.9 - 15.5 g/dL SKYE Comment:Testing performed by : [address] [address] Hct 34.7(L) 35.6 - 45.5 % SKYE Comment:Testing performed by : [address], [address] Plt 37(C) 150 - 400 K/cumm SKYE Comment: Critical result called to and read back by ELENA TODD RN on 06 26 2024 at 0938 to Edie Hopkins. [employer] Testing performed by: [address], [address] MPV 11.3 9.1 - 12.3 fL SKYE Comment:Testing performed by : [address], [address] RBC 3.86(L) 3.90 - 5.20 M/cumm SKYE Comment:Testing performed by : [address], [address] MCV 89.9 81.3 - 96.4 fL SKYE Comment:Testing performed by : [address], [address] MCH 29.0 27.1 - 33.3 pg SKYE MH Comment:Testing performed by : [address], [address] MCHC 32.3 32.3 - 35.7 g/dL SKYE Comment:Testing performed by : [address], [address] RDW CV 13.6 11.1 - 14.9 % SKYE Comment:Testing performed by : [address], [address] RDW SD 45.1 35.7 - 48.1 fL SKYE Comment:Testing performed by : [address], [address] NRBC abs 0.00 0.00 - 0.01 K/cumm SKYE Comment:Testing performed by : [facility], [address] [place] [address]., [address] Blood 06/26/2024 9:22 AM LIABILITY CLAIMS REPRESENTATIVE 06/26/2024 9:23 AM LIABILITY CLAIMS REPRESENTATIVE Kary Mayers TECHNOLOGY INFUSION SPECIALIST LAB BLOOD ORDERABLES Final Result Performing Organization Address [facility] de Phone Number SKYE [address] [address] * (ABNORMAL) Copper, serum (06/26/2024 9:22 AM LIABILITY CLAIMS REPRESENTATIVE) Copper 52(L) 77 - 206 mcg/dL [facility] Comment: ADDITIONAL INFORMATION This test was developed and its performance characteristics determined by [facility] in a manner consistent with CLIA requirements. This test has not been cleared or approved by the U.S. Food and Drug Administration. Test Performed by: [place] [address] Manufacturing Design Engineer: Ana Lilia Colvin Ph.D.; CLIA# [id number] Testing performed by: [facility], [address] [place] [address]., [address] Blood 06/26/2024 9:22 AM LIABILITY CLAIMS REPRESENTATIVE 06/26/2024 9:23 AM LIABILITY CLAIMS REPRESENTATIVE Kary Mayers TECHNOLOGY INFUSION SPECIALIST LAB BLOOD ORDERABLES Final Result Performing Organization Address [facility] de Phone Number SKYE [address] [address] [facility] * (ABNORMAL) Zinc (06/26/2024 9:22 AM LIABILITY CLAIMS REPRESENTATIVE) Zinc 58(L) 60 - 106 mcg/dL [facility] Comment: ADDITIONAL INFORMATION This test was developed and its performance characteristics determined by [facility] in a manner consistent with CLIA requirements. This test has not been cleared or approved by the U.S. Food and Drug Administration. Test Performed by: [facility] - [facility] [address] [place] [address] Manufacturing Design Engineer: Ana Lilia Colvin Ph.D.; CLIA# [id number] Testing performed by: [facility], [address] [place] [address], [place]., [address] Blood 06/26/2024 9:22 AM LIABILITY CLAIMS REPRESENTATIVE 06/26/2024 9:23 AM LIABILITY CLAIMS REPRESENTATIVE us Kary Mayers TECHNOLOGY INFUSION SPECIALIST LAB BLOOD ORDERABLES Final Result SKYE [address] [facility] Department [place] [address] [facility] * Hepatitis panel, acute Blood (06/26/2024 9:22 AM LIABILITY CLAIMS REPRESENTATIVE) Hep A IgM Nonreactive Nonreactive Comment: Interpretive Data: If Hep A IgM Ab is reported as Equivocal, a new sample should be drawn in two weeks for testing. Current interpretive data was last revised on 19. Hep B core IgM Nonreactive Nonreactive SKYE Comment: Interpretive Data If HepB Core IgM Ab is reported as Equivocal, a new sample should be drawn in two weeks for testing. Current interpretive data was last revised on 19. Hep C Ab Nonreactive Nonreactive [facility] Comment: Antibodies to HCV not detected. Does NOT exclude the possibility of recent exposure to HCV. Current interpretive data was last revised on 22 Interpretive Data Nonreactive: Antibodies to HCV not detected. Does NOT exclude the possibility of recent exposure to HCV. Equivocal: Equivocal for HCV antibodies. Supplemental molecular testing will be automatically performed to determine infection status in accordance with current CDC screening recommendations. ?? Reactive: Positive for HCV antibodies. ??This may represent current or past HCV infection. Supplemental molecular testing will be automatically performed to determine ??current infection status in accordance with current CDC screening recommendations. Interpretive data was last revised on 2019. HepBsAg Nonreactive Nonreactive SKYE Blood 06/26/2024 9:22 AM LIABILITY CLAIMS REPRESENTATIVE 06/26/2024 12:52 PM LIABILITY CLAIMS REPRESENTATIVE Kary Mayers TECHNOLOGY INFUSION SPECIALIST LAB MICROBIOLOGY - GENERAL ORDERABLES Final Result Performing Organization Address [facility] Co de Phone Number SKYE [address] [employer] [address] * (ABNORMAL) Manual Differential (06/26/2024 9:22 AM LIABILITY CLAIMS REPRESENTATIVE) Pathologist [facility] Differential Auto Comment:Testing performed by : [address] [address] Platelet estimate Decreased (A) SKYE Comment:Testing performed by : [address] [address] Blood 06/26/2024 9:22 AM LIABILITY CLAIMS REPRESENTATIVE 06/26/2024 9:23 AM LIABILITY CLAIMS REPRESENTATIVE Kary Mayers NP LAB BLOOD ORDERABLES Final Result Performing Organization Address [facility] Co de Phone Number SKYE [address] [employer] [address] * Erythrocyte sedimentation rate (06/26/2024 9:22 AM LIABILITY CLAIMS REPRESENTATIVE) [facility] Erythrocyte sedimentation rate <2 1 - 30 mm/hr Comment:Testing performed by : [address] [address] Blood 06/26/2024 9:22 AM LIABILITY CLAIMS REPRESENTATIVE 06/26/2024 11:25 AM LIABILITY CLAIMS REPRESENTATIVE Kary Mayers TECHNOLOGY INFUSION SPECIALIST LAB BLOOD ORDERABLES Final Result Performing Organization Address City/[facility] Co de Phone Number SKYE [address] [place] [address] * Reticulocyte Count (06/26/2024 9:22 AM LIABILITY CLAIMS REPRESENTATIVE) [facility] Retics, absolute 0.024 0.020 - 0.087 M/cumm Comment:Testing performed by : [address] [address] Retics 0.6 0.4 - 2.9 % SKYE GONZALEZ Comment:Testing performed by : [address] [address] Reticulocyte Hgb 32.0 30.5 - 38.0 pg SKYE GONZALEZ Comment:Testing performed by : [address] [address] Blood 06/26/2024 9:22 AM LIABILITY CLAIMS REPRESENTATIVE 06/26/2024 9:23 AM LIABILITY CLAIMS REPRESENTATIVE Kary Mayers TECHNOLOGY INFUSION SPECIALIST LAB BLOOD ORDERABLES Final Result Performing Organization Address [facility] de Phone Number JAMEE[address] [place] [address] * CRP (acute phase) (06/26/2024 9:22 AM LIABILITY CLAIMS REPRESENTATIVE) Pathologist [facility] CRP <0.2 <=10.0 mg/L Comment:Testing performed by : [address] [address] Blood 06/26/2024 9:22 AM LIABILITY CLAIMS REPRESENTATIVE 06/26/2024 10:09 AM LIABILITY CLAIMS REPRESENTATIVE Kary Mayers TECHNOLOGY INFUSION SPECIALIST LAB BLOOD ORDERABLES Final Result Performing Organization Address [facility] Co de Phone Number [address] [address] * (ABNORMAL) Lactate dehydrogenase (LD) (06/26/2024 9:22 AM LIABILITY CLAIMS REPRESENTATIVE) Lactate dehydrogenase (LDH) 292(H) 100 - 250 Units/L Comment:Testing performed by : [address] [address] Blood 06/26/2024 9:22 AM LIABILITY CLAIMS REPRESENTATIVE 06/26/2024 9:23 AM LIABILITY CLAIMS REPRESENTATIVE Kary Mayers TECHNOLOGY INFUSION SPECIALIST LAB BLOOD ORDERABLES Final Result Performing Organization Address [facility] Co de Phone Number SKYE [address] [address] * (ABNORMAL) Haptoglobin (06/26/2024 9:22 AM LIABILITY CLAIMS REPRESENTATIVE) Pathologist [facility] Haptoglobin <10(L) 30 - 200 mg/dL Blood 06/26/2024 9:22 AM LIABILITY CLAIMS REPRESENTATIVE 06/26/2024 12:52 PM LIABILITY CLAIMS REPRESENTATIVE Kary Mayers TECHNOLOGY INFUSION SPECIALIST LAB BLOOD ORDERABLES Final Result Performing Organization Address [facility] de Phone Number JAMEE[address] [address] * Folate (06/26/2024 9:22 AM LIABILITY CLAIMS REPRESENTATIVE) Pathologist [facility] Folic acid 11.4 >=5.0 ng/mL Comment:Testing performed by : [address] [address] Blood 06/26/2024 9:22 AM LIABILITY CLAIMS REPRESENTATIVE 06/26/2024 11:24 AM LIABILITY CLAIMS REPRESENTATIVE Kary Mayers TECHNOLOGY INFUSION SPECIALIST LAB BLOOD ORDERABLES Final Result Performing Organization Address [facility] de Phone Number JAMEE[address] [address] * (ABNORMAL) Ferritin (06/26/2024 9:22 AM LIABILITY CLAIMS REPRESENTATIVE) Pathologist [facility] Ferritin 296(H) 15 - 150 ng/mL Comment:Testing performed by : [address] [address] Blood 06/26/2024 9:22 AM LIABILITY CLAIMS REPRESENTATIVE 06/26/2024 11:24 AM LIABILITY CLAIMS REPRESENTATIVE Kary Mayers TECHNOLOGY INFUSION SPECIALIST LAB BLOOD ORDERABLES Final Result Performing Organization Address [facility] Co de Phone Number SKYE [address] [address] * Vitamin B12 (06/26/2024 9:22 AM LIABILITY CLAIMS REPRESENTATIVE) Vitamin B12 399 230 - 1,250 pg/mL Comment:Testing performed by : [address] [address] Blood 06/26/2024 9:22 AM LIABILITY CLAIMS REPRESENTATIVE 06/26/2024 11:24 AM LIABILITY CLAIMS REPRESENTATIVE Kary Mayers TECHNOLOGY INFUSION SPECIALIST LAB BLOOD ORDERABLES Final Result [facility] [address] [facility] Department [place] [address] * (ABNORMAL) Comprehensive metabolic panel (06/26/2024 9:22 AM LIABILITY CLAIMS REPRESENTATIVE) Pathologist [facility] Sodium 145 135 - 145 mmol/L Comment:Testing performed by : [address] [address] Potassium, pl 4.3 3.3 - 4.9 mmol/L SKYE Comment:Testing performed by : [address] [address] Chloride 107 97 - 110 mmol/L SKYE Comment:Testing performed by : [address] [address] CO2 28 22 - 32 mmol/L SKYE Comment:Testing performed by : [address] [address] Anion gap 10 2 - 15 mmol/L SKYE Comment:Testing performed by : [address] [address] BUN 14 6 - 25 mg/dL SKYE Comment:Testing performed by : [address] [address] Creatinine 1.00 0.60 - 1.10 mg/dL SKYE Comment:Testing performed by : [address] [address] Glucose 69(L) 70 - 199 mg/dL SKYE Comment: Interpretive Data Fasting glucose >/= 126 mg/dl is diagnostic for diabetes. ?? Fasting is defined as no caloric intake for at least 8 hours. Fasting glucose between 100 mg/dl to 125 mg/dl is diagnostic of prediabetes. In a patient with classic symptoms of hyperglycemia or hyperglycemic crisis, a random glucose >/= 200 mg/dl is diagnostic for diabetes. In the absence of unequivocal hyperglycemia, results should be confirmed by repeat testing. The classification and Diagnosis of Diabetes Diabetes Care 2021; 46: S19-S40. Current interpretive data was last revised 2022. Testing performed by: [address] [address] Calcium 8.5 8.5 - 10.3 mg/dL SKYE Comment:Testing performed by : [address], [address] Bilirubin, total 0.9 0.1 - 1.2 mg/dL SKYE Comment:Testing performed by : [address] [address] Protein, pl 6.0(L) 6.5 - 8.5 g/dL SKYE Comment:Testing performed by : [address] [address] Albumin 4.2 3.5 - 5.0 g/dL SKYE Comment:Testing performed by : [address] [address] Alk phos 93 40 - 130 Units/L SKYE Comment:Testing performed by : [address] [address] ALT 15 7 - 45 Units/L SKYE Comment:Testing performed by : [address] [address] AST 35 10 - 45 Units/L SKYE Comment:Testing performed by : [address] [address] Blood 06/26/2024 9:22 AM LIABILITY CLAIMS REPRESENTATIVE 06/26/2024 9:23 AM LIABILITY CLAIMS REPRESENTATIVE us Kary Mayers TECHNOLOGY INFUSION SPECIALIST LAB BLOOD ORDERABLES Final Result SKYE [id number] [facility] Department of Laboratories [place], [place] [id number] from Last 3 Months Insurance MEDICARE [facility] MEDICARE SUPPLEMENT INSURANCE RICA JUAREZ [id number] MEDICARE [facility] MEDICARE SUPPLEMENT INSURANCE MEDICARE [facility] Address: [address] [address] [place] [address] [facility] MEDICARE SUPPLEMENT INSURANCE Care Teams Real Estate Assistant Relationship Specialty Start Date End Date Dorina Echeverria PA PCP - General Physician Petroleum Blending Plant Operator 05/18/18 Liborio Montoya MD Medical Oncologist/Maintenance Mechanic Helper Hematology and Oncology 05/08/18 Eden Jang MD Referring Physician Cardiology 10/04/21
[2024-08-19] MEDS: MORPHINE 50 MG/NS 100ML (*CRX) 50 MG/100 ML BAG IV CONT (15:38)
[2024-08-19] MEDS: MORPHINE SULFATE (*CRX) 4 MG/ML INJ IV PUSH (15:45)
--- NOTE | 2024-08-19 16:49 | P.HP_ITS ---
H&P: HPI History of Present Illness Date/Time: 08/19/24 16:49 Chief Complaint: Uncontrolled pain Narrative: 79 y/o f admitted 08/13/24 with acute stroke, bilateral, with MS changes and numbness in both arms and legs. Seems to be improving a little until 08/17 when MS worsened. Repeat CT and labs showed no new findings. Due to her poor functional status and failure to improve and her pain and restlessness, today her family opted for inpatient hospice service for symptom management PMFSH Past Medical History Medical History Pancytopenia Neuropathy Lumbar disc herniation Lumbar stenosis Lumbar spondylosis At maximum risk for fall C2 cervical fracture Foot fracture, left Shoulder fracture, right Osteoporosis Anxiety and depression Anemia Bleeding disorder Bruises easily Surgical History Surgical History History of removal of cyst (~1980) from neck History of breast biopsy (R) breast History of 1964 & 1965 History of hernia repair History of back surgery (~2009) History of knee replacement procedure of right knee (~2007) History of knee replacement procedure of left knee (~2008) History of gastric bypass (~2006) History of rotator cuff surgery (~2001) x2 History of cholecystectomy (~1997) History of foot surgery 1991 (R) foot 2014 (L) foot History of ovarian cystectomy (~1971) Family History Family History Mother Lung cancer Father H/O total hip arthroplasty Grandparent Diabetes mellitus paternal grandmother Lung cancer maternal grandmother Social History Social History (Updated 08/19/24 @ 21:18 by Saud Preston MD) Social History: Was living independently prior to stroke. Code Status: DNR. Smoking status: Former smoker Tobacco type: cigarettes Alcohol intake: never Alcohol use details: socially Substance use: current Substance use type: marijuana Other substance usage details: gummies Do You Feel Safe in your Home?: Yes Lack of Transportation: No Lack of Food: Never True Current Housing: I Have Housing Concerned About Future Housing: No Difficulty Paying Gas/Electric Bills: No Difficulty Paying for Meds: No Currently Unemployed: No Education: High School Diploma/GED Difficulty w/ Childcare or Family Care: YES Living arrangements: alone Occupation/Education: retired Gender identity (if verbalized by the patient): Female Sexual Orientation (if Verbalized by the Patient): Straight or Heterosexual 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 (Tenriism) Meds Home Medications and Allergies Home Medications ?Medication ?Instructions ?Recorded ?Confirmed ?Type meloxicam 15 mg tablet 15 mg PO DAILY 05/31/21 08/13/24 History metoprolol succinate 25 mg 25 mg PO DAILY 05/31/21 08/13/24 History tablet,extended release 24 hr omeprazole 20 mg capsule,delayed 20 mg PO DAILY 05/31/21 08/13/24 History release pravastatin 10 mg tablet 10 mg PO DAILY 05/31/21 08/13/24 History venlafaxine 75 mg tablet 75 mg PO DAILY 05/31/21 08/13/24 History vitamins A,C,Y-bqnc-ycahzf 4,296 1 cap PO BID 12/12/23 08/13/24 History mcg-226 mg-90 mg capsule (PreserVision AREDS) Allergies Allergy/AdvReac Type Severity Reaction Status Date / Time No Known Allergies Allergy Verified 08/13/24 09:53 Exam Narrative: HEENT: Pharyngeal mucosa pink and dry. NECK: No JVD. CHEST: Clear to auscultation. Normal effort. HEART: NL S1/S2, regular, 3/6 MARLA heard best at [facility] w/o radiation. ABDOMEN: BS hypoactive, soft, nontender, no mass, no bruits EXTREMITIES: No edema NEUROLOGIC: CN symmetric to inspection. MUSCULOSKELETAL: No gross deformity to visual inspection. PSYCH: Unresponsive to verbal or tactile stimuli. Assessment and Plan Assessment and plan (1) Hospice care: Code(s): Z51.5 - Encounter for palliative care Status: Acute Assessment and Plan: * Meets inpatient hospice criteria due to requiring continuous IV morphine and scheduled IV lorazepam for control of pain and agitation. * 08/19/2024 care and prognosis discussed with family at bedside. (2) Acute CVA (cerebrovascular accident): Code(s): I63.9 - Cerebral infarction, unspecified Status: Acute (3) Mixed dementia: Code(s): G30.9 - Alzheimer's disease, unspecified; F01.50 - Vascular dementia, unspecified severity, without behavioral disturbance, psychotic disturbance, mood disturbance, and anxiety; F02.80 - Dementia in other diseases classified elsewhere, unspecified severity, without behavioral disturbance, psychotic disturbance, mood disturbance, and anxiety Status: Acute (4) JANETTE (acute kidney injury): Code(s): N17.9 - Acute kidney failure, unspecified Status: Acute (5) Pancytopenia: Code(s): D61.818 - Other pancytopenia Status: Chronic Hospitalist MIPS Advance Care Plan I have confirmed that the patient's Advanced Care Plan is present, code status is documented, or surrogate decision maker is listed in patient medical record.: Yes Medication Reconciliation I have utilized all available resources to obtain, update and review the patients current medications (includes all prescriptions, OTC, herbals, cannabis, and nutritional supplements).: Yes
[2024-08-19] MEDS: ARTIFICIAL TEARS OPHTH SOLN 15 ML BOTTLE 1 DROP EACH EYE (17:00)
[2024-08-19] MEDS: LORazepam INJ (*CRX) 2 MG/ML VIAL 1 MG IV PUSH ×2 (18:05→23:52)
[2024-08-20] MEDS: LORazepam INJ (*CRX) 2 MG/ML VIAL 1 MG IV PUSH ×5 (05:51→23:51)
[2024-08-20 08:37] VITALS: BP 105/63; PULSE 100; RESP 14; TEMP 37.3; O2SAT 96
[2024-08-20] MEDS: MORPHINE SULFATE (*CRX) 4 MG/ML INJ IV PUSH ×2 (13:04→15:18)
[2024-08-20] MEDS: MORPHINE 50 MG/NS 100ML (*CRX) 50 MG/100 ML BAG IV CONT (15:03)
[2024-08-20 17:00] VITALS: BP 94/46; PULSE 97; RESP 14; TEMP 37.4; O2SAT 91
--- NOTE | 2024-08-20 18:02 | P.PNIM_ITS ---
Progress Note: A&P Assessment and Plan (1) Hospice care: Code(s): Z51.5 - Encounter for palliative care Status: Acute Assessment and Plan: * Meets inpatient hospice criteria due to requiring continuous IV morphine and scheduled IV lorazepam for control of pain and agitation. * 08/19/2024 care and prognosis discussed with family at bedside. * 08/20/2024 continues to meet inpatient hospice criteria due to up titration morphine for control of symptoms. (2) Acute CVA (cerebrovascular accident): Code(s): I63.9 - Cerebral infarction, unspecified Status: Acute (3) Mixed dementia: Code(s): G30.9 - Alzheimer's disease, unspecified; F01.50 - Vascular dementia, unspecifie d severity, without behavioral disturbance, psychotic disturbance, mood disturbance, and anxiety; F02.80 - Dementia in other diseases classified elsewhere, unspecified severity, without behavioral disturbance, psychotic disturbance, mood disturbance, and anxiety Status: Acute (4) JANETTE (acute kidney injury): Code(s): N17.9 - Acute kidney failure, unspecified Status: Acute (5) Pancytopenia: Code(s): D61.818 - Other pancytopenia Status: Chronic Subjective Date/time seen: 08/20/24 18:02 Interval history: Required increase in IV morphine earlier today. Comfortable since dose adjustment. Review of Systems Review of Systems: ROS unobtainable: Yes unobtainable due to medical condition Exam Narrative: HEENT: Pharyngeal mucosa pink and dry. NECK: No JVD. CHEST: Clear to auscultation. Normal effort. HEART: NL S1/S2, regular, 3/6 MARLA heard best at [facility] w/o radiation. ABDOMEN: BS hypoactive, soft, nontender, no mass, no bruits EXTREMITIES: No edema NEUROLOGIC: CN symmetric to inspection. MUSCULOSKELETAL: No gross deformity to visual inspection. PSYCH: Unresponsive to verbal or tactile stimuli. Objective Data Vital Signs Vital Signs: Vital Signs - 24 hr 08/19/24 20:00 08/20/24 08:37 08/20/24 17:00 Temperature 99.1 F 99.3 F Pulse Rate 100 97 Respiratory Rate 14 14 Blood Pressure 105/63 94/46 L Pulse Oximetry 96 91 Oxygen Delivery Nasal Cannula Oxygen Flow Rate 2 Intake/Output Intake/Output: Intake & Output 08/17/24 08/18/24 08/19/24 08/20/24 23:59 23:59 23:59 23:59 Intake Total 100.6 Balance 100.6 Meds/Results Medications: Active Medications Generic Name Dose Route Start Last Admin Trade Name Freq PRN Reason Stop Dose Admin Acetaminophen 650 mg 08/19/24 14:13 Acetaminophen 650 Mg Suppository RECTAL Q6H PRN Fever Artificial Tears 1 drop 08/19/24 14:10 08/19/24 17:00 Artificial Tears Ophth Soln 15 Ml Bottle EACH EYE 1 drop Q4H PRN Administration Dry Eye(s) Bisacodyl 10 mg 08/19/24 14:12 Bisacodyl 10 Mg Suppository RECTAL QAM PRN Constipation Glycopyrrolate 0.1 mg 08/19/24 14:11 Glycopyrrolate Inj (*Sp) 0.2 Mg/Ml Vial IV PUSH Q6H PRN Secretions Morphine Sulfate 50 mg in 100 mls @ 8 mls/hr 08/19/24 14:30 08/20/24 16:46 IV CONT 4 mg/hr .[id number] SHAHNAZ 8 mls/hr Infusion 4 MG/HR Lorazepam 1 mg 08/19/24 18:00 08/20/24 13:04 Lorazepam Inj (*Crx) 2 Mg/Ml Vial IV PUSH 1 mg Q6HR SHAHNAZ Administration Lorazepam 1 mg 08/19/24 14:09 08/20/24 15:17 Lorazepam Inj (*Crx) 2 Mg/Ml Vial IV PUSH 1 mg Q2H PRN Administration Agitation/anxiety/restlessness Morphine Sulfate 8 mg 08/20/24 16:01 Morphine Sulfate (*Crx) 4 Mg/Ml Inj IV PUSH Q2H PRN PAIN/SOB Prochlorperazine Edisylate 10 mg 08/19/24 14:11 Prochlorperazine Edisylate 10 Mg/2 Ml Vial IV PUSH Q6H PRN Nausea And Vomiting
[2024-08-20 19:33] VITALS: BP 98/50; PULSE 100; RESP 16; TEMP 36.9; O2SAT 97
[2024-08-20 20:00] VITALS: RESP 14; O2SAT 95
[2024-08-20] MEDS: ARTIFICIAL TEARS OPHTH SOLN 15 ML BOTTLE 1 DROP EACH EYE (23:52)
[2024-08-21] MEDS: MORPHINE 50 MG/NS 100ML (*CRX) 50 MG/100 ML BAG 8 MG IV CONT ×2 (03:38→14:39)
[2024-08-21 06:09] VITALS: BP 110/55; PULSE 100; RESP 12; TEMP 37.9; O2SAT 94
[2024-08-21] MEDS: LORazepam INJ (*CRX) 2 MG/ML VIAL 1 MG IV PUSH ×5 (06:17→22:04)
[2024-08-21] MEDS: MORPHINE SULFATE (*CRX) 4 MG/ML INJ 8 MG IV PUSH ×2 (14:43→21:59)
--- NOTE | 2024-08-21 16:53 | P.PNIM_ITS ---
Progress Note: A&P Assessment and Plan (1) Hospice care: Code(s): Z51.5 - Encounter for palliative care Status: Acute Assessment and Plan: * Meets inpatient hospice criteria due to requiring continuous IV morphine and scheduled IV lorazepam for control of pain and agitation. * 08/19/2024 care and prognosis discussed with family at bedside. * 08/20/2024 continues to meet inpatient hospice criteria due to uptitration morphine for control of symptoms. * 08/21/2024 continues to meet inpatient hospice criteria due to continuous IV morphine and need for additional PRN IV medications. (2) Acute CVA (cerebrovascular accident): Code(s): I63.9 - Cerebral infarction, unspecified Status: Acute (3) Mixed dementia: Code(s): G30.9 - Alzheimer's disease, unspecified; F01.50 - Vascular dementia, unspecified severity, without behavioral disturbance, psychotic disturbance, moo d disturbance, and anxiety; F02.80 - Dementia in other diseases classified elsewhere, unspecified severity, without behavioral disturbance, psychotic disturbance, mood disturbance, and anxiety Status: Acute (4) JANETTE (acute kidney injury): Code(s): N17.9 - Acute kidney failure, unspecified Status: Acute (5) Pancytopenia: Code(s): D61.818 - Other pancytopenia Status: Chronic Subjective Date/time seen: 08/21/24 16:53 Interval history: Required extra dose each of Ativan and Morphine overnight. Comfortable at present. Review of Systems Review of Systems: ROS unobtainable: Yes unobtainable due to medical condition Exam Narrative: HEENT: Pharyngeal mucosa pink and dry. NECK: No JVD. CHEST: Clear to auscultation. Normal effort. HEART: NL S1/S2, regular, 3/6 MARLA heard best at [facility] w/o radiation. ABDOMEN: BS hypoactive, soft, nontender, no mass, no bruits EXTREMITIES: No edema NEUROLOGIC: CN symmetric to inspection. MUSCULOSKELETAL: No gross deformity to visual inspection. PSYCH: Unresponsive to verbal or tactile stimuli. Objective Data Vital Signs Vital Signs: Vital Signs - 24 hr 08/20/24 17:00 08/20/24 19:33 08/20/24 20:00 Temperature 99.3 F 98.5 F Pulse Rate 97 100 Respiratory Rate 14 16 14 Blood Pressure 94/46 L 98/50 L Pulse Oximetry 91 97 95 Oxygen Delivery Nasal Cannula Oxygen Flow Rate 1 08/21/24 06:09 Temperature 100.3 F H Pulse Rate 100 Respiratory Rate 12 Blood Pressure 110/55 L Pulse Oximetry 94 Oxygen Delivery Oxygen Flow Rate Intake/Output Intake/Output: Intake & Output 08/18/24 08/19/24 08/20/24 08/21/24 23:59 23:59 23:59 23:59 Intake Total 100.6 175.0 Output Total 250 Balance 100.6 -75.0 Meds/Results Medications: Active Medications Generic Name Dose Route Start Last Admin Trade Name Freq PRN Reason Stop Dose Admin Acetaminophen 650 mg 08/19/24 14:13 Acetaminophen 650 Mg Suppository RECTAL Q6H PRN Fever Artificial Tears 1 drop 08/19/24 14:10 08/20/24 23:52 Artificial Tears Ophth Soln 15 Ml Bottle EACH EYE 1 drop Q4H PRN Administration Dry Eye(s) Bisacodyl 10 mg 08/19/24 14:12 Bisacodyl 10 Mg Suppository RECTAL QAM PRN Constipation Glycopyrrolate 0.1 mg 08/19/24 14:11 Glycopyrrolate Inj (*Sp) 0.2 Mg/Ml Vial IV PUSH Q6H PRN Secretions Morphine Sulfate 50 mg in 100 mls @ 8 mls/hr 08/19/24 14:30 08/21/24 14:39 IV CONT 4 mg/hr .[id number] SHAHNAZ 8 mls/hr Administration 4 MG/HR Lorazepam 1 mg 08/19/24 18:00 08/21/24 11:24 Lorazepam Inj (*Crx) 2 Mg/Ml Vial IV PUSH 1 mg Q6HR SHAHNAZ Administration Lorazepam 1 mg 08/19/24 14:09 08/21/24 14:42 Lorazepam Inj (*Crx) 2 Mg/Ml Vial IV PUSH 1 mg Q2H PRN Administration Agitation/anxiety/restlessness Morphine Sulfate 8 mg 08/20/24 16:01 08/21/24 14:43 Morphine Sulfate (*Crx) 4 Mg/Ml Inj IV PUSH 8 mg Q2H PRN Administration PAIN/SOB Prochlorperazine Edisylate 10 mg 08/19/24 14:11 Prochlorperazine Edisylate 10 Mg/2 Ml Vial IV PUSH Q6H PRN Nausea And Vomiting
[2024-08-21 21:20] VITALS: BP 115/59; PULSE 125; RESP 28; TEMP 37.7; O2SAT 74
--- NOTE | 2024-08-22 10:49 | PM.DDS ---
Discharge Summary Date and Time Date of : 08/21/24 Time of : 22:15 Provider Pronounced By: 2 RNs Name of First RN That Pronounced: Sherly Wang RN Name of Second RN That Pronounced: Octavia Carmen RN Probable Cause of Probable Cause of : stroke Summary Hospital Course: Admitted to inpatient hospice service. Medications were titrated to comfort. Mrs. Carranza peacefully. Additional Data Confirmation of as documented by pronouncing clinician: Pupillary Reflex, Palpable Pulses, Response to Stimuli, Heart Tones and Breath Sounds Name of Provider Notified: Kary Time Provider Notified: 23:00 Provider Requests Autopsy: No Family Requests Autopsy: No Candle Making Supervisor Notified: Yes Date [facility] Notified of : 08/21/24 Time [facility] Notified of : 22:53
== END 2024-08-21 22:15 | disposition expired | DRG 951 ==
PROVIDERS: Admitting Provider Internal Medicine; PCP Physician Assistant; Visit Provider Internal Medicine
DX: Z51.5 Encounter for palliative care (principal); I63.9 Cerebral infarction, unspecified; G30.9 Alzheimer's disease, unspecified; F01.50 Vascular dementia, unspecified severity, without behavioral disturbance, psychotic disturbance, mood disturbance, and anxiety; F02.80 Dementia in other diseases classified elsewhere, unspecified severity, without behavioral disturbance, psychotic disturbance, mood disturbance, and anxiety
CPT/HCPCS: A9270; J2060; J2270